=== PATIENT | female | born 1950 | race Caucasian/White ===

== ENCOUNTER → 2018-01-26 09:39 | Outpatient (CLI) | payer MEDICARE, SELFPAY ==
--- NOTE | 2018-01-26 09:48 | RAD_ITS ---
STUDY: X-RAY - LUMBAR SPINE REASON FOR EXAM: Female, 67 years old. Chronic low back pain and right hip pain. TECHNIQUE: AP and lateral view(s) of the lumbar spine were obtained. COMPARISON: None FINDINGS: Normal lumbar lordosis. There is no substantial scoliosis. Grade 1 anterior listhesis of L4 on L5 without spondylolysis. There is generalized demineralization of the vertebral bodies. Moderate degree of disc space narrowing at the L4-L5 and L5-S1 levels. Facet joint osteoarthritis. There is atherosclerotic calcification of the abdominal aorta without a demonstrated aneurysm. RAD/Lumbar Spine 2 or 3 Views IMPRESSION: Degenerative changes of the spine, as detailed above. Grade 1 anterolisthesis of L4 on L5 most likely secondary to facet joint osteoarthritis. Electronically Signed: Olivier Zaidi MD at 14:27 EDT Tel [phone], Service support ,
== END ==
PROVIDERS: Family Provider Family Medicine Geriatric Medicine; PCP Family Medicine Geriatric Medicine; Visit Provider Family Medicine Geriatric Medicine
DX: M54.5 Low back pain (principal)
CPT/HCPCS: 72100

== ENCOUNTER → 2018-03-15 11:13 | Outpatient (CLI) | payer MEDICARE, SELFPAY ==
[2018-03-15 12:48] LABS: Absolute Lymphocyte Count 2.84 X10^3/ul (0.83-4.51); Basophil# 0.02 X10^3/uL; Basophil% 0.2 % (0-1); Eosinophil# 0.08 X10^3/uL; Eosinophils% 0.7 % (0-5); Hematocrit 44.5 % (37-47); Hemoglobin 14.2 g/dl (12.0-15.0); Lymphocyte # 2.84 X10^3/ul (4.0); Mean Corp Hgb Conc 31.9 g/gl (32-36); Mean Corpuscular Volume 97.2 fL (81-99); Mean Platelet Vol. 11.2 fl (6.2-12.0); Monocyte# 0.92 X10^3/uL; Monocyte% 7.8 % (0-10); Neutrophil # 7.96 X10^3/uL (2.7-7.7); Neutrophil % 67.1 % (47-70); Platelet Count 235 K/mm3 (150-450); RBC Distribution Width CV 15.2 % (11.6-14.6); Red Blood Count 4.58 M/mm3 (4.2-5.4); White Blood Count 11.8 K/mm3 (4.4-11.0)
[2018-03-15 12:55] LABS: POSITIVE COUNT NO; POSITIVE DIFFERENTIAL NO; POSITIVE MORPHOLOGY NO
[2018-03-15 13:17] LABS: Vitamin D,25 Hydroxy 41.7 ng/mL (29.95-100.01)
[2018-03-15 13:29] LABS: ALB/GLOB Ratio 1.1 RATIO (0.9-2.4); AST(SGOT) 24 U/L (15-37); Alanine Aminotransfer ALT/SGPT 28 U/L (13-56); Albumin, Serum 3.7 g/dL (3.2-5.0); Alkaline Phosphatase 92 U/L (45-117); Anion Gap 9 (5-15); BUN 18 mg/dL (7-18); BUN/Creat Ratio 24.3 RATIO (10-20); Chloride 105 mmol/L (98-107); Creatinine, Serum 0.74 mg/dL (0.55-1.02); EST Glomerular Filtration Rate 83 mL/min (>60); Est Glom Filt Rate - Afr Amer 101 mL/min (>60); Globulin 3.5 g/dL (2.2-4.2); Glucose 78 mg/dL (74-106); Protein, Total 7.2 g/dL (6.4-8.2); Sodium Level 144 mmol/L (136-145); Thyroid Stim Hormone (TSH) 1.74 uIU/mL (0.358-3.74)
== END ==
PROVIDERS: Family Provider Family Medicine Geriatric Medicine; PCP Family Medicine Geriatric Medicine; Visit Provider Family Medicine Geriatric Medicine
DX: I10 Essential (primary) hypertension (principal); E55.9 Vitamin D deficiency, unspecified
CPT/HCPCS: 36415; 80053; 82306; 84443; 85025

== ENCOUNTER → 2018-09-15 09:55 | Outpatient (CLI) | payer MEDICARE, SELFPAY ==
[2018-09-15 12:23] LABS: Absolute Lymphocyte Count 3.01 X10^3/ul (0.83-4.51); Absolute Neutrophil Count 4.4 X10^3/uL (2.0-7.7); Basophil# 0.03 X10^3/uL; Basophil% 0.4 % (0-1); Eosinophil# 0.32 X10^3/uL; Eosinophils% 3.8 % (0-5); Hematocrit 44.1 % (37-47); Hemoglobin 14.1 g/dl (12.0-15.0); Lymphocyte # 3.01 X10^3/ul (4.0); Lymphocyte % 35.5 % (19-41); Mean Corpuscular Hgb 30.1 pg (27.0-32.0); Mean Corpuscular Volume 94.2 fL (81-99); Mean Platelet Vol. 11.4 fl (6.2-12.0); Monocyte# 0.71 X10^3/uL; Monocyte% 8.4 % (0-10); Neutrophil # 4.39 X10^3/uL (2.7-7.7); Neutrophil % 51.7 % (47-70); Platelet Count 231 K/mm3 (150-450); RBC Distribution Width CV 14.7 % (11.6-14.6); RBC Distribution Width SD 48.5 fl (35.1-43.9); Red Blood Count 4.68 M/mm3 (4.2-5.4); White Blood Count 8.5 K/mm3 (4.4-11.0)
[2018-09-15 12:28] LABS: POSITIVE COUNT NO; POSITIVE DIFFERENTIAL NO; POSITIVE MORPHOLOGY NO
[2018-09-15 12:30] LABS: Vitamin D,25 Hydroxy 41.8 ng/mL (29.95-100.01)
[2018-09-15 12:47] LABS: ALB/GLOB Ratio 1.1 RATIO (0.9-2.4); AST(SGOT) 31 U/L (15-37); Alanine Aminotransfer ALT/SGPT 33 U/L (13-56); Albumin, Serum 3.6 g/dL (3.2-5.0); Alkaline Phosphatase 91 U/L (45-117); Anion Gap 10 (5-15); BUN 13 mg/dL (7-18); Calcium,Total 9.6 mg/dL (8.5-10.1); Chloride 105 mmol/L (98-107); Creatinine, Serum 0.82 mg/dL (0.55-1.02); EST Glomerular Filtration Rate 75 mL/min (>60); Est Glom Filt Rate - Afr Amer 90 mL/min (>60); Globulin 3.3 g/dL (2.2-4.2); Glucose 103 mg/dL (74-106); Potassium 3.5 mmol/L (3.5-5.1); Protein, Total 6.9 g/dL (6.4-8.2); Sodium Level 143 mmol/L (136-145); Thyroid Stim Hormone (TSH) 5.28 uIU/mL (0.358-3.74)
--- OUTSIDE RECORDS SUMMARY | 2018-11-10 05:05 | XMS RPT_ITS ---
:1950 Author Organization OHIP Support Name Relationship Address Phone ANAYA HERNANDES Unavailable [address] + [place] [address] R Unavailable Unavailable Unavailable EVELYN HERNANDESIS Unavailable [address] + [place] [address] R Unavailable Unavailable Unavailable EVELYN HERNANDESIS Unavailable [address] + [place] [address] R Unavailable Unavailable Unavailable CECILIO ANAYA Unavailable [address] + [place] [address] R Unavailable Unavailable Unavailable CECILIO ANAYA Unavailable [address] + [place] [address] R Unavailable Unavailable Unavailable CECILIO ANAYA Unavailable [address] + [place] [address] R Unavailable Unavailable Unavailable CECILIO ANAYA Unavailable [address] + [place] [address] R Unavailable Unavailable Unavailable CECILIO, ANAYA Unavailable [address] + [place] [address] R Unavailable Unavailable Unavailable CECILIO, ANAYA Unavailable [address] + [place] [address] R Unavailable Unavailable Unavailable CECILIO ANAYA Unavailable [address] + [place] [address] R Unavailable Unavailable Unavailable CECILIO ANAYA Unavailable [address] + [place] [address] R Unavailable Unavailable Unavailable Care Team Providers Name Role Phone Dossie, Amber Araya Attending Unavailable Haris, Yonny Chi Referring Unavailable Haris, Yonny Chi Primary Care Unavailable Haris, Yonny Chi Attending Unavailable Haris, Yonny Chi Primary Care Unavailable Haris, Yonny Chi Attending Unavailable Haris, Yonny Chi Primary Care Unavailable Haris, Yonny Chi Attending Unavailable Haris, Yonny Chi Referring Unavailable Haris, Yonny Chi Primary Care Unavailable Haris, Yonny Chi Attending Unavailable Haris, Yonny Chi Primary Care Unavailable Dossie, Amber Araya Attending Unavailable Haris, Yonny Chi Referring Unavailable Dossie, Amber RobbCLuis Attending Unavailable Haris, Yonny Chi Referring Unavailable Haris, Yonny Chi Primary Care Unavailable Dossie, Amber Araya Attending Unavailable Haris, Yonny Chi Referring Unavailable Haris, Yonny Chi Primary Care Unavailable Dossie, Amber RobbCLuis Attending Unavailable Haris, Yonny Chi Referring Unavailable Dossie, Amber RobbCLuis Attending Unavailable Haris, Yonny Chi Referring Unavailable Dossie, Amber Araya Attending Unavailable Haris, Yonny Chi Referring Unavailable Haris, Yonny Chi Primary Care Unavailable PROBLEMS PROBLEMS DATE TYPE CONDITION / CODE ATTENDING STATUS SOURCE 03/15/2018 Unknown E55.9 - Vitamin D Haris, 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 Community dysfunction of Hospital pelvic region / Repository M99.05(ICD-10) 03/07/2018 Unknown M99.03 - Segmental Dossie, Amber Active [place] and somatic D.C. Community dysfunction of Hospital lumbar region / Repository M99.03(ICD-10) 03/07/2018 Unknown M99.02 - Segmental Dossie, Amber Active [place] and somatic D.C. Community dysfunction of Hospital thoracic region / Repository M99.02(ICD-10) 02/28/2018 Unknown M48.06 - Spinal Dossie, Amber Active [place] stenosis, lumbar D.C. [facility] region / Hospital M48.06(ICD-10) Repository 02/28/2018 Unknown M51.36 - Other Dossie, Amber Active [place] intervertebral disc D.C. Community degeneration, lumbar Hospital region / Repository M51.36(ICD-10) 02/28/2018 Unknown M48.061 - Spinal Dossie, Amber Active [place] stenosis, lumbar D.C. [facility] without Hospital neurogenic Repository claudication / M48.061(ICD-10) 01/26/2018 Unknown M54.5 - Low back Haris, Yonny Chi Active [place] pain / M54.5(ICD-10) [facility] Repository PROCEDURES PROCEDURES No Procedure Records FoundRESULTS RESULTS CBC W/DIFF, AUTOMATED Collected: 09/15/2018 Status: F Source: [place] 9:56 AM [facility] [place] CODE TESTS RESULT OUT OF RANGE REFERENCE UNITS LAB L100.1000 4.4-11.0 K/mm3 Normal WBC 8.5 LAB L100.1200 4.2-5.4 M/mm3 Normal RBC 4.68 LAB L100.1300 12.0-15.0 g/dl Normal HGB 14.1 LAB L100.1400 37-47 % Normal HCT 44.1 LAB L100.1500 81-99 fL Normal MCV 94.2 LAB L100.1600 27.0-32.0 pg Normal MCH 30.1 LAB L100.1700 32-36 g/gl Normal MCHC 32.0 LAB L100.1810 11.6-14.6 % High RDW CV 14.7 LAB L100.1820 35.1-43.9 fl High RDW SD 48.5 LAB L100.1900 150-450 K/mm3 Normal PLT 231 LAB L100.2000 6.2-12.0 fl Normal MPV 11.4 LAB L100.2100 47-70 % Normal NEUT% 51.7 LAB L100.2200 19-41 % Normal LY% 35.5 LAB L100.2300 0-10 % Normal MONO% 8.4 LAB L100.2400 0-5 % Normal EO% 3.8 LAB L100.2500 0-1 % Normal BASO% 0.4 LAB L100.2550 0.0-0.9 % Normal IM GRAN % 0.200 Result Comment: IG% - Immature Granulocytes (promyelocytes, myelocytes and metamyelocytes) > 1% indicates that a LEFT SHIFT is Present. LAB L100.2620 2.0-7.7 X10 3/uL Normal Absolute Neut 4.4 LAB L100.2720 0.83-4.51 X10 3/ul Normal Absolute Lymph 3.01 Performed By: #### L100.0100 #### [facility] [address] [place], [address] VITAMIN D,25 HYDROXY Collected: 09/15/2018 Status: F Source: [place] 9:56 AM [facility] [place] TYPE CODE TESTS RESULT OUT OF RANGE REFERENCE UNITS LAB L506.1000 29.95-100.01 ng/mL Normal Vitamin D 41.8 25-OH Result Comment: Vitamin D 25(OH) Status Range Deficiency <20 ng/mL (50nmol/L) Insuffciency 20 - 30 ng/mL (50 - 75 nmol/L) Sufficiency 30 - 100 ng/mL (75 - 250 nmol/L) Toxicity >100 ng/mL (>250 nmol/L) Performed By: #### L506.1000 #### [facility] [address] [place], [address] COMPREHENSIVE METABOLIC Collected: 09/15/2018 Status: F Source: [place] [facility] 9:56 AM [facility] [place] TYPE CODE TESTS RESULT OUT OF RANGE REFERENCE UNITS LAB L501.0100 74-106 mg/dL Normal GLU 103 Result Comment: Fasting Glucose result from 100 to 125 mg/dL suggests IMPAIRED HOMEOSTASIS per A.D.A. criteria. Please note revised GLUCOSE reference range effective 2017. LAB L501.1000 7-18 mg/dL Normal BUN 13 LAB L501.1100 0.55-1.02 mg/dL Normal CREAT,SERUM 0.82 Result Comment: The validity of the calculated GFR AND GFRAA in patients over 70 years has not been determined. Clinical correlation is essential. LAB L501.1110 >60 mL/min Normal EST GFR 75 Result Comment: Non- GFR Calc LAB L501.1115 >60 mL/min Normal EST GFR - AA 90 Result Comment: GFR Calc LAB L501.1300 10-20 RATIO Normal BUN/CRE 16.0 LAB L501.1500 6.4-8.2 g/dL T Normal PROT 6.9 LAB L501.1800 3.2-5.0 g/dL Normal ALB 3.6 LAB L501.1950 2.2-4.2 g/dL Normal GLOB 3.3 LAB L501.2000 0.9-2.4 RATIO Normal A/G 1.1 LAB L501.2200 8.5-10.1 mg/dL CA Normal 9.6 LAB L501.4100 15-37 U/L Normal AST 31 LAB L501.4305 45-117 U/L Normal ALK P 91 LAB L501.4405 13-56 U/L Normal ALT 33 LAB L501.4600 0.20-1.00 mg/dL T Normal BILI 0.50 LAB L501.5300 136-145 mmol/L NA Normal 143 LAB L501.5600 3.5-5.1 mmol/L K Normal 3.5 LAB L501.5900 98-107 mmol/L CL Normal 105 LAB L501.6100 21.0-32.0 mmol/L Normal CO2 28.0 LAB L501.6200 5-15 Normal GAP 10 Performed By: #### L500.4050, L501.9520 #### [facility] [address] [place], [address] THYROID STIM HORMONE Collected: 09/15/2018 Status: F Source: [place] ([facility]) 9:56 AM [facility] [place] TYPE CODE TESTS RESULT OUT OF RANGE REFERENCE UNITS LAB L501.9520 0.358-3.74 uIU/mL High TSH 5.28 Performed By: #### L500.4050, L501.9520 #### [facility] [address] [place], [address] CBC W/DIFF, AUTOMATED Collected: 03/15/2018 Status: F Source: [place] 11:14 AM [facility] [place] TYPE CODE TESTS RESULT OUT OF RANGE REFERENCE UNITS LAB L100.1000 4.4-11.0 K/mm3 High WBC 11.8 LAB L100.1200 4.2-5.4 M/mm3 Normal RBC 4.58 LAB L100.1300 12.0-15.0 g/dl Normal HGB 14.2 LAB L100.1400 37-47 % Normal HCT 44.5 LAB L100.1500 81-99 fL Normal MCV 97.2 LAB L100.1600 27.0-32.0 pg Normal MCH 31.0 LAB L100.1700 32-36 g/gl Low MCHC 31.9 LAB L100.1810 11.6-14.6 % High RDW CV 15.2 LAB L100.1820 35.1-43.9 fl High RDW SD 54.0 LAB L100.1900 150-450 K/mm3 Normal PLT 235 LAB L100.2000 6.2-12.0 fl Normal MPV 11.2 LAB L100.2100 47-70 % Normal NEUT% 67.1 LAB L100.2200 19-41 % Normal LY% 24.0 LAB L100.2300 0-10 % Normal MONO% 7.8 LAB L100.2400 0-5 % Normal EO% 0.7 LAB L100.2500 0-1 % Normal BASO% 0.2 LAB L100.2550 0.0-0.9 % Normal IM GRAN % 0.200 Result Comment: IG% - Immature Granulocytes (promyelocytes, myelocytes and metamyelocytes) > 1% indicates that a LEFT SHIFT is Present. LAB L100.2620 2.0-7.7 X10 3/uL High Absolute Neut 8.0 LAB L100.2720 0.83-4.51 X10 3/ul Normal Absolute Lymph 2.84 Performed By: #### L100.0100 #### [facility] [address] [place], [place], [address] VITAMIN D,25 HYDROXY Collected: 03/15/2018 Status: F Source: [place] 11:14 [facility] [place] REPOSITORY TYPE CODE TESTS RESULT OUT OF RANGE REFERENCE UNITS LAB L506.1000 29.95-100.01 ng/mL Normal Vitamin D 41.7 25-OH Result Comment: Vitamin D 25(OH) Status Range Deficiency <20 ng/mL (50nmol/L) Insuffciency 20 - 30 ng/mL (50 - 75 nmol/L) Sufficiency 30 - 100 ng/mL (75 - 250 nmol/L) Toxicity >100 ng/mL (>250 nmol/L) Performed By: #### L506.1000 #### [facility] [address] [facility] [facility] [place], [address] COMPREHENSIVE METABOLIC Collected: 03/15/2018 Status: F Source: [facility] 11:14 AM [facility] [place] TYPE CODE TESTS RESULT OUT OF RANGE REFERENCE UNITS LAB L501.0100 74-106 mg/dL Normal GLU 78 Result Comment: Please note revised GLUCOSE reference range effective 2017. LAB L501.1000 7-18 mg/dL Normal BUN 18 LAB L501.1100 0.55-1.02 mg/dL Normal CREAT,SERUM 0.74 Result Comment: The validity of the calculated GFR AND GFRAA in patients over 70 years has not been determined. Clinical correlation is essential. LAB L501.1110 >60 mL/min Normal EST GFR 83 Result Comment: Non- GFR Calc LAB L501.1115 >60 mL/min Normal EST GFR - AA 101 Result Comment: GFR Calc LAB L501.1300 10-20 RATIO High BUN/CRE 24.3 LAB L501.1500 6.4-8.2 g/dL T Normal PROT 7.2 LAB L501.1800 3.2-5.0 g/dL Normal ALB 3.7 LAB L501.1950 2.2-4.2 g/dL Normal GLOB 3.5 LAB L501.2000 0.9-2.4 RATIO Normal A/G 1.1 LAB L501.2200 8.5-10.1 mg/dL CA Normal 10.0 LAB L501.4100 15-37 U/L Normal AST 24 LAB L501.4305 45-117 U/L Normal ALK P 92 LAB L501.4405 13-56 U/L Normal ALT 28 LAB L501.4600 0.20-1.00 mg/dL T Normal BILI 0.50 LAB L501.5300 136-145 mmol/L NA Normal 144 LAB L501.5600 3.5-5.1 mmol/L K Normal 4.0 LAB L501.5900 98-107 mmol/L CL Normal 105 LAB L501.6100 21.0-32.0 mmol/L Normal CO2 30.0 LAB L501.6200 5-15 Normal GAP 9 Performed By: #### L500.4050, L501.9520 #### [facility] [address] [place], [address] THYROID STIM HORMONE Collected: 03/15/2018 Status: F Source: [place] ([facility]) 11:14 AM [facility] [place] TYPE CODE TESTS RESULT OUT OF RANGE REFERENCE UNITS LAB L501.9520 0.358-3.74 uIU/mL Normal TSH 1.74 Performed By: #### L500.4050, L501.9520 #### [facility] [address] [place], [address] CHIROPRACTIC REPORT Observed: 03/07/2018 Status: F Source: [place] 1:14 PM [facility] [place] [facility] [address] [place] [address] OFFICE VISIT Date of Service: 03/06/18 MR#: [id number] Acct: [id number] Name: CLARA RAMON Rep #: [id number] : 1950 Provider: Amber Colon D.C. Age/Sex: 67/F [place] [facility] [place]igned Intake Vital Signs03/06/18 Height 5 ft 3.5 in 03/06/18 Weight: 170 lb 03/06/18 Body Mass Index (BMI) 29.6 Intake Visit Reasons: back pain Chief Complaint: back pain Is patient in pain?: Yes Allergies Penicillins Allergy (Verified 06/02/17 11:46) Rash Medications Amlodipine [Norvasc] 5 mg PO DAILY 11/26/13 [History Confirmed 08/22/17] Aspirin [Aspirin, Baby] 81 mg PO DAILY@0800 11/26/13 [History Confirmed 08/22/17] Atorvastatin Calcium [Lipitor] 40 mg PO QHS 11/26/13 [History Confirmed 08/22/17] Duloxetine Hcl [Cymbalta] 60 mg PO DAILY 11/26/13 [History Confirmed 08/22/17] Meloxicam [Mobic] 15 mg PO DAILY 11/26/13 [History Confirmed 08/22/17] Multivitamins,Therapeutic [Multivitamin] 1 tab PO DAILY 11/26/13 [History Confirmed 08/22/17] Omeprazole [Prilosec] 40 mg PO DAILY 11/26/13 [History Confirmed 08/22/17] Pregabalin [Lyrica] 150 mg PO BID 11/26/13 [History Confirmed 08/22/17] traMADol [Ultram] 50 mg PO Q4H PRN PRN 11/26/13 [History Confirmed 08/22/17] traZODone [Desyrel] 100 mg PO QHS 11/26/13 [History Confirmed 08/22/17] Cholecalciferol (Vitamin D3) [Vitamin D3] 2,000 unit PO DAILY 02/21/17 [History Confirmed 08/22/17] Citrucel 2 cap PO TID 02/21/17 [History Confirmed 08/22/17] amlodipine 5 mg tablet 5 mg PO QDAY 02/07/18 [History Confirmed 02/07/18] pregabalin 150 mg capsule 150 mg PO BID 02/07/18 [History Confirmed 02/07/18] tramadol 50 mg tablet 50 mg PO ONCE 02/07/18 [History Confirmed 02/07/18] trazodone 100 mg tablet 100 mg PO QHS PRN 02/07/18 [History Confirmed 02/07/18] PFSH Medical History Arthritis (Acute) High cholesterol (Acute) Family History Other Arthritis CVA (cerebral vascular accident) Cancer Social History Smoking Status: Current every day smoker alcohol intake: never substance use type: does not use what type of physical activity do you participate in: none HPI back pain: Chief Complaint: back pain Visit Number: 4 Details: CLARA RAMON is a 67 year old F who presents with low back pain. She states that while working in the yard and around the house she needs to wear her back brace due to the pain. Today Clara rates her pain a 4/10 and describes it as a tight dull ache that comes and goes. Bending, lifting and twisting cause a sharp ache, although she denies any recent numbness, tingling. or radiculopathy. Location: low back Duration: intermittent Aggravating or associated factors: bending, lifting and twisting Relieving factors: using a brace Pain Quality: aching, dull, cramping Exam Musc General: Yes normal posture, normal gait, joint tenderness (T10, T11, L3, L4, L5, R SI) and decreased ROM Thoracic/Lumbar Spine: thor and lumb spine abnorm to inspection (flexed antalgia), Lasegue's sign positive on the right, pain with thoraco-lumbar ROM with forward flexion, with lateral flexion to the left and other (extension), paraspinal tenderness on the right greater than left (QL, glute), thoraco-lumbar ROM limited with forward flexion, with lateral flexion to the right and with lateral flexion to the left, thoraco-lumbar spasm on the right greater than left (QL, piriformis) Sacroiliac joints: on the right Office Procedures Chiropractic Treatments Procedures Manipulation: 3-4 regions (T10, L3, L5, RIL) Assessment AND Plan 1. Segmental and somatic dysfunction of pelvic region M99.05 Orders Orders: 2. Segmental and somatic dysfunction of lumbar region M99.03 Orders Orders: 3. Segmental and somatic dysfunction of thoracic region M99.02 Orders Orders: 4. Spinal stenosis of lumbar region, unspecified whether neurogenic claudication present M48.061 5. Lumbar degenerative disc disease M51.36 Plan Detail Goals Decrease pain and radiculopathy Increase ROM Barriers DDD Stenosis Anterolisthesis Follow Up 1 Week Coding Level of Care Code No Charge Diagnoses Segmental and somatic dysfunction of pelvic region M99.05 Segmental and somatic dysfunction of lumbar region M99.03 Segmental and somatic dysfunction of thoracic region M99.02 Spinal stenosis of lumbar region, unspecified whether neurogenic claudication present M48.061 Neurogenic claudication status: unspecified Lumbar degenerative disc disease M51.36 Additional Codes Procedures - Manipulation: 3-4 regions (47049) 03/07/18 1314 <Electronically signed by Amber Colon D.C.> Date Amber Colon D.C. Cosigner Signature: Date (if applicable) CC: CHIROPRACTIC REPORT Observed: 02/27/2018 Status: F Source: [place] 1:24 PM [facility] [address] [place] [id number] OFFICE VISIT Date of Service: 02/27/18 MR#: [id number] Acct: [id number] Name: CLARA RAMON Rep #: [id number] : 1950 Provider: Amber Colon D.C. Age/Sex: 67/F Location[facility] [place] Status: Signed Intake Vital Signs02/27/18 Height 5 ft 3.5 in 02/27/18 Weight: 170 lb 02/27/18 Body Mass Index (BMI) 29.6 Intake Visit Reasons: Back pain Chief Complaint: back pain Is patient in pain?: Yes Allergies Penicillins Allergy (Verified 06/02/17 11:46) Rash Medications Amlodipine [Norvasc] 5 mg PO DAILY 11/26/13 [History Confirmed 08/22/17] Aspirin [Aspirin, Baby] 81 mg PO DAILY@0800 11/26/13 [History Confirmed 08/22/17] Atorvastatin Calcium [Lipitor] 40 mg PO QHS 11/26/13 [History Confirmed 08/22/17] Duloxetine Hcl [Cymbalta] 60 mg PO DAILY 11/26/13 [History Confirmed 08/22/17] Meloxicam [Mobic] 15 mg PO DAILY 11/26/13 [History Confirmed 08/22/17] Multivitamins,Therapeutic [Multivitamin] 1 tab PO DAILY 11/26/13 [History Confirmed 08/22/17] Omeprazole [Prilosec] 40 mg PO DAILY 11/26/13 [History Confirmed 08/22/17] Pregabalin [Lyrica] 150 mg PO BID 11/26/13 [History Confirmed 08/22/17] traMADol [Ultram] 50 mg PO Q4H PRN PRN 11/26/13 [History Confirmed 08/22/17] traZODone [Desyrel] 100 mg PO QHS 11/26/13 [History Confirmed 08/22/17] Cholecalciferol (Vitamin D3) [Vitamin D3] 2,000 unit PO DAILY 02/21/17 [History Confirmed 08/22/17] Citrucel 2 cap PO TID 02/21/17 [History Confirmed 08/22/17] amlodipine 5 mg tablet 5 mg PO QDAY 02/07/18 [History Confirmed 02/07/18] pregabalin 150 mg capsule 150 mg PO BID 02/07/18 [History Confirmed 02/07/18] tramadol 50 mg tablet 50 mg PO ONCE 02/07/18 [History Confirmed 02/07/18] trazodone 100 mg tablet 100 mg PO QHS PRN 02/07/18 [History Confirmed 02/07/18] [facility] Medical History Arthritis (Acute) High cholesterol (Acute) Family History Other Arthritis CVA (cerebral vascular accident) Cancer Social History Smoking Status: Current every day smoker alcohol intake: never substance use type: does not use what type of physical activity do you participate in: none HPI Back pain: Chief Complaint: back pain Visit Number: 3 Details: CLARA RAMON is a 67 year old F who presents with low back pain. She states that since her last treatment her pain has slightly decreased, although when doing house and yard work the pain does still increase. Today Clara rates her pain a 4/10 and describes it as a deep sharp, tight ache, at times the pain is still radiating into the hips although she denies any numbness, or tingling. Location: low back Duration: constant Aggravating or associated factors: bending, lifting, twisting and pushing Pain Quality: aching, dull, sharp Exam Musc General: Yes normal posture, normal gait, joint tenderness (T10, T11, L3, L4, L5, R SI) and decreased ROM Thoracic/Lumbar Spine: thor and lumb spine abnorm to inspection (flexed antalgia), Lasegue's sign positive on the right, pain with thoraco-lumbar ROM with forward flexion, with lateral flexion to the left and other (extension), paraspinal tenderness on the right greater than left (QL, glute), thoraco-lumbar ROM limited with forward flexion, with lateral flexion to the right and with lateral flexion to the left, thoraco-lumbar spasm on the right greater than left (QL, piriformis) Sacroiliac joints: on the right Office Procedures Chiropractic Treatments Procedures Manipulation: 3-4 regions (T11, L3, L5, R SI) Assessment AND Plan 1. Segmental and somatic dysfunction of pelvic region M99.05 Orders Orders: 2. Segmental and somatic dysfunction of lumbar region M99.03 Orders Orders: 3. Segmental and somatic dysfunction of thoracic region M99.02 Orders Orders: 4. Spinal stenosis of lumbar region, unspecified whether neurogenic claudication present M48.061 5. Lumbar degenerative disc disease M51.36 Orders Orders: Plan Detail Other Orders Orders: Goals Decrease pain and radiculopathy Increase ROM Barriers DDD Stenosis Anterolisthesis Follow Up 1 Week Coding Level of Care Code No Charge Diagnoses Segmental and somatic dysfunction of pelvic region M99.05 Segmental and somatic dysfunction of lumbar region M99.03 Segmental and somatic dysfunction of thoracic region M99.02 Spinal stenosis of lumbar region, unspecified whether neurogenic claudication present M48.061 Neurogenic claudication status: unspecified Lumbar degenerative disc disease M51.36 Additional Codes Procedures - Manipulation: 3-4 regions (87290) 02/27/18 1324 <Electronically signed by Amber Colon D.C.> Date Amber Colon D.C. Cosigner Signature: Date (if applicable) CC: CHIROPRACTIC REPORT Observed: 02/13/2018 Status: F Source: [place] 4:05 PM [facility] [address] [place] [address] OFFICE VISIT Date of Service: 02/09/18 MR#: [id number] Acct: [id number] Name: CLARA RAMON Rep #: [id number] : 1950 Provider: Amber Colon D.C. Age/Sex: 67/F [place] [facility] [place]: Signed Intake Vital Signs02/09/18 Height 5 ft 3.5 in 02/09/18 Weight: 170 lb 8 oz 02/09/18 Body Mass Index (BMI) 29.7 Intake Visit Reasons: back pain Chief Complaint: low back pain Is patient in pain?: Yes Allergies Penicillins Allergy (Verified 06/02/17 11:46) Rash Medications Amlodipine [Norvasc] 5 mg PO DAILY 11/26/13 [History Confirmed 08/22/17] Aspirin [Aspirin, Baby] 81 mg PO DAILY@0800 11/26/13 [History Confirmed 08/22/17] Atorvastatin Calcium [Lipitor] 40 mg PO QHS 11/26/13 [History Confirmed 08/22/17] Duloxetine Hcl [Cymbalta] 60 mg PO DAILY 11/26/13 [History Confirmed 08/22/17] Meloxicam [Mobic] 15 mg PO DAILY 11/26/13 [History Confirmed 08/22/17] Multivitamins,Therapeutic [Multivitamin] 1 tab PO DAILY 11/26/13 [History Confirmed 08/22/17] Omeprazole [Prilosec] 40 mg PO DAILY 11/26/13 [History Confirmed 08/22/17] Pregabalin [Lyrica] 150 mg PO BID 11/26/13 [History Confirmed 08/22/17] traMADol [Ultram] 50 mg PO Q4H PRN PRN 11/26/13 [History Confirmed 08/22/17] traZODone [Desyrel] 100 mg PO QHS 11/26/13 [History Confirmed 08/22/17] Cholecalciferol (Vitamin D3) [Vitamin D3] 2,000 unit PO DAILY 02/21/17 [History Confirmed 08/22/17] Citrucel 2 cap PO TID 02/21/17 [History Confirmed 08/22/17] amlodipine 5 mg tablet 5 mg PO QDAY 02/07/18 [History Confirmed 02/07/18] pregabalin 150 mg capsule 150 mg PO BID 02/07/18 [History Confirmed 02/07/18] tramadol 50 mg tablet 50 mg PO ONCE 02/07/18 [History Confirmed 02/07/18] trazodone 100 mg tablet 100 mg PO QHS PRN 02/07/18 [History Confirmed 02/07/18] PFSH Medical History Arthritis (Acute) High cholesterol (Acute) Family History Other Arthritis CVA (cerebral vascular accident) Cancer Social History Smoking Status: Current every day smoker alcohol intake: never substance use type: does not use what type of physical activity do you participate in: none HPI back pain : Chief Complaint: back pain Visit Number: 2 Details: CLARA RAMON is a 67 year old F who presents with low back pain. She states that today her pain is tight and stiff banding across the low back, today she rates her pain a 4/10. Bending, lifting, twisting, and leaning forward still cause increased low back pain. At times the pain will radiate into the hips although she denies any numbness or tingling. Location: low back Duration: constant Aggravating or associated factors: bending, lifting, twisting and leaning forward Relieving factors: heat Pain Quality: aching, dull, sharp Exam Musc General: Yes normal posture, normal gait, joint tenderness (T10, T11, L3, L4, L5, R SI) and decreased ROM Thoracic/Lumbar Spine: thor and lumb spine abnorm to inspection (flexed antalgia), Lasegue's sign positive on the right, pain with thoraco-lumbar ROM with forward flexion, with lateral flexion to the left and other (extension), paraspinal tenderness on the right greater than left (QL, glute), thoraco-lumbar ROM limited with forward flexion, with lateral flexion to the right and with lateral flexion to the left, thoraco-lumbar spasm on the right greater than left (QL, piriformis) Sacroiliac joints: on the right Office Procedures Chiropractic Treatments Procedures Manipulation: 3-4 regions (T10, L3, L5, RIL) Assessment AND Plan 1. Segmental and somatic dysfunction of pelvic region M99.05 Orders Orders: 2. Segmental and somatic dysfunction of lumbar region M99.03 Orders Orders: 3. Segmental and somatic dysfunction of thoracic region M99.02 Orders Orders: Plan Detail Goals Decrease pain and radiculopathy Increase ROM Barriers DDD Stenosis Anterolisthesis Follow Up 2 x week Coding Level of Care Code No Charge Diagnoses Segmental and somatic dysfunction of pelvic region M99.05 Segmental and somatic dysfunction of lumbar region M99.03 Segmental and somatic dysfunction of thoracic region M99.02 Additional Codes Procedures - Manipulation: 3-4 regions (02410) 02/13/18 1603 <Electronically signed by Amber Colon D.C.> Date Amber Colon D.C. [facility] Signature: Date (if applicable) CC: CHIROPRACTIC REPORT Observed: 02/09/2018 Status: F Source: [place] 12:47 PM [facility] [address] [place] [address] OFFICE VISIT Date of Service: 02/07/18 MR#: [id number] Acct: [id number] Name: CLARA RAMON Rep #: [id number] : 1950 Provider: Amber Colon D.C. Age/Sex: 67/F [place] [facility] [place] Intake Vital Signs02/07/18 Height 5 ft 3.5 in 02/07/18 Weight: 170 lb 8 oz 02/07/18 Body Mass Index (BMI) 29.7 Intake Visit Reasons: Back pain Is patient in pain?: Yes Allergies Penicillins Allergy (Verified 06/02/17 11:46) Rash Medications Amlodipine [Norvasc] 5 mg PO DAILY 11/26/13 [History Confirmed 08/22/17] Aspirin [Aspirin, Baby] 81 mg PO DAILY@0800 11/26/13 [History Confirmed 08/22/17] Atorvastatin Calcium [Lipitor] 40 mg PO QHS 11/26/13 [History Confirmed 08/22/17] Duloxetine Hcl [Cymbalta] 60 mg PO DAILY 11/26/13 [History Confirmed 08/22/17] Meloxicam [Mobic] 15 mg PO DAILY 11/26/13 [History Confirmed 08/22/17] Multivitamins,Therapeutic [Multivitamin] 1 tab PO DAILY 11/26/13 [History Confirmed 08/22/17] Omeprazole [Prilosec] 40 mg PO DAILY 11/26/13 [History Confirmed 08/22/17] Pregabalin [Lyrica] 150 mg PO BID 02/10/14 [History Confirmed 08/22/17] traMADol [Ultram] 50 mg PO Q4H PRN PRN 11/26/13 [History Confirmed 08/22/17] traZODone [Desyrel] 100 mg PO QHS 11/26/13 [History Confirmed 08/22/17] Cholecalciferol (Vitamin D3) [Vitamin D3] 2,000 unit PO DAILY 02/21/17 [History Confirmed 08/22/17] Citrucel 2 cap PO TID 02/21/17 [History Confirmed 08/22/17] amlodipine 5 mg tablet 5 mg PO QDAY 02/07/18 [History Confirmed 02/07/18] pregabalin 150 mg capsule 150 mg PO BID 02/07/18 [History Confirmed 02/07/18] tramadol 50 mg tablet 50 mg PO ONCE 02/07/18 [History Confirmed 02/07/18] trazodone 100 mg tablet 100 mg PO QHS PRN 02/07/18 [History Confirmed 02/07/18] PFSH Medical History Arthritis (Acute) High cholesterol (Acute) Family History Other Arthritis CVA (cerebral vascular accident) Cancer Social History Smoking Status: Current every day smoker alcohol intake: never substance use type: does not use what type of physical activity do you participate in: none HPI Back pain: Chief Complaint: low back pain Visit Number: 1 Referral source: Details: CLARA RAMON is a 67 year old F who presents with R sided low back pain, she states that pain has been ongoing for roughly 7 years. Clara has been seen by pain management and had injections with improvement. Clara described the pain as a sharp deep ache that is constant, bending, twisting and prolonged standing all cause increased pain, at its worst the pain is rated a 10/10. At times the pain does radiate into the R leg with slight numbness and tingling, although this rarely occurs. Ice does at times help decrease the pain. currently she denies any numbness or tingling. Mrs. Ramon has also been through PT, which did not help her condition. Onset: 10/17/10 Location: R sided low back Duration: constant Aggravating or associated factors: bending, twisting and prolonged standing Relieving factors: ice Pain Quality: aching, dull, sharp, radiating Exam Musc General: Yes normal posture, normal gait, joint tenderness (T10, T11, L3, L4, L5, R SI) and decreased ROM Thoracic/Lumbar Spine: thor and lumb spine abnorm to inspection (flexed antalgia), Lasegue's sign positive on the right, pain with thoraco-lumbar ROM with forward flexion, with lateral flexion to the left and other (extension), paraspinal tenderness on the right greater than left (QL, glute), thoraco-lumbar ROM limited with forward flexion, with lateral flexion to the right and with lateral flexion to the left, thoraco-lumbar spasm on the right greater than left (QL, piriformis) Sacroiliac joints: on the right Neuro General: alert, awake, oriented x3, gait abnormal (flexed), normal light touch, pain and propioception, no focal motor deficits Ortho Test CERVICAL THORACIC LUMBAR Kemps: Positive, Rig Valsalvas: Negative SLR: Positive, Rig Braggards: Negative Iliac Compression: Positive, Rig Assessment AND Plan 1. DDD (degenerative disc disease), lumbar M51.36 2. Lumbar radiculopathy, chronic M54.16 3. Segmental and somatic dysfunction of thoracic region M99.02 4. Segmental and somatic dysfunction of lumbar region M99.03 5. Segmental and somatic dysfunction of pelvic region M99.05 Plan Detail Additional Comments Reviewed imaging previously obtained. Goals Decrease pain and radiculopathy Increase ROM Barriers DDD Stenosis Anterolisthesis Follow Up 2 Days Coding Level of Care Code Off vis,new,level 3 Diagnoses DDD (degenerative disc disease), lumbar M51.36 Lumbar radiculopathy, chronic M54.16 Segmental and somatic dysfunction of thoracic region M99.02 Segmental and somatic dysfunction of lumbar region M99.03 Segmental and somatic dysfunction of pelvic region M99.05 02/09/18 3617 <Electronically signed by Amber Colon D.C.> Date Amber Colon D.C. Cosigner Signature: Date (if applicable) CC: LUMBAR SPINE 2 OR 3 Observed: 01/26/2018 Status: F Source: [place] VIEWS 9:46 AM [facility] REPOSITORY [facility] [place] [address] Lumbar Spine 2 or 3 Views MR#: [id number] Acct: [id number] Name: CLARA RAMON Rep #: [id number] : 1950 F 67 From: Olivier Zaidi MD PCP: Yonny Carballo MD, Chi Status: REG CLI Study: Lumbar Spine 2 or 3 Views Date of Exam: 01/26/18 Exam# [id number] Ordering Dr: Yonny Carballo MD STUDY: X-RAY - LUMBAR SPINE REASON FOR EXAM: Female, 67 years old. Chronic low back pain and right hip pain. TECHNIQUE: AP and lateral view(s) of the lumbar spine were obtained. COMPARISON: None FINDINGS: Normal lumbar lordosis. There is no substantial scoliosis. Grade 1 anterior listhesis of L4 on L5 without spondylolysis. There is generalized demineralization of the vertebral bodies. Moderate degree of disc space narrowing at the L4-L5 and L5-S1 levels. Facet joint osteoarthritis. There is atherosclerotic calcification of the abdominal aorta without a demonstrated aneurysm. RAD/Lumbar Spine 2 or 3 Views IMPRESSION: Degenerative changes of the spine, as detailed above. Grade 1 anterolisthesis of L4 on L5 most likely secondary to facet joint osteoarthritis. Electronically Signed: Olivier Zaidi MD at 14:27 EDT Tel [phone], Service support , CC: Yonny Carballo MD Embossograph Operator: Signed BASIC METABOLIC Collected: 10/05/2017 Status: F Source: [place] PROFILE (BMP) 10:59 AM [facility] [place] TYPE CODE TESTS RESULT OUT OF RANGE REFERENCE UNITS LAB L501.0100 70-110 mg/dL Normal GLU 101 LAB L501.1000 7-18 mg/dL Normal BUN 14 LAB L501.1100 0.55-1.02 mg/dL Normal 0.70 CREAT,SERUM Result Comment: The validity of the calculated GFR AND GFRAA in patients over 70 years has not been determined. Clinical correlation is essential. LAB L501.1110 >60 mL/min Normal EST GFR 88 Result Comment: Non- GFR Calc LAB L501.1115 >60 mL/min Normal EST GFR - AA 107 Result Comment: GFR Calc LAB L501.1300 10-20 RATIO Normal BUN/CRE 19.9 LAB L501.2200 8.5-10.1 mg/dL CA Normal 9.5 LAB L501.5300 136-145 mmol/L NA Normal 142 LAB L501.5600 3.5-5.1 mmol/L K Normal 3.9 LAB L501.5900 98-107 mmol/L CL Normal 106 LAB L501.6100 21.0-32.0 mmol/L Normal CO2 29.0 LAB L501.6200 5-15 Normal GAP 7 Performed By: #### L500.2500 #### [facility] [address]. [place], [place], [address] ALLERGIES ALLERGIES DATE TYPE / CODE NAME / CODE REACTION SEVERITY SOURCE 06/02/2017 Drug Penicillins/ Rash Unknown [facility] Allergy/4160 [id number]( Hospital 34754(SNOMED XNORM) Repository CT) ENCOUNTERS ENCOUNTERS ADMIT/DISCHARGE ACCOUNT ADMITTING ENCOUNTER LOCATION SOURCE NUMBER CLASS 09/15/2018 [id number] [place] 8 [facility] ing:POLAB3 Repository 03/16/2018 [id number] Ambulatory [facility]:B [place] 3 [facility] Repository 03/15/2018 [id number] Ambulatory [facility] 6 [facility] ing:POLAB3 Repository 03/06/2018/ [id number] Ambulatory BMSBuilding:B [place] 8 4 [facility] Repository 02/27/2018/ [id number] Ambulatory [facility]:[place] 8 3 [facility] Repository 02/14/2018 [id number] Ambulatory [facility]:B [place] 7 [facility] Repository 02/13/2018 [id number] Ambulatory B[facility]:B [place] 5 [facility] Repository 02/09/2018/ [id number] Ambulatory B[facility]Building:B [place] 8 3 [facility] Repository 02/07/2018/ [id number] Ambulatory BMSBuilding:B [place] 8 4 [facility] Repository 01/26/2018 [id number] Ambulatory [place] 4 [facility] ing:RAD Repository 10/05/2017 [id number] Ambulatory [place] 5 [facility] ing:POLAB3 Repository PAYERS PAYERS ENCOUNTER GUARANTOR PAYER SUBSCRIBER SOURCE 09/15/2018 Clara K Primary Clara Jacobo [place] [id number] [facility] [place] MED[place]Policy [id number], Number: Repository [place] [address]Vik: [id number] Date:2516-87-45YU BOX (AN) [address] [place] [address]WM: 09/15/2018 Secondary NOT GIVENUNK [place] Insurance:SELF PAY [facility] Number: Effective Repository Date:2018-09-15 03/16/2018 Clara Jacobo Primary Clara Jacobo [place] [id number] Insurance[facility] [place]DOB: [place] MEDICAREPolicy [id number] Francis Medical Center, Number: Repository [place] [address]Jgb: [id number] Date:2917-70-07ZU BOX (SH) [address] [place] [address]HI: 03/16/2018 Secondary NOT GIVENUNK [place] Insurance:SELF PAY [facility] Number: Effective Repository Date:2018-03-06 03/15/2018 Clara Jacobo Primary Clara Jacobo [place] [id number] Insurance[facility] [place] [facility] [place] MED[facility]Policy [id number] Francis Medical Center, Number: Repository [place] [address]Pyp: [id number] Date:1794-98-77NK [address] () [address] [place] [address]YM: 03/15/2018 Secondary NOT GIVENUNK [place] Insurance:SELF PAY [facility]: Effective Repository Date:2018-03-15 03/06/2018 Clara Jacobo Primary Clara Jacobo [place] [id number] Insurance:[facility] [place]: [place] MEDICAREPolicy [id number] Francis Medical Center, Number: Repository [place] [address]Yax: [id number] Date:4657-62-42EF [address] () [address] [place] [address]YC: 03/06/2018 Secondary NOT GIVENUNK [place] Insurance:SELF PAY [facility] Number: Effective Repository Date:2018-03-06 02/27/2018 Clara Jacobo Primary Clara Jacobo [place] [id number] Insurance:[facility] [employer] [place]: [place] [facility] [id number] Francis Medical Center, Number: Repository [place] [id number]: [id number] Date:5681-01-65YW B[address] () [address] [place] [address]JO: 02/27/2018 Secondary NOT GIVENUNK [place] Insurance:SELF PAY [facility] Number: Effective Repository Date:2018-02-27 02/14/2018 Clara Jacobo Primary Clara Jacobo [place] [id number] Insurance:[employer] C[facility] [place]: [place] [facility] [id number] Francis Medical Center, Number: Repository [place] [address]Hzr: [id number] Date:9498-47-27OO BOX () [address] [address]FH: 02/14/2018 Secondary NOT GIVENUNK [place] Insurance:SELF PAY [facility] Number: Effective Repository Date:2018-02-07 02/13/2018 Clara K Primary Clara K [place] [id number] Insurance:[facility] [employer] [place]OB: [place] [facility] [id number] [facility] Medical [facility], Number: Repository [place] [address]Ipc: [id number] Date:7236-98-10VE BOX (HP) [address] [place] [address]CQ: 02/13/2018 Secondary NOT GIVENUNK [place] Insurance:SELF PAY [facility] Number: Effective Repository Date:2018-02-07 02/09/2018 Clara K Primary Clara K [place] [id number] Insurance:[employer] [place]OB: [place] [facility] [id number] Francis Medical [facility], Number: Repository [place] [address]Qhx: [id number] Date:2280-71-23JO BOX (HP) [address] [place] [address]NO: 02/09/2018 Secondary NOT GIVENUNK [place] Insurance:SELF PAY [facility] Number: Effective Repository Date:2018-02-09 02/07/2018 Clara Odalis Primary Clara K [place] [id number] Insurance:[facility] CARE [place]DOB: [facility] [place] MED[place] [id number] Francis Medical Center, Number: Repository [place] [address]Rqa: [id number] Date:8330-89-01AL BOX (HP) [address] [place] [address]LF: 02/07/2018 Secondary NOT GIVENUNK [place] Insurance:SELF PAY [facility] Number: Effective Repository Date:2018-02-07 01/26/2018 Clara K Primary Clara K [place] [id number] Insurance:[employer] CARE [place]DOB: [facility] [place] MED[place] [id number] Francis Medical Center, Number: Repository [place] [address]Nix: [id number] Date:9635-79-86UP BOX (HP) [address] [place] [address]QL: 01/26/2018 Secondary NOT GIVENUNK [place] Insurance:SELF PAY [facility] Number: Effective Repository Date:2018-01-26 10/05/2017 Clara Jacobo Primary Clara Kumar [id number] Insurance:[employer] C[employer] [place]DOB: [place] MEDICAREPoly [id number] Francis Medical Center, Number: Repository [place] [address]Cec: [id number] Date:0815-66-20PP [address] ( [address], [place] [address]FH: 10/05/2017 Secondary NOT GIVENUNK [place] Insurance:SELF PAY [facility] Number: Effective Repository Date:2017-10-05
== END ==
PROVIDERS: Family Provider Family Medicine Geriatric Medicine; PCP Family Medicine Geriatric Medicine; Visit Provider Family Medicine Geriatric Medicine
DX: I10 Essential (primary) hypertension (principal); E55.9 Vitamin D deficiency, unspecified
CPT/HCPCS: 36415; 80053; 82306; 84443; 85025

== ENCOUNTER → 2018-10-06 10:09 | Outpatient (CLI) | payer MEDICARE, SELFPAY ==
--- NOTE | 2018-10-06 10:11 | US_ITS ---
STUDY: THYROID ULTRASOUND REASON FOR EXAM: Female, 68 years old. Nodule felt by doctor. TECHNIQUE: Ultrasound evaluation of the thyroid was performed with real-time and static julien-scale imaging. COMPARISON: None. FINDINGS: RIGHT LOBE: The right lobe of the thyroid gland measures 5.0 x 1.6 x 1.5 cm. There is a homogeneous echotexture. There is a 2.6 x 1.6 x 2.5 mm well-circumscribed anechoic focus within the right lobe of the gland most consistent with an underlying colloid cyst. LEFT LOBE: The left lobe of the thyroid gland measures 5.1 x 1.6 x 1.2 cm. There is a homogeneous echotexture. Within the lower pole there is a solid and hypervascular 1.3 x 0.7 x 1.2 cm nodule. ISTHMUS: There is a 2.3 x 1.7 x 2.3 cm complex cystic nodule within the isthmus that is left of midline. US/Thyroid IMPRESSION: 2.3 x 1.7 x 2.3 cm complex cystic nodule within the isthmus left of midline. 1.3 x 0.7 x 1.2 cm solid nodule within the left lobe of the gland. Enlarged thyroid gland. Electronically Signed: Lorri Levy MD at 17:05 EST Tel , Service support ,
== END ==
PROVIDERS: Family Provider Family Medicine Geriatric Medicine; PCP Family Medicine Geriatric Medicine; Referring Provider Family Medicine Geriatric Medicine; Visit Provider Family Medicine Geriatric Medicine
DX: E04.1 Nontoxic single thyroid nodule (principal)
CPT/HCPCS: 76536

== ENCOUNTER → 2018-11-02 16:34 | Outpatient (CLI) | payer MEDICARE, SELFPAY ==
[2018-10-31 14:21] VITALS: BMI 29.4
--- NOTE | 2018-11-02 16:39 | BI_ITS ---
MAMMOGRAPHY - BILATERAL SCREENING REASON FOR EXAM: Female, 68 years old. Routine annual screening examination. PERTINENT HISTORY: Non-contributory. TECHNIQUE: Digital bilateral breast kelley (3D mammographic acquisition) in the CC and MLO projections. 2-D mediolateral oblique (MLO) and craniocaudad (CC) views of both breasts were obtained. CAD: Full Field Digital Mammography with Computer Added Detection was performed. COMPARISON: Comparison is made with prior study dated October 01, 2016 and July 17, 2014. FINDINGS: Breast Composition: The breasts are almost entirely fatty. There are no dominant masses or suspicious calcifications. Stable benign-appearing bilateral axillary lymph nodes. No other significant abnormalities are identified. There has been no significant change since the prior study. BI/SCREENING MAMM (CAD), BILAT IMPRESSION: Stable bilateral screening mammogram. Yearly follow-up mammogram recommended. (A) ASSESSMENT CATEGORY: BIRADS Category 2: Benign. A letter regarding these results will be sent to the patient by the facility within 30 days. Approximately 10% of breast cancers are not detected by mammography. A normal mammogram should not delay biopsy of a clinically suspicious abnormality. [id number] Electronically Signed: Olivier Zaidi MD at 7:54 EST Tel [phone], Service support ,
--- OUTSIDE RECORDS SUMMARY | 2019-01-07 11:56 | XMS RPT_ITS ---
:1950 Author Organization OHIP Support Name Relationship Address Phone ANAYA HOANG Unavailable [address] + [place] [address] R Unavailable Unavailable Unavailable HOANG, ANAYA Unavailable [address] + [place] [address] R Unavailable Unavailable Unavailable HOANG, ANAYA Unavailable [address] + [place] [address] R Unavailable Unavailable Unavailable HOANG, ANAYA Unavailable [address] + [place] [address] R Unavailable Unavailable Unavailable HOANG, ANAYA Unavailable [address] + [place] [address] R Unavailable Unavailable Unavailable HOANG, ANAYA Unavailable [address] + [place] [address] R Unavailable Unavailable Unavailable HOANG, ANAYA Unavailable [address] + [place] [address] R Unavailable Unavailable Unavailable HOANG, ANAYA Unavailable [address] + [place] [address] R Unavailable Unavailable Unavailable HOANG, ANAYA Unavailable [address] + [place] [address] R Unavailable Unavailable Unavailable CECILIO, ANAYA Unavailable [address] + [place] [address] R Unavailable Unavailable Unavailable CECILIO, ANAYA Unavailable [address] + [place] [address] R Unavailable Unavailable Unavailable CECILIO, ANAYA Unavailable [address] + [place] [address] R Unavailable Unavailable Unavailable CECILIO, ANYAA Unavailable [address] + [place] [address] R Unavailable Unavailable Unavailable CECILIO, ANAYA Unavailable [address] + [place] [address] R Unavailable Unavailable Unavailable CECILIO, ANAYA Unavailable [address] + [place] [address] R Unavailable Unavailable Unavailable CECILIO, ANAYA Unavailable [address] + [place] [address] R Unavailable Unavailable Unavailable CECILIO, ANAYA Unavailable [address] + [place] [address] R Unavailable Unavailable Unavailable CECILIO, ANAYA Unavailable [address] + [place] [address] R Unavailable Unavailable Unavailable CECILIO, ANAYA Unavailable [address] + [place] [address] R Unavailable Unavailable Unavailable Care Team Providers Name Role Phone Haris, Yonny Chi Attending Unavailable Haris, Yonny Chi Primary Care Unavailable Rufino Thornton Attending Unavailable Rufino Thornton Referring Unavailable Haris, Yonny Chi Primary Care Unavailable Haris, Yonny Chi Attending Unavailable Haris, Yonny Chi Primary Care Unavailable DossieAmber D.C. Attending Unavailable Haris, Yonny Chi Referring Unavailable Haris, Yonny Chi Attending Unavailable Haris, Yonny Chi Primary Care Unavailable DossieAmber D.C. Attending Unavailable Haris, Yonny Chi Referring Unavailable Haris, Yonny Chi Primary Care Unavailable DossieAmber D.C. Attending Unavailable Haris, Yonny Chi Referring Unavailable Haris, Yonny Chi Primary Care Unavailable DossieAmber D.C. Attending Unavailable Haris, Yonny Chi Referring Unavailable DossieAmber D.C. Attending Unavailable Haris, Yonny Chi Referring Unavailable DossieAmber D.C. Attending Unavailable Haris, Yonny Chi Referring Unavailable Haris, Yonny Chi Primary Care Unavailable DossieAmber D.C. Attending Unavailable Haris, Yonny Chi Referring Unavailable Haris, Yonny Chi Primary Care Unavailable Haris, Yonny Chi Attending Unavailable Haris, Yonny Chi Referring Unavailable Haris, Yonny Chi Primary Care Unavailable Rufino Thornton Attending Unavailable Haris, Yonny Chi Referring Unavailable CebuRufino leos Attending Unavailable Cebul Rufino Referring Unavailable Haris, Yonny Chi Primary Care Unavailable Rufino Thornton Consulting Unavailable Haris, Yonny Chi Attending Unavailable Haris, Yonny Chi Referring Unavailable Haris, Yonny Chi Primary Care Unavailable Cebul, Rufino Attending Unavailable Cebul, Rufino Referring Unavailable Haris, Yonny Chi Primary Care Unavailable Cebul, Rufino Attending Unavailable Haris, Yonny Chi Referring Unavailable Nurse, Surgery Attending Unavailable Haris, Yonny Chi Referring Unavailable Haris, Yonny Chi Attending Unavailable Haris, Yonny Chi Referring Unavailable Haris, Yonny Chi Primary Care Unavailable PROBLEMS PROBLEMS DATE TYPE CONDITION / CODE ATTENDING STATUS SOURCE 10/12/2018 Unknown E03.9 - Haris, Yonny Chi Active [facility] Hypothyroidism, Community unspecified / Hospital E03.9(ICD-10) Repository 11/08/2018 Unknown E04.2 - Nontoxic Cebul, Rufino Active [facility] multinodular goiter Community / E04.2(ICD-10) Hospital Repository 11/08/2018 Unknown I65.29 - Occlusion Cebul, Rufino Active [facility] and stenosis of Community unspecified carotid Hospital artery / Repository I65.29(ICD-10) 11/03/2018 Unknown I65.22 - Occlusion Cebul, Rufino Active [facility] and stenosis of left Community carotid artery / Hospital I65.22(ICD-10) Repository 03/15/2018 Unknown E55.9 - Vitamin D Haris, Yonny Chi Active [facility] deficiency, Community unspecified / Hospital E55.9(ICD-10) Repository 03/15/2018 Unknown I10 - Essential Haris, Yonny Chi Active [facility] (primary) Community hypertension / Hospital I10(ICD-10) Repository 03/07/2018 Unknown M99.05 - Segmental Dossie, Amber Active [facility] and somatic D.C. Community dysfunction of Hospital pelvic region / Repository M99.05(ICD-10) 03/07/2018 Unknown M99.03 - Segmental Dossie, Amber Active [facility] and somatic D.C. Community dysfunction of Hospital lumbar region / Repository M99.03(ICD-10) 03/07/2018 Unknown M99.02 - Segmental Dossie, Amber Active [facility] and somatic [facility].C. Community dysfunction of Hospital thoracic region / Repository M99.02(ICD-10) 02/28/2018 Unknown M48.06 - Spinal Dossie, Amber Active [facility] stenosis, lumbar [facility] Community region / Hospital M48.06(ICD-10) Repository 02/28/2018 Unknown M51.36 - Other DossieAmber Active [facility] intervertebral disc D.C. [facility] degeneration, lumbar Hospital region / Repository M51.36(ICD-10) 02/28/2018 Unknown M48.061 - Spinal Dossie, Amber Active [facility] stenosis, lumbar D.C. [facility] region without Hospital neurogenic Repository claudication / M48.061(ICD-10) 01/26/2018 Unknown M54.5 - Low back Haris, Yonny Chi Active [facility] pain / M54.5(ICD-10) [facility] Hospital Repository PROCEDURES PROCEDURES No Procedure Records FoundRESULTS RESULTS SURGERY VISIT REPORT Observed: 11/08/2018 Status: F Source: [facility] 8:32 AM [facility] REPOSIT[facility] [address] [place] [address] [address] [place] [address] OFFICE VISIT Date of Service: 11/08/18 MR#: [id number] Acct: [id number] Name: CLARA RAMON Odalis Rep #: [id number] : 1950 Provider: Rufino Thornton MD Age/Sex: 68/F Location: [facility] Status: Signed Intake Intake Visit Reasons: left thyroid cyst aspiration and FNA Chief Complaint: left thyroid FNA Jacquard Twine Polisher Operator Required: No Is patient in pain?: No Allergies Penicillins Allergy (Verified 11/08/18 08:07) Rash Medications Aspirin [Aspirin, Baby] 81 mg PO DAILY@0800 11/26/13 [History Confirmed 10/31/18] Atorvastatin Calcium [Lipitor] 40 mg PO QHS 11/26/13 [History Confirmed 10/31/18] Duloxetine Hcl [Cymbalta] 60 mg PO DAILY 11/26/13 [History Confirmed 10/31/18] Multivitamins,Therapeutic [Multivitamin] 1 tab PO DAILY 11/26/13 [History Confirmed 10/31/18] Omeprazole [Prilosec] 40 mg PO DAILY 11/26/13 [History Confirmed 10/31/18] traMADol [Ultram] 50 mg PO Q4H PRN PRN 11/26/13 [History Confirmed 10/31/18] traZODone [Desyrel] 100 mg PO QHS 11/26/13 [History Confirmed 10/31/18] Cholecalciferol (Vitamin D3) [Vitamin D3] 2,000 unit PO DAILY 02/21/17 [History Confirmed 10/31/18] Citrucel 2 cap PO TID 02/21/17 [History Confirmed 10/31/18] tramadol 50 mg tablet 50 mg PO ONCE 02/07/18 [History Confirmed 10/31/18] trazodone 100 mg tablet 100 mg PO QHS PRN 02/07/18 [History Confirmed 10/31/18] baclofen 10 mg tablet 10 mg PO TID 10/31/18 [History Confirmed 10/31/18] diclofenac sodium 50 mg tablet,delayed release 50 mg PO BID 10/31/18 [History Confirmed 10/31/18] gabapentin 300 mg capsule 300 mg PO BID 10/31/18 [History Confirmed 10/31/18] levothyroxine 25 mcg capsule 25 mcg PO DAILY 10/31/18 [History Confirmed 10/31/18] vitamin B complex tablet 1 tab PO DAILY 10/31/18 [History Confirmed 10/31/18] Is last menstrual period known: No Post menopausal: Yes Patient : No PFSH Medical History Carotid stenosis (Acute) Multiple thyroid nodules (Acute) Segmental and somatic dysfunction of pelvic region (Acute) Segmental and somatic dysfunction of lumbar region (Acute) Segmental and somatic dysfunction of thoracic region (Acute) Lumbar canal stenosis (Chronic) Lumbar degenerative disc disease (Chronic) Lumbar radiculopathy, chronic (Chronic) Rectal prolapse (Chronic) Depression (Chronic) Anxiety (Chronic) HTN (hypertension) (Chronic) GERD (gastroesophageal reflux disease) (Chronic) Sigmoid diverticulitis (Acute) Arthritis (Acute) High cholesterol (Acute) Surgical History Status post biopsy of thyroid gland (Acute 10/2018) S/P Mohs surgery for basal cell carcinoma (Acute) S/P foot surgery (Acute) S/P laparoscopic cholecystectomy (Acute) Family History Other Arthritis CVA (cerebral vascular accident) Cancer Social History Smoking Status: Current every day smoker alcohol intake: never substance use type: does not use what type of physical activity do you participate in: none HPI HPI HPI: CLARA RAMON, is a 68 F who presents to the office today for surgical follow-up regarding her carotid duplex exam and final aspiration of her thyroid lesions. [facility] Cardiovascular Services [address] [place] [address] Carotid Duplex Ultrasound 11/03/18 0846 MR#: [id number]:[id number] Name: CLARA RAMON #:[id number] : 1950 68From: Rufino Thornton MD Attending Dr: Hillary BEAR,RobertStatus: REG CLI Ordering Dr: Rufino Thornton MDDate: 11/03/18 Location:CVSSex:FC Admitted: Reason For Study: Left carotid stenosis Rt. Velocities/BP Lt. Velocities/BP Prox CCA 93.2/18.2 cm/sec. Prox CCA 96.6/14.9 cm/sec. Mid CCA 85.6/27.0 cm/sec. Mid CCA 80.1/25.1 cm/sec. Dist CCA 63.96/21.1 cm/sec. Dist CCA 79.4/32.2 cm/sec. NON-vascular structure noted at Prox CCA NON-vascular structure noted at Prox CCA level with tranxverse diameter of 1.82 x level with tranxverse diameter of 1.63 x 2.03 cm. 2.03 cm. Prox ICA 69.2/25.8 cm/sec. Prox ICA 85.6/26.7 cm/sec. Mid ICA 82.1/28.1 cm/sec. Mid ICA 104.0/40.1 cm/sec. Dist ICA 105.0/39.9 cm/sec. Dist ICA 83.3/23.6 cm/sec. Rt. ICA/CCA = 105.0/85.6=1.2. Lt. ICA/CCA = 104.0/80.1=1.3. Prox ECA 98.5/17.0 cm/sec. Prox ECA 99.0/18.9 cm/sec. Rt. Vert. 45.6/14.9 cm/sec. Lt. Vert. 38.9/14.5 cm/sec. Right Extracranial There is homogeneous, smooth atherosclerotic plaque noted in the right common carotid artery. There is no significant atherosclerotic plaque noted in the right external carotid artery. Antegrade flow is noted in the right vertebral artery. Left Extracranial There is heterogeneous, irregular atherosclerotic plaque noted in the left common carotid artery. There is heterogeneous, irregular atherosclerotic plaque noted in the left internal carotid artery. The left internal carotid artery is very tortuous. There is no significant atherosclerotic plaque noted in the left external carotid artery. Antegrade flow is noted in the left vertebral artery. Procedure Carotid Duplex 95685. The exam was diagnostic. Exam performed in department. Interpretation Summary Minimal smooth plague at the proximal right internal carotid with <50% stenosis. 1.72 x 1.91 cystic/solid non-vascular structure adjacent to the right common carotid artery. Irregular plague at the proximal left internal carotid with <50% stenosis. 1.63 x 2.03 cystic non-vascular structure adjacent to the left common carotid. Normal flow bilateral external carotids Patent and antegrade vertebrals bilaterally Above non-vascular structures are consistent with known thyroid findings. Ordering Physician: Hillary Referring Physician: Yonny Carballo Chi Performed By: Asia Woodward, RDCS, RVT 11/03/18 1048 Date Rufino Thornton MD Office Procedures Fine Needle Aspiration Provider Documentation Details: Ultrasound-guided fine-needle aspiration cystic left thyroid isthmus lesion and solid cystic left mid pole thyroid lesion Timeout and informed consent was obtained. 68-year-old female was taken to the procedure room placed upon the table. Ultrasound was performed demonstrating a large cystic lesion of the isthmus of the thyroid. There is more of a solid cystic lesion involving the left thyroid lobe itself. Under ultrasound guidance 1% lidocaine mixed 50-50 with 0.5% Marcaine was used as a local anesthetic. Was instilled under ultrasound guidance total of 1 cc was used. A 20-gauge needle was used to aspirate the isthmus lesion of 4 cc of colloid appearing material. There was complete collapse of the lesion. The more solid cystic lesion in the left mid thyroid was treated with a 25-gauge needle with rapid [id number] motion. Specimen was smeared out on slides and treated with fixative. 3 separate passes were performed. Band-Aids applied. She tolerated the procedure well without apparent complication. She was given activity and wound care instructions. She will be notified of cytology results as they become available. Rufino Thornton M.D., F.A.C.S. Alert Sherice Alert Billing: Yes FNA 14330 Thyroid (x2) Assessment AND Plan Problems 1. Stenosis of carotid artery, unspecified laterality I65.29 2. Multiple thyroid nodules E04.2 Plan Carotid duplex exam does not detect clinically significant carotid occlusive disease Final aspiration of the thyroid suggest likely a benign process. The patient will be notified of cytology results and further recommendations. CC: Dr. Haris Thornton M.D., F.A.C.S. Orders Orders: Plan Detail Goals Decrease pain and radiculopathy Increase ROM Barriers DDD Stenosis Anterolisthesis Coding Level of Care Code Attention Retread Mold Operator Diagnoses Stenosis of carotid artery, unspecified laterality I65.29 Laterality: unspecified laterality Multiple thyroid nodules E04.2 Additional Codes FNA - Fine Needle Aspiration: 68072 Thyroid (21592) 11/08/18 0832 <Electronically signed by Rufino Thornton MD> Date Rufino Thornton MD Cosigner Signature: Date (if applicable) CC: Yonny Carballo MD FLUID/WASHING Observed: 11/08/2018 Status: F Source: [facility] 12:00 AM [facility] RE[facility]IT[facility] Patient: CLARA RAMON : 1950 (68/F) Acct Num: [id number] Phys: Hillary BEAR,Rufino Unit Num: [id number] Loc: [facility] Specimen: [id number] Received: 11/08/18 - 1107 Spec Type: Fluid TISSUES 1 TISSUES: A. Thyroid gland, NOS - FLUID B. Thyroid gland, NOS - SLIDES X6 CYTOLOGY GROSS A - Received is 5 ml of cloudy brown fluid labeled with the patient's name and and designated per the requisition as isthmus. Submitted for cytology preparation including cell block. B - Received are six smears labeled with the patient's name and designated per the requisition as left thyroid. Submitted for staining. / 11/08/18 TC:5 CPT: 41982, 90584, 77801 x2 CYTOLOGY STUDY Slides are reviewed. DIAGNOSIS CYTOLOGY A. Left thyroid isthmus nodule, fine needle aspiration (cytospin and cell block ): Rare benign follicular cells and macrophages consistent with benign cyst contents. B. Fine needle aspiration, left thyroid nodule (smears). Adequate for evaluation. Negative, consistent with benign colloid/follicular nodule. AM:rg 11/09/18 HEADER OPERATION: Left thyroid FNA PRE-OP DIAGNOSIS: Left thyroid nodules TISSUE SUBMITTED: A - Isthmus fluid for cytology, B - Left thyroid slides x6 Signed Juan Bacon DO 11/09/18 <signature on file> Performed By: #### PFLU #### [facility] [place] [facility] [address] [place] [address]. [place], [address] CAROTID DUPLEX Observed: 11/03/2018 Status: F Source: [facility] ULTRASOUND 10:48 [facility] REPOSITORY [facility] Cardiovascular Services [address] [place] [address] Carotid Duplex Ultrasound 11/03/18 0846 MR#: [id number] Acct: [id number] Name: CLARA RAMON Rep #: [id number] : 1950 68 From: Rufino Thornton MD Attending Dr: Rufino Thornton MD Status: REG CLI Ordering Dr: Rufino Thornton MD Date: 11/03/18 Location: [facility] Sex: F C Admitted: Reason For Study: Left carotid stenosis Rt. Velocities/BP Lt. Velocities/BP Prox CCA 93.2/18.2 cm/sec. Prox CCA 96.6/14.9 cm/sec. Mid CCA 85.6/27.0 cm/sec. Mid CCA 80.1/25.1 cm/sec. Dist CCA 63.96/21.1 cm/sec. Dist CCA 79.4/32.2 cm/sec. NON-vascular structure noted at Prox CCA NON-vascular structure noted at Prox CCA level with tranxverse diameter of 1.82 x level with tranxverse diameter of 1.63 x 2.03 cm. 2.03 cm. Prox ICA 69.2/25.8 cm/sec. Prox ICA 85.6/26.7 cm/sec. Mid ICA 82.1/28.1 cm/sec. Mid ICA 104.0/40.1 cm/sec. Dist ICA 105.0/39.9 cm/sec. Dist ICA 83.3/23.6 cm/sec. Rt. ICA/CCA = 105.0/85.6=1.2. Lt. ICA/CCA = 104.0/80.1=1.3. Prox ECA 98.5/17.0 cm/sec. Prox ECA 99.0/18.9 cm/sec. Rt. Vert. 45.6/14.9 cm/sec. Lt. Vert. 38.9/14.5 cm/sec. Right Extracranial There is homogeneous, smooth atherosclerotic plaque noted in the right common carotid artery. There is no significant atherosclerotic plaque noted in the right external carotid artery. Antegrade flow is noted in the right vertebral artery. Left Extracranial There is heterogeneous, irregular atherosclerotic plaque noted in the left common carotid artery. There is heterogeneous, irregular atherosclerotic plaque noted in the left internal carotid artery. The left internal carotid artery is very tortuous. There is no significant atherosclerotic plaque noted in the left external carotid artery. Antegrade flow is noted in the left vertebral artery. Procedure Carotid Duplex 07114. The exam was diagnostic. Exam performed in department. Interpretation Summary Minimal smooth plague at the proximal right internal carotid with <50% stenosis. 1.72 x 1.91 cystic/solid non-vascular structure adjacent to the right common carotid artery. Irregular plague at the proximal left internal carotid with <50% stenosis. 1.63 x 2.03 cystic non-vascular structure adjacent to the left common carotid. Normal flow bilateral external carotids Patent and antegrade vertebrals bilaterally Above non-vascular structures are consistent with known thyroid findings. Ordering Physician: Hillary Referring Physician: Yonny Carballo Chi Performed By: Asia Woodward, FELIZ, RVT 11/03/18 1048 Date Rufino Thornton MD CC: Rufino Thornton MD; Yonny Carballo MD Date Dictated: 11/03/18 0846 Date Transcribed: 11/03/181047 Copra Sampler: Signed SCREENING MAMM (CAD), Observed: 11/02/2018 Status: F Source: [facility] 4:40 PM [facility] REPOSITORY [facility] Imaging Services [address] [place] [address] SCREENING MAMM (CAD), BILAT MR#: [id number] Acct: [id number] Name: CLARA RAMON Rep #: [id number] : 1950 F 68 From: Olivier Zaidi MD PCP: Yonny Carballo MD, Chi Status: [facility] Study: SCREENING MAMM (CAD), BILAT Date of Exam: 11/02/18 Exam# [id number] Ordering Dr: Yonny Carballo MD MAMMOGRAPHY - BILATERAL SCREENING REASON FOR EXAM: Female, 68 years old. Routine annual screening examination. PERTINENT HISTORY: Non-contributory. TECHNIQUE: Digital bilateral breast kelley (3D mammographic acquisition) in the CC and MLO projections. 2-D mediolateral oblique (MLO) and craniocaudad (CC) views of both breasts were obtained. CAD: Full Field Digital Mammography with Computer Added Detection was performed. COMPARISON: Comparison is made with prior study dated October 01, 2016 and July 17, 2014. FINDINGS: Breast Composition: The breasts are almost entirely fatty. There are no dominant masses or suspicious calcifications. Stable benign-appearing bilateral axillary lymph nodes. No other significant abnormalities are identified. There has been no significant change since the prior study. BI/SCREENING MAMM (CAD), BILAT IMPRESSION: Stable bilateral screening mammogram. Yearly follow-up mammogram recommended. (A) ASSESSMENT CATEGORY: BIRADS Category 2: Benign. A letter regarding these results will be sent to the patient by the facility within 30 days. Approximately 10% of breast cancers are not detected by mammography. A normal mammogram should not delay biopsy of a clinically suspicious abnormality. [id number] Electronically Signed: Olivier Zaidi MD at 7:54 EST Tel [phone], Service support , CC: Yonny Carballo MD Copra Sampler: Signed SURGERY VISIT REPORT Observed: 10/31/2018 Status: F Source: [facility] 3:30 PM [facility] REPOSIT[facility]. [address] [place] [address] OFFICE VISIT Date of Service: 10/31/18 MR#: [id number] Acct: [id number] Name: CLARA RAMON Rep #: [id number] : 1950 Provider: Rufino Thornton MD Age/Sex: 68/F Location: [facility] Status: Signed Intake Vital Signs10/31/18 Height 5 ft 3 in 10/31/18 Weight: 166 lb Intake Visit Reasons: Thyroid Nodule US 10/06 Chief Complaint: back pain Jacquard Twine Polisher Operator Required: No Is patient in pain?: No Allergies Penicillins Allergy (Verified 10/31/18 14:21) Rash Medications Aspirin [Aspirin, Baby] 81 mg PO DAILY@0800 11/26/13 [History Confirmed 10/31/18] Atorvastatin Calcium [Lipitor] 40 mg PO QHS 11/26/13 [History Confirmed 10/31/18] Duloxetine Hcl [Cymbalta] 60 mg PO DAILY 11/26/13 [History Confirmed 10/31/18] Multivitamins,Therapeutic [Multivitamin] 1 tab PO DAILY 11/26/13 [History Confirmed 10/31/18] Omeprazole [Prilosec] 40 mg PO DAILY 11/26/13 [History Confirmed 10/31/18] traMADol [Ultram] 50 mg PO Q4H PRN PRN 11/26/13 [History Confirmed 10/31/18] traZODone [Desyrel] 100 mg PO QHS 11/26/13 [History Confirmed 10/31/18] Cholecalciferol (Vitamin D3) [Vitamin D3] 2,000 unit PO DAILY 02/21/17 [History Confirmed 10/31/18] Citrucel 2 cap PO TID 02/21/17 [History Confirmed 10/31/18] tramadol 50 mg tablet 50 mg PO ONCE 02/07/18 [History Confirmed 10/31/18] trazodone 100 mg tablet 100 mg PO QHS PRN 02/07/18 [History Confirmed 10/31/18] baclofen 10 mg tablet 10 mg PO TID 10/31/18 [History Confirmed 10/31/18] diclofenac sodium 50 mg tablet,delayed release 50 mg PO BID 10/31/18 [History Confirmed 10/31/18] gabapentin 300 mg capsule 300 mg PO BID 10/31/18 [History Confirmed 10/31/18] levothyroxine 25 mcg capsule 25 mcg PO DAILY 10/31/18 [History Confirmed 10/31/18] vitamin B complex tablet 1 tab PO DAILY 10/31/18 [History Confirmed 10/31/18] [facility] Medical History Segmental and somatic dysfunction of pelvic region (Acute) Segmental and somatic dysfunction of lumbar region (Acute) Segmental and somatic dysfunction of thoracic region (Acute) Lumbar canal stenosis (Chronic) Lumbar degenerative disc disease (Chronic) Lumbar radiculopathy, chronic (Chronic) Rectal prolapse (Chronic) Depression (Chronic) Anxiety (Chronic) HTN (hypertension) (Chronic) GERD (gastroesophageal reflux disease) (Chronic) Sigmoid diverticulitis (Acute) Arthritis (Acute) High cholesterol (Acute) Surgical History S/P Mohs surgery for basal cell carcinoma (Acute) S/P foot surgery (Acute) S/P laparoscopic cholecystectomy (Acute) Family History Other Arthritis CVA (cerebral vascular accident) Cancer Social History Smoking Status: Current every day smoker alcohol intake: never substance use type: does not use what type of physical activity do you participate in: none HPI HPI HPI: CLARA RAMON, is a 68 F who presents to the office today for surgical consultation regarding thyroid abnormality. Patient is referred by her primary care physician Dr. Carballo and a written copy of my surgical consult recommendations will be returned to him. The patient is noted to have some thyroid dysfunction. She was initiated on thyroid medication. Apparently somewhere in the interim this prompted her to check her neck. She was able to sense and feel a anterior neck mass. She was reevaluated by Dr. Carballo and subsequently on October 06, 2018 a thyroid ultrasound was obtained. The right lobe measures 5 cm in greatest dimension. There is a 2.6 cm diameter anechoic focus within the right lobe of the gland suspicious for a colloid cyst. The left lobe measures 5.1 cm. Lower pole on the left there is a solid hypervascular 1.3 x 0.7 x 1.2 cm nodule. In addition there is a 2.3 cm complex cystic nodule within the isthmus to the left of midline. She denies any history of head neck radiation. No family history of thyroid cancer. No neck pain. No dysphagia. The patient however does note that she has a history of extracranial carotid artery occlusive disease. She states that she has not had a recent follow- up on that ROS General General: No weight change, appetite, fatigue, colon cancer, breast cancer or weakness HEENT HEENT: Yes difficulty swallowing; no eye injury, eye surgery, swollen glands or hoarseness Endo Endocrine: No thyroid disease, diabetes mellitus, thyroid cancer, Hair loss, heat intolerance or cold intolerance Skin Skin: Yes changing moles; no rash Breast Breast: No left breast lump, right breast lump, nipple discharge, breast pain, abnormal mammogram, abnormal US or breast enlargement Musc Musculoskeletal: Yes back problems, arthritis and rheumatoid arthritis; no gout or joint pain Cardio Cardiovascular: No murmur, pacemaker, heart disease, atrial fibrillation, high blood pressure, heart attack, heart stent, palpitations, shortness of breat with exertion or chest pain Psych Psychiatric: Yes depression and anxiety; no hearing voices Resp Respiratory: No shortness of breath, No sleep apnea, No cough, No COPD, No asthma, No emphysema, No wheezing Gastro Gastrointestinal: Yes constipation, Yes hemorrhoids, No abdominal pain, No nausea or vomiting, No diarrhea, No blood in stool, No acid reflux, No ulcers, No gallbladder problem, No black,tarry stools Dante Hematologic: No blood thinners, No blood disorders, No bleeding, No anemia, No blood clots Neuro Neurologic: No system reviewed and no additional complaints, except as docu, No as per HPI, No abnormal walking, No abnormal hearing, No abnormal movements, No abnormal speech, No behavioral changes, No burning sensations, No confusion, No seizure-like activity, No unsteadiness, No dizziness, No localized weakness, No frequent falls, No headache(s), No lack of coordination, No loss of vision, No memory loss, No numbness, No other visual disturbances, No radiating pain, No restless legs, No sensory deficit, No fainting, No tingling, No tremor(s), No weakness, No other Exam Neck Other: Enlargement of thyroid noted midline with a easily palpable midline nodule that moves with swallowing. The remainder of the gland is palpable slightly more prominent on the left than the right. The additional individual right and left thyroid nodules not individually palpable. No cervical adenopathy. Carotids are 3+. No distinct bruit. Chvostek sign is negative Chest Breast Palpation: No nipple discharge Cardio Heart Sounds: no murmurs Assessment AND Plan Problems 1. Multiple thyroid nodules E04.2 2. Stenosis of carotid artery, unspecified laterality I65.29 Plan Because of her history of carotid stenosis I recommend to her carotid duplex imaging. Solid nodule on the left. Cystic nodule of the isthmus. Solid cystic nodule right. I recommend ultrasound inspection of her neck. I would anticipate ultrasound-guided fine-needle aspiration of the solid nodule lower left. I anticipate inspection of the isthmus and right lobe. Anticipate likely aspiration with decompression of those cystic lesions x2. The patient has had an opportunity to ask and have questions answered. We will schedule and proceed at her discretion. I very much appreciate the kind opportunity of assisting with her surgical care. CC: Dr. Haris Thornton M.D., F.A.C.S. Orders Orders: Plan Detail Goals Decrease pain and radiculopathy Increase ROM Barriers DDD Stenosis Anterolisthesis Coding Level of Care Code Detailed, Low Diagnoses Multiple thyroid nodules E04.2 Stenosis of carotid artery, unspecified laterality I65.29 Laterality: unspecified laterality 10/31/18 1530 <Electronically signed by Rufino Thornton MD> Date Rufino Thornton MD Cosigner Signature: Date (if applicable) CC: Yonny Carballo MD THYROID Observed: 10/06/2018 Status: F Source: [place] 10:12 AM [facility] REPOSITORY [facility] Imaging Services [address] [place] [address] Thyroid MR#: [id number] Acct: [id number] Name: CLARA RAMON Rep #: [id number] : 1950 F 68 From: Lorri Levy MD PCP: Yonny Carballo MD, Chi Status: REG CLI Study: Thyroid Date of Exam: 10/06/18 Exam# [id number] Ordering Dr: Yonny Carballo MD STUDY: THYROID ULTRASOUND REASON FOR EXAM: Female, 68 years old. Nodule felt by doctor. TECHNIQUE: Ultrasound evaluation of the thyroid was performed with real-time and static julien-scale imaging. COMPARISON: None. FINDINGS: RIGHT LOBE: The right lobe of the thyroid gland measures 5.0 x 1.6 x 1.5 cm. There is a homogeneous echotexture. There is a 2.6 x 1.6 x 2.5 mm well-circumscribed anechoic focus within the right lobe of the gland most consistent with an underlying colloid cyst. LEFT LOBE: The left lobe of the thyroid gland measures 5.1 x 1.6 x 1.2 cm. There is a homogeneous echotexture. Within the lower pole there is a solid and hypervascular 1.3 x 0.7 x 1.2 cm nodule. ISTHMUS: There is a 2.3 x 1.7 x 2.3 cm complex cystic nodule within the isthmus that is left of midline. US/Thyroid IMPRESSION: 2.3 x 1.7 x 2.3 cm complex cystic nodule within the isthmus left of midline. 1.3 x 0.7 x 1.2 cm solid nodule within the left lobe of the gland. Enlarged thyroid gland. Electronically Signed: Lorri Levy MD at 17:05 EST Tel , Service support , CC: Yonny Carballo MD Copra Sampler: Signed CBC W/DIFF, AUTOMATED Collected: 09/15/2018 Status: F Source: [place] 9:56 AM [facility] REPOSIT[facility] TYPE CODE TESTS RESULT OUT OF [...] Lymph 3.01 Performed By: #### L100.0100 #### [facility] [place] [facility] [address] [place], [address] VITAMIN D,25 HYDROXY Collected: 09/15/2018 Status: F Source: [place] 9:56 AM [facility] REPOSITORY TYPE CODE TESTS RESULT OUT OF RANGE REFERENCE UNITS LAB L506.1000 29.95-100.01 ng/mL Normal Vitamin D 41.8 25-OH Result Comment: Vitamin D 25(OH) Status Range Deficiency <20 ng/mL (50nmol/L) Insuffciency 20 - 30 ng/mL (50 - 75 nmol/L) Sufficiency 30 - 100 ng/mL (75 - 250 nmol/L) Toxicity >100 ng/mL (>250 nmol/L) Performed By: #### L506.1000 #### [facility] [place] [facility] [address] [facility] [place], [address] COMPREHENSIVE METABOLIC Collected: 09/15/2018 Status: F Source: [place] BLOOD 9:56 AM [facility] REPOSITORY TYPE CODE TESTS RESULT OUT OF [...] Normal GAP 10 Performed By: #### L500.4050, L501.9532 #### [facility] [place] [facility] [address] [place], [address] THYROID STIM HORMONE Collected: 09/15/2018 Status: F Source: [place] (TSH) 9:56 AM [facility] REPOSITORY TYPE CODE TESTS RESULT OUT OF RANGE REFERENCE UNITS LAB L501.9520 0.358-3.74 uIU/mL High TSH 5.28 Performed By: #### L500.4050, L501.9520 #### [facility] [place] [facility] [address] [place], [address] CBC W/DIFF, AUTOMATED Collected: 03/15/2018 Status: F Source: [place] 11:14 AM [facility] REPOSITORY TYPE CODE TESTS RESULT OUT OF [...] L100.0100 #### [facility] [place] [facility] [address] [place], [address] VITAMIN D,25 HYDROXY Collected: 03/15/2018 Status: F Source: [place] 11:14 AM [facility] REPOSITORY TYPE CODE TESTS RESULT OUT OF RANGE REFERENCE UNITS LAB L506.1000 29.95-100.01 ng/mL Normal Vitamin D 41.7 25-OH Result Comment: Vitamin D 25(OH) Status Range Deficiency <20 ng/mL (50nmol/L) Insuffciency 20 - 30 ng/mL (50 - 75 nmol/L) Sufficiency 30 - 100 ng/mL (75 - 250 nmol/L) Toxicity >100 ng/mL (>250 nmol/L) Performed By: #### L506.1000 #### [facility] [place] [facility] [address] [place], [address] COMPREHENSIVE METABOLIC Collected: 03/15/2018 Status: F Source: [facility] 11:14 AM [facility] REPOSIT[facility] TYPE CODE TESTS RESULT OUT OF [...] L501.9520 #### [facility] [place] [facility] [address] [facility] [place], [place], [address] THYROID STIM HORMONE Collected: 03/15/2018 Status: F Source: [place] (TSH) 11:14 AM [facility] REPOSITORY TYPE CODE TESTS RESULT OUT OF RANGE REFERENCE UNITS LAB L501.9520 0.358-3.74 uIU/mL Normal TSH 1.74 Performed By: #### L500.4050, L501.9520 #### [facility] [place] [facility] [address] [place], [address] CHIROPRACTIC REPORT Observed: 03/07/2018 Status: F Source: [place] 1:14 PM [facility] REPOSITORY [facility] [address] [place] [address] OFFICE VISIT Date of Service: 03/06/18 MR#: [id number] Acct: [id number] Name: CLARA RAMON Rep #: [id number] : 1950 Provider: Amber Colon D.C. Age/Sex: 67/F Location: [facility] Status: Signed Intake Vital Signs03/06/18 Height 5 [...] PO QHS PRN 02/07/18 [History Confirmed 02/07/18] [facility] Medical History Arthritis (Acute) High cholesterol [...] Additional Codes Procedures - Manipulation: 3-4 regions (41282) 03/07/18 1314 <Electronically signed by Amber Colon D.C.> Date Amber Colon D.C. Cosigner Signature: Date (if applicable) CC: CHIROPRACTIC REPORT Observed: 02/27/2018 Status: F Source: [place] 1:24 PM [facility] [address] [place] [address] OFFICE VISIT Date of Service: 02/27/18 MR#: [id number] Acct: [id number] Name: CLARA RAMON Rep #: [id number] : 1950 Provider: Amber Colon D.C. Age/Sex: 67/F Location: [facility] Status: Signed Intake Vital Signs02/27/18 Height 5 [...] PO QHS PRN 02/07/18 [History Confirmed 02/07/18] [facility] Medical History Arthritis (Acute) High cholesterol [...] Additional Codes Procedures - Manipulation: 3-4 regions (37684) 02/27/18 1324 <Electronically signed by Amber Colon D.C.> Date Amber Calvillo Signature: Date (if applicable) CC: CHIROPRACTIC REPORT Observed: 02/13/2018 Status: F Source: [place] 4:05 PM [facility] REPOSIT[facility] [address] [place] [address] OFFICE VISIT Date of Service: 02/09/18 MR#: [id number] Acct: [id number] Name: CLARA RAMON Rep #: [id number] : 1950 Provider: Amber Colon D.C. Age/Sex: 67/F Location: [facility] Status: Signed Intake Vital Signs02/09/18 Height 5 [...] Additional Codes Procedures - Manipulation: 3-4 regions (07308) 02/13/18 1605 <Electronically signed by Amber Colon D.C.> Date Amber Colon D.C. Cosigner Signature: Date (if applicable) CC: CHIROPRACTIC REPORT Observed: 02/09/2018 Status: F Source: [place] 12:47 PM [facility] [address] [place] [address] OFFICE VISIT Date of Service: 02/07/18 MR#: [id number] Acct: [id number] Name: CLARA RAMON Rep #: [id number] : 1950 Provider: Amber Colon D.C. Age/Sex: 67/F Location: [facility] Status: Signed Intake Vital Signs02/07/18 Height 5 [...] somatic dysfunction of pelvic region M99.05 02/09/18 1247 <Electronically signed by Amber Colon D.C.> Date Amber Colon D.C. Cosigner Signature: Date (if applicable) CC: LUMBAR SPINE 2 OR 3 Observed: 01/26/2018 Status: F Source: [facility] 9:46 AM [facility] REPOSIT[facility] Imaging Services [address] [place] [address] Lumbar Spine 2 or 3 Views MR#: [id number] Acct: [id number] Name: CLARA RAMON Rep #: [id number] : 1950 F 67 From: Olivier Zaidi MD PCP: Haris BEAR,Yonny Cardona Status: REG CLI Study: Lumbar Spine 2 or 3 Views Date of Exam: 01/26/18 Exam# [id number] Ordering Dr: Yonny Carballo MD STUDY: X-RAY [...] Olivier Zaidi MD at 14:27 EDT Tel [phone], Service support , CC: Yonny Carballo MD Copra Sampler: Signed ALLERGIES ALLERGIES DATE TYPE / CODE NAME / CODE REACTION SEVERITY SOURCE 11/08/2018 Drug Penicillins/ Rash Unknown [place] [facility] Allergy/4160 [id number]([facility] 58064(SNOMED XNORM) Repository CT) ENCOUNTERS ENCOUNTERS ADMIT/DISCHARGE ACCOUNT ADMITTING ENCOUNTER LOCATION SOURCE NUMBER CLASS 11/10/2018 [id number] Ambulatory [place] 5 [facility] ing:LAB.FUTUR Repository E 11/08/2018 [id number] Ambulatory [place] 6 [facility] ing:LABSPEC Repository 11/08/2018/ [id number] Ambulatory [facility] [place] 9 2 [facility] Repository 11/03/2018 [id number] Ambulatory [facility]:B [place] 8 [facility] Repository 11/03/2018 [id number] Ambulatory [place] 5 [facility] ing:CVS Repository 11/02/2018 [id number] Ambulatory [place] 4 [facility] ing:OPBI Repository 10/31/2018/ [id number] Ambulatory B[facility]Building:B [place] 9 9 [facility] Repository 10/24/2018/ [id number] Ambulatory [facility]Building:B [place] 9 4 [facility] Repository 10/06/2018 [id number] Ambulatory [place] 4 [facility] Repository 09/15/2018 [id number] Ambulatory [place] 8 [facility] ing:POLAB3 Repository 03/16/2018 [id number] Ambulatory [facility]:B [place] 3 [facility] Repository 03/15/2018 [id number] Ambulatory [place] 6 [facility] ing:POLAB3 Repository 03/06/2018/ [id number] Ambulatory [facility]:B [place] 8 4 [facility] Repository 02/27/2018/ [id number] Ambulatory [facility]Building:B [place] 8 3 [facility] Repository 02/14/2018 [id number] Ambulatory [facility]:B [place] 7 [facility] Repository 02/13/2018 [id number] Ambulatory [facility]:B [place] 5 [facility] Repository 02/09/2018/ [id number] Ambulatory [facility]:B [place] 8 3 [facility] Repository 02/07/2018/ [id number] Ambulatory [facility]:B [place] 8 4 [facility] Repository 01/26/2018 [id number] Ambulatory [place] 4 [facility] ing:RAD Repository PAYERS PAYERS ENCOUNTER GUARANTOR PAYER SUBSCRIBER SOURCE 11/10/2018 CLARA Jacobo Primary CLARA Bowles [id number] Insurance:[facility]: [facility] [place] MEDICAREPolicy [id number] Memorial Hospital, Number: Repository [place] [address]Ebt: [id number] Date:9596-86-65[address] ) [address], [place] [address]XB: 11/10/2018 Secondary NOT GIVENUNK [place] Insurance:SELF PAY [facility] Number: Effective Repository Date:2018-10-12 11/08/2018 LCARA K Primary CLARA Jacobo [place] [id number] Insurance:SUMMA CARE GADFIELDDOB: [facility] [id number] Memorial Hospital, Number: Repository [place] [address]Lqx: [id number] Date:3992-51-38YI [address] () [address], [place] [address]TO: 11/08/2018 Secondary NOT GIVENUNK [place] Insurance:SELF PAY [facility] Number: Effective Repository Date:2018-11-08 11/08/2018 CLARA Jacobo Primary CLARA Jacobo [place] [id number] Insurance:SUMMA CARE GADFIELDDOB: [facility] [place] MEDICAREPolicy [id number] Memorial Hospital, Number: Repository [place] [address]Tsb: [id number] Date:8673-47-72UY [address] () [address] [place] [address]DZ: 11/08/2018 Secondary NOT GIVENUNK [place] Insurance:SELF PAY [facility] Number: Effective Repository Date:2018-11-08 11/03/2018 CLARA Jacobo Primary CLARA Jacobo [place] [id number] Insurance:SUMMA CARE GADFIELDDOB: [facility] [place] MEDICAREPolicy [id number] Memorial Hospital, Number: Repository [place] [address]Gcy: [id number] Date:5657-43-76JH [address] () [address] [place] [address]NF: 11/03/2018 Secondary NOT GIVENUNK [place] Insurance:SELF PAY [facility] Number: Effective Repository Date:2018-11-03 11/03/2018 CLARA Jacobo Primary CLARA K [place] [id number] Insurance:SUMMA CARE GADFIELDDOB: [facility] [place] MEDICAREPolicy [id number] Memorial Hospital, Number: Repository [place] [address]Hqy: [id number] Date:5642-46-78PZ [address] () [address] [place] [address]XU: 11/03/2018 Secondary NOT GIVENUNK [place] Insurance:SELF PAY [facility] Number: Effective Repository Date:2018-10-31 11/02/2018 CLARA K Primary CLARA K [place] [id number] Insurance:SUMMA CARE GADFIELDDOB: Community [place] MEDICAREPolicy [id number] Memorial Hospital, Number: [place]ository [place] [address]Qzs: [id number] Date:2014-38-81WD [address] () [address] [address]CJ: 11/02/2018 Secondary NOT GIVENUNK [place] Insurance:SELF PAY [facility] Number: Effective Repository Date:2018-09-18 10/31/2018 CLARA K Primary CLARA K [place] [id number] Insurance:SUMMA CARE GADFIELDDOB: Community [place] MEDICAREPolicy [id number] Memorial Hospital, Number: Repository [place] [address]Sqb: [id number] Date:4225-50-18UN [address] () [address] [address]RD: 10/31/2018 Secondary NOT GIVENUNK [place] Insurance:SELF PAY [facility] Number: Effective Repository Date:2018-10-27 10/24/2018 CLARA K Primary CLARA K [place] [id number] Insurance:SUMMA CARE GADFIELDDOB: Community [place] MEDICAREPolicy [id number] Memorial Hospital, Number: Repository [place] [address]Rau: [id number] Date:8206-62-50DZ [address] () [address] [place] [address]CL: 10/24/2018 Secondary NOT GIVENUNK [place] Insurance:SELF PAY [facility] Number: Effective Repository Date:2018-10-24 10/06/2018 CLARA K Primary CLARA K [place] [id number] Insurance:SUMMA CARE GADFIELDDOB: Community [place] [facility] [id number] Memorial Hospital, Number: Repository [place] [address]Ryq: [id number] Date:2983-69-57YT BOX (HP) [address] [place] [address]MK: 10/06/2018 Secondary NOT GIVENUNK [place] Insurance:SELF PAY [facility] Number: Effective Repository Date:2018-10-02 09/15/2018 Clara Jacobo Primary Clara Jacobo [place] [id number] Insurance:SUMMA CARE GadfieldDOB: [place] [id number] Community [facility], Number: Repository [place] [address]Wtb: [id number] Date:1148-06-31SV [address] (HP) [address] [address]TE: 09/15/2018 Secondary NOT GIVENUNK [place] Insurance:SELF PAY [facility] Number: Effective Repository Date:2018-09-15 03/16/2018 Clara Jacobo Primary Clara Jacobo [place] [id number] Insurance:SUMMA CARE GadfieldDOB: [facility] [place] MED[place]ARE[place] [id number] Community Hospital, Number: Repository [place] [address]Qnk: [id number] Date:0552-23-39EW [address] ([address]) [address] [place] [address]JE: 03/16/2018 Secondary NOT GIVENUNK [place] Insurance:SELF PAY [facility] Number: Effective Repository Date:2018-03-06 03/15/2018 Clara Jacobo Primary Clara Jacobo [place] [id number] Insurance:SUMMA CARE GadfieldDOB: [facility] [place] [id number] Community Hospital, Number: Repository [place] [address]Dcw: [id number] Date:6660-02-14SE BOX (HP) [address] [place] [address]VI: 03/15/2018 Secondary NOT GIVENUNK [place] Insurance:SELF PAY [facility] Number: Effective Repository Date:2018-03-15 03/06/2018 Clara Jacobo Primary Clara Jacobo [place] [id number] Insurance:SUMMA CARE GadfieldDOB: Community [place] [facility]ARE[facility] [id number] Community Hospital, Number: Repository [place] [address]Hge: [id number] Date:4651-85-14DE [address] () [address] [place] [address]SX: 03/06/2018 Secondary NOT GIVENUNK [place] Insurance:SELF PAY [facility] Number: Effective Repository Date:2018-03-06 02/27/2018 Clara Jacobo Primary Clara Jacobo [place] [id number] Insurance:SUMMA CARE GadfieldDOB: [place] MED[place] [id number] Community Hospital, Number: Repository [place] [address]Dbk: [id number] Date:1322-53-48RB [address] () [address] [place] [address]HS: 02/27/2018 Secondary NOT GIVENUNK [place] Insurance:SELF PAY [facility] Number: Effective Repository Date:2018-02-27 02/14/2018 Clara Jacobo Primary Clara Jacobo [place] [id number] Insurance:SUMMA CARE GadfieldDOB: [facility] [place] MED[place] [id number] Community Hospital, Number: Repository [place] [address]Asn: [id number] Date:5469-67-61KK [address] () [address] [place] [address]JY: 02/14/2018 Secondary NOT GIVENUNK [place] Insurance:SELF PAY [facility] Number: Effective Repository Date:2018-02-07 02/13/2018 Clara Jacobo Primary Clara Jacobo [place] [id number] Insurance:SUMMA CARE GadfieldDOB: [facility] [place] MED[place] [id number] Community Hospital, Number: [place]ository [place] [address]Crq: [id number] Date:9364-41-35UC BOX (HP) [address] [place] [address]ZR: 02/13/2018 Secondary NOT GIVENUNK [place] Insurance:SELF PAY [facility] Number: Effective Repository Date:2018-02-07 02/09/2018 Clara Jacobo Primary Clara K [place] [id number] Insurance:SUMMA CARE GadfieldDOB: Community [place] MEDICAREPolicy [id number] Community Hospital, Number: Repository [place] [address]Kml: [id number] Date:7579-26-03MI BOX (HP) [address] [place] [address]DG: 02/09/2018 Secondary NOT GIVENUNK [place] Insurance:SELF PAY [facility] Number: Effective Repository Date:2018-02-09 02/07/2018 Clara Odalis Primary Clara K [place] [id number] Insurance:SUMMA CARE GadfieldDOB: Community [place] MEDICAREPolicy [id number] Community Hospital, Number: Repository [place] [address]Syx: [id number] Date:8266-29-89SQ [address] (HP) [address] [place] [address]IQ: 02/07/2018 Secondary NOT GIVENUNK [place] Insurance:SELF PAY [facility] Number: Effective Repository Date:2018-02-07 01/26/2018 Clara Odalis Primary Clara K [place] [id number] Insurance:SUMMA CARE GadfieldDOB: Community [place] MEDICAREPolicy [id number] Community Hospital, Number: Repository [place] [address]Qox: [id number] Date:1001-30-73MA [address]OX (HP) [address] [place] [address]SH: 01/26/2018 Secondary NOT GIVENUNK [place] Insurance:SELF PAY [facility] Number: Effective Repository Date:2018-01-26
== END ==
PROVIDERS: Family Provider Family Medicine Geriatric Medicine; PCP Family Medicine Geriatric Medicine; Referring Provider Family Medicine Geriatric Medicine; Visit Provider Family Medicine Geriatric Medicine
DX: Z12.31 Encounter for screening mammogram for malignant neoplasm of breast (principal); Z78.0 Asymptomatic menopausal state
CPT/HCPCS: 77063; 77067

== ENCOUNTER → 2018-11-03 08:42 | Outpatient (CLI) | payer MEDICARE, SELFPAY ==
[2018-10-31 14:21] VITALS: BMI 29.4
--- NOTE | 2018-11-03 08:43 | CDU_ITS ---
Reason For Study: Left carotid stenosis Rt. Velocities/BP Lt. Velocities/BP Prox CCA 93.2/18.2 cm/sec. Prox CCA 96.6/14.9 cm/sec. Mid CCA 85.6/27.0 cm/sec. Mid CCA 80.1/25.1 cm/sec. Dist CCA 63.96/21.1 cm/sec. Dist CCA 79.4/32.2 cm/sec. NON-vascular structure noted at Prox CCA NON-vascular structure noted at Prox CCA level with tranxverse diameter of 1.82 x level with tranxverse diameter of 1.63 x 2.03 cm. 2.03 cm. Prox ICA 69.2/25.8 cm/sec. Prox ICA 85.6/26.7 cm/sec. Mid ICA 82.1/28.1 cm/sec. Mid ICA 104.0/40.1 cm/sec. Dist ICA 105.0/39.9 cm/sec. Dist ICA 83.3/23.6 cm/sec. Rt. ICA/CCA = 105.0/85.6=1.2. Lt. ICA/CCA = 104.0/80.1=1.3. Prox ECA 98.5/17.0 cm/sec. Prox ECA 99.0/18.9 cm/sec. Rt. Vert. 45.6/14.9 cm/sec. Lt. Vert. 38.9/14.5 cm/sec. Right Extracranial There is homogeneous, smooth atherosclerotic plaque noted in the right common carotid artery. There is no significant atherosclerotic plaque noted in the right external carotid artery. Antegrade flow is noted in the right vertebral artery. Left Extracranial There is heterogeneous, irregular atherosclerotic plaque noted in the left common carotid artery. There is heterogeneous, irregular atherosclerotic plaque noted in the left internal carotid artery. The left internal carotid artery is very tortuous. There is no significant atherosclerotic plaque noted in the left external carotid artery. Antegrade flow is noted in the left vertebral artery. Procedure Carotid Duplex [id number]. The exam was diagnostic. Exam performed in department. Interpretation Summary Minimal smooth plague at the proximal right internal carotid with <50% stenosis. 1.72 x 1.91 cystic/solid non-vascular structure adjacent to the right common carotid artery. Irregular plague at the proximal left internal carotid with <50% stenosis. 1.63 x 2.03 cystic non-vascular structure adjacent to the left common carotid. Normal flow bilateral external carotids Patent and antegrade vertebrals bilaterally Above non-vascular structures are consistent with known thyroid findings. Ordering Physician: Hillary^Rufino Referring Physician: Yonny Carballo Chi Performed By: Asia Woodward, FELIZ, RVT
--- OUTSIDE RECORDS SUMMARY | 2019-01-07 15:46 | XMS RPT_ITS ---
:1950 Author Organization OHIP Support Name Relationship Address Phone ANAYA HOANG Unavailable [address] + [place] [address] R Unavailable Unavailable Unavailable HOANG, ANAYA Unavailable [address] + [place] [address] R Unavailable Unavailable Unavailable HOANG, ANAYA Unavailable [address] + [place] [address] R Unavailable Unavailable Unavailable HOANG, ANAYA Unavailable [address] + [place] [address] R Unavailable Unavailable Unavailable HOANG, ANAYA Unavailable [address] + [place] [address] R Unavailable Unavailable Unavailable HOANG, ANAYA Unavailable [address] + [place] [address] R Unavailable Unavailable Unavailable HOANG, ANAYA Unavailable [address] + [place] [address] R Unavailable Unavailable Unavailable HOANG, ANAYA Unavailable [address] + [place] [address] R Unavailable Unavailable Unavailable HOANG, ANAYA Unavailable [address] + [place] [address] R Unavailable Unavailable Unavailable CECILIO, ANAYA Unavailable [address] + [place] [address] R Unavailable Unavailable Unavailable CECILIO, ANAYA Unavailable [address] + [place] [address] R Unavailable Unavailable Unavailable CECILIO, ANAYA Unavailable [address] + [place] [address] R Unavailable Unavailable Unavailable CECILIO, ANAYA Unavailable [address] + [place] [address] R Unavailable Unavailable Unavailable CECILIO ANAYA Unavailable [address] + [place] [address] R Unavailable Unavailable Unavailable CECILIO ANAYA Unavailable [address] + [place] [address] R Unavailable Unavailable Unavailable CECILIO ANAYA Unavailable [address] + [place] [address] R Unavailable Unavailable Unavailable CECILIO ANAYA Unavailable [address] + [place] [address] R Unavailable Unavailable Unavailable CECILIO, ANAYA Unavailable [address] + [place] [address] R Unavailable Unavailable Unavailable CECILIO ANAYA Unavailable [address] + [place] [address] R Unavailable Unavailable Unavailable Care Team Providers Name Role Phone Haris, Yonny Chi Attending Unavailable Haris, Yonny Chi Referring Unavailable Haris, Yonny Chi Primary Care Unavailable Haris, Yonny Chi Attending Unavailable Haris, Yonny Chi Primary Care Unavailable Nurse, Surgery Attending Unavailable Haris, Yonny Chi Referring Unavailable Cebul, Rufino Attending Unavailable Haris, Yonny Chi Referring Unavailable Cebul, Rufino Attending Unavailable Cebul, Rufino Referring Unavailable Haris, Yonny Chi Primary Care Unavailable Haris, Yonny Chi Attending Unavailable Haris, Yonny Chi Referring Unavailable Haris, Yonny Chi Primary Care Unavailable Cebul, Rufino Attending Unavailable Cebul, Rufino Referring Unavailable Haris, Yonny Chi Primary Care Unavailable Cebul, Rufino Consulting Unavailable Cebul, Rufino Attending Unavailable Haris, Yonny Chi Referring Unavailable Cebul, Rufino Attending Unavailable Cebul, Rufino Referring Unavailable Haris, Yonny Chi Primary Care Unavailable Haris, Yonny Chi Attending Unavailable Haris, Yonny Chi Referring Unavailable Haris, Yonny Chi Primary Care Unavailable DossieAmber D.C. Attending Unavailable Haris, Yonny Chi Referring Unavailable Haris, Yonny Chi Primary Care Unavailable DossiAmber bhatti D.C. Attending Unavailable Haris, Yonny Chi Referring Unavailable Haris, Yonny Chi Primary Care Unavailable DossieAmber D.C. Attending Unavailable Haris, Yonny Chi Referring Unavailable DossiAmber bhatti D.C. Attending Unavailable Haris, Yonny Chi Referring Unavailable DossieAmber D.C. Attending Unavailable Haris, Yonny Chi Referring Unavailable Haris, Yonny Chi Primary Care Unavailable DossiAmber bhatti D.C. Attending Unavailable Haris, Yonny Chi Referring Unavailable Haris, Yonny Chi Primary Care Unavailable Haris, Yonny Chi Attending Unavailable Haris, Yonny Chi Primary Care Unavailable DossiAmber bhatti D.C. Attending Unavailable Haris, Yonny Chi Referring Unavailable Haris, Yonny Chi Attending Unavailable Haris, Yonny Chi Primary Care Unavailable PROBLEMS PROBLEMS DATE TYPE CONDITION / CODE ATTENDING STATUS SOURCE 10/12/2018 Unknown E03.9 - Haris, Yonny Chi Active [facility] Hypothyroidism, Community unspecified / Hospital E03.9(ICD-10) Repository 11/08/2018 Unknown E04.2 - Nontoxic Cebul, Rufino Active [facility] multinodular goiter Community / E04.2(ICD-10) Hospital Repository 11/08/2018 Unknown I65.29 - Occlusion Cebul, Rufino Active [facility] and stenosis of Community unspecified carotid Hospital artery / Repository I65.29(ICD-10) 11/03/2018 Unknown I65.22 - Occlusion Cebul, Rufino Active [facility] and stenosis of left Community carotid artery / Hospital I65.22(ICD-10) Repository 03/15/2018 Unknown E55.9 - Vitamin D Haris, Yonny Chi Active [place] deficiency, Community unspecified / Hospital E55.9(ICD-10) Repository 03/15/2018 Unknown I10 - Essential Haris, Yonny Chi Active [facility] (primary) Community hypertension / Hospital I10(ICD-10) Repository 03/07/2018 Unknown M99.05 - Segmental Dossie, Amber Active [place] and somatic D.C. Community dysfunction of Hospital pelvic region / Repository M99.05(ICD-10) 03/07/2018 Unknown M99.02 - Segmental Dossie, Amber Active [facility] and somatic D.C. Community dysfunction of Hospital thoracic region / Repository M99.02(ICD-10) 03/07/2018 Unknown M99.03 - Segmental Dossie, Amber Active [facility] and somatic D.C. Community dysfunction of Hospital lumbar region / Repository M99.03(ICD-10) 02/28/2018 Unknown M48.06 - Spinal Dossie, Amber Active [facility] stenosis, lumbar D.C. 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 [facility] region without Hospital neurogenic Repository claudication / M48.061(ICD-10) 01/26/2018 Unknown M54.5 - Low back Haris, Yonny Chi Active [place] pain / M54.5(ICD-10) [facility] Hospital Repository PROCEDURES PROCEDURES No Procedure Records FoundRESULTS RESULTS SURGERY VISIT REPORT Observed: 11/08/2018 Status: F Source: [place] 8:32 AM [facility] REPOSITORY [facility] [address] [place] [address] [address] [place] [address] OFFICE VISIT Date of Service: 11/08/18 MR#: [id number] Acct: [id number] Name: CLARA RAMON Odalis Rep #: [id number] : 1950 Provider: Rufino Thornton MD Age/Sex: 68/F Location: [facility] Status: Signed Intake Intake Visit Reasons: left thyroid cyst aspiration and FNA Chief Complaint: left thyroid FNA Color Buffer Required: No Is patient in pain?: No [...] and final aspiration of her thyroid lesions. [facility] [address] [place] [address] Carotid Duplex Ultrasound 11/03/18 0846 MR#: [id number]:[id number] Name: CLARA RAMON #:[id number] : 1950 68From: Rufino Thornton MD Attending [...] the left vertebral artery. Procedure Carotid Duplex 99861. The exam was diagnostic. Exam performed in [...] treated with a 25-gauge needle with rapid ibxa-dtt-nmagt motion. Specimen was smeared out on slides and treated with fixative. 3 separate passes were performed. Band-Aids applied. She tolerated the procedure well without apparent complication. She was given activity and wound care instructions. She will be notified of cytology results as they become available. Rufino Thornton M.D., F.A.C.S. Alert Sherice Alert Billing: Yes FNA 04583 Thyroid (x2) Assessment AND Plan Problems 1. 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 Diagnoses Stenosis of carotid artery, unspecified laterality I65.29 Laterality: unspecified laterality Multiple thyroid nodules E04.2 Additional Codes FNA - Fine Needle Aspiration: 69280 Thyroid (92314) 11/08/18 0832 <Electronically signed by Rufino Thornton MD> Date Rufino Thornton MD Cosigner Signature: Date (if applicable) CC: Yonny Carballo MD FLUID/WASHING Observed: 11/08/2018 Status: F Source: [place] 12:00 AM [facility] REPOSITORY Patient: CLARA RAMON : 1950 (68/F) Acct Num: [id number] Phys: Hillary BEAR,Rufino Unit Num: [id number] Loc: [facility] Specimen: [id number] Received: 11/08/18 - [...] Submitted for staining. / 11/08/18 TC:5 CPT: 44576, 80435, 04643 x2 CYTOLOGY STUDY Slides are reviewed. DIAGNOSIS [...] on file> Performed By: #### PFLU #### [facility] [address] [place] [address]. [place], [address] CAROTID DUPLEX Observed: 11/03/2018 Status: F Source: [place] ULTRASOUND 10:48 [facility] REPOSITORY [facility] [address] [place] [address] Carotid Duplex Ultrasound 11/03/18 0846 MR#: [id number] Acct: [id number] Name: CLARA RAMON Rep #: [id number] : 1950 68 From: Rufino Thornton MD [...] the left vertebral artery. Procedure Carotid Duplex 39359. The exam was diagnostic. Exam performed in [...] Date Dictated: 11/03/18 0846 Date Transcribed: 11/03/181047 Land Development Project Manager: Signed SCREENING MAMM (CAD), Observed: 11/02/2018 Status: F Source: [facility] 4:40 PM [facility] REPOSITORY [facility] Imaging Services [address] [place] [address] SCREENING MAMM (CAD), BILAT MR#: [id number] Acct: [id number] Name: CLARA RAMON Rep #: [id number] : 1950 F 68 From: Olivier Zaidi MD PCP: Yonny Carballo MD, Chi Status: [facility] Study: SCREENING MAMM (CAD), BILAT Date of Exam: 11/02/18 Exam# [id number] Ordering Dr: Yonny Carballo MD MAMMOGRAPHY - [...] delay biopsy of a clinically suspicious abnormality. [id number] Electronically Signed: Olivier Zaidi MD at 7:54 EST Tel [phone], Service support , CC: Yonny Carballo MD Land Development Project Manager: Signed SURGERY VISIT REPORT Observed: 10/31/2018 Status: F Source: [place] 3:30 PM [facility] REPOSITORY [facility]. [address] [place] [address] OFFICE VISIT Date of Service: 10/31/18 MR#: [id number] Acct: [id number] Name: CLARA RAMON Rep #: [id number] : 1950 Provider: Rufino Thornton MD Age/Sex: 68/F [place] [facility] Status: Signed Intake Vital Signs10/31/18 Height 5 ft 3 in 10/31/18 Weight: 166 lb Intake Visit Reasons: Thyroid Nodule US 10/06 Chief Complaint: back pain Color Buffer Required: No Is patient in pain?: No [...] tab PO DAILY 10/31/18 [History Confirmed 10/31/18] [facility] Medical History Segmental and somatic dysfunction of [...] MD THYROID Observed: 10/06/2018 Status: F Source: [place] 10:12 AM [facility] REPOSITORY [facility] Imaging Services [address] [place] [address] Thyroid MR#: [id number] Acct: [id number] Name: CLARA RAMON Rep #: [id number] : 1950 F 68 From: Lorri Levy MD PCP: Yonny Carballo MD, Chi Status: REG CLI Study: Thyroid Date of Exam: 10/06/18 Exam# [id number] Ordering Dr: Yonny Carballo MD STUDY: THYROID [...] Service support , CC: Yonny Carballo MD Land Development Project Manager: Signed CBC W/DIFF, AUTOMATED Collected: 09/15/2018 Status: F Source: [place] 9:56 AM [facility] REPOSITORY TYPE CODE TESTS RESULT OUT [...] Lymph 3.01 Performed By: #### L100.0100 #### [facility] [address] [place], [address] VITAMIN D,25 HYDROXY Collected: 09/15/2018 Status: F Source: [place] 9:56 AM [facility] REPOSITORY TYPE CODE TESTS RESULT OUT OF RANGE REFERENCE UNITS LAB L506.1000 29.95-100.01 ng/mL Normal Vitamin D 41.8 25-OH Result Comment: Vitamin D 25(OH) Status Range Deficiency <20 ng/mL (50nmol/L) Insuffciency 20 - 30 ng/mL (50 - 75 nmol/L) Sufficiency 30 - 100 ng/mL (75 - 250 nmol/L) Toxicity >100 ng/mL (>250 nmol/L) Performed By: #### L506.1000 #### [facility] [address] [place], [address] COMPREHENSIVE METABOLIC Collected: 09/15/2018 Status: F Source: [place] BLOOD 9:56 AM [facility] REPOSITORY TYPE CODE TESTS RESULT OUT [...] Normal GAP 10 Performed By: #### L500.4050, L501.9567 #### [facility] [address] [place], [address] THYROID STIM HORMONE Collected: 09/15/2018 Status: F Source: [place] (TSH) 9:56 AM [facility] REPOSITORY TYPE CODE TESTS RESULT OUT OF RANGE REFERENCE UNITS LAB L501.9520 0.358-3.74 uIU/mL High TSH 5.28 Performed By: #### L500.4050, L501.9520 #### [facility] [address] [place], [address] CBC W/DIFF, AUTOMATED Collected: 03/15/2018 Status: F Source: [place] 11:14 AM [facility] REPOSITORY TYPE CODE TESTS RESULT OUT [...] Lymph 2.84 Performed By: #### L100.0100 #### [facility] [address], [address] VITAMIN D,25 HYDROXY Collected: 03/15/2018 Status: F Source: [place] 11:14 AM [facility] REPOSITORY TYPE CODE TESTS RESULT OUT OF RANGE REFERENCE UNITS LAB L506.1000 29.95-100.01 ng/mL Normal Vitamin D 41.7 25-OH Result Comment: Vitamin D 25(OH) Status Range Deficiency <20 ng/mL (50nmol/L) Insuffciency 20 - 30 ng/mL (50 - 75 nmol/L) Sufficiency 30 - 100 ng/mL (75 - 250 nmol/L) Toxicity >100 ng/mL (>250 nmol/L) Performed By: #### L506.1000 #### [facility] [address] [place], [address] COMPREHENSIVE METABOLIC Collected: 03/15/2018 Status: F Source: [facility] 11:14 AM [facility] REPOSITORY TYPE CODE TESTS RESULT OUT [...] 9 Performed By: #### L500.4050, L501.9520 #### [facility] [address] [facility] [place], [place], [address] THYROID STIM HORMONE Collected: 03/15/2018 Status: F Source: [place] (TSH) 11:14 AM [facility] REPOSITORY TYPE CODE TESTS RESULT OUT OF RANGE REFERENCE UNITS LAB L501.9520 0.358-3.74 uIU/mL Normal TSH 1.74 Performed By: #### L500.4050, L501.9520 #### [facility] [address] [place], [address] CHIROPRACTIC REPORT Observed: 03/07/2018 Status: F Source: [place] 1:14 PM [facility] REPOSITORY [facility] [address] [place] [address] OFFICE VISIT Date of Service: 03/06/18 MR#: [id number] Acct: [id number] Name: CLARA RAMON Rep #: [id number] : 1950 Provider: Amber Colon D.C. Age/Sex: [...] PO QHS PRN 02/07/18 [History Confirmed 02/07/18] [facility] Medical History Arthritis (Acute) High cholesterol (Acute) [...] Additional Codes Procedures - Manipulation: 3-4 regions (40022) 03/07/18 1314 <Electronically signed by Amber Colon D.C.> Date Amber Colon D.C. Cosigner Signature: Date (if applicable) CC: CHIROPRACTIC REPORT Observed: 02/27/2018 Status: F Source: [place] 1:24 PM [facility] [address] [place] [address] OFFICE VISIT Date of Service: 02/27/18 MR#: [id number] Acct: [id number] Name: CLARA RAMON Rep #: [id number] : 1950 Provider: Amber Colon D.C. Age/Sex: 67/F Location: [facility] Status: Signed Intake Vital Signs02/27/18 Height 5 [...] PO QHS PRN 02/07/18 [History Confirmed 02/07/18] [facility] Medical History Arthritis (Acute) High cholesterol (Acute) [...] Additional Codes Procedures - Manipulation: 3-4 regions (59255) 02/27/18 1324 <Electronically signed by Amber Colon D.C.> Date Amber Calvillo Signature: Date (if applicable) CC: CHIROPRACTIC REPORT Observed: 02/13/2018 Status: F Source: [place] 4:05 PM [facility] REPOSITORY [facility] [address] [place] [address] OFFICE VISIT Date of Service: 02/09/18 MR#: [id number] Acct: [id number] Name: CLARA RAMON Rep #: [id number] : 1950 Provider: Amber Colon D.C. Age/Sex: 67/F Location: [facility] Status: Signed Intake Vital Signs02/09/18 Height 5 [...] Additional Codes Procedures - Manipulation: 3-4 regions (02072) 02/13/18 1605 <Electronically signed by Amber Colon D.C.> Date Amber Colon D.C. Cosigner Signature: Date (if applicable) CC: CHIROPRACTIC REPORT Observed: 02/09/2018 Status: F Source: [place] 12:47 PM [facility] [address] [place] [address] OFFICE VISIT Date of Service: 02/07/18 MR#: [id number] Acct: [id number] Name: CLARA RAMON Rep #: [id number] : 1950 Provider: Amber Colon D.C. Age/Sex: 67/F [place] [facility] [place] Status: Signed Intake Vital Signs02/07/18 Height 5 [...] OR 3 Observed: 01/26/2018 Status: F Source: [facility] 9:46 AM [facility] REPOSITORY [facility] Imaging Services [address] [place] [address] Lumbar Spine 2 or 3 Views MR#: [id number] Acct: [id number] Name: CLARA RAMON Rep #: [id number] : 1950 F 67 From: Olivier Zaidi MD PCP: Haris BEAR,Yonny Cardona Status: REG CLI Study: Lumbar Spine 2 or 3 Views Date of Exam: 01/26/18 Exam# [id number] Ordering Dr: Yonny Carballo MD STUDY: X-RAY [...] Olivier Zaidi MD at 14:27 EDT Tel [phone], Service support , CC: Yonny Carballo MD Land Development Project Manager: Signed ALLERGIES ALLERGIES DATE TYPE / CODE NAME / CODE REACTION SEVERITY SOURCE 11/08/2018 Drug Penicillins/ Rash Unknown [facility] Allergy/4160 [id number]([facility] [address](SNOMED XNORM) Repository CT) ENCOUNTERS ENCOUNTERS ADMIT/DISCHARGE ACCOUNT ADMITTING ENCOUNTER LOCATION SOURCE NUMBER CLASS 11/10/2018 [id number] Ambulatory [facility] 5 [facility] ing:LAB.FUTUR Repository E 11/08/2018 [id number] Ambulatory [place] 6 [facility] ing:[facility] Repository 11/08/2018/ [id number] Ambulatory BMSBuilding:B [place] 9 2 [facility] Repository 11/03/2018 [id number] Ambulatory BMSBuilding:B [place] 8 [facility] Repository 11/03/2018 [id number] Ambulatory [place] 5 [facility] ing:[facility] Repository 11/02/2018 [id number] Ambulatory [place] 4 [facility] ing:OPBI Repository 10/31/2018/ [id number] Ambulatory BMSBuilding:B [place] 9 9 [facility] Repository 10/24/2018/ [id number] Ambulatory BMSBuilding:B [place] 9 4 [facility] Repository 10/06/2018 [id number] [facility]ulatory [facility] [facility] Repository 09/15/2018 [id number] Ambulatory [facility] 8 [facility] ing:POLAB[facility] Repository 03/16/2018 [id number] Ambulatory BMSBuilding:B [place] 3 [facility] Repository 03/15/2018 [id number] Ambulatory [place] 6 [facility] Hospital ing:POLAB3 Repository 03/06/2018/ [id number] Ambulatory BMSBuilding:B [place] 8 4 [facility] Repository 02/27/2018/ [id number] Ambulatory BMSBuilding:B [place] 8 3 [facility] Hospital Repository 02/14/2018 [id number] Ambulatory BMSBuilding:B [place] 7 [facility] Repository 02/13/2018 [id number] Ambulatory BMSBuilding:B [place] 5 [facility] Repository 02/09/2018/ [id number] Ambulatory BMSBuilding:B [place] 8 3 [facility] Repository 02/07/2018/ [id number] Ambulatory BMSBuilding:B [place] 8 4 [facility] Repository 01/26/2018 [id number] Ambulatory [place] 4 [facility] Hospital ing:RAD Repository PAYERS PAYERS ENCOUNTER GUARANTOR PAYER SUBSCRIBER SOURCE 11/10/2018 CLARA Jacobo Primary CLARA Bowles [id number] [facility] [employer] MEDICAREPolicy [id number] [facility] [place], Number: Repository [place] [id number]: [id number] Date:7216-74-49[address], [place] [address]YZ: 11/10/2018 Secondary NOT GIVENUNK [place] Insurance:SELF PAY [facility] Number: Effective Repository Date:2018-10-12 11/08/2018 CLARA K Primary CLAAR Jacobo [place] [id number] Insurance:SUMMA CARE GADFIELDDOB: Community [facility]ARE[facility] [id number] [facility] [place], Number: Repository [place] [id number]: [id number] Date:9277-61-70[address] () [address], [place] [address]AA: 11/08/2018 Secondary NOT GIVENUNK [place] Insurance:SELF PAY [facility] Number: Effective Repository Date:2018-11-08 11/08/2018 CLARA Jacobo Primary CLARA Jacobo [place] [id number] Insurance:SUMMA CARE GADFIELDDOB: [facility] [employer] MEDICAREPolicy [id number] [facility]erman[facility] [place], Number: Repository [place] [id number]: [id number] Date:4202-51-01[address] () [address] [place] [id number]: 11/08/2018 Secondary NOT GIVENUNK [place] Insurance:SELF PAY [facility] Number: Effective Repository Date:2018-11-08 11/03/2018 CLARA Jacobo Primary CLARA Jacobo [place] [id number] Insurance:SUMMA CARE GADFIELDDOB: [facility] [employer] MEDICAREPolicy [id number] [facility], Number: Repository [place] [id number]: [id number] Date:4833-99-67FS [address] () [address] [place] [id number]: 11/03/2018 Secondary NOT GIVENUNK [place] Insurance:SELF PAY [facility] Number: Effective Repository Date:2018-11-03 11/03/2018 CLARA Jacobo Primary CLARA K [place] [id number] Insurance:SUMMA CARE GADFIELDDOB: [facility] [employer] MEDICAREPolicy [id number] Permanente [facility] [place], Number: Repository [place] [id number]: [id number] Date:2187-10-52RR [address] () [address] [place] [id number]: 11/03/2018 Secondary NOT GIVENUNK [place] Insurance:SELF PAY [facility] Number: Effective Repository Date:2018-10-31 11/02/2018 CLARA K Primary CLARA K [place] [id number] Insurance:SUMMA CARE GADFIELDDOB: Community [employer] MEDICAREPolicy [id number] Permanente [facility] [place], Number: Repository [place] [id number]: [id number] Date:9651-39-87CJ [address] () [address] [id number]: 11/02/2018 Secondary NOT GIVENUNK [place] Insurance:SELF PAY [facility] Number: Effective Repository Date:2018-09-18 10/31/2018 CLARA K Primary CLARA K [place] [id number] Insurance:SUMMA CARE GADFIELDDOB: Community [employer] MEDICAREPolicy [id number] Permanente [facility] [place], Number: Repository [place] [id number]: [id number] Date:7618-38-84[address] () [address] [id number]: 10/31/2018 Secondary NOT GIVENUNK [place] Insurance:SELF PAY [facility] Number: Effective Repository Date:2018-10-27 10/24/2018 CLARA K Primary CLARA K [place] [id number] Insurance:SUMMA CARE GADFIELDDOB: Community [employer] MEDICAREPolicy [id number] [facility], Number: Repository [place] [id number]: [id number] Date:6729-49-68BF [address] () [address] [place] [address]QB: 10/24/2018 Secondary NOT GIVENUNK [place] Insurance:SELF PAY [facility] Number: Effective Repository Date:2018-10-24 10/06/2018 CLARA K Primary CLARA K [place] [id number] Insurance:SUMMA CARE GADFIELDDOB: Community [facility] [id number] [facility]ermanente [facility] [place], Number: Repository [place] [id number]: [id number] Date:9425-64-97NF [address] ([address]) [address] [place] [address]XV: 10/06/2018 Secondary NOT GIVENUNK [place] Insurance:SELF PAY [facility] [facility]: Effective Repository Date:2018-10-02 09/15/2018 Clara Jacobo Primary Clara Jacobo Wilbur [id number] Insurance:[employer] CARE [place]: [place] [id number] [place] Number: Repository [place] [id number]: [id number] Date:6781-10-25FC [address] ([address]) [id number] [place] [id number]: 09/15/2018 Secondary NOT GIVENUNK Wilbur Insurance:SELF PAY [facility] Number: Effective Repository Date:2018-09-15 03/16/2018 Clara Jacobo Primary Clara Jacobo Carmine [id number] Insurance:[employer] CARE [place]DOB: [facility] [place] [id number] [place], Number: Repository [place] [id number]: [id number] Date:0171-84-49UE [address]OX ([address]) [address] [place] [id number]: 03/16/2018 Secondary NOT GIVENUNK Carmine Insurance:SELF PAY [facility] Number: Effective Repository Date:2018-03-06 03/15/2018 Clara Jacobo Primary Clara Jacobo Carmine [id number] Insurance:[employer] CARE [place]DOB: [facility] [place] MED[place] [id number] [place], Number: Repository [place] [id number]: [id number] Date:6553-71-36SU [address] ([address]) [address] [place] [id number]: 03/15/2018 Secondary NOT GIVENUNK Carmine Insurance:SELF PAY [facility] Number: Effective Repository Date:2018-03-15 03/06/2018 Clara Jacobo Primary Clara Jacobo Carmine [id number] Insurance:[employer] CARE [place]: [place] [id number] [place], Number: Repository [place] [id number]: [id number] Date:2611-50-10ER [address] () [id number] [place] [id number]: 03/06/2018 Secondary NOT GIVENUNK Wilbur Insurance:SELF PAY [facility] Number: Effective Repository Date:2018-03-06 02/27/2018 Clara Jacobo Primary Clara Jacobo Wilbur [id number] Insurance:[employer] CARE [place]: [place] [id number] [place], Number: Repository [place] [id number]: [id number] Date:0472-68-77GJ [address] () [id number] [place] [id number]: 02/27/2018 Secondary NOT GIVENUNK Wilbur Insurance:SELF PAY [facility] Number: Effective Repository Date:2018-02-27 02/14/2018 Clara Jacobo Primary Clara Jacobo Wilbur [id number] Insurance:[employer] CARE [place]DOB: [facility] [place] [id number] [place], Number: Repository [place] [id number]: [id number] Date:5290-25-62JX BOX () [id number] [place] [id number]: 02/14/2018 Secondary NOT GIVENUNK Carmine Insurance:SELF PAY [facility] Number: Effective Repository Date:2018-02-07 02/13/2018 Clara Jacobo Primary Clara Jacobo Wilbur [id number] Insurance:[employer] CARE [place]DOB: [facility] [place] MED[place] [id number] Medical Center of [place], Number: Repository [place] [id number]: [id number] Date:0002-07-99IS BOX (HP) [address] [place] [id number]: 02/13/2018 Secondary NOT GIVENUNK Carmine Insurance[facility]SELF PAY [facility] Effective Rep[facility] Date:2018-02-07 02/09/2018 Clara Jacobo Primary Clara K Carmine [id number] Insurance:[employer] CARE [place]DOB: [place] MEDICAREPolicy [id number] [facility] [place], Number: Repository [place] [id number]: [id number] Date:7596-96-26II BOX (HP) [id number] [place] [id number]: 02/09/2018 Secondary NOT GIVENUNK Wilbur Insurance:SELF PAY [facility] Number: Effective Repository Date:2018-02-09 02/07/2018 Clara Odalis Primary Clara K Wilbur [id number] Insurance:[employer] CARE [place]OB: [place] MEDICAREPolicy [id number] Medical [facility] of [place], Number: Repository [place] [id number]: [id number] Date:3930-63-07ZA [address] ([address]) [address] [place] [id number]: 02/07/2018 Secondary NOT GIVENUNK Wilbur Insurance:SELF PAY [facility] Number: Effective Repository Date:2018-02-07 01/26/2018 Clara Odalis Primary Clara K Wilbur [id number] Insurance:[employer] CARE [place]OB: [place] MEDICAREPolicy [id number] Medical Center of [place], Number: Repository [place] [id number]: [id number] Date:3487-27-01ZU BOX (HP) [address] [place] [id number]: 01/26/2018 Secondary NOT GIVENUNK Carmine Insurance:SELF PAY [facility] Number: Effective Repository Date:2018-01-26
== END ==
PROVIDERS: Family Provider Family Medicine Geriatric Medicine; PCP Family Medicine Geriatric Medicine; Referring Provider Surgery; Visit Provider Surgery
DX: I65.22 Occlusion and stenosis of left carotid artery (principal)
CPT/HCPCS: 93880

== ENCOUNTER → 2018-11-08 09:23 | Outpatient (CLI) | payer MEDICARE, SELFPAY ==
--- NOTE | 2018-11-08 | FLU_PTH ---
PATIENT: CLARA RAYMUNDO LOC: [facility] U#:[id number] AGE/SX: 75/F ROOM: RE11/08/[address]: Dr. Rufino Thornton MD : 1950 BED: DIS: SPEC #: [id number] RECD: 11/08/18 11:07 STATUS: CAROL ANN CHAR #: [id number] RAHUL: 11/08/18 00:[address]: Rufino Thornton DEPT: CYTOLOGY RECD BY: Harjinder Gonzales ENTERED: 11/08/18 11:08 SP TYPE: Fluid OTHR DR: Dr. Yonny Carballo MD Tissues: A - Thyroid gland, NOS B - Thyroid gland, NOS Procedures: Pap Stain (control) Special Stain Group II Surgery Specimen Level IV Cell Block Cytospin Fluid Cytology Other HEADER OPERATION: Left thyroid FNA PRE-OP DIAGNOSIS: Left thyroid nodules TISSUE SUBMITTED: A - Isthmus fluid for cytology, B - Left thyroid slides x6 DIAGNOSIS CYTOLOGY A. Left thyroid isthmus nodule, fine needle aspiration (cytospin and cell block): Rare benign follicular cells and macrophages consistent with benign cyst contents. B. Fine needle aspiration, left thyroid nodule (smears). Adequate for evaluation. Negative, consistent with benign colloid/follicular nodule. AM:pat 11/09/18 CYTOLOGY STUDY Slides are reviewed. CYTOLOGY GROSS A - Received is 5 ml of cloudy brown fluid labeled with the patient's name and and designated per the requisition as isthmus. Submitted for cytology preparation including cell block. B - Received are six smears labeled with the patient's name and designated per the requisition as left thyroid. Submitted for staining. 11/08/18 TC:5 CPT: 39445, 86135, 00139 x2
[2018-11-08 08:32] VITALS: BMI 29.4
--- OUTSIDE RECORDS SUMMARY | 2019-01-10 05:56 | XMS RPT_ITS ---
:1950 Author Organization OHIP Support Name Relationship Address Phone ANAYA HOANG Unavailable [address] + [place] [address] R Unavailable Unavailable Unavailable HOANG, ANAYA Unavailable [address] + [place] [address] R Unavailable Unavailable Unavailable HOANG, ANAYA Unavailable [address] + [place] [address] R Unavailable Unavailable Unavailable HOANG, ANAYA Unavailable [address] + [place] [address] R Unavailable Unavailable Unavailable HOANG, ANAYA Unavailable [address] + [place] [address] R Unavailable Unavailable Unavailable HOANG, ANAYA Unavailable [address] + [place] [address] R Unavailable Unavailable Unavailable HOANG, ANAYA Unavailable [address] + [place] [address] R Unavailable Unavailable Unavailable HOANG, ANAYA Unavailable [address] + [place] [address] R Unavailable Unavailable Unavailable HOANG, ANAYA Unavailable [address] + [place] [address] R Unavailable Unavailable Unavailable CECILIO, ANAYA Unavailable [address] + [place] [address] R Unavailable Unavailable Unavailable CECILIO, ANAYA Unavailable [address] + [place] [address] R Unavailable Unavailable Unavailable CECILIO, ANAYA Unavailable [address] + [place] [address] R Unavailable Unavailable Unavailable CECILIO, ANAYA Unavailable [address] + [place] [address] R Unavailable Unavailable Unavailable CECILIO, ANAYA Unavailable [address] + [place] [address] R Unavailable Unavailable Unavailable CECILIO ANAYA Unavailable [address] + [place] [address] R Unavailable Unavailable Unavailable CECILIO ANAYA Unavailable [address] + [place] [address] R Unavailable Unavailable Unavailable CECILIO, ANAYA Unavailable [address] + [place] [address] R Unavailable Unavailable Unavailable CECILIO, ANAYA Unavailable [address] + [place] [address] R Unavailable Unavailable Unavailable CECILIO, NAAYA Unavailable [address] + [place] [address] R Unavailable Unavailable Unavailable Care Team Providers [...] Attending Unavailable Haris, Yonny Chi Referring Unavailable DosAmber wade D.C. Attending Unavailable Haris, Yonny Chi Referring [...] TYPE CONDITION / CODE ATTENDING STATUS SOURCE 11/13/2018 Unknown E03.9 - Haris, Yonny Chi Active [place] Hypothyroidism, Community unspecified / Hospital E03.9(ICD-10) Repository 11/08/2018 Unknown E04.2 - Nontoxic Cebul, Rufino Active [place] multinodular goiter Community / E04.2(ICD-10) Hospital Repository 11/08/2018 Unknown I65.29 - Occlusion Cebul, Rufino Active [place] and stenosis of Community unspecified carotid Hospital artery / Repository I65.29(ICD-10) 11/03/2018 Unknown I65.22 - Occlusion Cebul, Rufino Active [place] and stenosis of left Community carotid artery / Hospital I65.22(ICD-10) Repository 03/15/2018 Unknown E55.9 - Vitamin D Haris, Yonny Chi Active [place] deficiency, Community unspecified / Hospital E55.9(ICD-10) Repository 03/15/2018 Unknown I10 - Essential Haris, Yonny Chi Active [place] (primary) Community hypertension / Hospital I10(ICD-10) Repository 03/07/2018 Unknown M99.05 - Segmental Dossie, Amber Active [place] and somatic D.C. Community dysfunction of Hospital pelvic region / Repository M99.05(ICD-10) 03/07/2018 Unknown M99.02 - Segmental Dossie, Amber Active [place] and somatic D.C. Community dysfunction of Hospital thoracic region / Repository M99.02(ICD-10) 03/07/2018 Unknown M99.03 - Segmental Dossie, Amber Active [place] and somatic D.C. Community dysfunction of Hospital lumbar region / Repository M99.03(ICD-10) 02/28/2018 Unknown M48.06 - Spinal Dossie, Amber Active [place] stenosis, lumbar D.C. 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 [facility] region without Hospital neurogenic Repository claudication / M48.061(ICD-10) 01/26/2018 Unknown M54.5 - Low back Haris, Yonny Chi Active [place] pain / M54.5(ICD-10) [facility] Hospital Repository PROCEDURES PROCEDURES No Procedure Records FoundRESULTS RESULTS SURGERY VISIT REPORT Observed: 11/08/2018 Status: F Source: [place] 8:32 AM [facility] [address] [place] [address] [address] [place] [address] OFFICE VISIT Date of Service: 11/08/18 MR#: [id number] Acct: [id number] Name: CLARA RAMON Odalis Rep #: [id number] : 1950 Provider: Rufino Thornton MD Age/Sex: 68/F Location: [facility] Status: Signed Intake Intake Visit Reasons: left thyroid cyst aspiration and FNA Chief Complaint: left thyroid FNA 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 [facility] [address] [place] [address] Carotid Duplex Ultrasound 11/03/18 0846 MR#: [id number]:[id number] Name: CLARA RAMON #:[id number] : 1950 68From: Rufino Thornton MD Attending [...] the left vertebral artery. Procedure Carotid Duplex 77351. The exam was diagnostic. Exam performed in [...] treated with a 25-gauge needle with rapid tfzz-but-ygmyd motion. Specimen was smeared out on slides and treated with fixative. 3 separate passes were performed. Band-Aids applied. She tolerated the procedure well without apparent complication. She was given activity and wound care instructions. She will be notified of cytology results as they become available. Rufino Thornton M.D., F.A.C.S. Alert Sherice Alert Billing: Yes FNA 24919 Thyroid (x2) Assessment AND Plan Problems 1. [...] Anterolisthesis Coding Level of Care Code Attention Mammography Technician Diagnoses Stenosis of carotid artery, unspecified laterality I65.29 Laterality: unspecified laterality Multiple thyroid nodules E04.2 Additional Codes FNA - Fine Needle Aspiration: 79401 Thyroid (48386) 11/08/18 0832 <Electronically signed by Rufino Thornton MD> Date Rufino Thornton MD Cosigner Signature: Date (if applicable) CC: Yonny Carballo MD FLUID/WASHING Observed: 11/08/2018 Status: F Source: [place] 12:00 AM [facility] [place] Patient: CLARA RAMON : 1950 (68/F) Acct Num: [id number] Phys: Hillary BEAR,Rufino Unit Num: [id number] Loc: [facility] Specimen: [id number] Received: 11/08/18 - [...] Submitted for staining. / 11/08/18 TC:5 CPT: 80462, 46586, 75056 x2 CYTOLOGY STUDY Slides are reviewed. DIAGNOSIS [...] on file> Performed By: #### PFLU #### [facility] [address] [place] [address]. [place], [address] CAROTID DUPLEX Observed: 11/03/2018 Status: F Source: [place] ULTRASOUND 10:48 [facility] REPOSITORY [facility] [address] [place] [address] Carotid Duplex Ultrasound 11/03/18 0846 MR#: [id number] Acct: [id number] Name: CLARA RAMON Rep #: [id number] : 1950 68 From: Rufino Thornton MD [...] the left vertebral artery. Procedure Carotid Duplex 26810. The exam was diagnostic. Exam performed in [...] Date Dictated: 11/03/18 0846 Date Transcribed: 11/03/181047 Field Sales Manager: Signed SCREENING MAMM (CAD), Observed: 11/02/2018 Status: F Source: [facility] 4:40 PM [facility] [place] [facility] [address] [place] [address] SCREENING MAMM (CAD), BILAT MR#: [id number] Acct: [id number] Name: CLARA RAMON Rep #: [id number] : 1950 F 68 From: Olivier Zaidi MD PCP: Yonny Carballo MD, Chi Status: [facility] Study: SCREENING MAMM (CAD), BILAT Date of Exam: 11/02/18 Exam# [id number] Ordering Dr: Yonny Carballo MD MAMMOGRAPHY - [...] delay biopsy of a clinically suspicious abnormality. [id number] Electronically Signed: Olivier Zaidi MD at 7:54 EST Tel [phone], Service support , CC: Yonny Carballo MD Field Sales Manager: Signed SURGERY VISIT REPORT Observed: 10/31/2018 Status: F Source: [place] 3:30 PM [facility]. [address] [place] [address] OFFICE VISIT Date of Service: 10/31/18 MR#: [id number] Acct: [id number] Name: CLARA RAMON Rep #: [id number] : 1950 Provider: Rufino Thornton MD Age/Sex: 68/F Location[facility] Status: Signed Intake Vital Signs10/31/18 Height 5 ft 3 in 10/31/18 Weight: 166 lb Intake Visit Reasons: Thyroid Nodule US 10/06 Chief Complaint: back pain Senior Electronics Design Engineer Required: No Is patient in pain?: No [...] tab PO DAILY 10/31/18 [History Confirmed 10/31/18] [facility] Medical History Segmental and somatic dysfunction [...] MD THYROID Observed: 10/06/2018 Status: F Source: [place] 10:12 AM [facility] [place] [facility] [address] [place] [address] Thyroid MR#: [id number] Acct: [id number] Name: CLARA RAMON Rep #: [id number] : 1950 F 68 From: Lorri Levy MD PCP: Yonny Carballo MD, Chi Status: REG CLI Study: Thyroid Date of Exam: 10/06/18 Exam# [id number] Ordering Dr: Yonny Carballo MD STUDY: THYROID [...] Service support , CC: Yonny Carballo MD Field Sales Manager: Signed CBC W/DIFF, AUTOMATED Collected: 09/15/2018 Status: F Source: [place] 9:56 AM [facility] [place] TYPE CODE TESTS RESULT OUT OF [...] Lymph 3.01 Performed By: #### L100.0100 #### [facility] [address] [place], [address] VITAMIN D,25 HYDROXY Collected: 09/15/2018 Status: F Source: [place] 9:56 AM [facility] TYPE CODE TESTS RESULT OUT OF RANGE REFERENCE UNITS LAB L506.1000 29.95-100.01 ng/mL Normal Vitamin D 41.8 25-OH Result Comment: Vitamin D 25(OH) Status Range Deficiency <20 ng/mL (50nmol/L) Insuffciency 20 - 30 ng/mL (50 - 75 nmol/L) Sufficiency 30 - 100 ng/mL (75 - 250 nmol/L) Toxicity >100 ng/mL (>250 nmol/L) Performed By: #### L506.1000 #### [facility] [address] [facility] [place], [address] COMPREHENSIVE METABOLIC Collected: 09/15/2018 Status: F Source: [place] BLOOD 9:56 AM [facility] [place] TYPE CODE TESTS RESULT OUT OF [...] Normal GAP 10 Performed By: #### L500.4050, L501.9579 #### [facility] [address] [place], [address] THYROID STIM HORMONE Collected: 09/15/2018 Status: F Source: [place] (TSH) 9:56 AM [facility] [place] TYPE CODE TESTS RESULT OUT OF RANGE REFERENCE UNITS LAB L501.9520 0.358-3.74 uIU/mL High TSH 5.28 Performed By: #### L500.4050, L501.9520 #### [facility] [address] [place], [address] CBC W/DIFF, AUTOMATED Collected: 03/15/2018 Status: F Source: [place] 11:14 AM [facility] [place] TYPE CODE TESTS RESULT OUT OF [...] Lymph 2.84 Performed By: #### L100.0100 #### [facility] [address], [address] VITAMIN D,25 HYDROXY Collected: 03/15/2018 Status: F Source: [place] 11:14 AM [facility] [place] TYPE CODE TESTS RESULT OUT OF RANGE REFERENCE UNITS LAB L506.1000 29.95-100.01 ng/mL Normal Vitamin D 41.7 25-OH Result Comment: Vitamin D 25(OH) Status Range Deficiency <20 ng/mL (50nmol/L) Insuffciency 20 - 30 ng/mL (50 - 75 nmol/L) Sufficiency 30 - 100 ng/mL (75 - 250 nmol/L) Toxicity >100 ng/mL (>250 nmol/L) Performed By: #### L506.1000 #### [facility] [address] [place], [address] COMPREHENSIVE METABOLIC Collected: 03/15/2018 Status: F Source: [facility] 11:14 AM [facility] [place] TYPE CODE TESTS RESULT OUT OF [...] 9 Performed By: #### L500.4050, L501.9520 #### [facility] [address] [facility] [place], [place], [address] THYROID STIM HORMONE Collected: 03/15/2018 Status: F Source: [place] (TSH) 11:14 AM [facility] [place] TYPE CODE TESTS RESULT OUT OF RANGE REFERENCE UNITS LAB L501.9520 0.358-3.74 uIU/mL Normal TSH 1.74 Performed By: #### L500.4050, L501.9520 #### [facility] [address] [facility] [place], [address] CHIROPRACTIC REPORT Observed: 03/07/2018 Status: F Source: [place] 1:14 PM [facility] [place] [facility] [address] [place] [address] OFFICE VISIT Date of Service: 03/06/18 MR#: [id number] Acct: [id number] Name: CLARA RAMON Rep #: [id number] : 1950 Provider: Amber Colon D.C. Age/Sex: [...] PO QHS PRN 02/07/18 [History Confirmed 02/07/18] [facility] Medical History Arthritis (Acute) High cholesterol [...] Additional Codes Procedures - Manipulation: 3-4 regions (51261) 03/07/18 1314 <Electronically signed by Amber Colon D.C.> Date Amber Colon D.C. Cosigner Signature: Date (if applicable) CC: CHIROPRACTIC REPORT Observed: 02/27/2018 Status: F Source: [place] 1:24 PM [facility] [address] [place] [address] OFFICE VISIT Date of Service: 02/27/18 MR#: [id number] Acct: [id number] Name: CLARA RAMON Rep #: [id number] : 1950 Provider: Amber Colon D.C. Age/Sex: 67/F Location: [facility] Status: Signed Intake Vital Signs02/27/18 Height 5 [...] PO QHS PRN 02/07/18 [History Confirmed 02/07/18] [facility] Medical History Arthritis (Acute) High cholesterol [...] Additional Codes Procedures - Manipulation: 3-4 regions (78602) 02/27/18 1324 <Electronically signed by Amber Colon D.C.> Date Amber Calvillo Signature: Date (if applicable) CC: CHIROPRACTIC REPORT Observed: 02/13/2018 Status: F Source: [place] 4:05 PM [facility] [place] [facility] [address] [place] [address] OFFICE VISIT Date of Service: 02/09/18 MR#: [id number] Acct: [id number] Name: CLARA RAMON Rep #: [id number] : 1950 Provider: Amber Colon D.C. Age/Sex: 67/F Location: [facility] Status: Signed Intake Vital Signs02/09/18 Height 5 [...] Additional Codes Procedures - Manipulation: 3-4 regions (27797) 02/13/18 1605 <Electronically signed by Amber Colon D.C.> Date Amber Colon D.C. Cosigner Signature: Date (if applicable) CC: CHIROPRACTIC REPORT Observed: 02/09/2018 Status: F Source: [place] 12:47 PM [facility] [address] [place] [address] OFFICE VISIT Date of Service: 02/07/18 MR#: [id number] Acct: [id number] Name: CLARA RAMON Rep #: [id number] : 1950 Provider: Amber Colon D.C. Age/Sex: 67/F Location: [facility] Status: Signed Intake Vital Signs02/07/18 Height 5 [...] OR 3 Observed: 01/26/2018 Status: F Source: [facility] 9:46 AM [facility] [place] [facility] [address] [place] [address] Lumbar Spine 2 or 3 Views MR#: [id number] Acct: [id number] Name: CLARA RAMON Rep #: [id number] : 1950 F 67 From: Olivier Zaidi MD PCP: Haris BEAR,Yonny Cardona Status: REG CLI Study: Lumbar Spine 2 or 3 Views Date of Exam: 01/26/18 Exam# [id number] Ordering Dr: Yonny Carballo MD STUDY: X-RAY [...] Olivier Zaidi MD at 14:27 EDT Tel [phone], Service support , CC: Yonny Carballo MD Field Sales Manager: Signed ALLERGIES ALLERGIES DATE TYPE / CODE NAME / CODE REACTION SEVERITY SOURCE 11/08/2018 Drug Penicillins/ Rash Unknown [place] [facility] Allergy/4160 [id number]([facility] [address]254(SNOMED XNORM) Repository CT) ENCOUNTERS ENCOUNTERS ADMIT/DISCHARGE ACCOUNT ADMITTING ENCOUNTER LOCATION SOURCE NUMBER CLASS 11/13/2018 [id number] Ambulatory [place] [facility] ing:POLAB3 Repository 11/08/2018 [id number] Ambulatory [place] 6 [facility] ing:[facility] Repository 11/08/2018/ [id number] Ambulatory BMSBuilding:B [place] 9 2 [facility] Repository 11/03/2018 [id number] Ambulatory BMSBuilding:B [place] 8 [facility] Repository 11/03/2018 [id number] Ambulatory [place] 5 [facility] ing:[facility] Repository 11/02/2018 [id number] Ambulatory [place] 4 [facility] ing:OPBI Repository 10/31/2018/ [id number] Ambulatory BMSBuilding:B [place] 9 9 MS.[facility] Hospital Repository 10/24/2018/ [id number] Ambulatory BMSBuilding:B [place] 9 4 [facility] Hospital Repository 10/06/2018 [id number] Ambulatory [place] 4 [facility] Hospital ing:US Repository 09/15/2018 [id number] Ambulatory [place] 8 [facility] Hospital ing:POLAB3 Repository 03/16/2018 [id number] Ambulatory BMSBuilding:B [place] 3 [place] [place] Hospital Repository 03/15/2018 [id number] Ambulatory [place] 6 [facility] Hospital ing:POLAB3 Repository 03/06/2018/ [id number] Ambulatory BMSBuilding:B [place] 8 4 [facility] [place] Hospital Repository 02/27/2018/ [id number] Ambulatory BMSBuilding:B [place] 8 3 [facility] Hospital Repository 02/14/2018 [id number] Ambulatory BMSBuilding:B [place] 7 [facility] Hospital Repository 02/13/2018 [id number] Ambulatory B[facility]Building:B [place] 5 [facility] Hospital Repository 02/09/2018/ [id number] Ambulatory BMSBuilding:B [place] 8 3 [facility] Hospital Repository 02/07/2018/ [id number] Ambulatory BMSBuilding:B [place] 8 4 [facility] Hospital Repository 01/26/2018 [id number] Ambulatory [place] 4 [facility] Hospital ing:RAD Repository PAYERS PAYERS ENCOUNTER GUARANTOR PAYER SUBSCRIBER SOURCE 11/13/2018 CLARA Jacobo Primary CLARA Bowles [id number] Insurance:[facility]: [facility] [place] MEDICAREPolicy [id number], Number: Repository [place] [address]Oxu: [id number] Date:5136-85-52[address] () [address], [place] [address]QD: 11/13/2018 Secondary NOT GIVENUNK [place] Insurance:SELF PAY [facility] Number: Effective Repository Date:2018-10-12 11/08/2018 CLARA Jacobo Primary CLARA Jacobo [place] [id number] Insurance:SUMMA CARE GADFIELDDOB: [facility] [id number] [facility], Number: Repository [place] [address]Sed: [id number] Date:9779-54-56QN [address] () [address] [address]QM: 11/08/2018 Secondary NOT GIVENUNK [place] Insurance:SELF PAY [facility] Number: Effective Repository Date:2018-11-08 11/08/2018 CLARA Jacobo Primary CLARA Jacobo [place] [id number] Insurance:SUMMA CARE GADFIELDDOB: [facility] [employer] MEDICAREPolicy [id number], Number: Repository [place] [address]Wmj: [id number] Date:2990-05-72MG [address] () [address] [place] [address]HQ: 11/08/2018 Secondary NOT GIVENUNK [place] Insurance:SELF PAY [facility] Number: Effective Repository Date:2018-11-08 11/03/2018 CLARA Jacobo Primary CLARA Jacobo [place] [id number] Insurance:SUMMA CARE GADFIELDDOB: [facility] [place] MEDICAREPolicy [id number] [facility], Number: Repository [place] [id number]: [id number] Date:9971-52-85VB [address] () [address] [address]YN: 11/03/2018 Secondary NOT GIVENUNK [place] Insurance:SELF PAY [facility] Number: Effective Repository Date:2018-11-03 11/03/2018 CLARA Jacobo Primary CLARA Jacobo [place] [id number] Insurance:SUMMA CARE GADFIELDDOB: [facility] [employer] MEDICAREPolicy [id number] Community Medical [facility], Number: Repository [place] [address]Wtj: [id number] Date:4351-84-88RL [address]OX (HP) [address] [address]JW: 11/03/2018 Secondary NOT GIVENUNK [place] Insurance:SELF PAY [facility]: Effective Repository Date:2018-10-31 11/02/2018 CLARA K Primary CLARA K [place] [id number] Insurance:SUMMA CARE GADFIELDDOB: Community [place] MEDICAREPolicy [id number], Number: Repository [place] [address]Brp: [id number] Date:5136-53-47ZO [address] () [address] [address]NT: 11/02/2018 Secondary NOT GIVENUNK [place] Insurance:SELF PAY [facility] Number: Effective Repository Date:2018-09-18 10/31/2018 CLARA K Primary CLARA K [place] [id number] Insurance:SUMMA CARE GADFIELDDOB: Community [place] MEDICAREPolicy [id number], Number: Repository [place] [address]Kue: [id number] Date:4700-84-64MS [address] () [address] [place] [address]QO: 10/31/2018 Secondary NOT GIVENUNK [place] Insurance:SELF PAY [facility] Number: Effective Repository Date:2018-10-27 10/24/2018 CLARA K Primary CLARA K [place] [id number] Insurance:SUMMA CARE GADFIELDDOB: Community [place] MEDICAREPolic [id number] Community Medical [facility], Number: Repository [place] [address]Tnj: [id number] Date:8227-31-50KH [address] () [address] [place] [address]UN: 10/24/2018 Secondary NOT GIVENUNK [place] Insurance:SELF PAY [facility] Number: Effective Repository Date:2018-10-24 10/06/2018 CLARA K Primary CLARA K [place] [id number] Insurance:SUMMA CARE GADFIELDDOB: Community [facility] MED[facility]ARE[facility] [id number], Number: Repository [place] [address]Fji: [id number] Date:0793-83-93QL BOX (HP) [address] [place] [address]VU: 10/06/2018 Secondary NOT GIVENUNK [place] Insurance:SELF PAY [facility] Number: Effective Repository Date:2018-10-02 09/15/2018 Clara Jacobo Primary Clara K [place] [id number] Insurance:SUMMA CARE GadfieldDOB: Community [place] MEDICAREPolicy [id number] Medical Center, Number: Repository [place] [address]Vls: [id number] Date:0614-51-77OU BOX (HP) [address] [address]RE: 09/15/2018 Secondary NOT GIVENUNK [place] Insurance:SELF PAY [facility] Number: Effective Repository Date:2018-09-15 03/16/2018 Clara Jacobo Primary Clara Jacobo [place] [id number] Insurance:SUMMA CARE GadfieldDOB: [facility] [place] MEDICAREPolicy [id number] Medical Center, Number: Repository [place] [address]Pvg: [id number] Date:2959-61-71ZH BOX (HP) [address] [place] [address]XN: 03/16/2018 Secondary NOT GIVENUNK [place] Insurance:SELF PAY [facility] Number: Effective Repository Date:2018-03-06 03/15/2018 Clara Jacobo Primary Clara Jacobo [place] [id number] Insurance:SUMMA CARE GadfieldDOB: [facility] [place] MEDICAREPolicy [id number] Medical Center, Number: Repository [place] [address]Ygf: [id number] Date:0051-30-85OP [address]OX (HP) [address] [place] [id number]: 03/15/2018 Secondary NOT GIVENUNK [place] Insurance:SELF PAY [facility] Number: Effective Repository Date:2018-03-15 03/06/2018 Clara Jacobo Primary Clara Jacobo [place] [id number] Insurance:SUMMA CARE [place]: [place] [id number], Number: Repository [place] [id number]: [id number] Date:0752-86-76QG [address] () [id number] [place] [id number]: 03/06/2018 Secondary NOT GIVENUNK [place] Insurance:SELF PAY [facility] Number: Effective Repository Date:2018-03-06 02/27/2018 Clara Jacobo Primary Clara Jacobo [place] [id number] Insurance:SUMMA CARE [place]DOB: [facility] [place]Policy [id number], Number: Repository [place] [id number]: [id number] Date:4091-13-72HM [address] () [id number] [place] [id number]: 02/27/2018 Secondary NOT GIVENUNK [place] Insurance:SELF PAY [facility] Number: Effective Repository Date:2018-02-27 02/14/2018 Clara Jacobo Primary Clara Jacobo [place] [id number] Insurance:SUMMA CARE [place]DOB: [facility]ly [facility] [place] MED[place]Policy [id number], Number: Repository [place] [id number]: [id number] Date:1460-27-59VM [address] () [id number] [place] [id number]: 02/14/2018 Secondary NOT GIVENUNK [place] Insurance:SELF PAY [facility] Number: Effective Repository Date:2018-02-07 02/13/2018 Clara Jacobo Primary Clara Jacobo [place] [id number] Insurance:SUMMA CARE [place]DOB: [facility]ly [facility] [place] MEDICAREPolicy [id number], Number: Repository [place] [id number]: [id number] Date:7357-56-05ZQ BOX (HP) [address] [place] [id number]: 02/13/2018 Secondary NOT GIVENUNK [place] Insurance:SELF PAY [facility] Effective Repository Date:2018-02-07 02/09/2018 Clara Jacobo Primary Clara K [place] [id number] Insurance:SUMMA CARE [place]DOB: [place] MEDICAREPolicy [id number], Number: Repository [place] [id number]: [id number] Date:4781-89-93BC BOX (HP) [address] [place] [id number]: 02/09/2018 Secondary NOT GIVENUNK [place] Insurance:SELF PAY [facility] Number: Effective Repository Date:2018-02-09 02/07/2018 Clara Jacobo Primary Clara K [place] [id number] Insurance:SUMMA CARE [place]DOB: [place] MEDICAREPolicy [id number] Center, Number: Repository [place] [id number]: [id number] Date:4973-44-32LD BOX (HP) [id number] [place] [id number]: 02/07/2018 Secondary NOT GIVENUNK [place] Insurance:SELF PAY [facility] Number: Effective Repository Date:2018-02-07 01/26/2018 Clara Jacobo Primary Clara K [place] [id number] Insurance:SUMMA CARE [place]DOB: [place] MEDICAREPolicy [id number], Number: Repository [place] [id number]: [id number] Date:4474-46-21KK BOX (HP) [address] [place] [id number]: 01/26/2018 Secondary NOT GIVENUNK [place] Insurance:SELF PAY [facility] Number: Effective Repository Date:2018-01-26
== END ==
PROVIDERS: Family Provider Family Medicine Geriatric Medicine; PCP Family Medicine Geriatric Medicine; Referring Provider Surgery; Visit Provider Surgery
DX: E04.1 Nontoxic single thyroid nodule (principal)
CPT/HCPCS: 88108; 88161; 88305; 88313

== ENCOUNTER → 2018-11-13 13:30 | Outpatient (CLI) | payer MEDICARE, SELFPAY ==
[2018-03-06 14:25] VITALS: BMI 29.6
[2018-11-08 08:32] VITALS: BMI 29.4
[2018-11-13 17:05] LABS: Thyroid Stim Hormone (TSH) 1.53 uIU/mL (0.358-3.74)
== END ==
PROVIDERS: Family Provider Family Medicine Geriatric Medicine; PCP Family Medicine Geriatric Medicine; Visit Provider Family Medicine Geriatric Medicine
DX: E03.9 Hypothyroidism, unspecified (principal)
CPT/HCPCS: 36415; 84443

== ENCOUNTER → 2019-03-16 | Outpatient (CLI) | payer MEDICARE, SELFPAY ==
[2018-11-08 08:32] VITALS: BMI 29.4
[2019-03-16 13:18] LABS: Absolute Lymphocyte Count 2.66 X10^3/ul (0.83-4.51); Absolute Neutrophil Count 5.4 X10^3/uL (2.0-7.7); Basophil# 0.03 X10^3/uL; Basophil% 0.3 % (0-1); Eosinophils% 2.2 % (0-5); Hematocrit 45.4 % (37-47); Hemoglobin 14.6 g/dl (12.0-15.0); Lymphocyte # 2.66 X10^3/ul (4.0); Mean Corp Hgb Conc 32.2 g/gl (32-36); Mean Corpuscular Hgb 29.9 pg (27.0-32.0); Mean Corpuscular Volume 92.8 fL (81-99); Mean Platelet Vol. 11.6 fl (6.2-12.0); Monocyte# 0.82 X10^3/uL; Neutrophil # 5.44 X10^3/uL (2.7-7.7); Neutrophil % 59.4 % (47-70); Platelet Count 218 K/mm3 (150-450); RBC Distribution Width CV 13.8 % (11.6-14.6); RBC Distribution Width SD 46.7 fl (35.1-43.9); Red Blood Count 4.89 M/mm3 (4.2-5.4); White Blood Count 9.2 K/mm3 (4.4-11.0)
[2019-03-16 13:25] LABS: POSITIVE COUNT NO; POSITIVE DIFFERENTIAL NO; POSITIVE MORPHOLOGY NO
[2019-03-16 13:55] LABS: AST(SGOT) 24 U/L (15-37); Alanine Aminotransfer ALT/SGPT 25 U/L (13-56); Albumin, Serum 3.6 g/dL (3.2-5.0); Alkaline Phosphatase 97 U/L (45-117); Anion Gap 7 (5-15); BUN 11 mg/dL (7-18); Calcium,Total 9.8 mg/dL (8.5-10.1); Chloride 105 mmol/L (98-107); Creatinine, Serum 0.85 mg/dL (0.55-1.02); EST Glomerular Filtration Rate 71 mL/min (>60); Est Glom Filt Rate - Afr Amer 86 mL/min (>60); Globulin 3.5 g/dL (2.2-4.2); Glucose 84 mg/dL (74-106); Potassium 4.2 mmol/L (3.5-5.1); Protein, Total 7.1 g/dL (6.4-8.2); Sodium Level 142 mmol/L (136-145); Thyroid Stim Hormone (TSH) 2.35 uIU/mL (0.358-3.74)
[2019-03-16 14:17] LABS: Vitamin D,25 Hydroxy 53.1 ng/mL (29.95-100.01)
== END | disposition home or self-care (01) ==
PROVIDERS: Family Provider Family Medicine Geriatric Medicine; PCP Family Medicine Geriatric Medicine; Visit Provider Family Medicine Geriatric Medicine
DX: I10 Essential (primary) hypertension (principal); E55.9 Vitamin D deficiency, unspecified
CPT/HCPCS: 36415; 80053; 82306; 84443; 85025

== ENCOUNTER → 2019-06-01 | Outpatient (CLI) | payer MEDICARE, SELFPAY ==
[2018-11-08 08:32] VITALS: BMI 29.4
--- NOTE | 2019-06-01 08:53 | RAD_ITS ---
STUDY: X-RAY - LUMBAR SPINE REASON FOR EXAM: Female, 69 years old. Pain TECHNIQUE: 3 view(s) of the lumbar spine were obtained. COMPARISON: None FINDINGS: There is no evidence of fracture or dislocation in the lumbar spine. The vertebral body heights are maintained. Moderate disc space loss is present at the L4-L5 level. Grade 1-2 spondylolisthesis is present at this level. Mild multilevel osteophytosis is present. RAD/Lumbar Spine 2 or 3 Views IMPRESSION: No fracture or dislocation in the lumbar spine. Multilevel degenerative changes described above, including grade 1-2 spondylolisthesis at the L4-L5 level. Electronically Signed: Ashvin Rodríguez, at 16:56 EDT Tel , Service support ,
== END | disposition home or self-care (01) ==
LOC: RAD 08:51
PROVIDERS: Family Provider Family Medicine Geriatric Medicine; PCP Family Medicine Geriatric Medicine; Referring Provider Family Medicine Geriatric Medicine; Visit Provider Family Medicine Geriatric Medicine
DX: M54.5 Low back pain (principal)
CPT/HCPCS: 72100

== ENCOUNTER 2019-07-08 14:50 | Emergency (ER) | payer MEDICARE, SELFPAY ==
[2018-11-08 08:32] VITALS: BMI 29.4
[2019-07-08 14:51] VITALS: BP 168/101; PULSE 108; RESP 17; TEMP 36.9; O2SAT 98; BMI 25.2
--- NOTE | 2019-07-08 15:08 | ED.DCSUM_ITS ---
History of Present Illness Chief Complaint: Back Detail of Chief Complaint: Right upper back pain Informant: Patient Onset: Today Context: Gradual Onset Current Severity: Severe Maximum Severity: Severe Narrative: Patient states last week she had some muscle spasm and tightness in her left upper back. She is able to get that worked out. Yesterday she was doing some y angela work. 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 She did some other yard work. When she woke up this morning she had mild pain in the right posterior shoulder. Throughout the day pain is continued to worsen. She has taken 2 tabs of tramadol without improvement. She denies direct trauma to her back. She denies paresthesias. Past Medical History - Allergies and Home Meds Allergies/Adverse Reactions: Allergies Penicillins Allergy (Verified 07/08/19 14:54) Rash Primary Care Physician: Yonny Carballo Chi, MD [Primary Care Provider] - Prior records reviewed: Yes Past Medical History: - - Reviewed Surgical History: cholecystectomy Lives: Alone Smoking Status: Current every day smoker - Family History Paternal Family History: Family History (Last Reviewed 11/08/18 @ 08:07 by Carmen Melara) Other Arthritis CVA (cerebral vascular accident) Cancer Family History: Reports: Cancer - Lung Maternal Family History: Family History (Last Reviewed 11/08/18 @ 08:07 by Carmen Melara) Other Arthritis CVA (cerebral vascular accident) Cancer Family History: Reports: Diabetes Review of Systems General: Denies: Chills, Fever Eyes: Denies: Visual changes - bilaterally ENT: Denies: Bilateral ear pain Cardiovascular: Denies: Chest pain Respiratory: Denies: Dyspnea, Cough Gastrointestinal: Denies: Abdominal pain, Nausea, Vomiting, Diarrhea Musculoskeletal: Reports: Neck pain, Back pain. Denies: Extremity Pain Skin: Denies: Rash, Wounds Neurological: Denies: Parasthesia Hematologic: Denies: Easy bruising Allergy: Denies: Uticaria Physical Exam Vital Signs/Narrative: Vital Signs Temp Pulse Resp BP Pulse Ox 07/08/19 14:51 98.4 F 108 H 17 168/101 H 98 Inital Vital Signs reviewed: Yes General: Well nourished, Well developed Head: Normocephalic Eyes: Perrl, EOMI ENT: Moist mucous membranes Neck: Supple, - - No midline cervical tenderness. Cardiovascular: Regular rate, Regular rhythm Respiratory: No distress, CTA bilaterally Abdomen: Soft, Nontender Back: - - Patient has significant reproducible tenderness and palpable spasm in the upper trapezius muscles on the right. Extremities: - - Minimal tenderness over the anterior right shoulder. No evidence of dislocation. Good range of motion. Skin: Normal color Neurological: Alert, Oriented x3, Normal Strength, Normal Sensation Psychological: Tearful Diagnostic/Tx/Re-eval - Medical Decision Making Patient was given IM morphine and p.o. Valium for pain and spasm. On repeat evaluation pain is improved, but patient feels like it starting to get worse again. She just received her medications 1 hour ago. She was started on oral pain and spasm regimen for home and given a sling. She has reproducible tenderness with possible spasm in the muscles, but no bony tenderness. There is no direct trauma I do not feel that imaging is going to beneficial. This was discussed with the patient and she agrees. Patient is to follow-up with her primary care physician, Dr. Carballo. ED Disposition - Plan for ED Patient: Disposition: Home or Assisted Living Diagnosis: Back spasm Instructions: BACK SPASM, No Trauma Prescriptions: Hydrocodone Bitart/Apap 5-325 [Arco 5MG-325MG] 1 tablet PO Q6H PRN PRN 3 Days #10 tablet PRN Reason: Pain Diazepam [Valium] 5 mg PO Q8 PRN #10 tablet PRN Reason: Muscle Spasm Referrals: Yonny Carballo Chi, MD [Primary Care Provider] - 2 Days
[2019-07-08] MEDS: diazePAM 5 MG Tablet PO (15:15)
[2019-07-08] MEDS: morphine 8 MG/ML Syringe IM (15:15)
== END 2019-07-08 16:33 | disposition home or self-care (01) ==
PROVIDERS: Emergency Provider Emergency Medicine; Family Provider Family Medicine Geriatric Medicine; PCP Family Medicine Geriatric Medicine
DX: M62.830 Muscle spasm of back (principal); F17.200 Nicotine dependence, unspecified, uncomplicated
CPT/HCPCS: 96372; 99283

== ENCOUNTER → 2019-07-10 | Outpatient (CLI) | payer MEDICARE, SELFPAY ==
[2019-07-08 14:51] VITALS: BMI 25.2
--- NOTE | 2019-07-10 14:35 | RAD_ITS ---
STUDY: X-RAY - RIGHT SHOULDER REASON FOR EXAM: Female, 69 years old. Pain TECHNIQUE: 4 view(s) of the shoulder. COMPARISON: None. FINDINGS: Normal glenohumeral articulation. Normal acromioclavicular joint. Normal acromion. Normal humeral head and visualized proximal humerus. The soft tissue structures are unremarkable. Normal visualized pulmonary apex. RAD/Shoulder min 2 Views IMPRESSION: Normal x-ray examination of the shoulder. Electronically Signed: Polina Appiah MD at 15:04 EDT Tel , Service support ,
== END | disposition home or self-care (01) ==
LOC: RAD 14:30
PROVIDERS: Family Provider Family Medicine Geriatric Medicine; PCP Family Medicine Geriatric Medicine; Referring Provider Family Medicine Geriatric Medicine; Visit Provider Family Medicine Geriatric Medicine
DX: M25.511 Pain in right shoulder (principal)
CPT/HCPCS: 73030

== ENCOUNTER → 2019-09-26 14:03 | Outpatient (CLI) | payer MEDICARE, SELFPAY ==
[2019-09-03 14:42] VITALS: BMI 25.2
[2019-09-26 17:29] LABS: Absolute Lymphocyte Count 2.84 X10^3/uL (0.83-4.51); Absolute Neutrophil Count 6.2 X10^3/uL (2.0-7.7); Basophil# 0.04 X10^3/uL; Basophil% 0.4 % (0-1); Eosinophil# 0.11 X10^3/uL; Eosinophils% 1.1 % (0-5); Hematocrit 45.1 % (37-47); Hemoglobin 14.5 g/dL (12.0-15.0); Lymphocyte # 2.84 X10^3/ul (4.0); Lymphocyte % 28.5 % (19-41); Mean Corp Hgb Conc 32.2 g/dL (32-36); Mean Corpuscular Hgb 30.6 pg (27.0-32.0); Mean Corpuscular Volume 95.1 fL (81-99); Mean Platelet Vol. 10.9 fl (6.2-12.0); Monocyte# 0.74 X10^3/uL; Monocyte% 7.4 % (0-10); NRBC Flagged by Analyzer 0 % (0-5); Neutrophil # 6.18 X10^3/uL (2.7-7.7); Neutrophil % 62.2 % (47-70); Platelet Count 228 K/mm3 (150-450); RBC Distribution Width CV 13.3 % (11.6-14.6); Red Blood Count 4.74 M/mm3 (4.2-5.4)
[2019-09-26 17:38] LABS: Vitamin D,25 Hydroxy 49.3 ng/mL (29.95-100.01)
[2019-09-26 17:51] LABS: ALB/GLOB Ratio 1.2 RATIO (0.9-2.4); AST(SGOT) 16 U/L (15-37); Alanine Aminotransfer ALT/SGPT 22 U/L (13-56); Albumin, Serum 3.7 g/dL (3.2-5.0); Alkaline Phosphatase 68 U/L (45-117); Anion Gap 4 (5-15); BUN 18 mg/dL (7-18); BUN/Creat Ratio 21.5 RATIO (10-20); Chloride 104 mmol/L (98-107); Creatinine, Serum 0.84 mg/dL (0.55-1.02); EST Glomerular Filtration Rate 72 mL/min (>60); Est Glom Filt Rate - Afr Amer 87 mL/min (>60); Globulin 3.1 g/dL (2.2-4.2); Glucose 72 mg/dL (74-106); Protein, Total 6.8 g/dL (6.4-8.2); Sodium Level 140 mmol/L (136-145); Thyroid Stim Hormone (TSH) 1.24 uIU/mL (0.358-3.74)
== END ==
PROVIDERS: Family Provider Family Medicine Geriatric Medicine; PCP Family Medicine Geriatric Medicine; Visit Provider Family Medicine Geriatric Medicine
DX: E55.9 Vitamin D deficiency, unspecified (principal); I10 Essential (primary) hypertension; N39.0 Urinary tract infection, site not specified
CPT/HCPCS: 36415; 80053; 82306; 84443; 85025; 87086; 87088

== ENCOUNTER → 2020-04-01 | Outpatient (CLI) | payer MEDICARE, SELFPAY ==
[2019-09-03 14:42] VITALS: BMI 25.2
[2020-04-01 15:53] LABS: Absolute Lymphocyte Count 2.32 X10^3/uL (0.83-4.51); Absolute Neutrophil Count 4.6 X10^3/uL (2.0-7.7); Basophil# 0.06 X10^3/uL; Basophil% 0.8 % (0-1); Eosinophil# 0.26 X10^3/uL; Eosinophils% 3.4 % (0-5); Hematocrit 43.2 % (37-47); Hemoglobin 13.9 g/dL (12.0-15.0); Lymphocyte # 2.32 X10^3/ul (4.0); Lymphocyte % 29.9 % (19-41); Mean Corp Hgb Conc 32.2 g/dL (32-36); Mean Corpuscular Volume 93.1 fL (81-99); Mean Platelet Vol. 10.8 fl (6.2-12.0); Monocyte# 0.47 X10^3/uL; Monocyte% 6.1 % (0-10); NRBC Flagged by Analyzer 0 % (0-5); Neutrophil # 4.61 X10^3/uL (2.7-7.7); Neutrophil % 59.4 % (47-70); Platelet Count 202 K/mm3 (150-450); RBC Distribution Width CV 14.1 % (11.6-14.6); RBC Distribution Width SD 47.3 fl (35.1-43.9); Red Blood Count 4.64 M/mm3 (4.2-5.4); White Blood Count 7.8 K/mm3 (4.4-11.0)
[2020-04-01 16:11] LABS: Vitamin D,25 Hydroxy 61.3 ng/mL
[2020-04-01 16:22] LABS: ALB/GLOB Ratio 1.1 RATIO (0.9-2.4); AST(SGOT) 17 U/L (15-37); Alanine Aminotransfer ALT/SGPT 16 U/L (13-56); Albumin, Serum 3.5 g/dL (3.2-5.0); Alkaline Phosphatase 78 U/L (45-117); Anion Gap 6 (5-15); BUN 12 mg/dL (7-18); BUN/Creat Ratio 13.5 RATIO (10-20); Calcium,Total 9.6 mg/dL (8.5-10.1); Chloride 105 mmol/L (98-107); Creatinine, Serum 0.89 mg/dL (0.55-1.02); EST Glomerular Filtration Rate 67 mL/min (>60); Est Glom Filt Rate - Afr Amer 81 mL/min (>60); Globulin 3.3 g/dL (2.2-4.2); Glucose 108 mg/dL (74-106); Potassium 3.7 mmol/L (3.5-5.1); Protein, Total 6.8 g/dL (6.4-8.2); Sodium Level 140 mmol/L (136-145); Thyroid Stim Hormone (TSH) 0.99 uIU/mL (0.358-3.74)
== END | disposition home or self-care (01) ==
LOC: POLAB3 14:01
PROVIDERS: PCP Family Medicine Geriatric Medicine; Visit Provider Family Medicine Geriatric Medicine
DX: E55.9 Vitamin D deficiency, unspecified (principal); I10 Essential (primary) hypertension
CPT/HCPCS: 36415; 80053; 82306; 84443; 85025

== ENCOUNTER → 2020-10-01 09:48 | Outpatient (CLI) | payer MEDICARE, SELFPAY ==
[2019-09-03 14:42] VITALS: BMI 25.2
[2020-10-01 12:40] LABS: Absolute Lymphocyte Count 2.57 X10^3/uL (0.83-4.51); Absolute Neutrophil Count 4.6 X10^3/uL (2.0-7.7); Basophil# 0.05 X10^3/uL; Basophil% 0.6 % (0-1); Eosinophils% 2.5 % (0-5); Hematocrit 44.8 % (37-47); Hemoglobin 14.1 g/dL (12.0-15.0); Lymphocyte # 2.57 X10^3/ul (4.0); Lymphocyte % 31.9 % (19-41); Mean Corp Hgb Conc 31.5 g/dL (32-36); Mean Corpuscular Hgb 29.3 pg (27.0-32.0); Mean Corpuscular Volume 92.9 fL (81-99); Mean Platelet Vol. 10.2 fl (6.2-12.0); Monocyte# 0.61 X10^3/uL; Monocyte% 7.6 % (0-10); NRBC Flagged by Analyzer 0 % (0-5); Neutrophil # 4.61 X10^3/uL (2.7-7.7); Neutrophil % 57.2 % (47-70); Platelet Count 208 K/mm3 (150-450); RBC Distribution Width CV 13.8 % (11.6-14.6); RBC Distribution Width SD 47.2 fl (35.1-43.9); Red Blood Count 4.82 M/mm3 (4.2-5.4); White Blood Count 8.1 K/mm3 (4.4-11.0)
[2020-10-01 12:52] LABS: Vitamin D,25 Hydroxy 55.4 ng/mL
[2020-10-01 13:08] LABS: ALB/GLOB Ratio 1.1 RATIO (0.9-2.4); AST(SGOT) 14 U/L (15-37); Alanine Aminotransfer ALT/SGPT 19 U/L (13-56); Albumin, Serum 3.6 g/dL (3.2-5.0); Alkaline Phosphatase 84 U/L (45-117); Anion Gap 6 (5-15); BUN 13 mg/dL (7-18); BUN/Creat Ratio 15.9 RATIO (10-20); Calcium,Total 9.6 mg/dL (8.5-10.1); Chloride 105 mmol/L (98-107); Creatinine, Serum 0.82 mg/dL (0.55-1.02); EST Glomerular Filtration Rate 74 mL/min (>60); Est Glom Filt Rate - Afr Amer 89 mL/min (>60); Globulin 3.4 g/dL (2.2-4.2); Glucose 85 mg/dL (74-106); Sodium Level 140 mmol/L (136-145); Thyroid Stim Hormone (TSH) 4.04 uIU/mL (0.358-3.74)
== END ==
PROVIDERS: PCP Family Medicine Geriatric Medicine; Visit Provider Family Medicine Geriatric Medicine
DX: I10 Essential (primary) hypertension (principal); E55.9 Vitamin D deficiency, unspecified
CPT/HCPCS: 36415; 80053; 82306; 84443; 85025

== ENCOUNTER 2020-11-07 04:37 | Inpatient (IN) | payer MEDICARE, SELFPAY ==
[2019-09-03 14:42] VITALS: BMI 25.2
[2020-11-07] VITALS (42 sets, daily range): BP systolic 79–123; BP diastolic 39–79; PULSE 68–81; RESP 15–23; TEMP 35.7–36.8; O2SAT 90–100; BMI 28.4; BMI 28.3
[2020-11-07] MEDS: TICAGRELOR 90 MG TABLET 180 MG PO (04:40)
[2020-11-07] MEDS: Heparin Injection (Vial) 5,000 UNIT/ML VIAL 4000 UNIT IV (04:40)
--- NOTE | 2020-11-07 04:44 | EKG12_ITS ---
Test Reason : STEMI Blood Pressure : / mmHG Vent. Rate : 069 BPM Atrial Rate : 069 BPM P-R Int : 160 ms QRS Dur : 074 ms QT Int : 382 ms P-R-T Axes : 069 032 105 degrees QTc Int : 409 ms Normal sinus rhythm ST elevation consider inferior injury or acute infarct ACUTE NE / STEMI Consider right ventricular involvement in acute inferior infarct Abnormal ECG Confirmed by OSMEL BEAR, KWAN ([id number]), online content editor CHARLOTTE VAZQUEZ ([id number]) on 11/11/2020 10:47:36 AM Referred By: Jose Luis Dang Confirmed By:KWAN BOLIVAR MD
--- NOTE | 2020-11-07 04:44 | RAD_ITS ---
stemi EXAMINATION/TECHNIQUE: XR Chest 1 View: COMPARISON: September 02, 2015 FINDINGS: Patient rotated LINES/DEVICES: None. LUNGS: No consolidation, edema or effusion. No pneumothorax. MEDIASTINUM AND CARDIOVASCULAR STRUCTURES: Cardiac silhouette not enlarged. Central airways and mediastinal contour are unremarkable. Prominent azygos vein versus tortuous aorta BONES AND SOFT TISSUES: Unremarkable. RAD/Chest 1 View (Portable) IMPRESSION: Prominent azygos vein versus tortuous aorta at 0528 Reported and signed by: Polina Carson DO Electronically Signed: Polina Carson DO at 5:27 EST Tel , Service support ,
--- NOTE | 2020-11-07 04:45 | ED.DCSUM_ITS ---
History of Present Illness Chief Complaint: Chest Pain Informant: Patient Narrative: Arrives by EMS prehospital STEMI inferior. Patient stated she started having chest discomfort when she woke up at 2 AM. Substernal chest heaviness with no radiation. Denies any shortness of breath nausea vomiting or diaphoresis. No cardiac history per patient. She does take a baby aspirin daily preventative. EMS gave full-strength aspirin placed on oxygen and brought her in for evaluation. She is still having discomfort. Moderate in severity. Worsened by nothing. Relieved by nothing. She is never had a heart cath in the past. - Past Medical History (1) Carotid stenosis Status: Acute (2) Multiple thyroid nodules Status: Acute (3) Segmental and somatic dysfunction of lumbar region Status: Acute (4) Segmental and somatic dysfunction of pelvic region Status: Acute (5) Segmental and somatic dysfunction of thoracic region Status: Acute (6) Sigmoid diverticulitis Status: Acute (7) Skin lesions Status: Acute (8) Anxiety Status: Chronic (9) Depression Status: Chronic (10) GERD (gastroesophageal reflux disease) Status: Chronic (11) HTN (hypertension) Status: Chronic (12) Lumbar canal stenosis Status: Chronic (13) Lumbar degenerative disc disease Status: Chronic (14) Lumbar radiculopathy, chronic Status: Chronic (15) Rectal prolapse Status: Chronic Past Medical History - Allergies and Home Meds Allergies/Adverse Reactions: Allergies Penicillins Allergy (Verified 11/07/20 04:51) Rash Prior records reviewed: Yes Past Medical History: - - See problem list Surgical History: cholecystectomy Smoking Status: Former smoker Alcohol: None Drugs: None - Family History Paternal Family History: Family History (Last Reviewed 09/03/19 @ 14:38 by Asia Blake) Other Arthritis CVA (cerebral vascular accident) Cancer Family History: Reports: Cancer - Lung Maternal Family History: Family History (Last Reviewed 09/03/19 @ 14:38 by Asia Blake) Other Arthritis CVA (cerebral vascular accident) Cancer Family History: Reports: Diabetes Review of Systems General: Denies: Chills, Fever, Sweats Eyes: Denies: Visual changes - bilaterally, Diplopia ENT: Denies: Rhinorrhea, Sore throat Cardiovascular: Reports: Chest pain. Denies: Palpitations Respiratory: Denies: Dyspnea, Cough, Dyspnea on exertion Gastrointestinal: Denies: Abdominal pain, Nausea, Vomiting, Diarrhea, Melena, Hematochezia Genitourinary: Denies: Dysuria, Hematuria, Frequency Musculoskeletal: Denies: Back pain, Extremity Pain Skin: Denies: Rash, Wounds Neurological: Denies: Headache, Weakness, Numbness Physical Exam Vital Signs/Narrative: Vital Signs Resp BP 11/07/20 04:38 16 86/70 L General: Well nourished, Well developed, No Acute Distress Head: Normocephalic, Atraumatic Eyes: Perrl, EOMI ENT: Moist mucous membranes, No rhinorrhea Neck: Supple, Nontender Cardiovascular: Regular rate, Regular rhythm, No murmurs Respiratory: No distress, CTA bilaterally, Chest nontender Abdomen: Soft, Nontender, Nondistended, Normal bowel sounds Back: Nontender, Normal Inspection Extremities: Nontender, No edema Skin: Normal color, No rash Neurological: Alert, Oriented x3, Cranial nerves II-XII grossly intact, Normal Strength, Normal Sensation Psychological: Normal affect, Normal Mood Diagnostic/Tx/Re-eval - Medical Decision Making Initial EKG upon arrival shows sinus rhythm with a normal rate with inferior ST NJ picture with reciprocal changes. Patient given heparin and Brilinta. Placed on oxygen given IV fluid boluses this is an inferior STEMI with initial blood pressure being hypotensive. Patient second blood pressure came up to normal. We withheld nitroglycerin as this is an inferior NJ. Patient will go directly to the Fiberglass Container Winding Operator when they arrive from home. They were activated prehospital. Chest x-ray interpreted by me shows 1 view. Cardiac silhouette appears normal. There is atherosclerosis of the aortic knob. Mild perihilar fullness. Mediastinum appears within normal size limits. - Critical Care Time Critical care time (excluding procedures): 30-74 minutes ED Disposition - Plan for ED Patient: Disposition: Acute Care Hospital [facility] Diagnosis: ST elevation myocardial infarction (STEMI)
[2020-11-07 04:49] LABS: Absolute Lymphocyte Count 2.87 X10^3/uL (0.83-4.51); Absolute Neutrophil Count 6.9 X10^3/uL (2.0-7.7); Basophil# 0.05 X10^3/uL; Basophil% 0.5 % (0-1); Eosinophil# 0.13 X10^3/uL; Eosinophils% 1.2 % (0-5); Hematocrit 48.5 % (37-47); Hemoglobin 15.3 g/dL (12.0-15.0); Lymphocyte # 2.87 X10^3/ul (4.0); Lymphocyte % 27.1 % (19-41); Mean Corp Hgb Conc 31.5 g/dL (32-36); Mean Corpuscular Hgb 29.8 pg (27.0-32.0); Mean Corpuscular Volume 94.5 fL (81-99); Mean Platelet Vol. 10.4 fl (6.2-12.0); Monocyte# 0.65 X10^3/uL; Monocyte% 6.1 % (0-10); NRBC Flagged by Analyzer 0 % (0-5); Neutrophil # 6.87 X10^3/uL (2.7-7.7); Neutrophil % 64.8 % (47-70); Platelet Count 237 K/mm3 (150-450); RBC Distribution Width CV 13.8 % (11.6-14.6); RBC Distribution Width SD 48.1 fl (35.1-43.9); Red Blood Count 5.13 M/mm3 (4.2-5.4); White Blood Count 10.6 K/mm3 (4.4-11.0)
[2020-11-07] MEDS: 0.9% Normal Saline 1,000 ML 999 ML IV ×2 (04:49→07:30)
[2020-11-07] MEDS: Heparin 10,000 UNITS/10 ML Vial 1000 UNITS IV (04:52)
[2020-11-07] MEDS: Morphine 2 MG/ML Syringe IV (04:54)
[2020-11-07 04:56] LABS: International Normalized Ratio 0.9; Partial Thromboplast Time 25.8 Seconds (24.1-36.2); Prothrombin Time (Protime)PT. 11.3 SECONDS (11.7-14.9)
[2020-11-07] MEDS: Nitroglycerin SL (ED/IMG/CATH) 0.4 MG TABLET SUBLINGUAL (04:56)
--- NOTE | 2020-11-07 05:03 | HP.PCM_ITS ---
Problem List (1) ST elevation myocardial infarction (STEMI) Status: Acute (2) Carotid stenosis Status: Chronic Qualifiers: Laterality: unspecified laterality Qualified Code(s): I65.29 - Occlusion and stenosis of unspecified carotid artery (3) Multiple thyroid nodules Status: Chronic (4) Segmental and somatic dysfunction of pelvic region Status: Chronic (5) Segmental and somatic dysfunction of lumbar region Status: Chronic (6) Segmental and somatic dysfunction of thoracic region Status: Chronic (7) Lumbar canal stenosis Status: Chronic Qualifiers: Neurogenic claudication status: unspecified Qualified Code(s): M48.061 - Spinal stenosis, lumbar region without neurogenic claudication (8) Lumbar degenerative disc disease Status: Chronic (9) Lumbar radiculopathy, chronic Status: Chronic (10) Rectal prolapse Status: Chronic (11) Depression Status: Chronic (12) Anxiety Status: Chronic (13) HTN (hypertension) Status: Chronic (14) GERD (gastroesophageal reflux disease) Status: Chronic History of Present Illness Date of Admission: 11/07/20 Chief Complaint: Chest pain The patient is a 70 year old F with a significant history of hypertension; GERD; carotid stenosis; chronic pain; and hypothyroidism who presents to the emergency department with chest pain. Her chest pain started about 3 hours prior to presentation. Her chest pain is substernal. The chest pain woke her up from her sleep. The chest pain is nonradiating. She described the chest pain as a pressure. The chest pain is constant it is a severe and occasionally it worsens. The chest pain worsens with lying flat and improves with sitting down. Associated with her symptoms is headache and pain of her lower gum. She has dentures. STEMI alert was called before patient was brought to the emergency department. Past Medical History Past Medical History (Chronic Problems): Chronic Problems (Last Reviewed 11/07/20 @ 05:[address] Rj Lala MD) Carotid stenosis (Chronic) Multiple thyroid nodules (Chronic) Segmental and somatic dysfunction of pelvic region (Chronic) Segmental and somatic dysfunction of lumbar region (Chronic) Segmental and somatic dysfunction of thoracic region (Chronic) Lumbar canal stenosis (Chronic) Lumbar degenerative disc disease (Chronic) Lumbar radiculopathy, chronic (Chronic) Rectal prolapse (Chronic) Depression (Chronic) Anxiety (Chronic) HTN (hypertension) (Chronic) GERD (gastroesophageal reflux disease) (Chronic) Medical History: Medical History (Last Reviewed 11/07/20 @ 05:[address] Rj Lala MD) Skin lesions (Inactive) L98.9 Carotid stenosis (Chronic) I65.29 Multiple thyroid nodules (Chronic) E04.2 Segmental and somatic dysfunction of pelvic region (Chronic) M99.05 Segmental and somatic dysfunction of lumbar region (Chronic) M99.03 Segmental and somatic dysfunction of thoracic region (Chronic) M99.02 Lumbar canal stenosis (Chronic) M48.06 Lumbar degenerative disc disease (Chronic) M51.36 Lumbar radiculopathy, chronic (Chronic) M54.16 Rectal prolapse (Chronic) K62.3 Depression (Chronic) F32.9 Anxiety (Chronic) F41.9 HTN (hypertension) (Chronic) I10 GERD (gastroesophageal reflux disease) (Chronic) K21.9 Sigmoid diverticulitis (Inactive) K57.32 Arthritis M19.90 High cholesterol E78.00 Allergies Penicillins Allergy (Verified 11/07/20 04:51) Rash Home Medications: Ambulatory Orders Medication Instructions Recorded Aspirin [Aspirin, Baby] 81 mg PO DAILY@0800 11/26/13 Atorvastatin Calcium [Lipitor] 40 mg PO QHS 11/26/13 Duloxetine Hcl [Cymbalta] 60 mg PO DAILY 11/26/13 Multivitamins,Therapeutic 1 tab PO DAILY 11/26/13 [Multivitamin] Omeprazole [Prilosec] 40 mg PO DAILY 11/26/13 traMADol [Ultram] 50 mg PO Q4H PRN PRN 11/26/13 traZODone [Desyrel] 100 mg PO QHS 11/26/13 Cholecalciferol (Vitamin D3) 2,000 unit PO DAILY 02/21/17 [Vitamin D3] gabapentin 300 mg capsule 300 mg PO BID 10/31/18 levothyroxine 25 mcg capsule 25 mcg PO DAILY 10/31/18 vitamin B complex 1 tab PO DAILY 10/31/18 vitamin E (dl, acetate) 400 unit 400 unit PO DAILY 09/03/19 capsule Surgical History: Surgical History (Last Reviewed 11/07/20 @ 05:[address] 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 Rj Lala MD) Other Arthritis CVA (cerebral vascular accident) Cancer History Items: Cancer - Lung Maternal Family History: Family History (Last Reviewed 11/07/20 @ 05:[address] Rj Lala MD) Other Arthritis CVA (cerebral vascular accident) Cancer History Items: Diabetes Review of Systems Constitutional: Denies: Fever, Weight Change HEENT: Reports: Head Aches. Denies: Sinus Congestion, Sinus Drainage Cardiovascular: Reports: Chest Pain. Denies: Palpitations Respiratory: Denies: Cough, Shortness of breath at rest, Sputum production Gastrointestinal: Reports: Nausea. Denies: Abdominal Pain, Vomiting Genitourinary: Denies: Dysuria Musculoskeletal: Denies: Joint Pain, Joint Tenderness Skin: Denies: Rash, Wounds Neurological: Denies: Numbness, Tingling, Focal weakness Psychiatric: Denies: Anxiety, Depression, Homicidal Ideations, Suicidal Ideations Hematologic/ Lymphatic: Denies: Easy Bruising, Easy Bleeding VTE Information - Inpt Only VTE Present on Admission: No VTE Mechan Device Prophylaxis: None VTE Pharm Prophylaxis ordered?: No Reason prophylaxis not ordered:: Treatment Not Indicated - Heparin bolus was given at emergency department for STEMI Patient Problems: Active and Suspected Problems (Last Reviewed 11/07/20 @ 05:[address] Rj Lala MD) ST elevation myocardial infarction (STEMI) (Acute) - Physical Exam Vitals/I&O's: Vital Signs Temp Pulse Resp BP Pulse Ox 97.1 F L 73 18 123/73 H 97 11/07/20 04:42 11/07/20 04:42 11/07/20 04:42 11/07/20 04:42 11/07/20 04:50 Oxygen Flow Rate (L/min) 4 Oxygen Delivery Method Nasal Cannula Weight: 75.1 kg Body Mass Index (BMI) 28.4 General: Alert, Oriented x3, Cooperative HEENT: Atraumatic, PERRLA, EOMI, Normocephalic Neck: Supple, No JVD, Negative Carotid Bruits Lungs: Clear to auscultation, Normal air movement, No rhonchi, No wheeze, No rales Cardiovascular: Regular rate, Normal S1, Normal S2, No murmurs Abdomen: Bowel Sounds Present, Soft, Non Tender Extremities: No edema, Capillary Refill Less than 3 Seconds Skin: No rashes, No breakdown Musculoskeletal: No Tenderness to Palpation of Joints or Extremities Neurological: Cranial nerves II-XII grossly intact Psych/Mental Status: Anxious Laboratory Results 11/07/20 04:40: WBC 10.6, RBC 5.13, Hgb 15.3 H, Hct 48.5 H, MCV 94.5, MCH 29.8, MCHC 31.5 L, RDW Std Deviation 48.1 H, RDW Coeff of [place] 13.8, Plt Count 237, MPV 10.4, Immature Gran % (Auto) 0.300, Neut % (Auto) 64.8, Lymph % (Auto) 27.1, [place] % (Auto) 6.1, Eos % (Auto) 1.2, Baso % (Auto) 0.5, Absolute Neuts (auto) 6.9, Absolute Lymphs (auto) 2.87, Nucleated RBC % 0 11/07/20 04:40: PT 11.3 L, INR 0.9, APTT 25.8 11/07/20 04:40: Sodium Pending, Potassium Pending, Chloride Pending, Carbon Dioxide Pending, Anion Gap Pending, BUN Pending, Creatinine Pending, Est GFR (MDRD) Af Amer Pending, Est GFR (MDRD) Non-Af Pending, BUN/Creatinine Ratio Pending, Glucose Pending, Calcium Pending, Troponin I Pending Current Medications Sodium Chloride () 1,000 mls @ 999 mls/hr IV .Q1H1M BLAYNE Last Admin: 11/07/20 04:49 Dose: 999 mls/hr Documented by: Assessment/Plan All Active Problems (Last Reviewed 11/07/20 @ 05:[address] Rj Lala MD) ST elevation myocardial infarction (STEMI) (Acute) The patient is a 70 year old F with a significant history of hypertension; GERD; carotid stenosis; chronic pain; and hypothyroidism who presents to the emergency department with chest pain and found to have ST elevation NE in inferior leads and with reciprocal ST depressions and T wave inversions. ST elevation NE EKG taken by paramedics and sent to the emergency department before patient arrived was reviewed. It showed ST elevation in inferior leads with reciprocal ST depression and T wave inversions. Repeat EKG when patient arrived at emergency department was consistent with EKG taken by paramedics. Patient was given aspirin; Brilinta; heparin bolus and normal saline bolus at the emergency department. Patient was seen by myself at bedside at the emergency department and also by ED doctor and cardiology interventionists. Nitroglycerin sublingual and morphine IV ordered at emergency department by cardiac interventionalist secondary to persistent pain. Pacer pads placed on patient's chest at the emergency department. The patient was wheeled to the Spine Specialist for further intervention. Follow cardiology recommendations and post STEMI care after patient returned from Spine Specialist. Tobacco abuse Patient smoked tobacco for 40 years now she vapes. Counseled when appropriate. DVT prophylaxis Received heparin bolus at the emergency department. Inpatient E&M: [id number] Init Hosp L2
[2020-11-07 05:05] LABS: Anion Gap 6 (5-15); BUN 14 mg/dL (7-18); Calcium,Total 9.7 mg/dL (8.5-10.1); Chloride 101 mmol/L (98-107); EST Glomerular Filtration Rate 59 mL/min (>60); Est Glom Filt Rate - Afr Amer 71 mL/min (>60); Glucose 174 mg/dL (74-106); Sodium Level 137 mmol/L (136-145)
--- NOTE | 2020-11-07 05:56 | NURSING ---
DAUGHTER ANAYA CALLED IN AND CLARISSE THE CHARGE NURSE SPOKE TO HER AND GAVE HER AN UPDATE.
--- NOTE | 2020-11-07 06:34 | NURSING ---
ICU [address] DAHL
--- NOTE | 2020-11-07 06:35 | NURSING ---
levophed running at 10 mcg/min in LAC IV and dopamine running at 10 mcg/kg/min in RAC IV
--- NOTE | 2020-11-07 06:36 | CL.PCI_ITS ---
PCI Cardiac Cath Report PCI Report: Procedure performed; 1. Left heart catheterization 2. Successful PCI of the culprit lesion, occluded large proximal left circumflex with NAYAN 0 flow, with successful PCI and stent using drug-eluting stent synergy Postprocedure NAYAN III. 3. Measurement of LVEDP 4. Moderate sedation 5. Patient received emergency x2 shock with 200 J for episode of V. tach, IV amiodarone 150 mg bolus in the [employer]. 6 heparin IV and Integrilin IV 7. Patient is in cardiogenic shock requiring inotropic support Levophed/dopamine infusion. Preprocedure diagnosis; 70-year-old patient, patient with history of smoking, no prior cardiac history and no history of stroke, live by herself, who developed symptoms of severe retrosternal chest pain with diaphoresis around 2:00 in the morning, EMS service called an EKG consistent with acute inferoposterior myocardial infar ction with significant elevation of ST, in the inferior lead more prominent on ST elevation in lead III, reciprocal change with ST depression noted in V2, The culprit is the left circumflex artery which is a large vessel. Patient was seen and evaluated in the ER, noted the blood pressure was low given IV Levophed in the ER IV fluid She was given also heparin a total of 5000 and the ER and was taken as an emergency to the [employer] Access from the right common femoral artery and she was very unstable with bradycardia and hypotension Diagnostic catheter used; JL 4 6 Mosoth[place], JR4 6 Mosotho. Access obtained from the right common femoral artery under fluoroscopy guidance. We will proceed with a JL4 and selective angiography of left coronary system were obtained 2 views OLIVER and DAVISON cranial Following this 6 [place]oth[place] JR4 catheter used and selective angiographic view of right consisting. Angiographic views were restarted and the culprit lesion identified as occluded proximal left circumflex which is a large vessel/dominant and patient was very unstable with severe chest pain hypertension bradycardia We will proceed immediately with the interventional plan Interventional equipment use; EBU 3.5 guide catheter, run-through wire, BMW wire, balloon 2.5 balloon, drug- eluting stent synergy 3 x 24 mm, NC balloon, emerge3.25 x 20 mm. We will proceed with the guide catheter and angiographic view obtained Then we proceed with a wire we were able to cross with a BMW wire and we performed balloon dilatation 2.5 x 15 mm balloon Patient went to V. tach requiring to be shocked x2 She was given amiodarone 150 mg.. Then we immediately proceed with a drug-eluting stent 3 x 24 mm Synergy and postdilated with 3.25. Noted still she was hypotensive and she was started on Levophed and dopamine. Her symptoms of chest pain improve and the EKG is improved We will proceed with a JR4 6 [place]oth[place] catheter across aortic valve LVEDP measured LVEDP measuring around 24 mmHg. Patient was given aspirin, Brilinta in the ER, in the [employer] we gave a total of 6000 of heparin and ACT level was 279, Integrilin 2 boluses and infusion. Current angiography findings; Left main is normal angiographically, moderate to large size vessel, bifurcating into left anterior descending and the left circumflex. Left anterior descending moderate to large size vessel reach all the way to the apex Proximal LAD has no obstructive atherosclerosis, mid LAD had around 40 to 50% at the site of the first diagonal with a NAYAN-3 flow in the left anterior descending The left circumflex artery is a large dominant vessel occluded proximally, with a large thrombus in the proximal left circumflex artery, with NAYAN 0 flow, following the intervention and the placement of a drug-eluting stent in the proximal left circumflex artery NAYAN-3 flow was obtained. With the left PDA a arising from the left circumflex. Predilatation in the proximal circumflex using 2.5 x 15 mm balloon, followed by placement of drug- eluting stent Synergy 3 x 24 mm up to 12 JOSEPH, followed by NC balloon 3.25mm. RCA small vessel nondominant with a proximal eccentric lesion around 40% mid RCA small around 50%. Patient continues to be monitored in the ICU due to the hypotension. To avoid vascular complication patient has a large proximal left circumflex thrombus and use of Integrilin, I decided not to place balloon pump at this point and were able to maintain a blood pressure of around 90 mmHg her symptoms of chest pain resolved , she was nauseated and given Zofran. Conclusion and plan; 70-year-old patient with acute inferoposterior myocardial infarction, with occluded proximal dominant left circumflex artery With a successful PCI and stenting of the proximal left circumflex using the drug-eluting stent. Patient will be admitted to the intensive care unit and will continue on Levophed and dopamine drip, will be titrated to keep systolic blood pressure above 100 mmHg.. Selective right common femoral artery angiography, obtained and a Perclose used to close arteriotomy site with no complication in the [employer] Patient will require echocardiogram, and further evaluation of the LAD which can be set up as an outpatient with nuclear stress test. The RCA is a small nondominant. This patient is a very high risk patient due to occlusion of the proximal large dominant circumflex artery. We will plan for cardiac rehab program, as outpatient Patient was given Brilinta, aspirin in the [employer] will continue Brilinta 90 mg twice daily, atorvastatin, low-dose aspirin.
--- NOTE | 2020-11-07 06:56 | NURSING ---
patient arrived to unit on dopamine and levophed drips, no order for drips in computer, called tag and label cutter, per tag and label cutter RN Dr. Dewey working on placing orders, Dr. Dewey stated continue dopamine and levophed drips.
--- NOTE | 2020-11-07 07:35 | EKG12_ITS ---
Test Reason : Blood Pressure : / mmHG Vent. Rate : 086 BPM Atrial Rate : 086 BPM P-R Int : 148 ms QRS Dur : 076 ms QT Int : 400 ms P-R-T Axes : 061 002 -55 degrees QTc Int : 478 ms Sinus rhythm with occasional Premature ventricular complexes Low voltage QRS ST & T wave abnormality, consider inferolateral ischemia Prolonged QT Abnormal ECG Confirmed by JUANA BEAR, PILAR ([id number]), digital editor CHARLOTTE VAZQUEZ ([id number]) on 11/11/2020 2:56:21 PM Referred By: Jose Luis Dang Confirmed By:PILAR ARIAS MD
[2020-11-07 07:41] LABS: Absolute Lymphocyte Count 3.23 X10^3/uL (0.83-4.51); Absolute Neutrophil Count 13.7 X10^3/uL (2.0-7.7); Basophil# 0.06 X10^3/uL; Basophil% 0.3 % (0-1); Eosinophils% 0.5 % (0-5); Hematocrit 42.6 % (37-47); Hemoglobin 13.5 g/dL (12.0-15.0); Lymphocyte # 3.23 X10^3/ul (4.0); Lymphocyte % 17.6 % (19-41); Mean Corp Hgb Conc 31.7 g/dL (32-36); Mean Corpuscular Hgb 30.1 pg (27.0-32.0); Mean Corpuscular Volume 95.1 fL (81-99); Monocyte# 1.16 X10^3/uL; Monocyte% 6.3 % (0-10); NRBC Flagged by Analyzer 0 % (0-5); Neutrophil # 13.73 X10^3/uL (2.7-7.7); Neutrophil % 74.8 % (47-70); Platelet Count 291 K/mm3 (150-450); RBC Distribution Width SD 48.8 fl (35.1-43.9); Red Blood Count 4.48 M/mm3 (4.2-5.4); White Blood Count 18.4 K/mm3 (4.4-11.0)
[2020-11-07 08:26] LABS: ALB/GLOB Ratio 1.1 RATIO (0.9-2.4); AST(SGOT) 497 U/L (15-37); Alanine Aminotransfer ALT/SGPT 67 U/L (13-56); Alkaline Phosphatase 90 U/L (45-117); Anion Gap 5 (5-15); BUN 15 mg/dL (7-18); Calcium,Total 7.9 mg/dL (8.5-10.1); Chloride 111 mmol/L (98-107); Creatinine, Serum 0.88 mg/dL (0.55-1.02); EST Glomerular Filtration Rate 68 mL/min (>60); Est Glom Filt Rate - Afr Amer 82 mL/min (>60); Estimated Creatinine Clearance 50.61 ml/min; Globulin 2.8 g/dL (2.2-4.2); Glucose 174 mg/dL (74-106); Magnesium 1.9 mg/dL (1.6-2.6); Potassium 4.2 mmol/L (3.5-5.1); Protein, Total 5.8 g/dL (6.4-8.2); Sodium Level 139 mmol/L (136-145)
--- NOTE | 2020-11-07 08:31 | EKG12_ITS ---
Test Reason : A FIB Blood Pressure : / mmHG Vent. Rate : 116 BPM Atrial Rate : 308 BPM P-R Int : 000 ms QRS Dur : 060 ms QT Int : 326 ms P-R-T Axes : 000 006 185 degrees QTc Int : 453 ms Atrial flutter with variable A-V block Low voltage QRS ST & T wave abnormality, consider anterolateral ischemia Inferior LA, age undetermined, cannot be excluded Abnormal ECG Confirmed by JUANA BEAR, PILAR ([id number]), tape editor CHARLOTTE VAZQUEZ ([id number]) on 11/11/2020 2:53:03 PM Referred By: Jose Luis Dang Confirmed By:PILAR ARIAS MD
--- NOTE | 2020-11-07 08:45 | EKG12_ITS ---
Test Reason : AM EKG Blood Pressure : / mmHG Vent. Rate : 069 BPM Atrial Rate : 069 BPM P-R Int : 122 ms QRS Dur : 082 ms QT Int : 392 ms P-R-T Axes : - - 074 degrees QTc Int : 420 ms Normal sinus rhythm Inferior-posterior infarct , possibly acute * ACUTE GA Abnormal ECG When compared with ECG of 07-NOV-2020 07:54, MANUAL COMPARISON REQUIRED, DATA IS UNCONFIRMED Confirmed by DURAN BEAR, DORITA ([id number]), editor school photograph VERNA COREA ([id number]) on 11/17/2020 12:53:19 PM Referred By: Jose Luis Dang Confirmed By:FRANCIA GARZON MD
--- NOTE | 2020-11-07 09:10 | PCM.CONS.C ---
Reason for Consult Date of Consultation: 11/07/20 History of Present Illness: The patient is a 70 year old F [, presented to the ER with symptoms of retrosternal chest pain diaphoresis Patient had a history of smoking The EKG showed evidence of acute inferoposterior CO with ST elevation noted lead to 3 more prominent in lead III and also she had remarkable ST depression in V1 V2 From the electrocardiographic findings likely the culprit lesion at the proximal left circumflex. Patient was given heparin in the ER 5000, aspirin And was taken as an emergency for cardiac catheterization Physical exam in the ER she remained in normal sinus She had a lower blood pressure systolic around 90-100 mmHg There is no murmur no pericardial rub. Chest exam clear to auscultation. Assessment and plan;. Patient was taken to the cardiac catheterization lab which showed the finding left main normal, mid LAD had nonobstructive sclerosis, left circumflex proximal occluded with NAYAN 0 flow underwent successful PCI With placement of a drug-eluting stent to the proximal circumflex 3 x 24 mm Synergy stent and postdilated with 3.25 mm NC balloon The RCA is a small nondominant Conclusion; Patient had low blood pressure and started on inotropic support with Levophed and dopamine. Also she was given a bolus of 2 doses Integrilin. ACT elevated around 275 Patient was given Brilinta low-dose aspirin I reviewed and discussed all current cardiac medication with the nursing staff Patient will continue the following medication 1. Low-dose aspirin 81 mg once a day 2. Brilinta 90 mg twice a day. 3. Atorvastatin 40 mg at bedtime. 4. We will evaluate with a 2D echocardiogram 5. Outpatient phase 1 cardiac rehab. Continue to monitor in the intensive care unit and will plan for evaluation by echocardiogram. ] Past Medical History Allergies/Adverse Reactions: Allergies Penicillins Allergy (Verified 11/07/20 04:51) Rash Home Medications: Ambulatory Orders Medication Instructions Recorded Aspirin [Aspirin, Baby] 81 mg PO DAILY@0800 11/26/13 Atorvastatin Calcium [Lipitor] 40 mg PO QHS 11/26/13 Duloxetine Hcl [Cymbalta] 60 mg PO DAILY 11/26/13 Multivitamins,Therapeutic 1 tab PO DAILY 11/26/13 [Multivitamin] Omeprazole [Prilosec] 40 mg PO DAILY 11/26/13 traMADol [Ultram] 50 mg PO Q4H PRN PRN 11/26/13 traZODone [Desyrel] 100 mg PO QHS 11/26/13 Cholecalciferol (Vitamin D3) 2,000 unit PO DAILY 02/21/17 [Vitamin D3] gabapentin 300 mg capsule 300 mg PO BID 10/31/18 levothyroxine 25 mcg capsule 50 mcg PO DAILY 10/31/18 vitamin B complex 1 tab PO DAILY 10/31/18 vitamin E (dl, acetate) 400 unit 400 unit PO DAILY 09/03/19 capsule Past Medical History (Chronic Problems): Chronic Problems (Last Reviewed 11/07/20 @ 05:[address] Rj Lala MD) Carotid stenosis (Chronic) Multiple thyroid nodules (Chronic) Segmental and somatic dysfunction of pelvic region (Chronic) Segmental and somatic dysfunction of lumbar region (Chronic) Segmental and somatic dysfunction of thoracic region (Chronic) Lumbar canal stenosis (Chronic) Lumbar degenerative disc disease (Chronic) Lumbar radiculopathy, chronic (Chronic) Rectal prolapse (Chronic) Depression (Chronic) Anxiety (Chronic) HTN (hypertension) (Chronic) GERD (gastroesophageal reflux disease) (Chronic) Surgical History: cholecystectomy Psychiatric History: Anxiety, Depression [employer] History: No pertinent [employer] history - *Family History Paternal Family History: Family History (Last Reviewed 11/07/20 @ 05:[address] Rj Lala MD) Other Arthritis CVA (cerebral vascular accident) Cancer History Items: Cancer - Lung Maternal Family History: Family History (Last Reviewed 11/07/20 @ 05:[address] Rj Lala MD) Other Arthritis CVA (cerebral vascular accident) Cancer History Items: Diabetes Smoking Status: Light Smoker (<10/day) Tobacco Use: Vapor Alcohol: None Drugs: None Review of Systems - Review of Systems General: Denies: Fever, Night Sweats, Fatigue Cardiovascular: Denies: Chest Discomfort, Shortness of Breath, Orthopnea, PND, Peripheral Edema, Palpitations, Lightheadedness, Dizziness, Near Syncope, Syncope Respiratory: Denies: Cough, Sputum Production, Hemoptysis Genitourinary: Denies: Dysuria, Hematuria Skin: Denies: Rash Objective: Vital Signs Temp Pulse Resp BP Pulse Ox 96.3 F L 81 23 H 91/39 L 98 11/07/20 06:35 11/07/20 07:00 11/07/20 07:00 11/07/20 07:00 11/07/20 07:00 Oxygen Flow Rate (L/min) 6 Oxygen Delivery Method Nasal Cannula Weight: 160 lb 4.417 oz Body Mass Index (BMI) 28.3 Intake and Output for Last 24 Hours 11/05/20 11/06/20 11/07/20 23:59 23:59 23:59 Intake Total 1999 Balance 1999 General: Awake, Alert, Oriented x 3 HEENT: PERRL, EOMI, Sclera Non Icteric Neck: Supple, Good ROM, No Lymph Node Enlargement Lungs: Clear to auscultation Cardiovascular: Regular Rhythm, Normal S1, Normal S2, No Murmurs, No Rubs, No Gallops 11/07/20 04:40: WBC 10.6, RBC 5.13, Hgb 15.3 H, Hct 48.5 H, MCV 94.5, MCH 29.8, MCHC 31.5 L, Plt Count 237, MPV 10.4, Immature Gran % (Auto) 0.300, Neut % (Auto) 64.8, Lymph % (Auto) 27.1, [place] % (Auto) 6.1, Eos % (Auto) 1.2, Baso % (Auto) 0.5, Absolute Neuts (auto) 6.9, Nucleated RBC % 0 11/07/20 04:40: PT 11.3 L, INR 0.9, APTT 25.8 11/07/20 04:40: Sodium 137, Potassium 4.0, Chloride 101, Carbon Dioxide 30.0, Anion Gap 6, BUN 14, Creatinine 1.00, Est GFR (MDRD) Af Amer 71, Est GFR (MDRD) Non-Af 59 L, BUN/Creatinine Ratio 14.0, Glucose 174 H, Calcium 9.7, Troponin I 1.870 H* 11/07/20 06:55: Troponin I Cancelled 11/07/20 06:55: WBC 18.4 H, RBC 4.48, Hgb 13.5, Hct 42.6, MCV 95.1, MCH 30.1, MCHC 31.7 L, Plt Count 291, MPV 11.0, Immature Gran % (Auto) 0.500, Neut % (Auto) 74.8 H, Lymph % (Auto) 17.6 L, [place] % (Auto) 6.3, Eos % (Auto) 0.5, Baso % (Auto) 0.3, Absolute Neuts (auto) 13.7 H, Nucleated RBC % 0 11/07/20 07:42: Sodium 139, Potassium 4.2, Chloride 111 H, Carbon Dioxide 23.0, Anion Gap 5, BUN 15, Creatinine 0.88, Est GFR (MDRD) Af Amer 82, Est GFR (MDRD) Non-Af 68, BUN/Creatinine Ratio 17.0, Glucose 174 H, Calcium 7.9 L, Magnesium 1.9, Total Bilirubin 0.50 11/07/20 : Troponin I > 200.000 H* Rhythm: Underlying cardiac rhythm is normal sinus rhythm. EKG: The EKG in the ER revealed, ST elevation in the inferior leads more prominent in lead III and remarkable ST depression in V1 V2 This is highly suggestive of occluded proximal left circumflex artery. ECHO: Patient will be evaluated by 2D echocardiogram. Cardiac Cath: Finding of cardiac catheterization revealed occluded proximal circumflex with successful PCI and stenting of the proximal circumflex, nonobstructive mid LAD and nondominant RCA with normal left main. PCI: Successful PCI of the proximal circumflex with placement of a drug-eluting stent 3 x 24 mm. :
--- NOTE | 2020-11-07 09:21 | CON.PCM_ITS ---
Problem List (1) Cardiogenic shock Status: Acute (2) ST elevation myocardial infarction (STEMI) Status: Acute Qualifiers: Involved coronary artery: left circumflex coronary artery Qualified Code(s): I21.21 - ST elevation (STEMI) myocardial infarction involving left circumflex coronary artery (3) Carotid stenosis Status: Chronic Qualifiers: Laterality: unspecified laterality Qualified Code(s): I65.29 - Occlusion and stenosis of unspecified carotid artery (4) Lumbar canal stenosis Status: Chronic Qualifiers: Neurogenic claudication status: unspecified Qualified Code(s): M48.061 - Spinal stenosis, lumbar region without neurogenic claudication (5) Lumbar degenerative disc disease Status: Chronic (6) Lumbar radiculopathy, chronic Status: Chronic (7) Rectal prolapse Status: Chronic (8) Depression Status: Chronic (9) Anxiety Status: Chronic (10) HTN (hypertension) Status: Chronic (11) GERD (gastroesophageal reflux disease) Status: Chronic Reason for Consult Date of Consultation: 11/07/20 Reason for Consultation: Cardiogenic shock History of Present Illness: The patient is a 70 year old F, with past medical history listed below, who presented to [facility] on 11/07/2020 secondary to acute onset of chest discomfort at 2 AM. This was described as substernal chest heaviness with no radiation. This was not associated with shortness of breath, nausea, vomiting or diaphoresis. Patient reportedly does have a protracted smoking history of 40 pack years, but has never been told of any cardiac or respiratory problems. Patient has not required inhalers in the past. EMS was called and she was brought to the ER for evaluation. Initial EKG showed sinus rhythm with an inferior ST elevation OH and reciprocal changes. Patient was given heparin, Brilinta and placed on supplemental oxygen. In the ER, patient was hypotensive at 86/70, so did receive fluid boluses. Patient was not given nitroglycerin secondary to inferior OH. Chest x-ray was unremarkable and patient was transferred to the [facility] for emergent cardiac intervention. In the [facility], patient received a right common femoral approach. Patient was found to have an occluded large proximal left circumflex with NAYAN 0 flow that was successfully restored to NAYAN III. Patient did have 2 episodes of V. tach requiring emergent cardioversion and also received 150 mg bolus of amiodarone, IV heparin and Integrilin. Patient continued to be hypotensive and was placed on Levophed and dopamine and admitted to the intensive care unit. On arrival to the intensive care unit, patient reported that she felt tired and weak. Patient had her pressors going through a peripheral line, but did not report any discomfort at the site. Patient denied any nausea, vomiting or diarrhea. Patient does report a long smoking history, but is never seen a eviction specialist or had a pulmonary function test. Patient states she has never been on an inhaler previously. Patient reportedly does follow with a primary care physician and has been compliant with her medications. Patient denies any history of previous cardiac pain. Review of systems otherwise negative from a constitutional, HEENT, respiratory, cardiovascular, GI, genitourinary, musculoskeletal, skin, neurologic, psychiatric and hematologic system unless stated above. Past Medical History Past Medical History (Chronic Problems): Chronic Problems (Last Reviewed 11/07/20 @ 05:[address] Rj Lala MD) Carotid stenosis (Chronic) Multiple thyroid nodules (Chronic) Segmental and somatic dysfunction of pelvic region (Chronic) Segmental and somatic dysfunction of lumbar region (Chronic) Segmental and somatic dysfunction of thoracic region (Chronic) Lumbar canal stenosis (Chronic) Lumbar degenerative disc disease (Chronic) Lumbar radiculopathy, chronic (Chronic) Rectal prolapse (Chronic) Depression (Chronic) Anxiety (Chronic) HTN (hypertension) (Chronic) GERD (gastroesophageal reflux disease) (Chronic) Medical History: Medical History (Last Reviewed 11/07/20 @ 05:[address] Rj Lala MD) Skin lesions (Inactive) L98.9 Carotid stenosis (Chronic) I65.29 Multiple thyroid nodules (Chronic) E04.2 Segmental and somatic dysfunction of pelvic region (Chronic) M99.05 Segmental and somatic dysfunction of lumbar region (Chronic) M99.03 Segmental and somatic dysfunction of thoracic region (Chronic) M99.02 Lumbar canal stenosis (Chronic) M48.06 Lumbar degenerative disc disease (Chronic) M51.36 Lumbar radiculopathy, chronic (Chronic) M54.16 Rectal prolapse (Chronic) K62.3 Depression (Chronic) F32.9 Anxiety (Chronic) F41.9 HTN (hypertension) (Chronic) I10 GERD (gastroesophageal reflux disease) (Chronic) K21.9 Sigmoid diverticulitis (Inactive) K57.32 Arthritis M19.90 High cholesterol E78.00 Allergies Penicillins Allergy (Verified 11/07/20 04:51) Rash Home Medications: Ambulatory Orders Medication Instructions Recorded Aspirin [Aspirin, Baby] 81 mg PO DAILY@0800 11/26/13 Atorvastatin Calcium [Lipitor] 40 mg PO QHS 11/26/13 Duloxetine Hcl [Cymbalta] 60 mg PO DAILY 11/26/13 Multivitamins,Therapeutic 1 tab PO DAILY 11/26/13 [Multivitamin] Omeprazole [Prilosec] 40 mg PO DAILY 11/26/13 traMADol [Ultram] 50 mg PO Q4H PRN PRN 11/26/13 traZODone [Desyrel] 100 mg PO QHS 11/26/13 Cholecalciferol (Vitamin D3) 2,000 unit PO DAILY 02/21/17 [Vitamin D3] gabapentin 300 mg capsule 300 mg PO BID 10/31/18 levothyroxine 25 mcg capsule 50 mcg PO DAILY 10/31/18 vitamin B complex 1 tab PO DAILY 10/31/18 vitamin E (dl, acetate) 400 unit 400 unit PO DAILY 09/03/19 capsule Surgical History: Surgical History (Last Reviewed 11/07/20 @ 05:[address] 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 Rj Lala MD) Other Arthritis CVA (cerebral vascular accident) Cancer History Items: Cancer - Lung Maternal Family History: Family History (Last Reviewed 11/07/20 @ 05:[address] Rj Lala MD) Other Arthritis CVA (cerebral vascular accident) Cancer History Items: Diabetes Review of Systems Comment: See HPI Patient Problems: Active and Suspected Problems (Last Reviewed 11/07/20 @ 05:[address] Rj Lala MD) ST elevation myocardial infarction (STEMI) (Acute) Cardiogenic shock (Acute) Objective: Chest x-ray was personally reviewed and agree with formal interpretation. Patient's last stress report was in 2013. Patient had an echocardiogram in 2012 showing an EF of 60% with a pulmonary artery systolic pressure of 31 mmHg. At that time, patient did have some mild tricuspid valve insufficiency and LVH. - Physical Exam Vitals/I&O's: Vital Signs Temp Pulse Resp BP Pulse Ox 35.7 C L 81 23 H 91/39 L 98 11/07/20 06:35 11/07/20 07:00 11/07/20 07:00 11/07/20 07:00 11/07/20 07:00 Oxygen Flow Rate (L/min) 6 Oxygen Delivery Method Nasal Cannula Weight: 72.7 kg Body Mass Index (BMI) 28.3 Intake and Output for Last 24 Hours 11/05/20 11/06/20 11/07/20 23:59 23:59 23:59 Intake Total 1999 Balance 1999 General: Alert, Oriented x3, Cooperative, - - Mild conversational dyspnea. Obese. HEENT: Atraumatic, PERRLA, EOMI, Normocephalic, - - Slight scleral injection without icterus Oral: Moist Mucosa, No Gingival or Mucosal Lesions/ Ulcerations Neck: Supple, No JVD, No Nodes, Trachea Midline Lungs: No rhonchi, No wheeze, No rales, Diminished, - - Symmetric expansion. Poor effort. Cardiovascular: Regular rate, Regular Rhythm, Normal S1, Normal S2, No murmurs, No rub noted, No Gallop Abdomen: Bowel Sounds Present, Soft, Non Tender, Non-Distended, Obese Extremities: No clubbing, No cyanosis, No edema Skin: No rashes, No breakdown Musculoskeletal: No Tenderness to Palpation of Joints or Extremities Lymphatic: No Cervical, Supraclavicular, or Inguinal Adenopathy Neurological: Cranial nerves II-XII grossly intact, Neuro grossly intact, Motor Exam 5/5 strength throughout Psych/Mental Status: Anxious, Flat Affect Laboratory Results 11/07/20 04:40: WBC 10.6, RBC 5.13, Hgb 15.3 H, Hct 48.5 H, MCV 94.5, MCH 29.8, MCHC 31.5 L, RDW Std Deviation 48.1 H, RDW Coeff of [place] 13.8, Plt Count 237, MPV 10.4, Immature Gran % (Auto) 0.300, Neut % (Auto) 64.8, Lymph % (Auto) 27.1, [place] % (Auto) 6.1, Eos % (Auto) 1.2, Baso % (Auto) 0.5, Absolute Neuts (auto) 6.9, Absolute Lymphs (auto) 2.87, Nucleated RBC % 0 11/07/20 04:40: PT 11.3 L, INR 0.9, APTT 25.8 11/07/20 04:40: Sodium 137, Potassium 4.0, Chloride 101, Carbon Dioxide 30.0, Anion Gap 6, BUN 14, Creatinine 1.00, Estim Creat Clear Calc 46.50, Est GFR (MDRD) Af Amer 71, Est GFR (MDRD) Non-Af 59 L, BUN/Creatinine Ratio 14.0, Glucose 174 H, Calcium 9.7, Troponin I 1.870 H* 11/07/20 06:55: Troponin I Cancelled 11/07/20 06:55: WBC 18.4 H, RBC 4.48, Hgb 13.5, Hct 42.6, MCV 95.1, MCH 30.1, MCHC 31.7 L, RDW Std Deviation 48.8 H, RDW Coeff of [place] 14.0, Plt Count 291, MPV 11.0, Immature Gran % (Auto) 0.500, Neut % (Auto) 74.8 H, Lymph % (Auto) 17.6 L, [place] % (Auto) 6.3, Eos % (Auto) 0.5, Baso % (Auto) 0.3, Absolute Neuts (auto) 13.7 H, Absolute Lymphs (auto) 3.23, Nucleated RBC % 0 11/07/20 07:42: Troponin I Pending 11/07/20 07:42: Sodium 139, Potassium 4.2, Chloride 111 H, Carbon Dioxide 23.0, Anion Gap 5, BUN 15, Creatinine 0.88, Estim Creat Clear Calc 50.61, Est GFR ( RD) Af Amer 82, Est GFR (MDRD) Non-Af 68, BUN/Creatinine Ratio 17.0, Glucose 174 H, Calcium 7.9 L, Magnesium 1.9, Total Bilirubin 0.50, AST 497 H, ALT 67 H, Alkaline Phosphatase 90, Total Protein 5.8 L, Albumin 3.0 L, Globulin 2.8, Albumin/Globulin Ratio 1.1 11/07/20 : Troponin I > 200.000 H* Current Medications Aspirin (Aspirin 81 Mg Tab.Chew) 81 mg PO DAILY@0800 [facility] Atorvastatin Calcium (Atorvastatin Calcium 40 Mg Tablet) 40 mg PO QHS [facility] Atropine Sulfate (Atropine Sulfate 1 Mg/10 Ml Syringe) 0.5 mg IV UD PRN PRN Reason: HR <50 bpm Heparin Sodium (Beef Lung) (Heparin Lock 500 Unit/5 Ml In 10 Ml Syringe) 500 unit IV UD PRN PRN Reason: HEPARIN FLUSH Sodium Chloride () 250 mls @ 15 mls/hr IV .[id number] PRN PRN Reason: Saline Flush Sodium Chloride () 250 mls @ 15 mls/hr IV .[id number] PRN PRN Reason: Additional IVPB Infusion Dopamine HCl/Dextrose () 800 mg in 250 mls @ 6.816 mls/hr CONT INF .[id number] [facility]; Protocol Norepinephrine Bitartrate 8 mg (/ Sodium Chloride) 250 mls @ 9.375 mls/hr CONT INF .[id number] [facility]; Protocol Sodium Chloride () 1,000 mls @ 999 mls/hr IV .Q1H1M [facility] Stop: 11/07/20 09:50 Last Infusion: 11/07/20 08:52 Dose: Infused Documented by: Labetalol HCl (Labetalol (Prefilled) 20 Mg/4 Ml) 5 mg IV X1 PRN PRN Reason: SBP >160 when pulling sheath Ondansetron HCl (Ondansetron 4 Mg/2 Ml Vial) 4 mg IV Q8H PRN PRN PRN Reason: NAUSEA/VOMITING Sodium Chloride (0.9% Saline Lock 10 Ml Syringe) 10 - 40 ml IV UD PRN PRN Reason: SALINE FLUSH Sodium Chloride (0.9% Normal Saline 500 Ml Iv.Soln.) 500 ml IV BOLUS PRN PRN Reason: VASO-VAGAL PROTOCOL Ticagrelor (Ticagrelor 90 Mg Tablet) 90 mg PO BID [facility] Clinical Impression(s) from Imaging Studies Chest X-Ray 11/07/20 04:44 IMPRESSION: Prominent azygos vein versus tortuous aorta at 0528 Reported and signed by: Polina Carson DO Electronically Signed: Polina Carson DO at 5:27 EST Tel , Service support , Assessment/Plan Active and Suspected Problems (Last Reviewed 11/07/20 @ 05:[address] Rj Lala MD) ST elevation myocardial infarction (STEMI) (Acute) Cardiogenic shock (Acute) RECOMMENDATIONS: 1. Place central line MAGO 2. Transition pressor agents to central line 3. Antiarrhythmics and anticoagulation per cardiology 4. Await echocardiogram 5. Could consider bronchodilators with wheezing given smoking history and bradycardia IMPRESSIONS: 1. Cardiogenic shock/ventricular tachycardia secondary to ST elevation OH Patient with proximal circumflex lesion. Troponins are greater than 200, likely secondary to washout. Patient has been on pressor therapy since being in the unit. Will transition to central line for increased safety. May attempt to discontinue dopamine and use single agent for pressors. Echocardiogram is currently pending for evaluation of EF. Defer to cardiology on possible balloon pump. Patient is not on chronic steroids to suggest the stress dose steroids will be helpful. 2. Acute hypoxic respiratory failure secondary to ST elevation OH Clinical suspicion for an element of cardiogenic edema secondary to problem #1. Patient also has a history of smoking, so concomitant COPD would be a consideration. Patient could receive bronchodilators if wheezing is noted on exam. Wean oxygen as tolerated. Echocardiogram currently pending to differentiate CHF. Patient may require BiPAP therapy with sleep, but can evaluate that as time progresses. 3. Protracted tobacco abuse/chronic pain syn drome/depression/anxiety/hypertension/GERD Complicates care, management, recovery and prognosis. Avoid Ativan. Delirium protocol. Consider H2 vipin for GI prophylaxis. TIME: 37 minutes critical care time spent addressing cardiogenic shock, acute hypoxic respiratory failure, review of all data and collaboration with care team (8:30 AM to 10:15 AM) 9xxxx: [id number] Critical care first hour
--- NOTE | 2020-11-07 09:33 | NURSING ---
Cheyenne Barbosa WINDOWS SOFTWARE ENGINEER present in pt room, prepare for line placement 0935 HR 76 R 16 BP 105/81 SpO2 108/73 short burst VT 0940 HR 74 R 18 BP 108/54 SpO2 95% 6LNC 0945 HR 99 R 18 BP 99/59 SpO2 97% 6LNC 0950 HR 75 R 17 BP 113/59 SpO2 99% 6LNC 0951 Line placement began in RIJ, pt tolerating well 0952 wire threaded 0953 wire removed VS stable, pt tolerating well
--- NOTE | 2020-11-07 10:00 | RAD_ITS ---
STUDY: X-RAY CHEST REASON FOR EXAM: Female, 70 years old. Right central line placement. TECHNIQUE: Single frontal view of the chest. COMPARISON: 11/07/2020 FINDINGS: Right internal jugular catheter with tip projected over the mid-SVC. Hyperexpansion. Development of new dense right upper lobe opacity since the prior study. There is no demonstrated pleural abnormality. Stable cardiomegaly. Normal mediastinum and suleiman. Normal visualized pulmonary arteries. Aortic tortuosity with calcification. Normal visualized thoracic spine. Normal visualized ribs, clavicles, and shoulders. There is no demonstrated abnormality of the visualized soft tissue structures of the upper abdomen. RAD/CXR for Line Placement IMPRESSION: Right internal jugular catheter placement without complications. New dense right upper lobe pneumonia. No acute finding. Electronically Signed: Tristen Harding MD at 11:17 EST , Service support ,
--- NOTE | 2020-11-07 10:06 | PCM.OPRPT ---
Report of Operation Date of Procedure: 11/07/20 Surgery/Procedure Performed:: Triple-lumen catheter insertion Description of Surgical Findings:: Central line placement procedure note Indication: IV access/hemodynamic instability/vasoactive medications Procedure: A time-out was completed to verify correct patient, indication, medication allergies, procedure, coagulation studies, informed consent signed, and equipment needed. The patient was placed in the supine position for a central line placement to the rt IJ vein. The patients rt neck was prepped using chlorhexidine and a full body sterile drape was applied. 1% lidocaine was used to anesthetize the surrounding skin. A 7fr 16 cm blue guard triple lumen catheter introduced into the internal jugular vein using the modified Seldinger technique with the assistance of ultrasound. The catheter was threaded smoothly over the guidewire, the guidewire was removed easily, nonpulsatile blood returned. All ports were aspirated of air and flushed with sterile saline. The catheter was sutured in place and covered with an occlusive dressing impregnated with chlorhexidine. Post-procedure: The patient tolerated the procedure well. Vital signs remained stable. EBL 0. No complications. Chest X Ray ordered to confirm tip placement and the absence of pneumothorax. Multi Select Codes - Hospitalists' Procedures Procedures: [id number] Insert Non-tunnel CV Cath
[2020-11-07] MEDS: 0.9% Normal Saline 1,000 ML 100 ML IV (10:30)
[2020-11-07 10:59] LABS: Absolute Lymphocyte Count 1.57 X10^3/uL (0.83-4.51); Absolute Neutrophil Count 14.6 X10^3/uL (2.0-7.7); Basophil# 0.05 X10^3/uL; Basophil% 0.3 % (0-1); Eosinophil# 1.25 X10^3/uL; Eosinophils% 6.3 % (0-5); Hematocrit 41.3 % (37-47); Lymphocyte # 1.57 X10^3/ul (4.0); Mean Corp Hgb Conc 31.5 g/dL (32-36); Mean Corpuscular Hgb 30.1 pg (27.0-32.0); Mean Corpuscular Volume 95.6 fL (81-99); Mean Platelet Vol. 10.3 fl (6.2-12.0); Monocyte% 10.7 % (0-10); NRBC Flagged by Analyzer 0 % (0-5); Neutrophil # 14.59 X10^3/uL (2.7-7.7); POSITIVE DIFFERENTIAL YES; POSITIVE MORPHOLOGY YES; Platelet Count 279 K/mm3 (150-450); RBC Distribution Width CV 13.8 % (11.6-14.6); RBC Distribution Width SD 48.7 fl (35.1-43.9); Red Blood Count 4.32 M/mm3 (4.2-5.4); White Blood Count 19.7 K/mm3 (4.4-11.0)
[2020-11-07 11:01] LABS: Differential Indicated SCAN CRITERIA MET
[2020-11-07] MEDS: DOPamine IV 800 MG/250 ML IV.SOLN. 13.6 MG CONT INF ×2 (11:04→21:12)
[2020-11-07 11:11] LABS: Prothrombin Time (Protime)PT. 12.1 SECONDS (11.7-14.9)
[2020-11-07 11:12] LABS: Partial Thromboplast Time 30.8 Seconds (24.1-36.2)
--- NOTE | 2020-11-07 12:42 | ECHOD_ITS ---
Reason For Study: s/p NC Procedure This was a 2D Doppler, Color Flow transthoracic echocardiogram. Contrast injection was performed. Exam performed portable in ICU/CCU. Left Ventricle Normal LV size. Left ventricular systolic function is normal. The estimated ejection fraction is 60 %. Stage 1 diastolic dysfunction. Posterior-Basal: Akinetic. Mid-Posterior: Hypokinetic. Basal inferoseptal: Hypokinetic. The rest of the wall segments are normal. Right Ventricle Normal RV size. Normal systolic function. Atria Normal left atrium. Normal right atrium. Tricuspid Valve Normal tricuspid valve. Mild (1+) tricuspid valve insufficiency. Pulmonary artery systolic pressure is 35 mmHg. Aortic Valve Normal aortic valve. Trisinus/trileaflet aortic valve. Mild (1+) aortic valve insufficiency. Great Vessels Normal aortic root. The pulmonary artery is normal size. Normal inferior vena cava. Pericardium/Pleural No pericardial effusion. Medication Diluted definity 3ml given slow IV push to enhance endocardial definition. MMode/2D Measurements & Calculations LVIDd: 4.5 cm IVSd: 1.4 cm Ao root diam: 2.8 cm LVIDs: 3.4 cm LVPWd: 1.3 cm RVDd: 3.3 cm FS: 25.6 % LAV(MOD-bp): 28.2 ml LVAd ap4: 25.8 cm2 SV(MOD-sp4): 35.3 ml LAV(MOD-bp) Indexed: 16.0 ml/m2 EDV(MOD-sp4): 71.4 ml LAV(MOD-sp2): 29.3 ml EDV(sp4-el): 70.4 ml LAV(MOD-sp4): 26.5 ml LVAs ap4: 15.9 cm2 ESV(MOD-sp4): 36.1 ml ESV(sp4-el): 35.3 ml EF(MOD-sp4): 49.4 % EF(sp4-el): 49.8 % SV(sp4-el): 35.1 ml LA dimension(2D): 3.6 cm LA A4 area: 12.5 cm2 RA A4 area: 11.1 cm2 Doppler Measurements & Calculations MV E max usama: 62.5 cm/sec Lat Peak E' Usama: 5.4 cm/sec Med Peak E' Usama: 6.0 cm/sec MV A max usama: 76.5 cm/sec E/E' lat: 11.7 E/E' med: 10.4 MV E/A: 0.82 Ao V2 max: 142.4 cm/sec AI max usama: 311.0 cm/sec LV V1 max: 95.0 cm/sec Ao max P.1 mmHg AI max P.7 mmHg LV V1 max P.6 mmHg Ao V2 mean: 93.5 cm/sec Ao mean P.9 mmHg AI dec slope: 169.4 cm/sec2 Ao V2 VTI: 23.4 cm AI P1/2t: 537.7 msec PA V2 max: 86.7 cm/sec TR max usama: 280.0 cm/sec TR max P.4 mmHg Interpretation Summary Normal LV size. Left ventricular systolic function is normal. The estimated ejection fraction is 60 %. Stage 1 diastolic dysfunction. Pulmonary artery systolic pressure is 35 mmHg. Mild (1+) aortic valve insufficiency. Contrast injection was performed. Ordering Physician: Flaco Dewey Referring Physician: Yonny Carballo Chi Performed By: Jeny Jean-Baptiste, FELIZ, RVT
--- NOTE | 2020-11-07 13:04 | CRPHASE1_ITS ---
Patient Communication Former Patient:: Phase I PHII Cardiac Rehab Discussed with Patient:: Yes Guide to Cardiac Rehab Given to Patient:: Yes Cardiac Rehab Facility Choice List Given to Patient:: Yes Choice Program [facility] CR PHII:: Communication Given to CR Sports Recruiter:: Flaco Dewey Phase II Cardiac Rehab:: Yes Sessions:: 36 sessions - 3 days/wk, 12 weeks Risk Factors/Lifestyle Second-Hand Smoke:: No Hx Hypertension: Yes Hx Diabetes Mellitus Type 1: No Hx Diabetes Mellitus Type 2: No Hx Metabolic Disorders: No Hx Dyslipidemia: Yes Hx Obesity: No Post-Menopausal: Yes Stress: Long-standing ETOH: No Caffeine: No Substance Abuse: No Risk Factor for Sedentary Lifestyle: Moderate Risk Family History: Family History (Last Reviewed 11/07/20 @ 05:[address] Rj Lala MD) Other Arthritis CVA (cerebral vascular accident) Cancer Past Cardiac Illness: Ejection Fraction, Coronary Artery Disease, Myocardial Infarction Phase I Education Given On:: [place], Nutrition, Antiplatelet medication Issues Affecting Care:: Cognitive, Emotional Knowledge of Condition:: No Learning Preferences: Verbal, Written Cardiac Rehabilitation Info Cardiac Rehabilitation Program Information: Cardiac Rehabilitation is important for patients like you who are recovering from a heart problem. Cardiac rehabilitation programs are recognized as integral to the continued care of the patient with coronary heart disease. The cardiac rehabilitation program is designed to optimize a patient's physical, psychological, and social functioning. Health post acute care nurse practitioner work in cardiac rehabilitation programs and assist you with getting the treatments you need to get stronger and healthier - like exercise, healthy eating habits, and medications. Cardiac rehabilitation has been show to help people with heart problems live longer and have better life enjoyment than people who do not go to cardiac rehabilitation. Please contact the Cardiac Rehabilitation Program at [facility] at in two weeks if you have not heard from them.
--- NOTE | 2020-11-07 13:07 | CRPH1.INSTRU ---
General Education CAD and cardiac anatomy and function:: Patient communicates acknowledgment, Needs reinforcement Explanation of diagnoses and procedures:: Patient communicates acknowledgment, Needs reinforcement Sign/Symptoms of UT:: Patient communicates acknowledgment, Needs reinforcement Antiplatelet therapy: Patient communicates acknowledgment, Needs reinforcement Proper use of NTG-SL: Patient communicates acknowledgment, Needs reinforcement Emergency procedures and activation of EMS: Patient communicates acknowledgment, Needs reinforcement Compliance of all prescribed medications: Patient communicates acknowledgment, Needs reinforcement Smoking Patient Nicotine/Smoking Risk Factors Are:: Never smoked Dyslipidemia Patient Dyslipidemia Risk Factors Are:: Total Cholesterol, Triglycerides, HDL, LDL Recommendations Include:: Lipid profile not available, Reviewed NCEP/ATP guidelines, Therapeutic Lifestyle Change dietary guidelines Dyslipidemia Response Code:: Patient communicates acknowledgment Overweight/Obesity Patient Overweight/Obesity Risk Factors Are:: BMI Normal [24-29 & > 65 years old] Recommendations Include:: Weight loss of 5-10%, Reduced calorie diet, Exercise 5-7 times/week Overweight/Obesity:: Patient communicates acknowledgment Hypertension Recommendations Include:: Maintain BP <130/85, DASH dietary guidelines, Decrease/maintain normal body weight, Moderation of ETOH Hypertension:: Patient communicates acknowledgment Sedentary Patient Sedentary Risk Factors Are:: Lack of regular exercise Recommendations Include:: Aerobic exercise 5-7 times/week for 20-30 minutes continuously, Benefits of regular exercise, Discussed home walking program, Monitored Outpatient Cardiac Rehab Sedentary Response Code:: Patient communicates acknowledgment Stress Recommendations Include:: Identification of stressors, and assessment of coping skills, Stress management techniques Stress Response Code:: Patient communicates acknowledgment
[2020-11-07] MEDS: Gabapentin 300 MG Capsule PO ×2 (13:48→21:07)
--- NOTE | 2020-11-07 14:09 | CASEMGMT ---
RN CM Note: assessment deferred. Patient in ICU, unable to participate in assessment @ this time. Gina GARCIAN RN ACM
[2020-11-07] MEDS: 0.9% Saline Lock 10 ML Syringe IV (14:54)
[2020-11-07] MEDS: Ondansetron 4 MG/2 ML Vial IV ×2 (14:54→21:20)
[2020-11-07 18:04] LABS: Absolute Lymphocyte Count 1.42 X10^3/uL (0.83-4.51); Absolute Neutrophil Count 9.5 X10^3/uL (2.0-7.7); Basophil# 0.03 X10^3/uL; Basophil% 0.2 % (0-1); Hematocrit 36.1 % (37-47); Hemoglobin 11.5 g/dL (12.0-15.0); Lymphocyte # 1.42 X10^3/ul (4.0); Lymphocyte % 11.7 % (19-41); Mean Corp Hgb Conc 31.9 g/dL (32-36); Mean Corpuscular Hgb 30.3 pg (27.0-32.0); Mean Corpuscular Volume 95.3 fL (81-99); Mean Platelet Vol. 10.4 fl (6.2-12.0); Monocyte# 1.19 X10^3/uL; Monocyte% 9.8 % (0-10); NRBC Flagged by Analyzer 0 % (0-5); Neutrophil # 9.47 X10^3/uL (2.7-7.7); Neutrophil % 77.9 % (47-70); Platelet Count 212 K/mm3 (150-450); RBC Distribution Width SD 49.1 fl (35.1-43.9); Red Blood Count 3.79 M/mm3 (4.2-5.4); White Blood Count 12.2 K/mm3 (4.4-11.0)
--- NOTE | 2020-11-07 18:57 | CT_ITS ---
STUDY: CT ABDOMEN AND PELVIS WITH CONTRAST REASON FOR EXAM: Female, 70 years old. INCREASING BRUISING RT SIDE after heart cath today. Hx of HTN, carotid stenosis and cholecystectomy. RADIATION DOSAGE (If Supplied By Facility): CTDIvol = ( 16.86 ) mGy, DLP = ( 1274.44 ) mGycm TECHNIQUE: Transaxial images were obtained from the dome of the diaphragm to the symphysis pubis without oral contrast. IV 75mL Isovue-370 was administered. Sagittal and coronal images were reconstructed. Individualized dose optimization techniques were used for this CT. COMPARISON: None. FINDINGS: The visualized lung bases demonstrate bilateral diffuse infiltrates, right more than left. The visualized portions of the heart are within normal limits. Normal liver. Nonvisualization of the gallbladder. No significant dilatation of the extrahepatic biliary system. Normal spleen. Normal pancreas. Normal bilateral adrenal glands. Bilateral renal cysts. Normal visualized stomach. Normal small intestine. Normal colon. The appendix is visualized and appears normal. Calcified abdominal aorta with mild infrarenal abdominal aortic dilatation up to 2.7 cm. Normal inferior vena cava. Normal retroperitoneum. BRAVO catheter in the urinary bladder. There is subcutaneous edema in the right groin. Normal abdominal wall. Normal osseous structures. CT/Abdomen/Pelvis WITH Contrast IMPRESSION: Bilateral renal cysts. Mild infrarenal abdominal aortic dilatation. Subcutaneous edema in the right groin. No drainable collection. Electronically Signed: Sly Arnett DO at 21:41 EST Tel [phone], Service support ,
[2020-11-07] MEDS: Atorvastatin Calcium 40 MG Tablet PO (21:07)
[2020-11-08] VITALS (46 sets, daily range): BP systolic 77–115; BP diastolic 48–80; PULSE 61–97; RESP 16–25; TEMP 36.4–37.2; O2SAT 90–100
[2020-11-08 03:49] LABS: Hematocrit 33.7 % (37-47); Hemoglobin 10.6 g/dL (12.0-15.0); Mean Corp Hgb Conc 31.5 g/dL (32-36); Mean Corpuscular Hgb 30.2 pg (27.0-32.0); Mean Platelet Vol. 10.5 fl (6.2-12.0); Platelet Count 182 K/mm3 (150-450); RBC Distribution Width CV 14.1 % (11.6-14.6); RBC Distribution Width SD 49.6 fl (35.1-43.9); Red Blood Count 3.51 M/mm3 (4.2-5.4); White Blood Count 12.2 K/mm3 (4.4-11.0)
[2020-11-08 04:15] LABS: ALB/GLOB Ratio 0.9 RATIO (0.9-2.4); AST(SGOT) 320 U/L (15-37); Alanine Aminotransfer ALT/SGPT 60 U/L (13-56); Albumin, Serum 2.6 g/dL (3.2-5.0); Alkaline Phosphatase 70 U/L (45-117); Anion Gap 3 (5-15); BUN 21 mg/dL (7-18); BUN/Creat Ratio 21.8 RATIO (10-20); Calcium,Total 8.6 mg/dL (8.5-10.1); Chloride 110 mmol/L (98-107); Creatinine, Serum 0.96 mg/dL (0.55-1.02); EST Glomerular Filtration Rate 61 mL/min (>60); Est Glom Filt Rate - Afr Amer 74 mL/min (>60); Globulin 2.9 g/dL (2.2-4.2); Glucose 109 mg/dL (74-106); Potassium 4.7 mmol/L (3.5-5.1); Protein, Total 5.5 g/dL (6.4-8.2); Sodium Level 140 mmol/L (136-145)
[2020-11-08] MEDS: Levothyroxine 50 MCG Tablet PO (06:11)
--- NOTE | 2020-11-08 06:28 | PCM.PN.INT ---
Subjective: Patient did okay overnight. Patient is not reporting any chest pain this morning. Patient denies any palpitations. Patient did have a CT scan overnight secondary to concerns for a possible retroperitoneal hematoma that was within normal limits. Patient is not reporting any significant back pain at this time. Patient does remain on pressors to maintain an adequate blood pressure. General: Alert, Oriented x3, Cooperative, No apparent distress, - - Mild conversational dyspnea. HEENT: Atraumatic, PERRLA, EOMI, Normocephalic, - - No scleral icterus or injection noted Oral: Moist Mucosa, No Gingival or Mucosal Lesions/ Ulcerations Neck: Supple, No JVD, No Nodes, Trachea Midline Lungs: No rhonchi, No wheeze, No rales, Diminished, - - Fair effort. Cardiovascular: Regular rate, Regular Rhythm, Normal S1, Normal S2, No murmurs, No rub noted, No Gallop, - - EKG was sent to cardiology. Still with some depression in V1 and V2 with slight elevation in aVF Abdomen: Bowel Sounds Present, Soft, Non Tender, Non-Distended, Obese Extremities: No clubbing, No cyanosis, No edema Skin: No rashes, No breakdown, - - Hematoma noted in groin site Musculoskeletal: No Tenderness to Palpation of Joints or Extremities Lymphatic: No Cervical, Supraclavicular, or Inguinal Adenopathy Neurological: Cranial nerves II-XII grossly intact, Neuro grossly intact, Motor Exam 5/5 strength throughout Psych/Mental Status: Normal Affect, Appropriate Vital Signs Temp Pulse Resp BP Pulse Ox 36.5 C L 71 18 92/48 L 94 11/08/20 04:00 11/08/20 05:30 11/08/20 05:00 11/08/20 05:30 11/08/20 05:00 Oxygen Flow Rate (L/min) 3 Oxygen Delivery Method Nasal Cannula Weight: 72.7 kg Body Mass Index (BMI) 28.3 Intake and Output for Last 24 Hours 11/06/20 11/07/20 11/08/20 23:59 23:59 23:59 Intake Total 3670.66 / 3924.26 326.70 / 326.70 Output Total 740 / 1290 550 / 550 Balance 2930.66 / 2634.26 -223.30 / -223.30 Labs (Last 48 Hours) 11/07/20 11/07/2011/07/21 04:40 04:40 04:40 WBC 10.6 RBC 5.13 Hgb 15.3 H Hct 48.5 H MCV 94.5 MCH 29.8 MCHC 31.5 L RDW Std Deviation 48.1 H RDW Coeff of [place] 13.8 Plt Count 237 MPV 10.4 Immature Gran % (Auto) 0.300 Neut % (Auto) 64.8 Lymph % (Auto) 27.1 [place] % (Auto) 6.1 Eos % (Auto) 1.2 Baso % (Auto) 0.5 Absolute Neuts (auto) 6.9 Absolute Lymphs (auto) 2.87 Nucleated RBC % 0 Diff Path Review PT 11.3 L INR 0.9 APTT 25.8 Sodium 137 Potassium 4.0 Chloride 101 Carbon Dioxide 30.0 Anion Gap 6 BUN 14 Creatinine 1.00 Estim Creat Clear Calc 46.50 Est GFR (MDRD) Af Amer 71 Est GFR (MDRD) Non-Af 59 L BUN/Creatinine Ratio 14.0 Glucose 174 H Calcium 9.7 Magnesium Total Bilirubin AST ALT Alkaline Phosphatase Troponin I 1.870 H* Total Protein Albumin Globulin Albumin/Globulin Ratio 11/07/20 11/07/20 11/07/20 06:55 06:55 07:42 WBC 18.4 H RBC 4.48 Hgb 13.5 Hct 42.6 MCV 95.1 MCH 30.1 MCHC 31.7 L RDW Std Deviation 48.8 H RDW Coeff of [place] 14.0 Plt Count 291 MPV 11.0 Immature Gran % (Auto) 0.500 Neut % (Auto) 74.8 H Lymph % (Auto) 17.6 L [place] % (Auto) 6.3 Eos % (Auto) 0.5 Baso % (Auto) 0.3 Absolute Neuts (auto) 13.7 H Absolute Lymphs (auto) 3.23 Nucleated RBC % [address] Review PT INR APTT Sodium Potassium Chloride Carbon Dioxide Anion Gap BUN Creatinine Estim Creat Clear Calc Est GFR (MDRD) Af Amer Est GFR (MDRD) Non-Af BUN/Creatinine Ratio Glucose Calcium Magnesium Total Bilirubin AST ALT Alkaline Phosphatase Troponin I Cancelled Cancelled Total Protein Albumin Globulin Albumin/Globulin Ratio 11/07/20 11/07/20 11/07/20 07:42 10:45 10:45 WBC 19.7 H RBC 4.32 Hgb 13.0 Hct 41.3 MCV 95.6 MCH 30.1 MCHC 31.5 L RDW Std Deviation 48.7 H RDW Coeff of [place] 13.8 Plt Count 279 MPV 10.3 Immature Gran % (Auto) 0.700 Neut % (Auto) 74.0 H Lymph % (Auto) 8.0 L [place] % (Auto) 10.7 H Eos % (Auto) 6.3 H Baso % (Auto) 0.3 Absolute Neuts (auto) 14.6 H Absolute Lymphs (auto) 1.57 Nucleated RBC % 0 [address] Review May foll PT INR APTT Sodium 139 Potassium 4.2 Chloride 111 H Carbon Dioxide 23.0 Anion Gap 5 BUN 15 Creatinine 0.88 Estim Creat Clear Calc 50.61 Est GFR (MDRD) Af Amer 82 Est GFR (MDRD) Non-Af 68 BUN/Creatinine Ratio 17.0 Glucose 174 H Calcium 7.9 L Magnesium 1.9 Total Bilirubin 0.50 AST 497 H ALT 67 H Alkaline Phosphatase 90 Troponin I > 200.000 H* Total Protein 5.8 L Albumin 3.0 L Globulin 2.8 Albumin/Globulin Ratio 1.1 11/07/20 11/07/20 11/07/20 10:45 17:45 Unknown WBC 12.2 H RBC 3.79 L Hgb 11.5 L Hct 36.1 L MCV 95.3 MCH 30.3 MCHC 31.9 L RDW Std Deviation 49.1 H RDW Coeff of [place] 14.0 Plt Count 212 MPV 10.4 Immature Gran % (Auto) 0.400 Neut % (Auto) 77.9 H Lymph % (Auto) 11.7 L [place] % (Auto) 9.8 Eos % (Auto) 0.0 Baso % (Auto) 0.2 Absolute Neuts (auto) 9.5 H Absolute Lymphs (auto) 1.42 Nucleated RBC % 0 [address] Review PT 12.1 INR 1.0 APTT 30.8 Sodium Potassium Chloride Carbon Dioxide Anion Gap BUN Creatinine Estim Creat Clear Calc Est GFR (MDRD) Af Amer Est GFR (MDRD) Non-Af BUN/Creatinine Ratio Glucose Calcium Magnesium Total Bilirubin AST ALT Alkaline Phosphatase Troponin I > 200.000 H* Total Protein Albumin Globulin Albumin/Globulin Ratio 11/08/20 11/08/20 03:40 03:40 WBC 12.2 H RBC 3.51 L Hgb 10.6 L Hct 33.7 L MCV 96.0 MCH 30.2 MCHC 31.5 L RDW Std Deviation 49.6 H RDW Coeff of [place] 14.1 Plt Count 182 MPV 10.5 Immature Gran % (Auto) Neut % (Auto) Lymph % (Auto) [place] % (Auto) Eos % (Auto) Baso % (Auto) Absolute Neuts (auto) Absolute Lymphs (auto) Nucleated RBC % Diff Path Review PT INR APTT Sodium 140 Potassium 4.7 Chloride 110 H Carbon Dioxide 27.0 Anion Gap 3 L BUN 21 H Creatinine 0.96 Estim Creat Clear Calc 46.40 Est GFR (MDRD) Af Amer 74 Est GFR (MDRD) Non-Af 61 BUN/Creatinine Ratio 21.8 H Glucose 109 H Calcium 8.6 Magnesium Total Bilirubin 0.60 AST 320 H ALT 60 H Alkaline Phosphatase 70 Troponin I Total Protein 5.5 L Albumin 2.6 L Globulin 2.9 Albumin/Globulin Ratio 0.9 Clinical Impression(s) from Imaging Studies Chest X-Ray 11/07/20 10:00 IMPRESSION: Right internal jugular catheter placement without complications. New dense right upper lobe pneumonia. No acute finding. Electronically Signed: Tristen Harding MD at 11:17 EST , Service support , Abdomen/Pelvis CT 11/07/20 18:57 IMPRESSION: Bilateral renal cysts. Mild infrarenal abdominal aortic dilatation. Subcutaneous edema in the right groin. No drainable collection. Electronically Signed: Sly Arnett DO at 21:41 EST Tel [phone], Service support , Medical Necessity - Tobacco Use Smoking Status: Light Smoker (<10/day) Tobacco Use: Vapor Assessment/Plan All Active Problems (Last Reviewed 11/07/20 @ 05:[address] Rj Lala MD) ST elevation myocardial infarction (STEMI) (Acute) Cardiogenic shock (Acute) RECOMMENDATIONS: 1. Wean dopamine as tolerated 2. Wean oxygen as tolerated 3. Antiarrhythmics and anticoagulation per cardiology 4. Hold on steroid therapy and bronchodilators unless patient develops wheezing 5. Continue to monitor in the intensive care unit IMPRESSIONS: 1. Cardiogenic shock/ventricular tachycardia secondary to ST elevation IA Patient with proximal circumflex lesion. Troponins were greater than 200, likely secondary to washout. Patient has been on pressor therapy since being in the unit. Patient appears to be improving on pressor requirements. We will continue to monitor. Patient still with some ST depression, but defer to cardiology on whether patient needs to be reevaluated. No chest pain is reported at this time. Findings may be suggestive of recovery and stunned myocardium. Patient is not on chronic steroids to suggest the stress dose steroids will be helpful. 2. Acute hypoxic respiratory failure secondary to ST elevation IA Clinical suspicion for an element of cardiogenic edema secondary to problem #1. Patient also has a history of smoking, so concomitant COPD would be a consideration. Patient could receive bronchodilators if wheezing is noted on exam. Wean oxygen as tolerated. Patient on minimal nasal cannula oxygen at this time. Would hold on Lasix given need for pressor therapy. Possibly diuresis if able to come off of pressors later today 3. Protracted tobacco abuse/chronic pain syndrome/depression/anxiety/hypertension/GERD Complicates care, management, recovery and prognosis. Avoid Ativan. Delirium protocol. Consider H2 vipin for GI prophylaxis. TIME: 31 minutes critical care time spent addressing cardiogenic shock, acute hypoxic respiratory failure, review of all data and collaboration with care team (5:20 AM to 6:20 AM) 9xxxx: [id number] Critical care first hour
[2020-11-08] MEDS: Aspirin 81 MG TAB.CHEW PO (09:15)
[2020-11-08] MEDS: TICAGRELOR 90 MG TABLET PO ×2 (09:15→22:02)
[2020-11-08] MEDS: Pantoprazole Sodium 40 MG Tablet PO (09:15)
[2020-11-08] MEDS: Gabapentin 300 MG Capsule PO ×2 (09:15→16:07)
[2020-11-08] MEDS: DULoxetine Hcl 60 MG Capsule PO (09:15)
--- NOTE | 2020-11-08 09:43 | CM.UR ---
Participated in ICU disciplinary rounds. Had heart cath with stent placement yesterday. She is on Precedex. Started on Brilinta. Alerted team that Brilinta card was placed in chart. Explained she has a MCR advantage plan so she only meets for the initial free trial. Explained it will need sent to pharmacy before we can determine her cost after free trial. Still has IJ in. Currently on 3 liters O2 however not on o2 at home. Had back pain overnight and a CT was done to eval for retroperitoneal hematoma however CT was negative. PT/OT given orders to eval and treat today. Discharge Plan: Home. Will need to check cost of Brilinta. Anticipate her being weaned from o2. Will follow for PT/OT recommendations and weaning from o2. Andrew Beck RN, CCM.
--- NOTE | 2020-11-08 11:52 | CASEMGMT ---
SW spoke w/pt in regard to LW/POA, pt did want to complete the documents. Pt completed the documents, SW gave pt the originals and copies, and copies placed in the chart. TONIE Izquierdo
--- NOTE | 2020-11-08 11:59 | PCM.PN.HOSP ---
Patient Problems: Active and Suspected Problems (Last Reviewed 11/07/20 @ 05:[address] Rj Lala MD) ST elevation myocardial infarction (STEMI) (Acute) Cardiogenic shock (Acute) Subjective: Doing well, no issues overnight. Was able to come off the Lopressor and decrease her dopamine a little bit. No chest pain this morning. Vitals/I&O's: Vital Signs Temp Pulse Resp BP Pulse Ox 98.1 F 80 21 H 92/55 L 96 11/08/20 08:00 11/08/20 11:00 11/08/20 11:00 11/08/20 11:45 11/08/20 11:17 Oxygen Flow Rate (L/min) 2 Oxygen Delivery Method Nasal Cannula Weight: 163 lb 0.016 oz Body Mass Index (BMI) 28.3 Intake and Output for Last 24 Hours 11/06/20 11/07/20 11/08/20 23:59 23:59 23:59 Intake Total 3670.66 / 3924.26 488.35 / 488.35 Output Total 740 / 1290 775 / 775 Balance 2930.66 / 2634.26 -286.65 / -286.65 General: Alert, Oriented x3, Cooperative, No apparent distress HEENT: Atraumatic, PERRLA, EOMI, Normocephalic Oral: Moist Mucosa Neck: Supple, No JVD Lungs: Normal air movement, No rhonchi, No wheeze, No rales, Diminished Cardiovascular: Regular rate, Regular Rhythm, Normal S1, Normal S2, No murmurs Abdomen: Soft, Non Tender, Non-Distended, No Hepato-splenomegaly Extremities: No edema, Capillary Refill Less than 3 Seconds Skin: No rashes, No breakdown, - - Hematoma in the right groin extending to her right flank Neurological: Neuro grossly intact, Sensory exam intact to light touch and pain Psych/Mental Status: Normal Affect, Appropriate Laboratory Results 11/07/20 07:42: Troponin I Cancelled 11/07/20 17:45: WBC 12.2 H, RBC 3.79 L, Hgb 11.5 L, Hct 36.1 L, MCV 95.3, MCH 30.3, MCHC 31.9 L, RDW Std Deviation 49.1 H, RDW Coeff of [place] 14.0, Plt Count 212, MPV 10.4, Immature Gran % (Auto) 0.400, Neut % (Auto) 77.9 H, Lymph % (Auto) 11.7 L, [place] % (Auto) 9.8, Eos % (Auto) 0.0, Baso % (Auto) 0.2, Absolute Neuts (auto) 9.5 H, Absolute Lymphs (auto) 1.42, Nucleated RBC % 0 11/08/20 03:40: WBC 12.2 H, RBC 3.51 L, Hgb 10.6 L, Hct 33.7 L, MCV 96.0, MCH 30.2, MCHC 31.5 L, RDW Std Deviation 49.6 H, RDW Coeff of [place] 14.1, Plt Count 182, MPV 10.5 11/08/20 03:40: Sodium 140, Potassium 4.7, Chloride 110 H, Carbon Dioxide 27.0, Anion Gap 3 L, BUN 21 H, Creatinine 0.96, Estim Creat Clear Calc 46.40, Est GFR (MDRD) Af Amer 74, Est GFR (MDRD) Non-Af 61, BUN/Creatinine Ratio 21.8 H, Glucose 109 H, Calcium 8.6, Total Bilirubin 0.60, AST 320 H, ALT 60 H, Alkaline Phosphatase 70, Total Protein 5.5 L, Albumin 2.6 L, Globulin 2.9, Albumin/Globulin Ratio 0.9 Current Medications Aspirin (Aspirin 81 Mg Tab.Chew) 81 mg PO DAILY@0800 [facility] Last Admin: 11/08/20 09:15 Dose: 81 mg Documented by: Atorvastatin Calcium (Atorvastatin Calcium 40 Mg Tablet) 40 mg PO QHS [facility] Last Admin: 11/07/20 21:07 Dose: 40 mg Documented by: Atropine Sulfate (Atropine Sulfate 1 Mg/10 Ml Syringe) 0.5 mg IV UD PRN PRN Reason: HR <50 bpm Duloxetine HCl (Duloxetine Hcl 60 Mg Capsule) 60 mg PO DAILY [facility] Last Admin: 11/08/20 09:15 Dose: 60 mg Documented by: Gabap[facility] ([facility] 300 Mg Capsule) [facility] Admin: 11/08/20 09:15 Dose: 300 mg Documented by: Heparin Sodium (Beef Lung) (Heparin Lock 500 Unit/5 Ml In 10 Ml Syringe) 500 unit IV UD PRN PRN Reason: HEPARIN FLUSH Sodium Chloride () 250 mls @ 15 mls/hr IV .[id number] PRN PRN Reason: Saline Flush Sodium Chloride () 250 mls @ 15 mls/hr IV .[id number] PRN PRN Reason: Additional IVPB Infusion Dopamine HCl/Dextrose () 800 mg in 250 mls @ 6.816 mls/hr CONT INF .[id number] [facility]; Protocol Last Titration: 11/08/20 11:45 Dose: 2.5 mcg/kg/min, 3.4 mls/hr Documented by: Labetalol HCl (Labetalol (Prefilled) 20 Mg/4 Ml) 5 mg IV X1 PRN PRN Reason: SBP >160 when pulling sheath Levothyroxine Sodium (Levothyroxine 50 Mcg Tablet) 50 mcg PO DAILY@0600 [facility] Last Admin: 11/08/20 06:11 Dose: 50 mcg Documented by: Ondansetron HCl (Ondansetron 4 Mg/2 Ml Vial) 4 mg IV Q8H PRN PRN PRN Reason: NAUSEA/VOMITING Last Admin: 11/07/20 21:20 Dose: 4 mg Documented by: Pantoprazole Sodium (Pantoprazole Sodium 40 Mg Tablet) 40 mg PO DAILY [facility] Last Admin: 11/08/20 09:15 Dose: 40 mg Documented by: Sodium Chloride (0.9% Saline Lock 10 Ml Syringe) 10 - 40 ml IV UD PRN PRN Reason: SALINE FLUSH Last Admin: 11/07/20 14:54 Dose: 10 ml Documented by: Sodium Chloride (0.9% Normal Saline 500 Ml Iv.Soln.) 500 ml IV BOLUS PRN PRN Reason: VASO-VAGAL PROTOCOL Ticagrelor (Ticagrelor 90 Mg Tablet) 90 mg PO BID [facility] Last Admin: 11/08/20 09:15 Dose: 90 mg Documented by: Tramadol HCl (Tramadol 50 Mg Tablet) 50 mg PO Q4H PRN PRN PRN Reason: pain Trazodone HCl (Trazodone 100 Mg Tablet) 100 mg PO QHS [facility] Last Admin: 11/07/20 21:20 Dose: Not Given Documented by: STROKE Vital Signs/Narrative: Vital Signs Temp Pulse Resp BP Pulse Ox 11/08/20 11:45 92/55 L 11/08/20 11:30 96/69 11/08/20 11:17 96 11/08/20 11:15 77/61 L 11/08/20 11:00 80 21 H 95/61 97 11/08/20 10:45 101/60 11/08/20 10:30 87 109/56 L 11/08/20 10:15 79 101/60 11/08/20 10:00 80 25 H 101/56 L 94 11/08/20 09:45 105/56 L 11/08/20 09:30 106/60 11/08/20 09:00 76 19 H 105/56 L 96 11/08/20 08:45 91/59 L 11/08/20 08:30 90/60 11/08/20 08:15 100/56 L 11/08/20 08:00 98.1 F 66 21 H 106/56 L 93 Medical Necessity - Tobacco Use Smoking Status: Light Smoker (<10/day) Tobacco Use: Vapor Assessment/Plan All Active Problems (Last Reviewed 11/07/20 @ 05:[address] Rj Lala MD) ST elevation myocardial infarction (STEMI) (Acute) Cardiogenic shock (Acute) 1. Cardiogenic shock and acute hypoxic respiratory failure secondary to STEMI/HTN/HLD/V. tach -With her that she will need to discontinue any type of tobacco or vaping products -Stents placed to the left proximal circumflex -She had to be cardioverted out of V. tach and was given amiodarone in the Instructional Specialist -Continue with dopamine and wean as able -Continue with aspirin and Brilinta as well as Lipitor 2. Hypothyroidism -Stable -Continue with Synthroid 3. Anxiety/depression -Stable -Continue Cymbalta DVT: SCDs Inpatient E&M: 99269 Subs Hosp L2
--- NOTE | 2020-11-08 12:00 | PN.CARD_ITS ---
Objective: Vital Signs Temp Pulse Resp BP Pulse Ox 98.1 F 80 21 H 92/55 L 96 11/08/20 08:00 11/08/20 11:00 11/08/20 11:00 11/08/20 11:45 11/08/20 11:17 Oxygen Flow Rate (L/min) 2 Oxygen Delivery Method Nasal Cannula Weight: 163 lb 0.016 oz Body Mass Index (BMI) 28.3 Intake and Output for Last 24 Hours 11/06/20 11/07/20 11/08/20 23:59 23:59 23:59 Intake Total 3670.66 / 3924.26 488.35 / 488.35 Output Total 740 / 1290 775 / 775 Balance 2930.66 / 2634.26 -286.65 / -286.65 11/07/20 07:42: Troponin I Cancelled 11/07/20 17:45: WBC 12.2 H, RBC 3.79 L, Hgb 11.5 L, Hct 36.1 L, MCV 95.3, MCH 30.3, MCHC 31.9 L, Plt Count 212, MPV 10.4, Immature Gran % (Auto) 0.400, Neut % (Auto) 77.9 H, Lymph % (Auto) 11.7 L, [place] % (Auto) 9.8, Eos % (Auto) 0.0, Baso % (Auto) 0.2, Absolute Neuts (auto) 9.5 H, Nucleated RBC % 0 11/08/20 03:40: WBC 12.2 H, RBC 3.51 L, Hgb 10.6 L, Hct 33.7 L, MCV 96.0, MCH 30.2, MCHC 31.5 L, Plt Count 182, MPV 10.5 11/08/20 03:40: Sodium 140, Potassium 4.7, Chloride 110 H, Carbon Dioxide 27.0, Anion Gap 3 L, BUN 21 H, Creatinine 0.96, Est GFR (MDRD) Af Amer 74, Est GFR (MDRD) Non-Af 61, BUN/Creatinine Ratio 21.8 H, Glucose 109 H, Calcium 8.6, Total Bilirubin 0.60 Rhythm: EKG: ECHO: Stress Test: Cardiac Cath: PCI: CT Surgery: Holter monitor: EPS: PPM: CXR: Chest CT Scan: Medical Necessity - Tobacco Use Smoking Status: Light Smoker (<10/day) Tobacco Use: Vapor Assessment/Plan 70-year-old patient, has CAD with STEMI Underwent PCI and stent of the large dominant proximal left circumflex artery. Today she was seen at bedside in the intensive care unit along with the nursing staff She had no symptoms of chest pain., However her blood pressure still on the lower side and she been on dopamine. On examination essentially normal Cardiac rhythm is normal sinus rhythm. She had bruises on the right groin as she was on multiple anticoagulation using heparin, Integrilin, Brilinta and aspirin However there is no evidence of hematoma right groin is soft and the CT scan is negative for any evidence of hematoma. I reviewed and discussed the current medication, due to the lower blood pressure we decided not to start the patient on any beta-vipin or LETY inhibitor at this point We will continue on dual antiplatelet therapy with Brilinta/low-dose aspirin and atorvastatin. If she remains stable clinically she can be discharged on Tuesday with the plan of outpatient cardiac rehabilitation and to follow-up with the cardiology For continuity of cardiac care plan. Also advised the patient cessation of smoking Coronary angiography showed mid LAD/D1 had nonobstructive atherosclerosis however this can be evaluated as an outpatient with nuclear stress test probably around 4 to 6 weeks The RCA is a small nondominant and the left main is normal.
--- NOTE | 2020-11-08 12:09 | CM.UR ---
RN CM Assessment Introduced role of RN CM to patient.? Patient is slightly drowsy but oriented and able?to participate in RN CM Assessment. ?Care providers, pharmacy, and demographics verified. Presentation: Chest pain Admit Dx: STEMI Re-Admit: no Barriers/Issues: at this time, drowsiness, motivation, knowledge deficit PCP: Haris Preferred Pharmacy: [facility] in [place]. Added to chart Insurance: [facility] Rx Benefit:? Yes including in [facility] MCR plan ?LNOK: Daughter, Yoni LW/HPOA: None. Does want additional information and would like to complete. Alerted KILEY Healy Living Arrangements:? Mobile home with 5 steps with railing to get into home. ADL?s: Usually independent. States daughter can help her with any thing needed. Transportation: self but when discussed discharge states, I can get someone to pick me up. DME: [employer]. States she would like a shower chair. Had one from who but it was taken apart and she can't find the bolts. HHC: none SNF: None Goal: Home with help of daughter DC PLAN: Home. Order for shower chair placed in chart for signature. Brilinta card placed in chart. Alerted nurse and the patient that she only qualifies for free month trial and we will check what the cost is under her insurance. Alerted patient that case management will remain available should any needs arise. Verb understanding. Andrew Beck RN, CCM.
[2020-11-08] MEDS: traMADol 50 MG Tablet PO (14:44)
[2020-11-08 15:05] LABS: Hematocrit 29.7 % (37-47); Hemoglobin 9.4 g/dL (12.0-15.0)
[2020-11-08] MEDS: 0.9% Saline Lock 10 ML Syringe IV (16:08)
--- NOTE | 2020-11-08 16:44 | CT_ITS ---
STUDY: CT CHEST WITH T WITHOUT CONTRAST REASON FOR EXAM: Female, 70 years old. R/O PERICARDIAL EFFUSION, STEMI, RT GROIN HEMATOMA RADIATION DOSAGE (If Supplied By Facility): CTDIvol = ( 9.84 ) mGy, DLP = ( 419.45 ) mGycm TECHNIQUE: Transaxial imaging was performed pre-and post contrast administration of IV 100mL Isovue-370. Individualized dose optimization techniques were used for this CT. COMPARISON: None. FINDINGS: The lungs are expanded. Bilateral patchy infiltrates. Normal heart and pericardium. Normal mediastinum. Normal hilar regions. Normal enhanced and unenhanced pulmonary arteries. Normal aorta arch and descending thoracic aorta. Degenerative vertebral changes. Right renal cyst. CT/Chest W/WO Contrast IMPRESSION: Bilateral patchy infiltrates. Right renal cyst. Electronically Signed: Sly Arnett DO at 19:15 EST Tel [phone], Service support ,
--- NOTE | 2020-11-08 16:57 | ADUL_ITS ---
Reason For Study: R/O Pseudoaneurysm Right Velocities Right QUANTITATIVE RESEARCH ANALYST, 0.77 x 0.78 cm, 155 cm/sec. Right FA prox, 0.52 x 0.54 cm, 83.4 cm/sec. Right CFV and FV prox is compressible with normal venous flow. No pseudoaneurysm noted. Procedure Prelim to RN and Jr. Exam performed portable in ICU/CCU. Interpretation Summary Posterior plaque right common femoral artery otherwise with normal triphasic flow Normal diameter flow right proximal femoral artery Right common femoral vein and femoral vein patent and compressible with normal venous flow No pseudoaneurysm or fistula identified Ordering Physician: Flaco Dewey Referring Physician: Yonny Carballo Chi Performed By: Mindy Liriano RVT
[2020-11-08 20:02] LABS: Absolute Lymphocyte Count 1.92 X10^3/uL (0.83-4.51); Absolute Neutrophil Count 7.2 X10^3/uL (2.0-7.7); Basophil# 0.02 X10^3/uL; Basophil% 0.2 % (0-1); Eosinophil# 0.07 X10^3/uL; Eosinophils% 0.7 % (0-5); Hematocrit 29.4 % (37-47); Hemoglobin 9.3 g/dL (12.0-15.0); Lymphocyte # 1.92 X10^3/ul (4.0); Mean Corp Hgb Conc 31.6 g/dL (32-36); Mean Corpuscular Hgb 30.4 pg (27.0-32.0); Mean Corpuscular Volume 96.1 fL (81-99); Mean Platelet Vol. 10.7 fl (6.2-12.0); Monocyte# 0.91 X10^3/uL; NRBC Flagged by Analyzer 0 % (0-5); Neutrophil # 7.15 X10^3/uL (2.7-7.7); Neutrophil % 70.8 % (47-70); Platelet Count 146 K/mm3 (150-450); RBC Distribution Width CV 13.9 % (11.6-14.6); RBC Distribution Width SD 49.1 fl (35.1-43.9); Red Blood Count 3.06 M/mm3 (4.2-5.4); White Blood Count 10.1 K/mm3 (4.4-11.0)
[2020-11-08] MEDS: Atorvastatin Calcium 40 MG Tablet PO (22:02)
[2020-11-08] MEDS: traZODone 100 MG Tablet PO (22:02)
[2020-11-08] MEDS: LORazepam 2 MG/ML Syringe IV (23:39)
[2020-11-09] VITALS (32 sets, daily range): BP systolic 91–146; BP diastolic 55–102; PULSE 74–106; RESP 19–33; TEMP 36.5–37.1; O2SAT 86–98
[2020-11-09 04:28] LABS: Absolute Lymphocyte Count 2.07 X10^3/uL (0.83-4.51); Absolute Neutrophil Count 7.5 X10^3/uL (2.0-7.7); Basophil# 0.03 X10^3/uL; Basophil% 0.3 % (0-1); Eosinophil# 0.06 X10^3/uL; Eosinophils% 0.6 % (0-5); Hematocrit 28.8 % (37-47); Lymphocyte # 2.07 X10^3/ul (4.0); Lymphocyte % 19.3 % (19-41); Mean Corp Hgb Conc 31.3 g/dL (32-36); Mean Corpuscular Hgb 29.8 pg (27.0-32.0); Mean Corpuscular Volume 95.4 fL (81-99); Mean Platelet Vol. 10.6 fl (6.2-12.0); Monocyte# 0.97 X10^3/uL; NRBC Flagged by Analyzer 0 % (0-5); Neutrophil # 7.54 X10^3/uL (2.7-7.7); Neutrophil % 70.2 % (47-70); Platelet Count 134 K/mm3 (150-450); RBC Distribution Width CV 13.9 % (11.6-14.6); RBC Distribution Width SD 48.7 fl (35.1-43.9); Red Blood Count 3.02 M/mm3 (4.2-5.4); White Blood Count 10.7 K/mm3 (4.4-11.0)
[2020-11-09 04:38] LABS: ALB/GLOB Ratio 0.8 RATIO (0.9-2.4); AST(SGOT) 155 U/L (15-37); Alanine Aminotransfer ALT/SGPT 40 U/L (13-56); Albumin, Serum 2.4 g/dL (3.2-5.0); Alkaline Phosphatase 63 U/L (45-117); Anion Gap 3 (5-15); BUN 25 mg/dL (7-18); BUN/Creat Ratio 33.8 RATIO (10-20); Chloride 108 mmol/L (98-107); Creatinine, Serum 0.74 mg/dL (0.55-1.02); EST Glomerular Filtration Rate 83 mL/min (>60); Est Glom Filt Rate - Afr Amer 100 mL/min (>60); Estimated Creatinine Clearance 44.54 ml/min; Glucose 83 mg/dL (74-106); Potassium 4.4 mmol/L (3.5-5.1); Protein, Total 5.4 g/dL (6.4-8.2); Sodium Level 138 mmol/L (136-145)
[2020-11-09] MEDS: Levothyroxine 50 MCG Tablet PO (06:03)
--- NOTE | 2020-11-09 06:33 | PCM.PN.INT ---
Subjective: Patient did okay overnight. Patient did come off of pressors at approximately 4 AM. However, patient did have significant agitation overnight and was treated with Ativan. Oxygenation continues to improve and patient is only requiring 2 L nasal cannula to maintain saturations. No active bleeding is been reported. General: - - Resting comfortably. Obese. HEENT: Atraumatic, PERRLA, EOMI, Normocephalic, - - No scleral icterus or injection noted Oral: Moist Mucosa, No Gingival or Mucosal Lesions/ Ulcerations Neck: Supple, No JVD, No Nodes, Trachea Midline Lungs: No rhonchi, No wheeze, No rales, Diminished, - - Fair effort Cardiovascular: Regular rate, Regular Rhythm, Normal S1, Normal S2, No murmurs, No rub noted, No Gallop Abdomen: Bowel Sounds Present, Soft, Non Tender, Non-Distended, Obese Extremities: No clubbing, No cyanosis, No edema Skin: - - Hematoma grossly unchanged Musculoskeletal: No Tenderness to Palpation of Joints or Extremities Lymphatic: No Cervical, Supraclavicular, or Inguinal Adenopathy Neurological: Cranial nerves II-XII grossly intact, Neuro grossly intact, Motor Exam 5/5 strength throughout Psych/Mental Status: Flat Affect Vital Signs Temp Pulse Resp BP Pulse Ox 36.7 C 89 25 H 91/80 97 11/09/20 04:00 11/09/20 05:00 11/09/20 05:00 11/09/20 05:00 11/09/20 05:00 Oxygen Flow Rate (L/min) 2 Oxygen Delivery Method Nasal Cannula Weight: 77.3 kg Body Mass Index (BMI) 28.3 Intake and Output for Last 24 Hours 11/07/20 11/08/20 11/09/20 23:59 23:59 23:59 Intake Total 3670.66 / 3924.26 781.60 / 1145.00 371.9 / 371.9 Output Total 740 / 1290 1075 / 1575 500 / 500 Balance 2930.66 / 2634.26 -293.40 / -430.00 -128.1 / -128.1 Labs (Last 48 Hours) 11/07/20 11/07/20 11/07/20 06:55 06:55 07:42 WBC 18.4 H RBC 4.48 Hgb 13.5 Hct 42.6 MCV 95.1 MCH 30.1 MCHC 31.7 L RDW Std Deviation 48.8 H RDW Coeff of [place] 14.0 Plt Count 291 MPV 11.0 Immature Gran % (Auto) 0.500 Neut % (Auto) 74.8 H Lymph % (Auto) 17.6 L [place] % (Auto) 6.3 Eos % (Auto) 0.5 Baso % (Auto) 0.3 Absolute Neuts (auto) 13.7 H Absolute Lymphs (auto) 3.23 Nucleated RBC % 0 [address] Review PT INR APTT Sodium Potassium Chloride Carbon Dioxide Anion Gap BUN Creatinine Estim Creat Clear Calc Est GFR (MDRD) Af Amer Est GFR (MDRD) Non-Af BUN/Creatinine Ratio Glucose Calcium Magnesium Total Bilirubin AST ALT Alkaline Phosphatase Troponin I Cancelled Cancelled Total Protein Albumin Globulin Albumin/Globulin Ratio Blood Type Antibody Screen Crossmatch 11/07/20 11/07/20 11/07/20 07:42 10:45 10:45 WBC 19.7 H RBC 4.32 Hgb 13.0 Hct 41.3 MCV 95.6 MCH 30.1 MCHC 31.5 L RDW Std Deviation 48.7 H RDW Coeff of [place] 13.8 Plt Count 279 MPV 10.3 Immature Gran % (Auto) 0.700 Neut % (Auto) 74.0 H Lymph % (Auto) 8.0 L [place] % (Auto) 10.7 H Eos % (Auto) 6.3 H Baso % (Auto) 0.3 Absolute Neuts (auto) 14.6 H Absolute Lymphs (auto) 1.57 Nucleated RBC % 0 [address] Review May foll PT INR APTT Sodium 139 Potassium 4.2 Chloride 111 H Carbon Dioxide 23.0 Anion Gap 5 BUN 15 Creatinine 0.88 Estim Creat Clear Calc 50.61 Est GFR (MDRD) Af Amer 82 Est GFR (MDRD) Non-Af 68 BUN/Creatinine Ratio 17.0 Glucose 174 H Calcium 7.9 L Magnesium 1.9 Total Bilirubin 0.50 AST 497 H ALT 67 H Alkaline Phosphatase 90 Troponin I > 200.000 H* Total Protein 5.8 L Albumin 3.0 L Globulin 2.8 Albumin/Globulin Ratio 1.1 Blood Type Antibody Screen Crossmatch 11/07/20 11/07/20 11/07/20 10:45 17:45 Unknown WBC 12.2 H RBC 3.79 L Hgb 11.5 L Hct 36.1 L MCV 95.3 MCH 30.3 MCHC 31.9 L RDW Std Deviation 49.1 H RDW Coeff of [place] 14.0 Plt Count 212 MPV 10.4 Immature Gran % (Auto) 0.400 Neut % (Auto) 77.9 H Lymph % (Auto) 11.7 L [place] % (Auto) 9.8 Eos % (Auto) 0.0 Baso % (Auto) 0.2 Absolute Neuts (auto) 9.5 H Absolute Lymphs (auto) 1.42 Nucleated RBC % 0 Diff Path Review PT 12.1 INR 1.0 APTT 30.8 Sodium Potassium Chloride Carbon Dioxide Anion Gap BUN Creatinine Estim Creat Clear Calc Est GFR (MDRD) Af Amer Est GFR (MDRD) Non-Af BUN/Creatinine Ratio Glucose Calcium Magnesium Total Bilirubin AST ALT Alkaline Phosphatase Troponin I > 200.000 H* Total Protein Albumin Globulin Albumin/Globulin Ratio Blood Type Antibody Screen Crossmatch 11/08/20 11/08/20 11/08/20 03:40 03:40 14:55 WBC 12.2 H RBC 3.51 L Hgb 10.6 L 9.4 L Hct 33.7 L 29.7 L MCV 96.0 MCH 30.2 MCHC 31.5 L RDW Std Deviation 49.6 H RDW Coeff of [place] 14.1 Plt Count 182 MPV 10.5 Immature Gran % (Auto) Neut % (Auto) Lymph % (Auto) [place] % (Auto) Eos % (Auto) Baso % (Auto) Absolute Neuts (auto) Absolute Lymphs (auto) Nucleated RBC % Diff Path Review PT INR APTT Sodium 140 Potassium 4.7 Chloride 110 H Carbon Dioxide 27.0 Anion Gap 3 L BUN 21 H Creatinine 0.96 Estim Creat Clear Calc 46.40 Est GFR (MDRD) Af Amer 74 Est GFR (MDRD) Non-Af 61 BUN/Creatinine Ratio 21.8 H Glucose 109 H Calcium 8.6 Magnesium Total Bilirubin 0.60 AST 320 H ALT 60 H Alkaline Phosphatase 70 Troponin I Total Protein 5.5 L Albumin 2.6 L Globulin 2.9 Albumin/Globulin Ratio 0.9 Blood Type Antibody Screen Crossmatch 11/08/20 11/08/20 11/09/20 17:05 19:50 04:00 WBC 10.1 10.7 RBC 3.06 L 3.02 L Hgb 9.3 L 9.0 L Hct 29.4 L 28.8 L MCV 96.1 95.4 MCH 30.4 29.8 MCHC 31.6 L 31.3 L RDW Std Deviation 49.1 H 48.7 H RDW Coeff of [place] 13.9 13.9 Plt Count 146 L 134 L MPV 10.7 10.6 Immature Gran % (Auto) 0.300 0.600 Neut % (Auto) 70.8 H 70.2 H Lymph % (Auto) 19.0 19.3 [place] % (Auto) 9.0 9.0 Eos % (Auto) 0.7 0.6 Baso % (Auto) 0.2 0.3 Absolute Neuts (auto) 7.2 7.5 Absolute Lymphs (auto) 1.92 2.07 Nucleated RBC % 0 0 Diff Path Review PT INR APTT Sodium Potassium Chloride Carbon Dioxide Anion Gap BUN Creatinine Estim Creat Clear Calc Est GFR (MDRD) Af Amer Est GFR (MDRD) Non-Af BUN/Creatinine Ratio Glucose Calcium Magnesium Total Bilirubin AST ALT Alkaline Phosphatase Troponin I Total Protein Albumin Globulin Albumin/Globulin Ratio Blood Type A NEGATIVE Antibody Screen NEGATIVE Crossmatch See Detail 11/09/20 04:00 WBC RBC Hgb Hct MCV MCH MCHC RDW Std Deviation RDW Coeff of [place] Plt Count MPV Immature Gran % (Auto) Neut % (Auto) Lymph % (Auto) [place] % (Auto) Eos % (Auto) Baso % (Auto) Absolute Neuts (auto) Absolute Lymphs (auto) Nucleated RBC % Diff Path Review PT INR APTT Sodium 138 Potassium 4.4 Chloride 108 H Carbon Dioxide 27.0 Anion Gap 3 L BUN 25 H Creatinine 0.74 Estim Creat Clear Calc 44.54 Est GFR (MDRD) Af Amer 100 Est GFR (MDRD) Non-Af 83 BUN/Creatinine Ratio 33.8 H Glucose 83 Calcium 9.0 Magnesium Total Bilirubin 0.80 AST 155 H ALT 40 Alkaline Phosphatase 63 Troponin I Total Protein 5.4 L Albumin 2.4 L Globulin 3.0 Albumin/Globulin Ratio 0.8 L Blood Type Antibody Screen Crossmatch Clinical Impression(s) from Imaging Studies Chest CT 11/08/20 16:44 IMPRESSION: Bilateral patchy infiltrates. Right renal cyst. Electronically Signed: Sly Arnett DO at 19:15 EST Tel [phone], Service support , Medical Necessity - Tobacco Use Smoking Status: Light Smoker (<10/day) Tobacco Use: Vapor Assessment/Plan All Active Problems (Last Reviewed 11/07/20 @ 05:[address] Rj Lala MD) ST elevation myocardial infarction (STEMI) (Acute) Cardiogenic shock (Acute) RECOMMENDATIONS: 1. Increase activity as tolerated 2. Wean oxygen as tolerated 3. Antiarrhythmics and anticoagulation per cardiology 4. Hold on steroid therapy and bronchodilators unless patient develops wheezing 5. Possible transfer from the intensive care unit later today IMPRESSIONS: 1. Cardiogenic shock/ventricular tachycardia secondary to ST elevation ND Patient with proximal circumflex lesion. Troponins were greater than 200, likely secondary to washout. Patient has been on pressor therapy since being in the unit. Patient currently off of pressor therapy. If continues to do well through the day, possibly transfer to PCU later today. Patient is not reporting any chest pain. 2. Acute hypoxic respiratory failure secondary to ST elevation ND Clinical suspicion for an element of cardiogenic edema secondary to problem #1. Patient also has a history of smoking, so concomitant COPD would be a consideration. Patient could receive bronchodilators if wheezing is noted on exam. Wean oxygen as tolerated. Patient on minimal nasal cannula oxygen at this time. Possibly dose with Lasix therapy if able to stay off of pressors. 3. Protracted tobacco abuse/chronic pain syndrome/depression/anxiety/hypertension/GERD/delirium Complicates care, management, recovery and prognosis. Avoid Ativan. Delirium protocol. Consider H2 vipin for GI prophylaxis. Patient did have some delirium overnight. Would recommend the use of Haldol instead of Ativan as Ativan can perpetuate further delirium. Inpatient E&M: [id number] [facility] Hosp L3
--- NOTE | 2020-11-09 08:45 | PN_ITS ---
Patient Problems: Active and Suspected Problems (Last Reviewed 11/07/20 @ 05:[address] Rj Lala MD) ST elevation myocardial infarction (STEMI) (Acute) Cardiogenic shock (Acute) Subjective: Doing well, no issues overnight, off of the dopamine today. We will continue to monitor in the ICU Vitals/I&O's: Vital Signs Temp Pulse Resp BP Pulse Ox 98.1 F 94 26 H 108/67 92 11/09/20 04:00 11/09/20 07:00 11/09/20 07:00 11/09/20 07:00 11/09/20 07:00 Oxygen Flow Rate (L/min) 2 Oxygen Delivery Method Nasal Cannula Weight: 170 lb 6.677 oz Body Mass Index (BMI) 28.3 Intake and Output for Last 24 Hours 11/07/20 11/08/20 11/09/20 23:59 23:59 23:59 Intake Total 3670.66 / 3924.26 781.60 / 1145.00 431.9 / 431.9 Output Total 740 / 1290 1075 / 1575 650 / 650 Balance 2930.66 / 2634.26 -293.40 / -430.00 -218.1 / -218.1 General: Alert, Oriented x3, Cooperative, No apparent distress HEENT: Atraumatic, PERRLA, EOMI, Normocephalic Oral: Moist Mucosa Neck: Supple, No JVD Lungs: Normal air movement, No rhonchi, No wheeze, No rales, Diminished Cardiovascular: Regular rate, Regular Rhythm, Normal S1, Normal S2, No murmurs Abdomen: Soft, Non Tender, Non-Distended, No Hepato-splenomegaly Extremities: No edema, Capillary Refill Less than 3 Seconds Skin: No rashes, No breakdown, - - Hematoma in the right groin extending to her right flank Neurological: Neuro grossly intact, Sensory exam intact to light touch and pain Psych/Mental Status: Normal Affect, Appropriate Laboratory Results 11/08/20 14:55: Hgb 9.4 L, Hct 29.7 L 11/08/20 17:05: Blood Type A NEGATIVE, Antibody Screen NEGATIVE, Crossmatch See Detail 11/08/20 19:50: WBC 10.1, RBC 3.06 L, Hgb 9.3 L, Hct 29.4 L, MCV 96.1, MCH 30.4, MCHC 31.6 L, RDW Std Deviation 49.1 H, RDW Coeff of [place] 13.9, Plt Count 146 L, MPV 10.7, Immature Gran % (Auto) 0.300, Neut % (Auto) 70.8 H, Lymph % (Auto) 19.0, [place] % (Auto) 9.0, Eos % (Auto) 0.7, Baso % (Auto) 0.2, Absolute Neuts (a uto) 7.2, Absolute Lymphs (auto) 1.92, Nucleated RBC % 0 11/09/20 04:00: WBC 10.7, RBC 3.02 L, Hgb 9.0 L, Hct 28.8 L, MCV 95.4, MCH 29.8, MCHC 31.3 L, RDW Std Deviation 48.7 H, RDW Coeff of [place] 13.9, Plt Count 134 L, MPV 10.6, Immature Gran % (Auto) 0.600, Neut % (Auto) 70.2 H, Lymph % (Auto) 19.3, [place] % (Auto) 9.0, Eos % (Auto) 0.6, Baso % (Auto) 0.3, Absolute Neuts (auto) 7.5, Absolute Lymphs (auto) 2.07, Nucleated RBC % 0 11/09/20 04:00: Sodium 138, Potassium 4.4, Chloride 108 H, Carbon Dioxide 27.0, Anion Gap 3 L, BUN 25 H, Creatinine 0.74, Estim Creat Clear Calc 44.54, Est GFR (MDRD) Af Amer 100, Est GFR (MDRD) Non-Af 83, BUN/Creatinine Ratio 33.8 H, Glucose 83, Calcium 9.0, Total Bilirubin 0.80, AST 155 H, ALT 40, Alkaline Phosphatase 63, Total Protein 5.4 L, Albumin 2.4 L, Globulin 3.0, Albumin/Globulin Ratio 0.8 L Current Medications Aspirin (Aspirin 81 Mg Tab.Chew) 81 mg PO DAILY@0800 [facility] Last Admin: 11/08/20 09:15 Dose: 81 mg Documented by: Atorvastatin Calcium (Atorvastatin Calcium 40 Mg Tablet) 40 mg PO QHS [facility] Last Admin: 11/08/20 22:02 Dose: 40 mg Documented by: Atropine Sulfate (Atropine Sulfate 1 Mg/10 Ml Syringe) 0.5 mg IV UD PRN PRN Reason: HR <50 bpm Duloxetine HCl (Duloxetine Hcl 60 Mg Capsule) 60 mg PO DAILY [facility] Last Admin: 11/08/20 09:15 Dose: 60 mg Documented by: Gabapentin ([facility] 300 Mg Capsule) [facility] Last Admin: 11/08/20 16:07 Dose: 300 mg Documented by: Heparin Sodium (Beef Lung) (Heparin Lock 500 Unit/5 Ml In 10 Ml Syringe) 500 unit IV UD PRN PRN Reason: HEPARIN FLUSH Sodium Chloride () 250 mls @ 15 mls/hr IV .[id number] PRN PRN Reason: Saline Flush Sodium Chloride () 250 mls @ 15 mls/hr IV .[id number] PRN PRN Reason: Additional IVPB Infusion Dopamine HCl/Dextrose () 800 mg in 250 mls @ 6.816 mls/hr CONT INF .[id number] [facility]; Protocol Last Titration: 11/09/20 04:00 Dose: 0 mcg/kg/min, 0 mls/hr Documented by: Labetalol HCl (Labetalol (Prefilled) 20 Mg/4 Ml) 5 mg IV X1 PRN PRN Reason: SBP >160 when pulling sheath Levothyroxine Sodium (Levothyroxine 50 Mcg Tablet) 50 mcg PO DAILY@0600 [facility] Last Admin: 11/09/20 06:03 Dose: 50 mcg Documented by: Ondansetron HCl (Ondansetron 4 Mg/2 Ml Vial) 4 mg IV Q8H PRN PRN PRN Reason: NAUSEA/VOMITING Last Admin: 11/07/20 21:20 Dose: 4 mg Documented by: Pantoprazole Sodium (Pantoprazole Sodium 40 Mg Tablet) 40 mg PO DAILY [facility] Last Admin: 11/08/20 09:15 Dose: 40 mg Documented by: Sodium Chloride (0.9% Saline Lock 10 Ml Syringe) 10 - 40 ml IV UD PRN PRN Reason: SALINE FLUSH Last Admin: 11/08/20 16:08 Dose: 10 ml Documented by: Sodium Chloride (0.9% Normal Saline 500 Ml Iv.Soln.) 500 ml IV BOLUS PRN PRN Reason: VASO-VAGAL PROTOCOL Ticagrelor (Ticagrelor 90 Mg Tablet) 90 mg PO BID [facility] Last Admin: 11/08/20 22:02 Dose: 90 mg Documented by: Tramadol HCl (Tramadol 50 Mg Tablet) 50 mg PO Q4H PRN PRN PRN Reason: pain Last Admin: 11/08/20 14:44 Dose: 50 mg Documented by: Trazodone HCl (Trazodone 100 Mg Tablet) 100 mg PO QHS [facility] Last Admin: 11/08/20 22:02 Dose: 100 mg Documented by: STROKE Vital Signs/Narrative: Vital Signs Pulse Resp BP Pulse Ox 11/09/20 07:00 94 26 H 108/67 92 11/09/20 06:00 91 22 H 103/56 L 94 11/09/20 05:00 89 25 H 91/80 97 Medical Necessity - Tobacco Use Smoking Status: Light Smoker (<10/day) Tobacco Use: Vapor Assessment/Plan All Active Problems (Last Reviewed 11/07/20 @ 05:[address] Rj Lala MD) ST elevation myocardial infarction (STEMI) (Acute) Cardiogenic shock (Acute) 1. Cardiogenic shock and acute hypoxic respiratory failure secondary to STEMI/HTN/HLD/V. tach -Discussed with her that she will need to discontinue any type of tobacco or vaping products -Stents placed to the left proximal circumflex -She had to be cardioverted out of V. tach and was given amiodarone in the Transmission Superintendent -Continue with dopamine and wean as able -Continue with aspirin and Brilinta as well as Lipitor 2. Hypothyroidism -Stable -Continue with Synthroid 3. Anxiety/depression -Stable -Continue Cymbalta DVT: SCDs Inpatient E&M: [id number] [facility] Hosp L2
--- NOTE | 2020-11-09 10:00 | EKG12_ITS ---
Test Reason : AM EKG Blood Pressure : / mmHG Vent. Rate : 090 BPM Atrial Rate : 090 BPM P-R Int : 136 ms QRS Dur : 092 ms QT Int : 472 ms P-R-T Axes : 062 006 091 degrees QTc Int : 577 ms Normal sinus rhythm Low Voltage QRS (Limb Leads) Inferior HI, age undetermined, cannot be excluded Nonspecific T- wave Abnormality Prolonged QT Abnormal ECG Confirmed by JUANA BEAR, PILAR ([id number]), publication editor CHARLOTTE VAZQUEZ ([id number]) on 11/11/2020 2:54:36 PM Referred By: Jose Luis Dang Confirmed By:PILAR ARIAS MD
[2020-11-09] MEDS: Gabapentin 300 MG Capsule PO ×2 (11:14→17:05)
[2020-11-09] MEDS: Pantoprazole Sodium 40 MG Tablet PO (11:15)
[2020-11-09] MEDS: TICAGRELOR 90 MG TABLET PO ×2 (11:15→22:07)
[2020-11-09] MEDS: Aspirin 81 MG TAB.CHEW PO (11:16)
[2020-11-09] MEDS: DULoxetine Hcl 60 MG Capsule PO (11:16)
--- NOTE | 2020-11-09 14:47 | PCM.PN.CARD ---
Objective: Vital Signs Temp Pulse Resp BP Pulse Ox 98.7 F 93 26 H 91/57 L 90 11/09/20 12:00 11/09/20 14:00 11/09/20 14:00 11/09/20 14:00 11/09/20 14:00 Oxygen Flow Rate (L/min) 2 Oxygen Delivery Method Nasal Cannula Weight: 170 lb 6.677 oz Body Mass Index (BMI) 28.3 Intake and Output for Last 24 Hours 11/07/20 11/08/20 11/09/20 23:59 23:59 23:59 Intake Total 3670.66 / 3924.26 781.60 / 1145.00 431.9 / 431.9 Output Total 740 / 1290 1075 / 1575 650 / 650 Balance 2930.66 / 2634.26 -293.40 / -430.00 -218.1 / -218.1 General: Disoriented HEENT: PERRL, EOMI, Sclera Non Icteric Cardiovascular: Regular Rhythm, Normal S1, Normal S2, No Murmurs, No Rubs, No Gallops 11/08/20 14:55: Hgb 9.4 L, Hct 29.7 L 11/08/20 19:50: WBC 10.1, RBC 3.06 L, Hgb 9.3 L, Hct 29.4 L, MCV 96.1, MCH 30.4, MCHC 31.6 L, Plt Count 146 L, MPV 10.7, Immature Gran % (Auto) 0.300, Neut % (Auto) 70.8 H, Lymph % (Auto) 19.0, [place] % (Auto) 9.0, Eos % (Auto) 0.7, Baso % (Auto) 0.2, Absolute Neuts (auto) 7.2, Nucleated RBC % 0 11/09/20 04:00: WBC 10.7, RBC 3.02 L, Hgb 9.0 L, Hct 28.8 L, MCV 95.4, MCH 29.8, MCHC 31.3 L, Plt Count 134 L, MPV 10.6, Immature Gran % (Auto) 0.600, Neut % (Auto) 70.2 H, Lymph % (Auto) 19.3, [place] % (Auto) 9.0, Eos % (Auto) 0.6, Baso % (Auto) 0.3, Absolute Neuts (auto) 7.5, Nucleated RBC % 0 11/09/20 04:00: Sodium 138, Potassium 4.4, Chloride 108 H, Carbon Dioxide 27.0, Anion Gap 3 L, BUN 25 H, Creatinine 0.74, Est GFR (MDRD) Af Amer 100, Est GFR (MDRD) Non-Af 83, BUN/Creatinine Ratio 33.8 H, Glucose 83, Calcium 9.0, Total Bilirubin 0.80 Rhythm: Normal sinus rhythm EKG: Change of recent inferoposterior myocardial infarction ECHO: LV function preserved, no pericardial effusion. Medical Necessity - Tobacco Use Smoking Status: Light Smoker (<10/day) Tobacco Use: Vapor Assessment/Plan 70-year-old patient seen today and evaluated at bedside And discussed the cardiac care plan with the nursing staff Noted she had confusion from last night and today also she is still confused however she does not have any focal neurological deficit. And her blood pressure is stable off the inotropic support. Hemoglobin as well as a stable around 9.0 today Cardiac exam essentially normal network relay tester showed normal sinus rhythm Assessment and plan; On review of the echocardiogram showed LV function preserved with normal ejection fraction I discussed the cardiac medication in detail with the nursing staff will continue current treatment She will continue to be monitored on the intensive care unit, likely she had delirium currently on Haldol as needed.
[2020-11-09] MEDS: 0.9% Saline Lock 10 ML Syringe IV (14:50)
[2020-11-09] MEDS: Haloperidol Lactate 5 MG/ML Vial 3 MG IV (14:50)
[2020-11-09] MEDS: 0.9% Normal Saline 1,000 ML 75 ML IV (15:40)
[2020-11-09 20:21] LABS: Allen Test Positive; Base Excess 6 mmol/L (-2 to +2); Bicarbonate 28.6 mmol/L (22-26); Blood Gas Specimen Type ART; O2 Delivery Device Cannula; PO2 58 mmHG (75-100); SITE R Radial; SO2 92 % (95-99); Total Carbon Dioxide 30 mmol/L; pCO2 35.5 mmHg (35-45); pH 7.52 (7.35-7.45)
[2020-11-09] MEDS: Atorvastatin Calcium 40 MG Tablet PO (22:07)
[2020-11-09] MEDS: traZODone 100 MG Tablet PO (22:11)
[2020-11-10] VITALS (22 sets, daily range): BP systolic 97–139; BP diastolic 52–117; PULSE 64–98; RESP 17–24; TEMP 36.6–37.3; O2SAT 90–98
--- NOTE | 2020-11-10 05:48 | PN_ITS ---
Subjective: The patient was seen and examined at the bedside this morning. Events from the last 24 hours have been reviewed. The patient is currently afebrile, hemodynamically stable and maintaining appropriate oxygen saturations on 2 L/min via nasal cannula. The patient does have intermittent periods of shortness of breath. The patient is currently documented to be overall net +2.8 L for the hospital admission. Objective: The patient's most recent lab work, culture data and imaging studies have all been personally reviewed. Surface echocardiogram completed on November 07 revealed normal LV size and function with an ejection fraction of 60% and stage I diastolic dysfunction. Pulmonary artery systolic pressure was estimated to be 35 mmHg. General: Alert, Cooperative HEENT: Atraumatic, Normocephalic Oral: Moist Mucosa Neck: Supple, No Nodes, Trachea Midline Lungs: Diminished Cardiovascular: Regular rate, Regular Rhythm Abdomen: Bowel Sounds Present, Soft, Non Tender, Obese Extremities: No clubbing, No cyanosis, No edema Skin: - - Hematoma still present Musculoskeletal: No Muscle Wasting Lymphatic: No Cervical, Supraclavicular, or Inguinal Adenopathy Neurological: Cranial nerves II-XII grossly intact, Neuro grossly intact Psych/Mental Status: Flat Affect Vital Signs Temp Pulse Resp BP Pulse Ox 98.2 F 80 24 H 119/104 H 92 11/10/20 04:00 11/10/20 05:00 11/10/20 05:00 11/10/20 05:00 11/10/20 05:00 Oxygen Flow Rate (L/min) 2 Oxygen Delivery Method Nasal Cannula Weight: 164 lb 10.965 oz Body Mass Index (BMI) 28.3 Intake and Output for Last 24 Hours 11/08/20 11/09/20 11/10/20 23:59 23:59 23:59 Intake Total 781.60 / 1145.00 905.65 / 1025.65 120 / 120 Output Total 1075 / 1575 750 / 1000 250 / 250 Balance -293.40 / -430.00 155.65 / 25.65 -130 / -130 Labs (Last 48 Hours) 11/08/20 11/08/20 11/08/20 14:55 17:05 19:50 WBC 10.1 RBC 3.06 L Hgb 9.4 L 9.3 L Hct 29.7 L 29.4 L MCV 96.1 MCH 30.4 MCHC 31.6 L RDW Std Deviation 49.1 H RDW Coeff of [place] 13.9 Plt Count 146 L MPV 10.7 Immature Gran % (Auto) 0.300 Neut % (Auto) 70.8 H Lymph % (Auto) 19.0 [place] % (Auto) 9.0 Eos % (Auto) 0.7 Baso % (Auto) 0.2 Absolute Neuts (auto) 7.2 Absolute Lymphs (auto) 1.92 Nucleated RBC % 0 Specimen Type Sample Site pH Bicarbonate Actual Total CO2 Base Excess O2 Saturation ABG pCO2 ABG pO2 Micheal Test O2 Delivery Device Liter Flow Sodium Potassium Chloride Carbon Dioxide Anion Gap BUN Creatinine Estim Creat Clear Calc Est GFR (MDRD) Af Amer Est GFR (MDRD) Non-Af BUN/Creatinine Ratio Glucose Calcium Total Bilirubin AST ALT Alkaline Phosphatase Ammonia Total Protein Albumin Globulin Albumin/Globulin Ratio Blood Type A NEGATIVE Antibody Screen NEGATIVE Crossmatch See Detail 11/09/20 11/09/20 11/09/20 04:00 04:00 19:58 WBC 10.7 RBC 3.02 L Hgb 9.0 L Hct 28.8 L MCV 95.4 MCH 29.8 MCHC 31.3 L RDW Std Deviation 48.7 H RDW Coeff of [place] 13.9 Plt Count 134 L MPV 10.6 Immature Gran % (Auto) 0.600 Neut % (Auto) 70.2 H Lymph % (Auto) 19.3 [place] % (Auto) 9.0 Eos % (Auto) 0.6 Baso % (Auto) 0.3 Absolute Neuts (auto) 7.5 Absolute Lymphs (auto) 2.07 Nucleated RBC % 0 Specimen Type Sample Site pH Bicarbonate Actual Total CO2 Base Excess O2 Saturation ABG pCO2 ABG pO2 Micheal Test O2 Delivery Device Liter Flow Sodium 138 Potassium 4.4 Chloride 108 H Carbon Dioxide 27.0 Anion Gap 3 L BUN 25 H Creatinine 0.74 Estim Creat Clear Calc 44.54 Est GFR (MDRD) Af Amer 100 Est GFR (MDRD) Non-Af 83 BUN/Creatinine Ratio 33.8 H Glucose 83 Calcium 9.0 Total Bilirubin 0.80 AST 155 H ALT 40 Alkaline Phosphatase 63 Ammonia 17.0 Total Protein 5.4 L Albumin 2.4 L Globulin 3.0 Albumin/Globulin Ratio 0.8 L Blood Type Antibody Screen Crossmatch 11/09/20 20:14 WBC RBC Hgb Hct MCV MCH MCHC RDW Std Deviation RDW Coeff of [place] Plt Count MPV Immature Gran % (Auto) Neut % (Auto) Lymph % (Auto) [place] % (Auto) Eos % (Auto) Baso % (Auto) Absolute Neuts (auto) Absolute Lymphs (auto) Nucleated RBC % Specimen Type ART Sample Site R Radial pH 7.52 H Bicarbonate Actual 28.6 H Total CO2 30 Base Excess 6 H O2 Saturation 92 L ABG pCO2 35.5 ABG pO2 58 L Micheal Test Positive O2 Delivery Device Cannula Liter Flow 2.0 Sodium Potassium Chloride Carbon Dioxide Anion Gap BUN Creatinine Estim Creat Clear Calc Est GFR (MDRD) Af Amer Est GFR (MDRD) Non-Af BUN/Creatinine Ratio Glucose Calcium Total Bilirubin AST ALT Alkaline Phosphatase Ammonia Total Protein Albumin Globulin Albumin/Globulin Ratio Blood Type Antibody Screen Crossmatch Clinical Impression(s) from Imaging Studies Chest X-Ray 11/07/20 04:44 IMPRESSION: Prominent azygos vein versus tortuous aorta at 0528 Reported and signed by: Polina Carson DO Electronically Signed: Polina Carson DO at 5:27 EST Tel , Service support , Chest X-Ray 11/07/20 10:00 IMPRESSION: Right internal jugular catheter placement without complications. New dense right upper lobe pneumonia. No acute finding. Electronically Signed: Tristen Harding MD at 11:17 EST , Service support , Abdomen/Pelvis CT 11/07/20 18:57 IMPRESSION: Bilateral renal cysts. Mild infrarenal abdominal aortic dilatation. Subcutaneous edema in the right groin. No drainable collection. Electronically Signed: Sly Arnett DO at 21:41 EST Tel [phone], Service support , Chest CT 11/08/20 16:44 IMPRESSION: Bilateral patchy infiltrates. Right renal cyst. Electronically Signed: Sly Arnett DO at 19:15 EST Tel [phone], Service support , Medical Necessity - Tobacco Use Smoking Status: Light Smoker (<10/day) Tobacco Use: Vapor Assessment/Plan All Active Problems (Last Updated 11/10/20 @ 10:11 by Ju Padgett) ST elevation myocardial infarction (STEMI) (Acute) Cardiogenic shock (Acute) RECOMMENDATIONS: 1. Continue to wean supplemental oxygen to maintain saturations at or above 90%. 2. Check BNP, and if elevated, attempt trial of diuretic therapy. 3. Rate/rhythm control strategy per cardiology recommendations. 4. Encourage incentive spirometer use and mobilize patient as tolerated. 5. The patient is medically stable for transfer out of the intensive care unit from my perspective. IMPRESSIONS: 1. Acute hypoxemic respiratory failure secondary to ST segment elevation FL Improving. Recommend continuing to wean supplemental oxygen to maintain saturations at or above 90%. We will plan to check BNP today, and if elevated, recommend considering a trial of diuretic therapy. Encourage incentive spirometer use and mobilize patient as tolerated. 2. Cardiogenic shock/ventricular tachycardia secondary to ST segment elevation FL Resolved. The patient remains hemodynamically stable off of vasopressor support. Continue medical management per cardiology recommendations. 3. Protracted tobacco abuse/chronic pain syndrome/depression/anxiety/hyperte nsion/GERD/delirium Complicates care, management, recovery and prognosis. Continue home medications as indicated. This note was generated with CASTT dictation software. It may contain incorrect words, spelling, and punctuation that were not noted in checking the note before signing. Inpatient E&M: [id number] [facility] H[facility] L3
--- NOTE | 2020-11-10 05:59 | PCM.PN.BLA ---
Progress Note Patient with A flutter with ventricular response. Check TSH. Check magnesium. Give a bolus of Cardizem. Put on therapeutic subcutaneous Lovenox twice daily. STROKE Vital Signs/Narrative: Vital Signs Temp Pulse Resp BP Pulse Ox 11/10/20 05:00 80 24 H 119/104 H 92 11/10/20 04:00 98.2 F 84 24 H 115/68 91 11/10/20 03:23 79 11/10/20 03:00 85 21 H 107/56 L 98 11/10/20 02:00 80 20 H 117/69 94
[2020-11-10 06:33] LABS: Magnesium 1.9 mg/dL (1.6-2.6)
[2020-11-10 06:43] LABS: Absolute Lymphocyte Count 1.33 X10^3/uL (0.83-4.51); Absolute Neutrophil Count 6.7 X10^3/uL (2.0-7.7); Basophil# 0.02 X10^3/uL; Basophil% 0.2 % (0-1); Eosinophil# 0.11 X10^3/uL; Eosinophils% 1.2 % (0-5); Hematocrit 26.7 % (37-47); Hemoglobin 8.6 g/dL (12.0-15.0); Lymphocyte # 1.33 X10^3/ul (4.0); Lymphocyte % 14.8 % (19-41); Mean Corp Hgb Conc 32.2 g/dL (32-36); Mean Corpuscular Hgb 30.4 pg (27.0-32.0); Mean Corpuscular Volume 94.3 fL (81-99); Mean Platelet Vol. 11.2 fl (6.2-12.0); Monocyte# 0.76 X10^3/uL; Monocyte% 8.5 % (0-10); NRBC Flagged by Analyzer 0 % (0-5); Neutrophil # 6.72 X10^3/uL (2.7-7.7); Platelet Count 133 K/mm3 (150-450); RBC Distribution Width CV 13.8 % (11.6-14.6); RBC Distribution Width SD 47.8 fl (35.1-43.9); Red Blood Count 2.83 M/mm3 (4.2-5.4)
--- NOTE | 2020-11-10 07:27 | PCM.PN.HOSP ---
Patient Problems: Active and Suspected Problems (Last Reviewed 11/07/20 @ 05:[address] Rj Lala MD) ST elevation myocardial infarction (STEMI) (Acute) Cardiogenic shock (Acute) Reason for Visit: Acute ST segment elevation SC Status post PCI/VICKIE to the circumflex lesion Subjective: Patient is a 70-year-old lady with past medical history significant for hypertension dyslipidemia hypothyroidism who presented to the emergency department with chest pain. EKG obtained demonstrated ST segment elevation SC underwent emergent left heart catheterization Objective: GENERAL: cooperative HEENT: Atraumatic; EYES; Anicteric, Normal Conjunctiva NECK; supple, normal thyroid, RESPIRATORY: Diminished to auscultation CARDIOVASCULAR: Irregular S1-S2 GI: soft, normoactive bowel sounds, : No Renal angle tenderness; EXTREMITIES: Right groin hematoma MUSCULOSKELETAL: no muscle waisting NEURO: Awake; no lateralizing signs. SKIN: No Rash PSYCH; Flat affect Vitals/I&O's: Vital Signs Temp Pulse Resp BP Pulse Ox 98.2 F 75 23 H 127/70 H 92 11/10/20 04:00 11/10/20 07:00 11/10/20 07:00 11/10/20 07:00 11/10/20 07:08 Oxygen Flow Rate (L/min) 2 Oxygen Delivery Method Nasal Cannula Weight: 74.7 kg Body Mass Index (BMI) 28.3 Intake and Output for Last 24 Hours 11/08/20 11/09/20 11/10/20 23:59 23:59 23:59 Intake Total 781.60 / 1145.00 905.65 / 1025.65 120 / 120 Output Total 1075 / 1575 750 / 1000 350 / 350 Balance -293.40 / -430.00 155.65 / 25.65 -230 / -230 Laboratory Results 11/09/20 19:58: Ammonia 17.0 11/09/20 20:14: Specimen Type ART, Sample Site R Radial, pH 7.52 H, Bicarbonate Actual 28.6 H, Total CO2 30, Base Excess 6 H, O2 Saturation 92 L, ABG pCO2 35.5, ABG pO2 58 L, Micheal Test Positive, O2 Delivery Device Cannula, Liter Flow 2.0 11/10/20 05:55: Magnesium 1.9, TSH 1.00 11/10/20 : WBC 9.0, RBC 2.83 L, Hgb 8.6 L, Hct 26.7 L, MCV 94.3, MCH 30.4, MCHC 32.2, RDW Std Deviation 47.8 H, RDW Coeff of [place] 13.8, Plt Count 133 L, MPV 11.2, Immature Gran % (Auto) 0.300, Neut % (Auto) 75.0 H, Lymph % (Auto) 14.8 L, [place] % (Auto) 8.5, Eos % (Auto) 1.2, Baso % (Auto) 0.2, Absolute Neuts (auto) 6.7, Absolute Lymphs (auto) 1.33, Nucleated RBC % 0 Current Medications Aspirin (Aspirin 81 Mg Tab.Chew) 81 mg PO DAILY@0800 [facility] Last Admin: 11/09/20 11:16 Dose: 81 mg Documented by: Atorvastatin Calcium (Atorvastatin Calcium 40 Mg Tablet) 40 mg PO QHS [facility] Last Admin: 11/09/20 22:07 Dose: 40 mg Documented by: Atropine Sulfate (Atropine Sulfate 1 Mg/10 Ml Syringe) 0.5 mg IV UD PRN PRN Reason: HR <50 bpm Duloxetine HCl (Duloxetine Hcl 60 Mg Capsule) 60 mg PO DAILY [facility] Last Admin: 11/09/20 11:16 Dose: 60 mg Documented by: Enoxaparin Sodium (Enoxaparin 80 Mg/0.8 Ml Syringe) 75 mg SC Q12@0600,1800 [facility] Gabapentin (Gabapentin 300 Mg Capsule) 300 mg PO BIDCM [facility] Last Admin: 11/09/20 17:05 Dose: 300 mg Documented by: Heparin Sodium (Beef Lung) (Heparin Lock 500 Unit/5 Ml In 10 Ml Syringe) 500 unit IV UD PRN PRN Reason: HEPARIN FLUSH Sodium Chloride () 250 mls @ 15 mls/hr IV .[id number] PRN PRN Reason: Saline Flush Sodium Chloride () 250 mls @ 15 mls/hr IV .[id number] PRN PRN Reason: Additional IVPB Infusion Sodium Chloride () 1,000 mls @ 75 mls/hr IV .[id number] [facility] Last Infusion: 11/09/20 21:59 Dose: 75 mls/hr Documented by: Labetalol HCl (Labetalol (Prefilled) 20 Mg/4 Ml) 5 mg IV X1 PRN PRN Reason: SBP >160 when pulling sheath Levothyroxine Sodium (Levothyroxine 50 Mcg Tablet) 50 mcg PO DAILY@0600 [facility] Last Admin: 11/09/20 06:03 Dose: 50 mcg Documented by: Ondansetron HCl (Ondansetron 4 Mg/2 Ml Vial) 4 mg IV Q8H PRN PRN PRN Reason: NAUSEA/VOMITING Last Admin: 11/07/20 21:20 Dose: 4 mg Documented by: Pantoprazole Sodium (Pantoprazole Sodium 40 Mg Tablet) 40 mg PO DAILY [facility] Last Admin: 11/09/20 11:15 Dose: 40 mg Documented by: Sodium Chloride (0.9% Saline Lock 10 Ml Syringe) 10 - 40 ml IV UD PRN PRN Reason: SALINE FLUSH Last Admin: 11/09/20 14:50 Dose: 10 ml Documented by: Sodium Chloride (0.9% Normal Saline 500 Ml Iv.Soln.) 500 ml IV BOLUS PRN PRN Reason: VASO-VAGAL PROTOCOL Ticagrelor (Ticagrelor 90 Mg Tablet) 90 mg PO BID [facility] Last Admin: 11/09/20 22:07 Dose: 90 mg Documented by: Tramadol HCl (Tramadol 50 Mg Tablet) 50 mg PO Q4H PRN PRN PRN Reason: pain Last Admin: 11/08/20 14:44 Dose: 50 mg Documented by: Trazodone HCl (Trazodone 100 Mg Tablet) 100 mg PO QHS [facility] Last Admin: 11/09/20 22:11 Dose: 100 mg Documented by: STROKE Vital Signs/Narrative: Vital Signs Temp Pulse Resp BP Pulse Ox 11/10/20 07:08 92 11/10/20 07:00 75 23 H 127/70 H 94 11/10/20 06:00 81 24 H 103/69 94 11/10/20 05:00 80 24 H 119/104 H 92 11/10/20 04:00 98.2 F 84 24 H 115/68 91 Medical Necessity - Tobacco Use Smoking Status: Light Smoker (<10/day) Tobacco Use: Vapor Assessment/Plan All Active Problems (Last Reviewed 11/07/20 @ 05:[address] Rj Lala MD) ST elevation myocardial infarction (STEMI) (Acute) Cardiogenic shock (Acute) Patient is a 70-year-old lady with past medical history significant for hypertension dyslipidemia hypothyroidism who presented to the emergency department with chest pain. EKG obtained demonstrated ST segment elevation SC underwent emergent left heart catheterization 1. Acute ST segment elevation SC - Patient underwent emergency left heart catheterization found to have a 95% circumflex lesion for which patient underwent PCI/VICKIE. Patient was also found to have mild residual disease in the LAD Echo obtained demonstrated preserved ejection fraction with patient abnormalities 2. Cardiogenic shock ?Secondary to patient acute ST segment elevation SC. Patient was on dopamine which was weaned off on 11/09/2020 5. Acute hypoxic respiratory failure secondary to pulmonary edema from patient cardiogenic shock ?Patient was managed with supplemental oxygen 4. Post SC ventricular arrhythmias ?Patient was found to have V. tach 5. Paroxysmal A. fib/flutter ?Rate controlled systemic anticoagulation currently being held in view of patient low hemoglobin as well as her significant right groin hematoma 6. Right groin hematoma ?Patient undergoing ultrasound to rule out pseudoaneurysm 7. Hypothyroidism - Patient is on levothyroxine home dose continued 8. Hypertension - Blood pressure controlled, home medications continued with dose adjustment as needed 9. Dyslipidemia -Patient is on statin therapy, continued at home dose 10. Depression with anxiety ?Patient is on duloxetine 11. GERD ?Patient is on PPI 12. Tobacco dependence - Counseled on cessation, offered nicotine patch for tobacco cravings 13. Physical deconditioning - Requested for PT OT eval and group social worker to assist with discharge planning 14. Anemia - Secondary to chronic disorder monitoring H&H and transfuse if patient becomes symptomatic or hemoglobin falls below 7. Did undertake iron studies 15. DVT prophylaxis bilateral SCDs Inpatient E&M: [id number] [facility] Hosp L3
[2020-11-10] MEDS: TICAGRELOR 90 MG TABLET PO ×2 (07:57→20:58)
[2020-11-10] MEDS: Aspirin 81 MG TAB.CHEW PO (07:57)
[2020-11-10] MEDS: Levothyroxine 50 MCG Tablet PO (07:57)
[2020-11-10] MEDS: Pantoprazole Sodium 40 MG Tablet PO (07:57)
[2020-11-10] MEDS: Gabapentin 300 MG Capsule PO ×2 (07:57→16:47)
[2020-11-10] MEDS: DULoxetine Hcl 60 MG Capsule PO (07:57)
--- NOTE | 2020-11-10 08:04 | PN.CARD_ITS ---
Subjectve: Patient seen and evaluated Objective: Vital Signs Temp Pulse Resp BP Pulse Ox 98.2 F 75 23 H 127/70 H 92 11/10/20 04:00 11/10/20 07:00 11/10/20 07:00 11/10/20 07:00 11/10/20 07:08 Oxygen Flow Rate (L/min) 2 Oxygen Delivery Method Nasal Cannula Weight: 164 lb 10.965 oz Body Mass Index (BMI) 28.3 Intake and Output for Last 24 Hours 11/08/20 11/09/20 11/10/20 23:59 23:59 23:59 Intake Total 781.60 / 1145.00 905.65 / 1025.65 120 / 120 Output Total 1075 / 1575 750 / 1000 350 / 350 Balance -293.40 / -430.00 155.65 / 25.65 -230 / -230 General: Awake, Alert, Oriented x 3 HEENT: PERRL, EOMI, Sclera Non Icteric Neck: Supple, Good ROM, No Lymph Node Enlargement Lungs: Clear to auscultation Cardiovascular: Regular Rhythm, Normal S1, Normal S2, No Murmurs, No Rubs, No Gallops Vascular: No Carotid Bruits, Normal Femoral Pulses, Normal Radial Pulses, Normal Dorsalis Pedal Pulse, Normal Posterior Tibial Pulses Abdomen: Bowel Sounds Present, Soft, Non Tender, No HSM, No Organomegaly Extremities: No Cyanosis, No Clubbing, No edema Neurological: No Focal Motor or Sensory Deficit 11/09/20 20:14: pH 7.52 H, Bicarbonate Actual 28.6 H, Base Excess 6 H, O2 S aturation 92 L, ABG pCO2 35.5, ABG pO2 58 L, Micheal Test Positive 11/10/20 05:55: Magnesium 1.9 11/10/20 05:55: WBC 9.0, RBC 2.83 L, Hgb 8.6 L, Hct 26.7 L, MCV 94.3, MCH 30.4, MCHC 32.2, Plt Count 133 L, MPV 11.2, Immature Gran % (Auto) 0.300, Neut % (Auto) 75.0 H, Lymph % (Auto) 14.8 L, [place] % (Auto) 8.5, Eos % (Auto) 1.2, Baso % (Auto) 0.2, Absolute Neuts (auto) 6.7, Nucleated RBC % 0 Rhythm: EKG: ECHO: Stress Test: Cardiac Cath: PCI: CT Surgery: Holter monitor: EPS: PPM: CXR: Chest CT Scan: Medical Necessity - Tobacco Use Smoking Status: Light Smoker (<10/day) Tobacco Use: Vapor Assessment/Plan 1. Status post acute inferolateral myocardial infarction * Patient underwent angioplasty and stenting of the left circumflex artery. Mild residual disease noted in the LAD. * Echocardiogram demonstrates preserved ejection fraction with wall motion abnormalities noted * At this time patient appears to be doing well and is hemodynamically stable on no pressors * Hemoglobin is slightly low and will obtain groin ultrasound to exclude pseudoaneurysm * If the above is negative then the patient will be transferred to the progressive care unit * Continue current medications * 2. Paroxysmal atrial fibrillation * Patient appears to be having short paroxysms of atrial fibrillation * With a preserved ejection fraction in the low hemoglobin I would not anticoagulate at this time * Will start amiodarone 200 mg twice daily * Continue current dose of other medications * * Thank you for allowing me to participate in the care of your patient. Please don't hesitate to call if any issues arise.
[2020-11-10] MEDS: Amiodarone 200 MG Tablet PO ×2 (09:26→20:58)
[2020-11-10] MEDS: Metoprolol Tartrate 25 MG Tablet 12.5 MG PO ×2 (10:35→20:58)
--- NOTE | 2020-11-10 10:56 | CASEMGMT ---
RN CM Note: Intro role of CM to patient in room. Pt is still drowsy, but able to participate in assessment. Discussed PT/OT notes and concern for pt returning home alone. Discussed option of short term rehab @ SNF and home health. Pt stated she did not think she could manage at home and would like short term rehab. Pt is agreeable to have SW discuss options with her. -referral to [facility] for possible SNF referral for dc. Gina GARCIAN RN ACM
[2020-11-10 10:58] LABS: BNP,B-Type NATRIURETIC PEPTIDE 702.2 pg/mL (0-100)
--- NOTE | 2020-11-10 11:15 | NURSING ---
1115: pt transferred to PCU rm 112, called and notified both daughters individually regarding transfer and follow up appointment on tuesday11/21/20 at 1:15pm with Dr. Norris.
--- NOTE | 2020-11-10 11:45 | CASEMGMT ---
Pt informed the CM that she may need to go somewhere for rehab. Pt has now been transferred to PCU. SW let the SW in PCU know to follow up w/pt regarding this. TONIE Izquierdo
--- NOTE | 2020-11-10 13:00 | CASEMGMT ---
SW met with patient. Introduced self and role at [facility]. SW spoke with patient about going somewhere for short term rehab. SW gave her a list of facilities that are in network with her insurance and have Medicare ratings etc. She will talk with her daughter about which facility. SW asked if SW could call her daughter and she said no she will talk with her. Jeanine SOTO MSW
[2020-11-10 13:17] LABS: Pathologist Review Reviewed
[2020-11-10] MEDS: Furosemide 40 MG/4 ML Vial IV (16:32)
[2020-11-10] MEDS: 0.9% Saline Lock 10 ML Syringe IV (16:32)
[2020-11-10] MEDS: Atorvastatin Calcium 40 MG Tablet PO (20:58)
[2020-11-10] MEDS: traZODone 100 MG Tablet PO (20:58)
[2020-11-10] MEDS: traMADol 50 MG Tablet PO (21:04)
[2020-11-11] VITALS (16 sets, daily range): BP systolic 126–139; BP diastolic 58–73; PULSE 64–116; RESP 20–22; TEMP 36.6–37.6; O2SAT 94–97
--- NOTE | 2020-11-11 00:21 | PCS.PANDOC ---
PANDEMIC DOCUMENTATION INITIATED: Date: 11/07/2020 Time: 632
[2020-11-11] MEDS: LORazepam 2 MG/ML Syringe 0.5 MG IV (01:28)
[2020-11-11] MEDS: 0.9% Saline Lock 10 ML Syringe IV ×3 (01:29→02:20)
[2020-11-11] MEDS: Haloperidol Lactate 5 MG/ML Vial 2 MG IV (02:18)
[2020-11-11] MEDS: Levothyroxine 50 MCG Tablet PO (05:08)
[2020-11-11 06:54] LABS: Hemoglobin 8.8 g/dL (12.0-15.0); Mean Corp Hgb Conc 32.6 g/dL (32-36); Mean Corpuscular Hgb 30.1 pg (27.0-32.0); Mean Corpuscular Volume 92.5 fL (81-99); Mean Platelet Vol. 11.6 fl (6.2-12.0); Platelet Count 173 K/mm3 (150-450); RBC Distribution Width CV 13.7 % (11.6-14.6); RBC Distribution Width SD 46.5 fl (35.1-43.9); Red Blood Count 2.92 M/mm3 (4.2-5.4); White Blood Count 9.4 K/mm3 (4.4-11.0)
[2020-11-11 07:18] LABS: Anion Gap 5 (5-15); BUN 26 mg/dL (7-18); BUN/Creat Ratio 32.2 RATIO (10-20); Calcium,Total 9.2 mg/dL (8.5-10.1); Chloride 106 mmol/L (98-107); Creatinine, Serum 0.81 mg/dL (0.55-1.02); EST Glomerular Filtration Rate 75 mL/min (>60); Est Glom Filt Rate - Afr Amer 91 mL/min (>60); Estimated Creatinine Clearance 54.99 ml/min; Glucose 85 mg/dL (74-106); Potassium 3.5 mmol/L (3.5-5.1); Sodium Level 138 mmol/L (136-145)
[2020-11-11 07:22] LABS: Mucous, Urine 0 SEEN /hpf (<or=2+); Red Blood Cells-Urine 0 SEEN /hpf (0-5)
--- NOTE | 2020-11-11 07:53 | PN.CARD_ITS ---
Subjectve: Patient seen and evaluated. Appears to be mildly confused. Breathing better. Objective: Vital Signs Temp Pulse Resp BP Pulse Ox 99.2 F H 89 20 H 136/65 H 94 11/11/20 05:08 11/11/20 07:20 11/11/20 05:08 11/11/20 05:08 11/11/20 05:08 Oxygen Flow Rate (L/min) 5 Oxygen Delivery Method Nasal Cannula Weight: 157 lb 13.616 oz Body Mass Index (BMI) 28.3 Intake and Output for Last 24 Hours 11/09/20 11/10/20 11/11/20 23:59 23:59 23:59 Intake Total 905.65 / 1025.65 1376.25 / 1776.25 760 / 760 Output Total 750 / 1000 1500 / 2000 700 / 700 Balance 155.65 / 25.65 -123.75 / -223.75 60 / 60 General: Awake, Alert, Oriented x 3 HEENT: PERRL, EOMI, Sclera Non Icteric Neck: Supple, Good ROM, No Lymph Node Enlargement Lungs: Diminished [place]rick Bases Cardiovascular: Regular Rhythm, Normal S1, Normal S2, No Murmurs, No Rubs, No Gallops Vascular: No Carotid Bruits, Normal Femoral Pulses, Normal Radial Pulses, Normal Dorsalis Pedal Pulse, Normal Posterior Tibial Pulses Abdomen: Bowel Sounds Present, Soft, Non Tender, No HSM, No Organomegaly Extremities: No Cyanosis, No Clubbing, No edema Musculoskeletal: No Erythema Skin: No Rashes Lymphatic: No Lymph Node Enlargement Neurological: No Focal Motor or Sensory Deficit 11/10/20 05:55: WBC 9.0, RBC 2.83 L, Hgb 8.6 L, Hct 26.7 L, MCV 94.3, MCH 30.4, MCHC 32.2, Plt Count 133 L, MPV 11.2, Immature Gran % (Auto) 0.300, Neut % (Auto) 75.0 H, Lymph % (Auto) 14.8 L, [place] % (Auto) 8.5, Eos % (Auto) 1.2, Baso % (Auto) 0.2, Absolute Neuts (auto) 6.7, Nucleated RBC % 0 11/10/20 05:55: B-Natriuretic Peptide 702.2 H 11/11/20 06:10: WBC 9.4, RBC 2.92 L, Hgb 8.8 L, Hct 27.0 L, MCV 92.5, MCH 30.1, MCHC 32.6, Plt Count 173, MPV 11.6 11/11/20 06:10: Sodium 138, Potassium 3.5, Chloride 106, Carbon Dioxide 27.0, Anion Gap 5, BUN 26 H, Creatinine 0.81, Est GFR (MDRD) Af Amer 91, Est GFR (MDRD) Non-Af 75, BUN/Creatinine Ratio 32.2 H, Glucose 85, Calcium 9.2, Magnesium 2.0 Rhythm: EKG: ECHO: Stress Test: Cardiac Cath: PCI: CT Surgery: Holter monitor: EPS: PPM: CXR: Chest CT Scan: Medical Necessity - Tobacco Use Smoking Status: Light Smoker (<10/day) Tobacco Use: Vapor Assessment/Plan 1. Status post acute inferolateral myocardial infarction * Patient underwent angioplasty and stenting of the left circumflex artery. Mild residual disease noted in the LAD. * Echocardiogram demonstrates preserved ejection fraction with wall motion abnormalities noted * At this time patient appears to be doing well and is hemodynamically stable on no pressors * Hemoglobin is slightly low and will obtain groin ultrasound to exclude pseudoaneurysm; this has been excluded * * 2. Paroxysmal atrial fibrillation * Patient appears to be having short paroxysms of atrial fibrillation * With a preserved ejection fraction in the low hemoglobin I would not anticoagulate at this time, and in addition the patient is noted to be anemic * Will start amiodarone 200 mg twice daily * Continue current dose of other medications * * 3. Mild diastolic heart failure * Patient appears to have mild diastolic heart failure. Would recommend diuretics with Lasix 40 mg twice a day * Thank you for allowing me to participate in the care of your patient. Please don't hesitate to call if any issues arise.
[2020-11-11 07:58] LABS: Color, Urine Yellow (Yellow); Glucose, Dipstick Normal (Normal); Ketone-Dipstick 5 mg/dl (Negative); Leukocyte Esterase-Dipstick 25 /ul (Negative); Nitrite-Dipstick Negative (Negative); Occult Blood-Urine Negative /ul (Negative); Protein-Dipstick 15 mg/dl (Negative); Urine Clarity Sl. Cloudy (Clear); Urine Urobilinogen 8 mg/dl (Normal)
[2020-11-11 07:59] LABS: Urine Bilirubin Dipstick 1 mg/dL (Negative)
--- NOTE | 2020-11-11 08:05 | PCM.PN.HOSP ---
Patient Problems: Active and Suspected Problems (Last Updated 11/10/20 @ 10:11 by Ju Padgett) ST elevation myocardial infarction (STEMI) (Acute) Cardiogenic shock (Acute) Reason for Visit: Acute ST segment elevation NM Status post PCI/VICKIE to the circumflex lesion Acute encephalopathy Subjective: Patient is a 70-year-old lady with past medical history significant for hypertension dyslipidemia hypothyroidism who presented to the emergency department with chest pain. EKG obtained demonstrated ST segment elevation NM underwent emergent left heart catheterization Was transferred from the intensive care unit to PCU. Patient is very delirious. Did review her medication suspected offending medications including tramadol discontinued. Also ordered CT of the head and requested for urinalysis and chest x-ray to rule out infectious etiology Objective: GENERAL: delirious HEENT: Atraumatic; EYES; Anicteric, Normal Conjunctiva NECK; supple, normal thyroid, RESPIRATORY: Diminished to auscultation CARDIOVASCULAR: Irregular S1-S2 GI: soft, normoactive bowel sounds, : No Renal angle tenderness; EXTREMITIES: Right groin hematoma MUSCULOSKELETAL: no muscle waisting NEURO: Awake; no lateralizing signs. SKIN: No Rash PSYCH; delirious Vitals/I&O's: Vital Signs Temp Pulse Resp BP Pulse Ox 99.2 F H 89 20 H 136/65 H 94 11/11/20 05:08 11/11/20 07:20 11/11/20 05:08 11/11/20 05:08 11/11/20 05:08 Oxygen Flow Rate (L/min) 5 Oxygen Delivery Method Nasal Cannula Weight: 71.6 kg Body Mass Index (BMI) 28.3 Intake and Output for Last 24 Hours 11/09/20 11/10/20 11/11/20 23:59 23:59 23:59 Intake Total 905.65 / 1025.65 1376.25 / 1776.25 760 / 760 Output Total 750 / 1000 1500 / 2000 700 / 700 Balance 155.65 / 25.65 -123.75 / -223.75 60 / 60 Laboratory Results 11/07/20 10:45: Diff Path Review Reviewed 11/10/20 05:55: B-Natriuretic Peptide 702.2 H 11/11/20 06:10: WBC 9.4, RBC 2.92 L, Hgb 8.8 L, Hct 27.0 L, MCV 92.5, MCH 30.1, MCHC 32.6, RDW Std Deviation 46.5 H, RDW Coeff of [place] 13.7, Plt Count 173, MPV 11.6 11/11/20 06:10: Sodium 138, Potassium 3.5, Chloride 106, Carbon Dioxide 27.0, Anion Gap 5, BUN 26 H, Creatinine 0.81, Estim Creat Clear Calc 54.99, Est GFR (MDRD) Af Amer 91, Est GFR (MDRD) Non-Af 75, BUN/Creatinine Ratio 32.2 H, Glucose 85, Calcium 9.2, Magnesium 2.0 11/11/20 06:10: B-Natriuretic Peptide Pending 11/11/20 07:10: Urine Color Yellow, Urine Clarity Sl. Cloudy, Urine pH 5.0, Ur Specific [place] 1.020, Urine Protein 15 H, Urine Glucose (UA) Normal, Urine Ketones 5 H, Urine Occult Blood Negative, Urine Nitrite Negative, Urine Bilirubin 1 H, Urine Urobilinogen 8 H, Ur Leukocyte Esterase 25 H, Urine RBC Pending, Urine WBC Pending, Ur Squamous Epith Cells Pending, Urine Bacteria Pending, Urine Mucus Pending Current Medications Amiodarone HCl (Amiodarone 200 Mg Tablet) 200 mg PO BID [facility] Last Admin: 11/10/20 20:58 Dose: 200 mg Documented by: Aspirin (Aspirin 81 Mg Tab.Chew) 81 mg PO DAILY@0800 [facility] Last Admin: 11/10/20 07:57 Dose: 81 mg Documented by: Atorvastatin Calcium (Atorvastatin Calcium 40 Mg Tablet) 40 mg PO QHS [facility] Last Admin: 11/10/20 20:58 Dose: 40 mg Documented by: Atropine Sulfate (Atropine Sulfate 1 Mg/10 Ml Syringe) 0.5 mg IV UD PRN PRN Reason: HR <50 bpm Duloxetine HCl (Duloxetine Hcl 60 Mg Capsule) 60 mg PO DAILY [facility] Last Admin: 11/10/20 07:57 Dose: 60 mg Documented by: Furosemide (Furosemide 40 Mg Tablet) 40 mg PO BID@1000,1800 [facility] Gabap[facility] ([facility] 300 [facility]ule) [facility] Last Admin: 11/10/20 16:47 Dose: 300 mg Documented by: Heparin Sodium (Beef Lung) (Heparin Lock 500 Unit/5 Ml In 10 Ml Syringe) 500 unit IV UD PRN PRN Reason: HEPARIN FLUSH Sodium Chloride () 250 mls @ 15 mls/hr IV .[id number] PRN PRN Reason: Saline Flush Sodium Chloride () 250 mls @ 15 mls/hr IV .[id number] PRN PRN Reason: Additional IVPB Infusion Labetalol HCl (Labetalol (Prefilled) 20 Mg/4 Ml) 5 mg IV X1 PRN PRN Reason: SBP >160 when pulling sheath Levothyroxine Sodium (Levothyroxine 50 Mcg Tablet) 50 mcg PO DAILY@0600 [facility] Last Admin: 11/11/20 05:08 Dose: 50 mcg Documented by: Metoprolol Tartrate (Metoprolol Tartrate 25 Mg Tablet) 12.5 mg PO BID [facility] Last Admin: 11/10/20 20:58 Dose: 12.5 mg Documented by: Ondansetron HCl (Ondansetron 4 Mg/2 Ml Vial) 4 mg IV Q8H PRN PRN PRN Reason: NAUSEA/VOMITING Last Admin: 11/07/20 21:20 Dose: 4 mg Documented by: Pantoprazole Sodium (Pantoprazole Sodium 40 Mg Tablet) 40 mg PO DAILY [facility] Last Admin: 11/10/20 07:57 Dose: 40 mg Documented by: Sodium Chloride (0.9% Saline Lock 10 Ml Syringe) 10 - 40 ml IV UD PRN PRN Reason: SALINE FLUSH Last Admin: 11/11/20 02:20 Dose: 10 ml Documented by: Sodium Chloride (0.9% Normal Saline 500 Ml Iv.Soln.) 500 ml IV BOLUS PRN PRN Reason: VASO-VAGAL PROTOCOL Ticagrelor (Ticagrelor 90 Mg Tablet) 90 mg PO BID [facility] Last Admin: 11/10/20 20:58 Dose: 90 mg Documented by: Tramadol HCl (Tramadol 50 Mg Tablet) 50 mg PO Q4H PRN PRN PRN Reason: pain Last Admin: 11/10/20 21:04 Dose: 50 mg Documented by: Trazodone HCl (Trazodone 100 Mg Tablet) 100 mg PO QHS [facility] Last Admin: 11/10/20 20:58 Dose: 100 mg Documented by: STROKE Vital Signs/Narrative: Vital Signs Temp Pulse Resp BP Pulse Ox 11/11/20 07:20 89 11/11/20 05:08 99.2 F H 74 20 H 136/65 H 94 Medical Necessity - Tobacco Use Smoking Status: Light Smoker (<10/day) Tobacco Use: Vapor Assessment/Plan All Active Problems (Last Updated 11/10/20 @ 10:11 by Ju Padgett) ST elevation myocardial infarction (STEMI) (Acute) Cardiogenic shock (Acute) Patient is a 70-year-old lady with past medical history significant for hypertension dyslipidemia hypothyroidism who presented to the emergency department with chest pain. EKG obtained demonstrated ST segment elevation NM underwent emergent left heart catheterization 1. Acute ST segment elevation [place] - Patient underwent emergency left heart catheterization found to have a 95% circumflex lesion for which patient underwent PCI/VICKIE. Patient was also found to have mild residual disease in the LAD Echo obtained demonstrated preserved ejection fraction with patient abnormalities 2. Cardiogenic shock ?Secondary to patient acute ST segment elevation [place]. Patient was on dopamine which was weaned off on 11/09/2020 5. Acute hypoxic respiratory failure secondary to pulmonary edema from patient cardiogenic shock ?Patient was managed with supplemental oxygen 4. Post [place] ventricular arrhythmias ?Patient was found to have V. tach 5. Paroxysmal A. fib/flutter ?Rate controlled systemic anticoagulation currently being held in view of patient low hemoglobin as well as her significant right groin hematoma 6. Right groin hematoma ?Patient undergoing ultrasound to rule out pseudoaneurysm 7. Hypothyroidism - Patient is on levothyroxine home dose continued 8. Hypertension - Blood pressure controlled, home medications continued with dose adjustment as needed 9. Dyslipidemia -Patient is on statin therapy, continued at home dose 10. Depression with anxiety ?Patient is on duloxetine 11. GERD ?Patient is on PPI 12. Tobacco dependence - Counseled on cessation, offered nicotine patch for tobacco cravings 13. Physical deconditioning - Requested for PT OT eval and social services assistant to assist with discharge planning 14. Anemia - Secondary to chronic disorder monitoring H&H and transfuse if patient becomes symptomatic or hemoglobin falls below 7. Did undertake iron studies 15. DVT prophylaxis bilateral SCDs 16. Acute encephalopathy ?11/11/2020; Did review her medication suspected offending medications including tramadol discontinued. Also ordered CT of the head and requested for urinalysis and chest x-ray to rule out infectious etiology Inpatient E&M: 84420 Subs Hosp L3
[2020-11-11 08:10] LABS: Bacteria 1+ /hpf (None Seen); Squamous Epithelial Cells - UA 0-5 SEEN /hpf (5-10); White Blood Cells 0-5 SEEN /hpf (0-5)
[2020-11-11 08:22] LABS: BNP,B-Type NATRIURETIC PEPTIDE 1090.2 pg/mL (0-100)
[2020-11-11] MEDS: Aspirin 81 MG TAB.CHEW PO (08:35)
[2020-11-11] MEDS: Gabapentin 300 MG Capsule PO (08:35)
--- NOTE | 2020-11-11 09:12 | CT_ITS ---
STUDY: CT BRAIN WITHOUT CONTRAST REASON FOR EXAM: Female, 70 years old. Encephalopathy, hypertension, CVA. RADIATION DOSAGE (If Supplied By Facility): CTDIvol = ( 44.99 ) mGy, DLP = ( 745.49 ) mGycm TECHNIQUE: Transaxial CT imaging of the brain was performed without administration of intravenous contrast material. Individualized dose optimization techniques were used for this CT. COMPARISON: Comparison is made with prior study dated 11/26/2013. FINDINGS: Normal soft tissue structures. Normal calvarium. There is mild cerebral atrophy with widening of the extra-axial spaces and ventricular dilatation. Normal white matter tracts of the cerebral hemispheres. Normal basal ganglia and thalami. Normal brainstem. Normal cerebellum. There is no intracranial hemorrhage. There are no findings of an acute ischemic infarction. Atherosclerotic calcification of the cavernous portions of the internal carotid arteries bilaterally. Normal visualized paranasal sinuses. CT/Brain/Head without Contrast IMPRESSION: Chronic involutional changes of the brain. Electronically Signed: Olivier Zaidi MD at 10:21 EST , Service support ,
--- NOTE | 2020-11-11 10:10 | RAD_ITS ---
STUDY: X-RAY CHEST REASON FOR EXAM: Female, 70 years old. TROUBLE BREATHING TECHNIQUE: Single AP portable view of the chest. COMPARISON: Comparison is made with prior examination dated 11/07/2020. FINDINGS: A right-sided internal jugular venous catheter is in situ with the tip at the junction of the superior vena cava and right atrium. EKG electrodes are seen. Persistent right upper lobe consolidation although there has been mild improvement. New left upper lobe pulmonary infiltrate. I also suspect a mild degree of vascular congestion. Normal size heart. Normal mediastinum and suleiman. Normal visualized pulmonary arteries. There is atherosclerotic calcification of the aortic arch with tortuosity. Normal visualized thoracic spine. Normal visualized ribs, clavicles, and shoulders. There is no demonstrated abnormality of the visualized soft tissue structures of the upper abdomen. RAD/Chest 1 View (Portable) IMPRESSION: Improved aeration of the right upper lobe consolidation. New infiltrate in the left upper lobe superimposed on mild degree of CHF. Electronically Signed: Olivier Zaidi MD at 12:28 EST , Service support ,
[2020-11-11] MEDS: Amiodarone 200 MG Tablet PO ×2 (10:46→22:12)
[2020-11-11] MEDS: Metoprolol Tartrate 25 MG Tablet 12.5 MG PO ×2 (10:46→22:13)
[2020-11-11] MEDS: Pantoprazole Sodium 40 MG Tablet PO (10:46)
[2020-11-11] MEDS: TICAGRELOR 90 MG TABLET PO ×2 (10:46→22:12)
[2020-11-11] MEDS: Furosemide 40 MG Tablet PO ×2 (10:46→17:12)
--- NOTE | 2020-11-11 15:14 | CASEMGMT ---
SW spoke with patient's daughter. Introduced self and role at [facility]. SW went over the list of nursing homes with patient's daughter. (list had Medicare ratings and quality data and it also indicated which facilities were in network with patient's insurance) KILEY did explain that there are only 2 facilities in [facility] that are in network with patient's insurance [facility] and [place]. She wanted SW to put patient's name on TCU list in case that is what she decides. She would like to talk with her daughter who works with clients from nursing homes. KILEY did talk with Meghann on referral phone and they would be able to take patient. However, patient has to be sitter free for 24 hours and no Halodol for 24 hours. KILEY will continue to follow. Jeanine SOTO MSW
--- NOTE | 2020-11-11 17:18 | NURSING ---
daughter found bottle of ultram in pt's purse and reported that yest pt was rummaging through purse and today wanted purse because her back was hurting daughter unsure since didnt have sitter if took any yest when had purse. daughter clark to take meds home. pt in bed eating ice cream.
[2020-11-11] MEDS: traZODone 100 MG Tablet PO (22:12)
[2020-11-11] MEDS: Atorvastatin Calcium 40 MG Tablet PO (22:14)
--- NOTE | 2020-11-11 23:09 | PCS.PANDOC ---
PANDEMIC DOCUMENTATION INITIATED: Date: 11/07/2020 Time: 5572
--- NOTE | 2020-11-11 23:10 | PCS.PANDOC ---
PANDEMIC DOCUMENTATION INITIATED: Date: 11/07/2020 Time: 3233
[2020-11-12] VITALS (14 sets, daily range): BP systolic 103–136; BP diastolic 59–88; PULSE 61–91; RESP 16–18; TEMP 36.5–37.2; O2SAT 87–96
[2020-11-12] MEDS: Acetaminophen 325 MG Tablet 650 MG PO ×3 (02:59→21:21)
[2020-11-12] MEDS: Levothyroxine 50 MCG Tablet PO (05:26)
[2020-11-12 05:49] LABS: Hematocrit 28.2 % (37-47); Hemoglobin 9.2 g/dL (12.0-15.0); Mean Corp Hgb Conc 32.6 g/dL (32-36); Mean Corpuscular Hgb 29.7 pg (27.0-32.0); Mean Platelet Vol. 11.1 fl (6.2-12.0); Platelet Count 215 K/mm3 (150-450); RBC Distribution Width CV 13.7 % (11.6-14.6); RBC Distribution Width SD 45.5 fl (35.1-43.9)
[2020-11-12 06:26] LABS: Anion Gap 7 (5-15); BUN 21 mg/dL (7-18); BUN/Creat Ratio 25.7 RATIO (10-20); Calcium,Total 9.1 mg/dL (8.5-10.1); Chloride 102 mmol/L (98-107); Creatinine, Serum 0.82 mg/dL (0.55-1.02); EST Glomerular Filtration Rate 74 mL/min (>60); Est Glom Filt Rate - Afr Amer 89 mL/min (>60); Estimated Creatinine Clearance 54.32 ml/min; Glucose 85 mg/dL (74-106); Potassium 3.2 mmol/L (3.5-5.1); Sodium Level 138 mmol/L (136-145)
--- NOTE | 2020-11-12 07:55 | PCM.PN.HOSP ---
Patient Problems: Active and Suspected Problems (Last Updated 11/10/20 @ 10:11 by Ju Padgett) ST elevation myocardial infarction (STEMI) (Acute) Cardiogenic shock (Acute) Reason for Visit: Acute ST segment elevation [place] Status post PCI/VICKIE to the circumflex lesion Acute encephalopathy Subjective: Patient is a 70-year-old lady with past medical history significant for hypertension dyslipidemia hypothyroidism who presented to the emergency department with chest pain. EKG obtained demonstrated ST segment elevation [place] underwent emergent left heart catheterization 11/12/2020; head CT obtained was negative. Checks x-ray obtained demonstrated new infiltrate on the left upper lobe superimposed on mild degree of CHF. Antibiotic subsequently started per protocol Objective: GENERAL: appears stable at rest HEENT: Atraumatic; EYES; Anicteric, Normal Conjunctiva NECK; supple, normal thyroid, RESPIRATORY: Diminished to auscultation CARDIOVASCULAR: Irregular S1-S2 GI: soft, normoactive bowel sounds, : No Renal angle tenderness; EXTREMITIES: Right groin hematoma MUSCULOSKELETAL: no muscle waisting NEURO: Awake; no lateralizing signs. SKIN: No Rash PSYCH; flat affect Vitals/I&O's: Vital Signs Temp Pulse Resp BP Pulse Ox 97.7 F L 62 18 112/63 96 11/12/20 05:32 11/12/20 05:32 11/12/20 05:32 11/12/20 05:32 11/12/20 05:32 Oxygen Flow Rate (L/min) 4 Oxygen Delivery Method Nasal Cannula Weight: 70.5 kg Body Mass Index (BMI) 28.3 Intake and Output for Last 24 Hours 11/10/20 11/11/20 11/12/20 23:59 23:59 23:59 Intake Total 1376.25 / 1776.25 1280 / 1480 400 / 400 Output Total 1500 / 2000 700 / 700 Balance -123.75 / -223.75 580 / 780 400 / 400 Laboratory Results 11/08/20 17:05: Crossmatch See Detail 11/11/20 06:10: B-Natriuretic Peptide 1090.2 H 11/11/20 07:10: Urine Color Yellow, Urine Clarity Sl. Cloudy, Urine pH 5.0, Ur Specific [place] 1.020, Urine Protein 15 H, Urine Glucose (UA) Normal, Urine Ketones 5 H, Urine Occult Blood Negative, Urine Nitrite Negative, Urine Bilirubin 1 H, Urine Urobilinogen 8 H, Ur Leukocyte Esterase 25 H, Urine RBC 0 SEEN, Urine WBC 0-5 SEEN, Ur Squamous Epith Cells 0-5 SEEN, Urine Bacteria 1+, Urine Mucus 0 SEEN 11/12/20 05:36: WBC 9.0, RBC 3.10 L, Hgb 9.2 L, Hct 28.2 L, MCV 91.0, MCH 29.7, MCHC 32.6, RDW Std Deviation 45.5 H, RDW Coeff of [place] 13.7, Plt Count 215, MPV 11.1 11/12/20 05:36: Sodium 138, Potassium 3.2 L, Chloride 102, Carbon Dioxide 29.0, Anion Gap 7, BUN 21 H, Creatinine 0.82, Estim Creat Clear Calc 54.32, Est GFR (MDRD) Af Amer 89, Est GFR (MDRD) Non-Af 74, BUN/Creatinine Ratio 25.7 H, Glucose 85, Calcium 9.1 Current Medications Acetaminophen (Acetaminophen 325 Mg Tablet) 650 mg PO Q4H PRN PRN PRN Reason: fever or pain (1-10) Last Admin: 11/12/20 02:59 Dose: 650 mg Documented by: Amiodarone HCl (Amiodarone 200 Mg Tablet) 200 mg PO BID [facility] Last Admin: 11/11/20 22:12 Dose: 200 mg Documented by: Aspirin (Aspirin 81 Mg Tab.Chew) 81 mg PO DAILY@0800 [facility] Last Admin: 11/11/20 08:35 Dose: 81 mg Documented by: Atorvastatin Calcium (Atorvastatin Calcium 40 Mg Tablet) 40 mg PO QHS [facility] Last Admin: 11/11/20 22:14 Dose: 40 mg Documented by: Atropine Sulfate (Atropine Sulfate 1 Mg/10 Ml Syringe) 0.5 mg IV UD PRN PRN Reason: HR <50 bpm Furosemide (Furosemide 40 Mg Tablet) 40 mg PO BID@1000,1800 [facility] Last Admin: 11/11/20 17:12 Dose: 40 mg Documented by: Heparin Sodium (Beef Lung) (Heparin Lock 500 Unit/5 Ml In 10 Ml Syringe) 500 unit IV UD PRN PRN Reason: HEPARIN FLUSH Sodium Chloride () 250 mls @ 15 mls/hr IV .[id number] PRN PRN Reason: Saline Flush Sodium Chloride () 250 mls @ 15 mls/hr IV .[id number] PRN PRN Reason: Additional IVPB Infusion Labetalol HCl (Labetalol (Prefilled) 20 Mg/4 Ml) 5 mg IV X1 PRN PRN Reason: SBP >160 when pulling sheath Levothyroxine Sodium (Levothyroxine 50 Mcg Tablet) 50 mcg PO DAILY@0600 [facility] Last Admin: 11/12/20 05:26 Dose: 50 mcg Documented by: Metoprolol Tartrate (Metoprolol Tartrate 25 Mg Tablet) 12.5 mg PO BID [facility] Last Admin: 11/11/20 22:13 Dose: 12.5 mg Documented by: Ondansetron HCl (Ondansetron 4 Mg/2 Ml Vial) 4 mg IV Q8H PRN PRN PRN Reason: NAUSEA/VOMITING Last Admin: 11/07/20 21:20 Dose: 4 mg Documented by: Pantoprazole Sodium (Pantoprazole Sodium 40 Mg Tablet) 40 mg PO DAILY [facility] Last Admin: 11/11/20 10:46 Dose: 40 mg Documented by: Potassium Chloride (Potassium Chloride 20 Meq Tablet) 40 meq PO X1 ONE Stop: 11/12/20 07:52 Potassium Chloride (Potassium Ch[facility] 20 Meq [facility]t) [facility] Sodium Chloride (0.9% Saline Lock 10 Ml Syringe) 10 - 40 ml IV UD PRN PRN Reason: SALINE FLUSH Last Admin: 11/11/20 02:20 Dose: 10 ml Documented by: Sodium Chloride (0.9% Normal Saline 500 Ml Iv.Soln.) 500 ml IV BOLUS PRN PRN Reason: VASO-VAGAL PROTOCOL Ticagrelor (Ticagrelor 90 Mg Tablet) 90 mg PO BID [facility] Last Admin: 11/11/20 22:12 Dose: 90 mg Documented by: Trazodone HCl (Trazodone 100 Mg Tablet) 100 mg PO QHS [facility] Last Admin: 11/11/20 22:12 Dose: 100 mg Documented by: STROKE Vital Signs/Narrative: Vital Signs Temp Pulse Resp BP Pulse Ox 11/12/20 05:32 97.7 F L 62 18 112/63 96 Medical Necessity - Tobacco Use Smoking Status: Light Smoker (<10/day) Tobacco Use: Vapor Assessment/Plan All Active Problems (Last Updated 11/10/20 @ 10:11 by Ju Padgett) ST elevation myocardial infarction (STEMI) (Acute) Cardiogenic shock (Acute) Patient is a 70-year-old lady with past medical history significant for hypertension dyslipidemia hypothyroidism who presented to the emergency department with chest pain. EKG obtained demonstrated ST segment elevation [place] underwent emergent left heart catheterization 1. Acute ST segment elevation [place] - Patient underwent emergency left heart catheterization found to have a 95% circumflex lesion for which patient underwent PCI/VICKIE. Patient was also found to have mild residual disease in the LAD Echo obtained demonstrated preserved ejection fraction with patient abnormalities 2. Cardiogenic shock ?Secondary to patient acute ST segment elevation [place]. Patient was on dopamine which was weaned off on 11/09/2020 5. Acute hypoxic respiratory failure secondary to pulmonary edema from patient cardiogenic shock ?Patient was managed with supplemental oxygen 4. Post [place] ventricular arrhythmias ?Patient was found to have V. tach 5. Paroxysmal A. fib/flutter ?Rate controlled systemic anticoagulation currently being held in view of patient low hemoglobin as well as her significant right groin hematoma 6. Right groin hematoma ?Patient undergoing ultrasound to rule out pseudoaneurysm 7. Hypothyroidism - Patient is on levothyroxine home dose continued 8. Hypertension - Blood pressure controlled, home medications continued with dose adjustment as needed 9. Dyslipidemia -Patient is on statin therapy, continued at home dose 10. Depression with anxiety ?Patient is on duloxetine 11. GERD ?Patient is on PPI 12. Tobacco dependence - Counseled on cessation, offered nicotine patch for tobacco cravings 13. Physical deconditioning - Requested for PT OT eval and social service liaison to assist with discharge planning 14. Anemia - Secondary to chronic disorder monitoring H&H and transfuse if patient becomes symptomatic or hemoglobin falls below 7. Did undertake iron studies 15. DVT prophylaxis bilateral SCDs 16. Acute encephalopathy ?11/11/2020; Did review her medication suspected offending medications including tramadol discontinued. Also ordered CT of the head and requested for urinalysis and chest x-ray to rule out infectious etiology - 11/12/2020; head CT obtained was negative. Checks x-ray obtained demonstrated new infiltrate on the left upper lobe superimposed on mild degree of CHF. Antibiotic subsequently started per protocol (cefepime and Flagyl?pharmacy to dose) 17. Acute diastolic congestive heart failure (heart failure with preserved ejection fraction) ?Secondary to patient acute [place]. Managed with diuretics Inpatient E&M: [id number] [facility] Hosp L3
--- NOTE | 2020-11-12 08:19 | PN.CARD_ITS ---
Subjectve: Patient seen and evaluated. Objective: Vital Signs Temp Pulse Resp BP Pulse Ox 97.7 F L 63 18 112/63 96 11/12/20 05:32 11/12/20 07:00 11/12/20 05:32 11/12/20 05:32 11/12/20 05:32 Oxygen Flow Rate (L/min) 4 Oxygen Delivery Method Nasal Cannula Weight: 155 lb 6.814 oz Body Mass Index (BMI) 28.3 Intake and Output for Last 24 Hours 11/10/20 11/11/20 11/12/20 23:59 23:59 23:59 Intake Total 1376.25 / 1776.25 1280 / 1480 400 / 400 Output Total 1500 / 2000 700 / 700 Balance -123.75 / -223.75 580 / 780 400 / 400 General: Awake, Alert, Oriented x 3 HEENT: PERRL, EOMI, Sclera Non Icteric Neck: Supple, Good ROM, No Lymph Node Enlargement Lungs: Clear to auscultation Cardiovascular: Regular Rhythm, Normal S1, Normal S2, No Murmurs, No Rubs, No Gallops 11/11/20 06:10: B-Natriuretic Peptide 1090.2 H 11/12/20 05:36: WBC 9.0, RBC 3.10 L, Hgb 9.2 L, Hct 28.2 L, MCV 91.0, MCH 29.7, MCHC 32.6, Plt Count 215, MPV 11.1 11/12/20 05:36: Sodium 138, Potassium 3.2 L, Chloride 102, Carbon Dioxide 29.0, Anion Gap 7, BUN 21 H, Creatinine 0.82, Est GFR (MDRD) Af Amer 89, Est GFR (MDRD) Non-Af 74, BUN/Creatinine Ratio 25.7 H, Glucose 85, Calcium 9.1 Rhythm: EKG: ECHO: Stress Test: Cardiac Cath: PCI: CT Surgery: Holter monitor: EPS: PPM: CXR: Chest CT Scan: Medical Necessity - Tobacco Use Smoking Status: Light Smoker (<10/day) Tobacco Use: Vapor Assessment/Plan 1. Status post acute inferolateral myocardial infarction * Patient underwent angioplasty and stenting of the left circumflex artery. Mild residual disease noted in the LAD. * Echocardiogram demonstrates preserved ejection fraction with wall motion abnormalities noted * At this time patient appears to be doing well and is hemodynamically stable on no pressors * Hemoglobin is slightly low and will obtain groin ultrasound to exclude pseudoaneurysm; this has been excluded * * 2. Paroxysmal atrial fibrillation * Patient appears to be having short paroxysms of atrial fibrillation * With a preserved ejection fraction in the low hemoglobin I would not anticoagulate at this time, and in addition the patient is noted to be anemic * Will start amiodarone 200 mg twice daily * Continue current dose of other medications * * 3. Mild diastolic heart failure * Patient appears to have mild diastolic heart failure. Would recommend diuretics with Lasix 40 mg twice a day * * She still appears to be mildly confused. I am not quite sure why. May be related to . We will continue current cardiac medications. * Thank you for allowing me to participate in the care of your patient. Please don't hesitate to call if any issues arise.
[2020-11-12] MEDS: Aspirin 81 MG TAB.CHEW PO (09:08)
[2020-11-12] MEDS: TICAGRELOR 90 MG TABLET PO ×2 (09:08→21:22)
[2020-11-12] MEDS: Metoprolol Tartrate 25 MG Tablet 12.5 MG PO ×2 (09:08→21:23)
[2020-11-12] MEDS: Amiodarone 200 MG Tablet PO ×2 (09:08→21:22)
[2020-11-12] MEDS: Furosemide 40 MG Tablet PO ×2 (09:08→17:06)
[2020-11-12] MEDS: Pantoprazole Sodium 40 MG Tablet PO (09:08)
[2020-11-12] MEDS: 0.9% Saline Lock 10 ML Syringe IV (09:09)
[2020-11-12] MEDS: Atorvastatin Calcium 40 MG Tablet PO (21:22)
[2020-11-12] MEDS: traZODone 100 MG Tablet PO (21:22)
[2020-11-12] MEDS: Cefepime HCl 2 GM in 0.9% NS 100 ML Minibag Q8 IV (21:25)
[2020-11-13] VITALS (8 sets, daily range): BP systolic 106–124; BP diastolic 52–63; PULSE 68–101; RESP 16–18; TEMP 36.8–36.9; O2SAT 93–95
[2020-11-13] MEDS: Ondansetron 4 MG/2 ML Vial IV (04:40)
[2020-11-13] MEDS: 0.9% Saline Lock 10 ML Syringe IV (04:41)
[2020-11-13] MEDS: Levothyroxine 50 MCG Tablet PO (05:05)
[2020-11-13 06:56] LABS: Hematocrit 34.7 % (37-47); Mean Corp Hgb Conc 31.7 g/dL (32-36); Mean Corpuscular Hgb 29.2 pg (27.0-32.0); Mean Platelet Vol. 11.2 fl (6.2-12.0); Platelet Count 267 K/mm3 (150-450); RBC Distribution Width CV 13.9 % (11.6-14.6); RBC Distribution Width SD 46.5 fl (35.1-43.9); Red Blood Count 3.77 M/mm3 (4.2-5.4); White Blood Count 9.6 K/mm3 (4.4-11.0)
[2020-11-13 07:22] LABS: Anion Gap 6 (5-15); BUN 21 mg/dL (7-18); BUN/Creat Ratio 21.9 RATIO (10-20); Calcium,Total 9.4 mg/dL (8.5-10.1); Chloride 104 mmol/L (98-107); Creatinine, Serum 0.96 mg/dL (0.55-1.02); EST Glomerular Filtration Rate 62 mL/min (>60); Est Glom Filt Rate - Afr Amer 75 mL/min (>60); Glucose 101 mg/dL (74-106); Potassium 3.3 mmol/L (3.5-5.1); Sodium Level 141 mmol/L (136-145)
--- NOTE | 2020-11-13 08:26 | PN_ITS ---
Patient Problems: Active and Suspected Problems (Last Updated 11/10/20 @ 10:11 by Ju Padgett) ST elevation myocardial infarction (STEMI) (Acute) Cardiogenic shock (Acute) Reason for Visit: Acute ST segment elevation WA Status post PCI/VICKIE to the circumflex lesion Acute encephalopathy Subjective: Patient is a 70-year-old lady with past medical history significant for hypertension dyslipidemia hypothyroidism who presented to the emergency department with chest pain. EKG obtained demonstrated ST segment elevation WA underwent emergent left heart catheterization 11/12/2020; head CT obtained was negative. Checks x-ray obtained demonstrated new infiltrate on the left upper lobe superimposed on mild degree of CHF. Antibiotic subsequently started per protocol 11/13/2020; patient acute delirium appears to have resolved. No longer has a sitter by his side. She however remains profoundly weak. Plan is for patient to be discharged to a intermediate facility pending precertification from insurance Objective: GENERAL: appears stable at rest HEENT: Atraumatic; EYES; Anicteric, Normal Conjunctiva NECK; supple, normal thyroid, RESPIRATORY: Diminished to auscultation CARDIOVASCULAR: Irregular S1-S2 GI: soft, normoactive bowel sounds, : No Renal angle tenderness; EXTREMITIES: Right groin hematoma MUSCULOSKELETAL: no muscle waisting NEURO: Awake; no lateralizing signs. SKIN: No Rash PSYCH; flat affect Vitals/I&O's: Vital Signs Temp Pulse Resp BP Pulse Ox 98.3 F 73 16 124/63 H 93 11/13/20 03:07 11/13/20 06:54 11/13/20 03:07 11/13/20 03:07 11/13/20 07:11 Oxygen Flow Rate (L/min) [ 2 AMBULATION with Oxygen] Oxygen Flow Rate (L/min) 2 Oxygen Delivery Method Nasal Cannula Weight: 70.5 kg Body Mass Index (BMI) 28.3 Intake and Output for Last 24 Hours 11/11/20 11/12/20 11/13/20 23:59 23:59 23:59 Intake Total 1280 / 1480 1484 / 1484 100 / 100 Output Total 700 / 700 Balance 580 / 780 1484 / 1484 100 / 100 Microbiology Past 72 Hours 11/11/20 07:10 Urine Catheter - Catheter Urine Culture - Preliminary Culture exhibits no growth. Laboratory Results 11/13/20 06:20: WBC 9.6, RBC 3.77 L, Hgb 11.0 L, Hct 34.7 L, MCV 92.0, MCH 29.2, MCHC 31.7 L, RDW Std Deviation 46.5 H, RDW Coeff of [place] 13.9, Plt Count 267, MPV 11.2 11/13/20 06:20: Sodium 141, Potassium 3.3 L, Chloride 104, Carbon Dioxide 31.0, Anion Gap 6, BUN 21 H, Creatinine 0.96, Estim Creat Clear Calc 46.40, Est GFR (MDRD) Af Amer 75, Est GFR (MDRD) Non-Af 62, BUN/Creatinine Ratio 21.9 H, Glucose 101, Calcium 9.4 Current Medications Acetaminophen (Acetaminophen 325 Mg Tablet) 650 mg PO Q4H PRN PRN PRN Reason: fever or pain (1-10) Last Admin: 11/12/20 21:21 Dose: 650 mg Documented by: Amiodarone HCl (Amiodarone 200 Mg Tablet) 200 mg PO BID [facility] Last Admin: 11/12/20 21:22 Dose: 200 mg Documented by: Aspirin (Aspirin 81 Mg Tab.Chew) 81 mg PO DAILY@0800 [facility] Last Admin: 11/12/20 09:08 Dose: 81 mg Documented by: Atorvastatin Calcium (Atorvastatin Calcium 40 Mg Tablet) 40 mg PO QHS [facility] Last Admin: 11/12/20 21:22 Dose: 40 mg Documented by: Atropine Sulfate (Atropine Sulfate 1 Mg/10 Ml Syringe) 0.5 mg IV UD PRN PRN Reason: HR <50 bpm Furosemide (Furosemide 40 Mg Tablet) 40 mg PO BID@1000,1800 [facility] Last Admin: 11/12/20 17:06 Dose: 40 mg Documented by: Heparin Sodium (Beef Lung) (Heparin Lock 500 Unit/5 Ml In 10 Ml Syringe) 500 unit IV UD PRN PRN Reason: HEPARIN FLUSH Sodium Chloride () 250 mls @ 15 mls/hr IV .[id number] PRN PRN Reason: Saline Flush Sodium Chloride () 250 mls @ 15 mls/hr IV .[id number] PRN PRN Reason: Additional IVPB Infusion Last Infusion: 11/12/20 10:16 Dose: 0 mls/hr Documented by: Cefepime HCl 2 gm/ Sodium (Chloride) 100 mls @ 200 mls/hr IV Q12 [facility] Last Infusion: 11/12/20 22:14 Dose: Infused Documented by: Metronidazole (Flagyl) 500 mg in 100 mls @ 100 mls/hr IV Q8 [facility] Last Infusion: 11/13/20 06:18 Dose: Infused Documented by: Labetalol HCl (Labetalol (Prefilled) 20 Mg/4 Ml) 5 mg IV X1 PRN PRN Reason: SBP >160 when pulling sheath Levothyroxine Sodium (Levothyroxine 50 Mcg Tablet) 50 mcg PO DAILY@0600 [facility] Last Admin: 11/13/20 05:05 Dose: 50 mcg Documented by: Metoprolol Tartrate (Metoprolol Tartrate 25 Mg Tablet) 12.5 mg PO BID [facility] Last Admin: 11/12/20 21:23 Dose: 12.5 mg Documented by: Ondansetron HCl (Ondansetron 4 Mg/2 Ml Vial) 4 mg IV Q8H PRN PRN PRN Reason: NAUSEA/VOMITING Last Admin: 11/13/20 04:40 Dose: 4 mg Documented by: Pantoprazole Sodium (Pantoprazole Sodium 40 Mg Tablet) 40 mg PO DAILY [facility] Last Admin: 11/12/20 09:08 Dose: 40 mg Documented by: Potassium Chloride (Potassium Chloride 20 Meq Tablet) [facility] Sodium Chloride (0.9% Saline Lock 10 Ml Syringe) 10 - 40 ml IV UD PRN PRN Reason: SALINE FLUSH Last Admin: 11/13/20 04:41 Dose: 10 ml Documented by: Sodium Chloride (0.9% Normal Saline 500 Ml Iv.Soln.) 500 ml IV BOLUS PRN PRN Reason: VASO-VAGAL PROTOCOL Ticagrelor (Ticagrelor 90 Mg Tablet) 90 mg PO BID [facility] Last Admin: 11/12/20 21:22 Dose: 90 mg Documented by: Trazodone HCl (Trazodone 100 Mg Tablet) 100 mg PO QHS [facility] Last Admin: 11/12/20 21:22 Dose: 100 mg Documented by: STROKE Vital Signs/Narrative: Vital Signs Pulse Pulse Ox 11/13/20 07:11 93 11/13/20 06:54 73 Medical Necessity - Tobacco Use Smoking Status: Light Smoker (<10/day) Tobacco Use: Vapor Assessment/Plan All Active Problems (Last Updated 11/10/20 @ 10:11 by Ju Padgett) ST elevation myocardial infarction (STEMI) (Acute) Cardiogenic shock (Acute) Patient is a 70-year-old lady with past medical history significant for hypertension dyslipidemia hypothyroidism who presented to the emergency department with chest pain. EKG obtained demonstrated ST segment elevation WA underwent emergent left heart catheterization 1. Acute ST segment elevation WA - Patient underwent emergency left heart catheterization found to have a 95% circumflex lesion for which patient underwent PCI/VICKIE. Patient was also found to have mild residual disease in the LAD Echo obtained demonstrated preserved ejection fraction with patient abnormalities 2. Cardiogenic shock ?Secondary to patient acute ST segment elevation WA. Patient was on dopamine which was weaned off on 11/09/2020 5. Acute hypoxic respiratory failure secondary to pulmonary edema from patient cardiogenic shock ?Patient was managed with supplemental oxygen 4. Post WA ventricular arrhythmias ?Patient was found to have V. tach 5. Paroxysmal A. fib/flutter ?Rate controlled systemic anticoagulation currently being held in view of patient low hemoglobin as well as her significant right groin hematoma 6. Right groin hematoma ?Patient undergoing ultrasound to rule out pseudoaneurysm 7. Hypothyroidism - Patient is on levothyroxine home dose continued 8. Hypertension - Blood pressure controlled, home medications continued with dose adjustment as needed 9. Dyslipidemia -Patient is on statin therapy, continued at home dose 10. Depression with anxiety ?Patient is on duloxetine 11. GERD ?Patient is on PPI 12. Tobacco dependence - Counseled on cessation, offered nicotine patch for tobacco cravings 13. Physical deconditioning - Requested for PT OT eval and social worker delinquency prevention to assist with discharge planning 14. Anemia - Secondary to chronic disorder monitoring H&H and transfuse if patient becomes symptomatic or hemoglobin falls below 7. Did undertake iron studies 15. DVT prophylaxis bilateral SCDs 16. Acute encephalopathy ?11/11/2020; Did review her medication suspected offending medications including tramadol discontinued. Also ordered CT of the head and requested for urinalysis and chest x-ray to rule out infectious etiology - 11/12/2020; head CT obtained was negative. Checks x-ray obtained demonstrated new infiltrate on the left upper lobe superimposed on mild degree of CHF. Antibiotic subsequently started per protocol (cefepime and Flagyl?pharmacy to dose) -11/13/2020; patient acute delirium appears to have resolved. No longer has a sitter by his side. She however remains profoundly weak. Plan is for patient to be discharged to a intermediate facility pending precertification from insurance 17. Acute diastolic congestive heart failure (heart failure with preserved ejection fraction) ?Secondary to patient acute WA. Managed with diuretics Inpatient E&M: 42428 Subs Hosp L2
[2020-11-13] MEDS: TICAGRELOR 90 MG TABLET PO (09:12)
[2020-11-13] MEDS: Cefepime HCl 2 GM in 0.9% NS 100 ML Minibag Q8 IV (09:12)
[2020-11-13] MEDS: Amiodarone 200 MG Tablet PO (09:12)
[2020-11-13] MEDS: Aspirin 81 MG TAB.CHEW PO (09:13)
[2020-11-13] MEDS: Pantoprazole Sodium 40 MG Tablet PO (09:13)
[2020-11-13] MEDS: Furosemide 40 MG Tablet PO ×2 (09:13→17:23)
[2020-11-13] MEDS: Metoprolol Tartrate 25 MG Tablet 12.5 MG PO (09:13)
--- NOTE | 2020-11-13 09:48 | CASEMGMT ---
Patient has been sitter free since 11:10a. Physician feels she is ready for discharge. SW called Meghann on referral phone and asked her to start the pre-cert. Plan: [facility] under skilled level of care. Jeanine BABIN
--- NOTE | 2020-11-13 15:02 | PCM.TXEXTCAR ---
- Diet 11/07/20 12:48 Diet: Cardiac - Heart Healthy Food consistency:: Regular Liquid Consistency:: Regular/Thin Dietary Modifications:: Sodium Restricted Type of Dietary Supplement:: Ensure Enlive Diet Comments: 120 mL ensure enlive TID w/ meals - Routine Orders/Code Status Code Status: Full Code - Wound(s) R groin Wound Type: Puncture - Therapies Physical Therapy: Eval and Treat Occupational Therapy: Eval and Treat - Allergies/Procedures Done in Hospital Allergies/Adverse Reactions: Allergies Penicillins Allergy (Verified 11/07/20 04:51) Rash - Type of Care/Length of Stay Estimated LOS: Convalescent Care Less Than 30 days Type of Care Needed: Skilled Rehab Potential: Good Prognosis: Good - Additional Orders/Day of Discharge Day of Discharge: 11/13/20 - Dietary and Speech Recommendations Dietitian Recommendations/Changes: Cardiac/sodium-restricted diet w/ FR as needed. Continue 120 ml ensure enlive TID w/ meals as ordered. - Follow Up Care Primary Care Physician: Yonny Carballo Chi, MD [Primary Care Provider] - Please Follow Up With: Sage Norris MD When: in 2-4 weeks
--- NOTE | 2020-11-13 15:08 | DS.PCM_ITS ---
Discharge Date and Diagnosis - Problem List Patient Problems: Active and Suspected Problems (Last Updated 11/10/20 @ 10:11 by Ju Padgett) ST elevation myocardial infarction (STEMI) (Acute) Cardiogenic shock (Acute) Date of Admission: 11/07/20 Date of Discharge: 11/13/20 - Primary Discharge Diagnosis Acute Problems: Active Problems (Last Updated 11/10/20 @ 10:11 by Ju Padgett) ST elevation myocardial infarction (STEMI) (Acute) Cardiogenic shock (Acute) - Secondary Discharge Diagnosis Chronic Problems: Chronic Problems (Last Updated 11/10/20 @ 10:11 by Ju Padgett) Presence of stent in coronary artery (Chronic ~11/07/20) Successful PCI of the culprit lesion, occluded large proximal left circumflex with NAYAN 0 flow, with successful PCI and stent using drug-eluting stent synergy Postprocedure NAYAN III. per cardiac cath 11/07/20 Atherosclerotic heart disease of [place] coronary artery without angina pectoris (Chronic) Carotid stenosis (Chronic) Multiple thyroid nodules (Chronic) Segmental and somatic dysfunction of pelvic region (Chronic) Segmental and somatic dysfunction of lumbar region (Chronic) Segmental and somatic dysfunction of thoracic region (Chronic) Lumbar canal stenosis (Chronic) Lumbar degenerative disc disease (Chronic) Lumbar radiculopathy, chronic (Chronic) Rectal prolapse (Chronic) Depression (Chronic) Anxiety (Chronic) HTN (hypertension) (Chronic) GERD (gastroesophageal reflux disease) (Chronic) Hospital Course and Treatment Imaging Results: Clinical Impression(s) from Imaging Studies Chest X-Ray 11/07/20 04:44 IMPRESSION: Prominent azygos vein versus tortuous aorta at 0528 Reported and signed by: Polina Carson DO Electronically Signed: Polina Carson DO at 5:27 EST Tel , Service support , Chest X-Ray 11/07/20 10:00 IMPRESSION: Right internal jugular catheter placement without complications. New dense right upper lobe pneumonia. No acute finding. Electronically Signed: Tristen Harding MD at 11:17 EST , Service support , Abdomen/Pelvis CT 11/07/20 18:57 IMPRESSION: Bilateral renal cysts. Mild infrarenal abdominal aortic dilatation. Subcutaneous edema in the right groin. No drainable collection. Electronically Signed: Sly Arnett DO at 21:41 EST Tel [phone], Service support , Chest CT 11/08/20 16:44 IMPRESSION: Bilateral patchy infiltrates. Right renal cyst. Electronically Signed: Sly Arnett DO at 19:15 EST Tel [phone], Service support , Brain CT 11/11/20 09:12 IMPRESSION: Chronic involutional changes of the brain. Electronically Signed: Olivier Zaidi MD at 10:21 EST , Service support , Chest X-Ray 11/11/20 10:10 IMPRESSION: Improved aeration of the right upper lobe consolidation. New infiltrate in the left upper lobe superimposed on mild degree of CHF. Electronically Signed: Olivier Zaidi MD at 12:28 EST , Service support , Operations: None Summary of Care Provided: Patient is a 70-year-old lady with past medical history significant for hypertension dyslipidemia hypothyroidism who presented to the emergency department with chest pain. EKG obtained demonstrated ST segment elevation NC underwent emergent left heart catheterization 1. Acute ST segment elevation NC - Patient underwent emergency left heart catheterization found to have a 95% circumflex lesion for which patient underwent PCI/VICKIE. Patient was also found to have mild residual disease in the LAD Echo obtained demonstrated preserved ejection fraction with patient abnormalities 2. Cardiogenic shock ?Secondary to patient acute ST segment elevation NC. Patient was on dopamine which was weaned off on 11/09/2020 5. Acute hypoxic respiratory failure secondary to pulmonary edema from patient cardiogenic shock ?Patient was managed with supplemental oxygen 4. Post NC ventricular arrhythmias ?Patient was found to have V. tach 5. Paroxysmal A. fib/flutter ?Rate controlled systemic anticoagulation currently being held in view of patient low hemoglobin as well as her significant right groin hematoma 6. Right groin hematoma ?Patient undergoing ultrasound to rule out pseudoaneurysm 7. Hypothyroidism - Patient is on levothyroxine home dose continued 8. Hypertension - Blood pressure controlled, home medications continued with dose adjustment as needed 9. Dyslipidemia -Patient is on statin therapy, continued at home dose 10. Depression with anxiety ?Patient is on duloxetine 11. GERD ?Patient is on PPI 12. Tobacco dependence - Counseled on cessation, offered nicotine patch for tobacco cravings 13. Physical deconditioning - Requested for PT OT eval and psychosocial rehabilitation counselor to assist with discharge planning 14. Anemia - Secondary to chronic disorder monitoring H&H and transfuse if patient becomes symptomatic or hemoglobin falls below 7. Did undertake iron studies 15. DVT prophylaxis bilateral SCDs 16. Acute encephalopathy ?11/11/2020; Did review her medication suspected offending medications including tramadol discontinued. Also ordered CT of the head and requested for urinalysis and chest x-ray to rule out infectious etiology - 11/12/2020; head CT obtained was negative. Checks x-ray obtained demonstrated new infiltrate on the left upper lobe superimposed on mild degree of CHF. Antibiotic subsequently started per protocol (cefepime and Flagyl?pharmacy to dose) -11/13/2020; patient acute delirium appears to have resolved. No longer has a sitter by his side. She however remains profoundly weak. Plan is for patient to be discharged to a alf facility pending precertification from insurance -11/13/2020 patient was deemed stable to be transferred to alf facility to continue with her recuperation 17. Acute diastolic congestive heart failure (heart failure with preserved ejection fraction) ?Secondary to patient acute NC. Managed with diuretics Patient Problems: Active and Suspected Problems (Last Updated 11/10/20 @ 10:11 by Ju Padgett) ST elevation myocardial infarction (STEMI) (Acute) Cardiogenic shock (Acute) Objective: GENERAL: appears stable at rest HEENT: Atraumatic; EYES; Anicteric, Normal Conjunctiva NECK; supple, normal thyroid, RESPIRATORY: Diminished to auscultation CARDIOVASCULAR: Irregular S1-S2 GI: soft, normoactive bowel sounds, : No Renal angle tenderness; EXTREMITIES: Right groin hematoma MUSCULOSKELETAL: no muscle waisting NEURO: Awake; no lateralizing signs. SKIN: No Rash PSYCH; flat affect - Physical Exam Vitals/I&O's: Vital Signs Temp Pulse Resp BP Pulse Ox 98.5 F 101 H 18 106/52 L 95 11/13/20 09:05 11/13/20 14:44 11/13/20 09:05 11/13/20 09:05 11/13/20 09:05 Oxygen Flow Rate (L/min) [ 2 AMBULATION with Oxygen] Oxygen Flow Rate (L/min) 2 Oxygen Delivery Method Nasal Cannula Weight: 70.5 kg Body Mass Index (BMI) 28.3 Intake and Output for Last 24 Hours 11/11/20 11/12/20 11/13/20 23:59 23:59 23:59 Intake Total 1280 / 1480 1484 / 1484 560 / 560 Output Total 700 / 700 Balance 580 / 780 1484 / 1484 560 / 560 Microbiology Past 72 Hours 11/11/20 07:10 Urine Catheter - Catheter Urine Culture - Final Culture exhibits no growth. Laboratory Results 11/13/20 06:20: WBC 9.6, RBC 3.77 L, Hgb 11.0 L, Hct 34.7 L, MCV 92.0, MCH 29.2, MCHC 31.7 L, RDW Std Deviation 46.5 H, RDW Coeff of [place] 13.9, Plt Count 267, MPV 11.2 11/13/20 06:20: Sodium 141, Potassium 3.3 L, Chloride 104, Carbon Dioxide 31.0, Anion Gap 6, BUN 21 H, Creatinine 0.96, Estim Creat Clear Calc 46.40, Est GFR (MDRD) Af Amer 75, Est GFR (MDRD) Non-Af 62, BUN/Creatinine Ratio 21.9 H, Glucose 101, Calcium 9.4 Current Medications Acetaminophen (Acetaminophen 325 Mg Tablet) 650 mg PO Q4H PRN PRN PRN Reason: fever or pain (1-10) Last Admin: 11/12/20 21:21 Dose: 650 mg Documented by: Amiodarone HCl (Amiodarone 200 Mg Tablet) 200 mg PO BID [facility] Last Admin: 11/13/20 09:12 Dose: 200 mg Documented by: Aspirin (Aspirin 81 Mg Tab.Chew) 81 mg PO DAILY@0800 [facility] Last Admin: 11/13/20 09:13 Dose: 81 mg Documented by: Atorvastatin Calcium (Atorvastatin Calcium 40 Mg Tablet) 40 mg PO QHS [facility] Last Admin: 11/12/20 21:22 Dose: 40 mg Documented by: Atropine Sulfate (Atropine Sulfate 1 Mg/10 Ml Syringe) 0.5 mg IV UD PRN PRN Reason: HR <50 bpm Furosemide (Furosemide 40 Mg Tablet) 40 mg PO BID@1000,1800 [facility] Last Admin: 11/13/20 09:13 Dose: 40 mg Documented by: Heparin Sodium (Beef Lung) (Heparin Lock 500 Unit/5 Ml In 10 Ml Syringe) 500 unit IV UD PRN PRN Reason: HEPARIN FLUSH Sodium Chloride () 250 mls @ 15 mls/hr IV .[id number] PRN PRN Reason: Saline Flush Sodium Chloride () 250 mls @ 15 mls/hr IV .[id number] PRN PRN Reason: Additional IVPB Infusion Last Infusion: 11/13/20 11:05 Dose: 15 mls/hr Documented by: Cefepime HCl 2 gm/ Sodium (Chloride) 100 mls @ 200 mls/hr IV Q12 [facility] Last Infusion: 11/13/20 11:05 Dose: Infused Documented by: Metronidazole (Flagyl) 500 mg in 100 mls @ 100 mls/hr IV Q8 [facility] Last Admin: 11/13/20 13:34 Dose: 100 mls/hr Documented by: Labetalol HCl (Labetalol (Prefilled) 20 Mg/4 Ml) 5 mg IV X1 PRN PRN Reason: SBP >160 when pulling sheath Levothyroxine Sodium (Levothyroxine 50 Mcg Tablet) 50 mcg PO DAILY@0600 [facility] Last Admin: 11/13/20 05:05 Dose: 50 mcg Documented by: Metoprolol Tartrate (Metoprolol Tartrate 25 Mg Tablet) 12.5 mg PO BID [facility] Last Admin: 11/13/20 09:13 Dose: 12.5 mg Documented by: Ondansetron HCl (Ondansetron 4 Mg/2 Ml Vial) 4 mg IV Q8H PRN PRN PRN Reason: NAUSEA/VOMITING Last Admin: 11/13/20 04:40 Dose: 4 mg Documented by: Pantoprazole Sodium (Pantoprazole Sodium 40 Mg Tablet) 40 mg PO DAILY [facility] Last Admin: 11/13/20 09:13 Dose: 40 mg Documented by: Potassium Chloride (Potassium Chloride 20 Meq Tablet) 40 meq PO BIDCM [facility] Last Admin: 11/13/20 09:15 Dose: 40 meq Documented by: Sodium Chloride (0.9% Saline Lock 10 Ml Syringe) 10 - 40 ml IV UD PRN PRN Reason: SALINE FLUSH Last Admin: 11/13/20 04:41 Dose: 10 ml Documented by: Sodium Chloride (0.9% Normal Saline 500 Ml Iv.Soln.) 500 ml IV BOLUS PRN PRN Reason: VASO-VAGAL PROTOCOL Ticagrelor (Ticagrelor 90 Mg Tablet) 90 mg PO BID [facility] Last Admin: 11/13/20 09:12 Dose: 90 mg Documented by: Trazodone HCl (Trazodone 100 Mg Tablet) 100 mg PO QHS [facility] Last Admin: 11/12/20 21:22 Dose: 100 mg Documented by: Discharge Diet: Low fat/ Low Cholesterol Home Medications: Medications to take at Discharge Aspirin [Aspirin, Baby] 81 mg PO DAILY@0800 11/26/13 Atorvastatin Calcium [Lipitor] 40 mg PO QHS 11/26/13 Multivitamins,Therapeutic [Multivitamin] 1 tab PO DAILY 11/26/13 traZODone [Desyrel] 100 mg PO QHS 11/26/13 Cholecalciferol (Vitamin D3) [Vitamin D3] 2,000 unit PO DAILY 02/21/17 levothyroxine 25 mcg capsule 50 mcg PO DAILY 10/31/18 vitamin B complex 1 tab PO DAILY 10/31/18 vitamin E (dl, acetate) 400 unit capsule 400 unit PO DAILY 09/03/19 Acetaminophen [Tylenol Tablet] 650 mg PO Q4H PRN PRN tab 11/13/20 Amiodarone HCl [Cordarone] 200 mg PO BID tab 11/13/20 Cefdinir 300 mg PO BID #14 cap 11/13/20 Furosemide [Lasix] 40 mg PO BID@1000,1800 tab 11/13/20 Metoprolol Tartrate [Lopressor (beta shahla)] 12.5 mg PO BID tab 11/13/20 Metronidazole [Flagyl] 500 mg PO TID #21 tab 11/13/20 Pantoprazole Sodium [Protonix] 40 mg PO DAILY tab 11/13/20 Potassium Chloride [K-Dur] 40 meq PO BIDCM tab 11/13/20 Ticagrelor [Brilinta] 90 mg PO BID tab 11/13/20 Following Prescriptions Were Given to Patient: Cefdinir 300 mg PO BID #14 cap Metronidazole [Flagyl] 500 mg PO TID #21 tab Primary Care Physician: Yonny Carballo Chi, MD [Primary Care Provider] - Please Follow Up With: Sage Norris MD When: in 2-4 weeks Disposition: Jail facility Minutes spent on discharge:: 45 Patient Condition:: Stable Medical Necessity - Tobacco Use Smoking Status: Light Smoker (<10/day) Tobacco Use: Vapor Meaningful Use Info Meaningful Use Diagnoses (Choose all that apply): AMI - AMI/Post PCI/Angioplasty Aspirin given w/in 24hrs of arrival?: Yes ASA at discharge?: Yes Antiplatelet Therapy at Discharge:: Yes Statins at discharge?: Yes Amandeep/ARB at discharge?: No Reason Amandeep/ARB not ordered:: Not indicated Beta Shahla at discharge?: Yes Done w/ Acute NC measure.: Yes Documented LVEF (%): 60 Inpatient E&M: 08541 Disch Hosp
--- NOTE | 2020-11-13 15:14 | CASEMGMT ---
Patient was approved to go to [facility]CU. KILEY notified physician. Patient will go to TCU today. KILEY called patient's daughter and let her know. She does want to see patient before she goes to TCU. KILEY notified RN and medical secretary teacher. Plan: d/c to [facility]CU under skilled level of care. Jeanine BABIN
--- NOTE | 2020-11-13 15:23 | NURSING ---
Addendum entered by Rose Lombardi 11/13/20 16:36: Asked to leave peripheral IV in at this time Original Note: Called report to Christal in TCU, pt to go to TCU bed 17.
[2020-11-13] MEDS: Acetaminophen 325 MG Tablet 650 MG PO (17:23)
== END 2020-11-13 18:13 | disposition skilled nursing facility (03) | DRG 246 ==
LOC: ED 04:47 → ICU 05:10 → PCU 11-10 11:19
PROVIDERS: Family Medicine; Hospitalist; Internal Medicine Cardiovascular Disease; Internal Medicine Critical Care Medicine; Internal Medicine Interventional Cardiology; Admitting Provider Internal Medicine Cardiovascular Disease; Emergency Provider Emergency Medicine; PCP Family Medicine Geriatric Medicine; Referring Provider Internal Medicine Cardiovascular Disease; Visit Provider Internal Medicine
DX: I21.11 ST elevation (STEMI) myocardial infarction involving right coronary artery (principal); R57.0 Cardiogenic shock; J96.01 Acute respiratory failure with hypoxia; I50.31 Acute diastolic (congestive) heart failure; I47.2 Ventricular tachycardia; I48.92 Unspecified atrial flutter; L76.32 Postprocedural hematoma of skin and subcutaneous tissue following other procedure; G93.40 Encephalopathy, unspecified; I48.0 Paroxysmal atrial fibrillation; Z79.82 Long term (current) use of aspirin; K21.9 Gastro-esophageal reflux disease without esophagitis; Z79.899 Other long term (current) drug therapy; F17.290 Nicotine dependence, other tobacco product, uncomplicated; Z68.28 Body mass index [BMI] 28.0-28.9, adult; E66.9 Obesity, unspecified; G89.4 Chronic pain syndrome; F41.9 Anxiety disorder, unspecified; F32.9 Major depressive disorder, single episode, unspecified; E78.5 Hyperlipidemia, unspecified; E03.9 Hypothyroidism, unspecified; R53.81 Other malaise; D63.8 Anemia in other chronic diseases classified elsewhere; I11.0 Hypertensive heart disease with heart failure
CPT/HCPCS: 36415; 36600; 70450; 71045; 71270; 74177; 80048; 80053; 81001; 82140; 82803; 83735; 83880; 84443; 84484; 85014; 85018; 85025; 85027; 85610; 85730; 86850; 86900; 86901; 86920; 86921; 86922; 87086; 87426; 92941; 93005; 93306; 93454; 93926; 97110; 97116; 97162; 97166; 97530; 97535; 99285; 99406; J7030; J7050; Q9957; Q9967; A4216; C1725; C1751; C1760; C1769; C1874; C1887; C1894; C8929; C9606; J1327; J1940; J2405

== ENCOUNTER 2020-11-13 18:20 | Inpatient (IN) | payer MEDICARE, SELFPAY ==
[2020-11-07 06:23] VITALS: BMI 28.3
[2020-11-13 18:34] VITALS: BP 113/54; PULSE 78; RESP 18; TEMP 36.8; O2SAT 93
--- NOTE | 2020-11-13 19:42 | HP.PCM_ITS ---
Problem List (1) Debility Status: Acute (2) Chest pain Status: Acute (3) Ventricular tachycardia Status: Acute (4) Atrial flutter Status: Acute (5) Encephalopathy Status: Acute (6) Hyperlipidemia Status: Chronic (7) Hypothyroidism Status: Chronic (8) Neuropathic pain Status: Chronic (9) ST elevation myocardial infarction (STEMI) Status: Acute Qualifiers: (10) Cardiogenic shock Status: Acute (11) Carotid stenosis Status: Chronic Qualifiers: (12) Lumbar canal stenosis Status: Chronic Qualifiers: (13) Depression Status: Chronic (14) Anxiety Status: Chronic (15) HTN (hypertension) Status: Chronic (16) GERD (gastroesophageal reflux disease) Status: Chronic History of Present Illness Date of Admission: 11/13/20 Chief Complaint: Here for rehabilitation, strengthening, prior to discharge home alone. 11/07/2020 The patient is a 70 year old Female with below past medical history presented to [facility] Emergency Department with chest pain. EMS gave full dose aspirin, oxygen, chest pain moderate. EKG showed inferior STEMI. Heparin, Brilinta, oxygen, IV fluid bolus, Nitroglycerin, Morphine given. 11/07/2020 Heart cath with stent x 1. Cardioversion, Amiodarone for ventricular tachycardia. Levophed, Dopamine drip to maintain blood pressure. 11/07/2020 Admit to ICU. 11/07/2020 Critical Care recommended central line, transition pressors to central line, consider bronchodilators. 11/07/2020 CT abdomen/pelvis showed bilateral renal cysts, mild infrarenal abdominal aorta dilatation, right groin subcutaneous edema. 11/08/2020 CT chest bilateral patchy infiltrates, right renal cyst. 11/08/2020 Doppler ultrasound right lower extremity negative pseudoaneurysm, negative fistula for right groin hematoma. 11/10/2020 Atrial flutter with ventricular response treated with cardizem, Lovenox twice daily 11/11/2020 CT brain chronic involutional changes for acute encephalopathy. Tramadol stopped due to encephalopathy. Encephalopathy resolved. 11/11/2020 Chest X-ray showed improved aeration right upper lobe consolidation, new infiltrate left upper lobe superimposed on mild congestive heart failure. 11/12/2020 PT/OT recommended [facility]. 11/13/2020 Admit to TCU with debility, here for rehabilitation, strengthening, prior to discharge home alone. Past Medical History Past Medical History (Chronic Problems): Chronic Problems (Last Updated 11/10/20 @ 10:11 by Ju Padgett) Hyperlipidemia (Chronic) Hypothyroidism (Chronic) Neuropathic pain (Chronic) Presence of stent in coronary artery (Chronic ~11/07/20) Successful PCI of the culprit lesion, occluded large proximal left circumflex with NAYAN 0 flow, with successful PCI and stent using drug-eluting stent synergy Postprocedure NAYAN III. per cardiac cath 11/07/20 Atherosclerotic heart disease of [place] coronary artery without angina pectoris (Chronic) Carotid stenosis (Chronic) Multiple thyroid nodules (Chronic) Segmental and somatic dysfunction of pelvic region (Chronic) Segmental and somatic dysfunction of lumbar region (Chronic) Segmental and somatic dysfunction of thoracic region (Chronic) Lumbar canal stenosis (Chronic) Lumbar degenerative disc disease (Chronic) Lumbar radiculopathy, chronic (Chronic) Rectal prolapse (Chronic) Depression (Chronic) Anxiety (Chronic) HTN (hypertension) (Chronic) GERD (gastroesophageal reflux disease) (Chronic) Medical History: Medical History (Last Updated 11/10/20 @ 10:11 by Ju Padgett) Presence of stent in coronary artery (Chronic) Onset Date: ~11/07/20 Z95.5 Successful PCI of the culprit lesion, occluded large proximal left circumflex with NAYAN 0 flow, with successful PCI and stent using drug-eluting stent synergy Postprocedure NAYAN III. per cardiac cath 11/07/20 Atherosclerotic heart disease of [place] coronary artery without angina pectoris (Chronic) I25.10 Skin lesions (Inactive) L98.9 Carotid stenosis (Chronic) I65.29 Multiple thyroid nodules (Chronic) E04.2 Segmental and somatic dysfunction of pelvic region (Chronic) M99.05 Segmental and somatic dysfunction of lumbar region (Chronic) M99.03 Segmental and somatic dysfunction of thoracic region (Chronic) M99.02 Lumbar canal stenosis (Chronic) M48.06 Lumbar degenerative disc disease (Chronic) M51.36 Lumbar radiculopathy, chronic (Chronic) M54.16 Rectal prolapse (Chronic) K62.3 Depression (Chronic) F32.9 Anxiety (Chronic) F41.9 HTN (hypertension) (Chronic) I10 GERD (gastroesophageal reflux disease) (Chronic) K21.9 Sigmoid diverticulitis (Inactive) K57.32 Arthritis M19.90 High cholesterol E78.00 Allergies Penicillins Allergy (Verified 11/07/20 04:51) Rash Home Medications: Ambulatory Orders Medication Instructions Recorded Aspirin [Aspirin, Baby] 81 mg PO DAILY@0800 11/26/13 Atorvastatin Calcium [Lipitor] 40 mg PO QHS 11/26/13 Multivitamins,Therapeutic 1 tab PO DAILY 11/26/13 [Multivitamin] traZODone [Desyrel] 100 mg PO QHS 11/26/13 Cholecalciferol (Vitamin D3) 2,000 unit PO DAILY 02/21/17 [Vitamin D3] levothyroxine 25 mcg capsule 50 mcg PO DAILY 10/31/18 vitamin B complex 1 tab PO DAILY 10/31/18 vitamin E (dl, acetate) 400 unit 400 unit PO DAILY 09/03/19 capsule Acetaminophen [Tylenol Tablet] 650 mg PO Q4H PRN PRN tab 11/13/20 Amiodarone HCl [Cordarone] 200 mg PO BID 11/13/20 Cefdinir 300 mg PO BID 11/13/20 Furosemide [Lasix] 40 mg PO BID@1000,1800 11/13/20 Metoprolol Tartrate [Lopressor 12.5 mg PO BID 11/13/20 (beta vipin)] Metronidazole [Flagyl] 500 mg PO TID 11/13/20 Pantoprazole Sodium [Protonix] 40 mg PO DAILY 11/13/20 Potassium Chloride [K-Dur] 40 meq PO BIDCM 11/13/20 Ticagrelor [Brilinta] 90 mg PO BID 11/13/20 Surgical History: Surgical History (Last Updated 11/10/20 @ 10:12 by Ju Padgett) S/P Mohs surgery for basal cell carcinoma Z98.890, Z85.828 S/P foot surgery Z98.890 S/P laparoscopic cholecystectomy Z90.49 Status post biopsy of thyroid gland Onset Date: ~10/2018 Z98.890 Presence of coronary angioplasty implant and graft Onset Date: ~11/07/20 Z95.5 Successful PCI of the culprit lesion, occluded large proximal left circumflex with NAYAN 0 flow, with successful PCI and stent using drug-eluting stent synergy Postprocedure NAYAN III.per cardiac cath 11/07/20 Surgical History: angioplasty - Cardiac stent., cholecystectomy, - - Basal cell cancer, foot surgery, thyroid biopsy. 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 Rj Lala MD) Other Arthritis CVA (cerebral vascular accident) Cancer History Items: Cancer - Lung Maternal Family History: Family History (Last Reviewed 11/07/20 @ 05:[address] Rj Lala MD) Other Arthritis CVA (cerebral vascular accident) Cancer History Items: Diabetes Review of Systems Constitutional: Denies: Chills, Fever, Weight Change HEENT: Denies: Head Aches, Sinus Congestion, Sinus Drainage Cardiovascular: Denies: Chest Pain, Palpitations Respiratory: Denies: Cough, Shortness of breath at rest, Sputum production Gastrointestinal: Denies: Abdominal Pain, Nausea, Vomiting Genitourinary: Denies: Dysuria Musculoskeletal: Denies: Joint Pain, Joint Tenderness Skin: Denies: Rash, Wounds Neurological: Denies: Numbness, Tingling, Focal weakness Psychiatric: Denies: Anxiety, Depression, Homicidal Ideations, Suicidal Ideations Hematologic/ Lymphatic: Denies: Easy Bruising, Easy Bleeding VTE Information - Inpt Only VTE Present on Admission: No VTE Mechan Device Prophylaxis: Knee High ELLIE Hose VTE Pharm Prophylaxis ordered?: No Reason prophylaxis not ordered:: Treatment Not Indicated Patient Problems: Active and Suspected Problems (Last Updated 11/10/20 @ 10:11 by Ju Padgett) Debility (Acute) Chest pain (Acute) Ventricular tachycardia (Acute) Atrial flutter (Acute) Encephalopathy (Acute) ST elevation myocardial infarction (STEMI) (Acute) Cardiogenic shock (Acute) - Physical Exam Vitals/I&O's: Vital Signs Temp Pulse Resp BP Pulse Ox 98.3 F 78 18 113/54 L 93 11/13/20 18:34 11/13/20 18:34 11/13/20 18:34 11/13/20 18:34 11/13/20 18:34 Oxygen Flow Rate (L/min) 2 Oxygen Delivery Method Nasal Cannula Body Mass Index (BMI) 28.3 General: Alert, Oriented x3, Cooperative HEENT: Atraumatic, PERRLA, EOMI, Normocephalic Neck: Supple, No JVD, Negative Carotid Bruits Lungs: Normal air movement, Rhonchi - Right base. Cardiovascular: Regular rate, No murmurs Abdomen: Bowel Sounds Present, Soft, Non Tender Extremities: No edema, Capillary Refill Less than 3 Seconds Skin: No rashes, No breakdown Musculoskeletal: No Tenderness to Palpation of Joints or Extremities Neurological: Cranial nerves II-XII grossly intact Psych/Mental Status: Normal Affect, Appropriate Current Medications Acetaminophen (Acetaminophen 325 Mg Tablet) 650 mg PO Q4H PRN PRN PRN Reason: fever or pain (1-10) Amiodarone HCl (Amiodarone 200 Mg Tablet) 200 mg PO BID [facility] Aspirin (Aspirin 81 Mg Tab.Chew) 81 mg PO DAILY@0800 [facility] Atorvastatin Calcium (Atorvastatin Calcium 40 Mg Tablet) 40 mg PO QHS [facility] Cefdinir (Cefdinir 300 Mg Capsule) 300 mg PO BID [facility] Stop: 11/20/20 18:01 Cholecalciferol (Cholecalciferol (Vit D3) 1,000 Unit (25mcg)) 2,000 unit PO DAILY [facility] Furosemide (Furosemide 40 Mg Tablet) 40 mg PO BID@1000,1800 [facility] Levothyroxine Sodium (Levothyroxine 50 Mcg Tablet) 50 mcg PO DAILY [facility] Metoprolol Tartrate (Metoprolol Tartrate 25 Mg Tablet) 12.5 mg PO BID [facility] Metronidazole (Metronidazole 500 Mg Tablet) 500 mg PO TID [facility] Stop: 11/20/20 14:01 Multivitamins (Multivitamins,Therapeutic Tablet) 1 tablet PO DAILYCM [facility] Multivitamins (Vitamin B Comp W-C Capsule) 1 capsule PO DAILYCM [facility] Pantoprazole Sodium (Pantoprazole Sodium 40 Mg Tablet) 40 mg PO DAILY [facility] Potassium Chloride (Potassium Chloride 20 Meq Tablet) 40 meq PO BIDCM [facility] Sodium Chloride (0.9% Saline Lock 10 Ml Syringe) 10 - 40 ml IV UD PRN PRN Reason: SALINE FLUSH Ticagrelor (Ticagrelor 90 Mg Tablet) 90 mg PO BID [facility] Trazodone HCl (Trazodone 50 Mg Tablet) 100 mg PO QHS [facility] Tuberculin PPD (Tuberculin,Purif.Prot.Deriv. 50 Tu/Ml Vial) 5 tu ID X1 ONE Stop: 11/14/20 10:01 Tuberculin PPD (Tuberculin,Purif.Prot.Deriv. 50 Tu/Ml Vial) 5 tu ID X1 ONE Stop: 11/21/20 10:01 Vitamin E (Vitamin E 400 Units Capsule) 400 units PO DAILY [facility] Assessment/Plan All Active Problems (Last Updated 11/10/20 @ 10:11 by Ju Padgett) Debility (Acute) Chest pain (Acute) Ventricular tachycardia (Acute) Atrial flutter (Acute) Encephalopathy (Acute) ST elevation myocardial infarction (STEMI) (Acute) Cardiogenic shock (Acute) 70 year old female with below past medical history hospitalized for inferior STEMI, underwent left circumflex stent, complicated by cardiogenic shock, ve ntricular tachycardia, atrial flutter, encephalopathy, admitted to TCU with debility, here for rehabilitation, strengthening, prior to discharge home alone. * Debility - PT/OT. * Pain - Tylenol 1000MG Q6H PRN pain (1-10). * Bowel - Miralax 17GM daily, Senna/colace 1 tablet BID, MOM 30ML daily PRN, Dulcolax 10MG IN daily PRN. * Adult immunization - Administer Prevnar 13, Pneumovax 23, Fluzone, COVID19 vaccine as appropriate. * DVT prophylaxis - Hold, already on dual antiplatelet therapy. * Atrial Flutter - Amiodarone 200MG twice daily, unknown if intermediate designer medication, no anticoagulation due to anemia. * Coronary Artery Disease status post stent - Metoprolol 12.5MG BID, Brilinta 90MG BID, Aspirin 81MG daily. * Hyperlipidemia - Atorvastatin 40MG QHS. * Pneumonia - Cefdinir 300MG BID, Flagyl 500MG TID thru 11/20/2020. * Vitamin D deficiency - D3 2000IU daily. * Acute diastolic congestive heart failure - Metoprolol 12.5MG BID, Lasix 40MG BID. * Hypothyroidism - Levothyroxine 50MCG daily. * GERD - Pantoprazole 40MG daily. * Hypokalemia - KCL 40MEQ BIDCM. * Insomnia - Trazodone 100MG QHS. * Leg cramp - Vitamin B complex daily.
[2020-11-13 21:30] VITALS: BMI 26.6
[2020-11-13 21:39] VITALS: BMI 26.6
[2020-11-13] MEDS: Atorvastatin Calcium 40 MG Tablet PO (21:48)
[2020-11-13] MEDS: traZODone 50 MG Tablet 100 MG PO (21:48)
[2020-11-13] MEDS: metroNIDAZOLE 500 MG Tablet PO (21:48)
[2020-11-14 05:44] LABS: Absolute Lymphocyte Count 1.78 X10^3/uL (0.83-4.51); Absolute Neutrophil Count 6.9 X10^3/uL (2.0-7.7); Basophil# 0.04 X10^3/uL; Basophil% 0.4 % (0-1); Hematocrit 35.2 % (37-47); Lymphocyte # 1.78 X10^3/ul (4.0); Mean Corp Hgb Conc 31.3 g/dL (32-36); Mean Corpuscular Hgb 29.4 pg (27.0-32.0); Mean Corpuscular Volume 94.1 fL (81-99); Mean Platelet Vol. 10.9 fl (6.2-12.0); Monocyte# 0.84 X10^3/uL; Monocyte% 8.5 % (0-10); NRBC Flagged by Analyzer 0 % (0-5); Neutrophil # 6.91 X10^3/uL (2.7-7.7); Neutrophil % 69.7 % (47-70); Platelet Count 294 K/mm3 (150-450); RBC Distribution Width CV 14.3 % (11.6-14.6); RBC Distribution Width SD 48.8 fl (35.1-43.9); Red Blood Count 3.74 M/mm3 (4.2-5.4); White Blood Count 9.9 K/mm3 (4.4-11.0)
[2020-11-14] MEDS: Acetaminophen 500 MG Tablet 1000 MG PO ×2 (05:54→12:03)
[2020-11-14] MEDS: Levothyroxine 50 MCG Tablet PO (05:55)
[2020-11-14] MEDS: Cefdinir 300 MG Capsule PO ×2 (05:55→17:35)
[2020-11-14] MEDS: TICAGRELOR 90 MG TABLET PO ×2 (05:55→17:35)
[2020-11-14] MEDS: metroNIDAZOLE 500 MG Tablet PO ×3 (05:55→21:14)
[2020-11-14 05:56] VITALS: BP 110/55; PULSE 80
[2020-11-14] MEDS: Metoprolol Tartrate 25 MG Tablet 12.5 MG PO ×2 (05:56→17:38)
[2020-11-14] MEDS: Pantoprazole Sodium 40 MG Tablet PO (05:56)
[2020-11-14] MEDS: Amiodarone 200 MG Tablet PO ×2 (05:57→17:35)
[2020-11-14] MEDS: Senna/Docusate Sodium 1 Tablet PO ×2 (05:58→17:35)
[2020-11-14 06:00] VITALS: BP 110/55; PULSE 81; RESP 18; TEMP 36.2; O2SAT 99
[2020-11-14 06:01] LABS: Anion Gap 7 (5-15); BUN 21 mg/dL (7-18); BUN/Creat Ratio 22.6 RATIO (10-20); Calcium,Total 9.3 mg/dL (8.5-10.1); Chloride 104 mmol/L (98-107); Creatinine, Serum 0.93 mg/dL (0.55-1.02); EST Glomerular Filtration Rate 64 mL/min (>60); Est Glom Filt Rate - Afr Amer 77 mL/min (>60); Estimated Creatinine Clearance 47.89 ml/min; Glucose 86 mg/dL (74-106); Potassium 3.5 mmol/L (3.5-5.1); Sodium Level 141 mmol/L (136-145)
[2020-11-14] MEDS: Aspirin 81 MG TAB.CHEW PO (07:49)
[2020-11-14] MEDS: Vitamin B Comp W-C Capsule 1 CAP PO (07:50)
[2020-11-14] MEDS: traMADol 50 MG Tablet PO (08:30)
[2020-11-14] MEDS: Triamcinolone Acetonide 40 MG/ML Vial 80 MG IM (09:21)
[2020-11-14] MEDS: Orphenadrine 60 MG/2 ML Ampul IM (09:21)
--- NOTE | 2020-11-14 10:11 | PCM.PN.RX ---
<Erica Colon - Last Filed: 11/14/20 10:11> Progress Note - Pharmacy Subjective: TCU Admission Objective: Allergies Penicillins Allergy (Verified 11/07/20 04:51) Rash Current Medications Generic Name Dose Route Start Last Admin Trade Name Freq PRN Reason Stop Dose Admin Acetaminophen 1,000 mg 11/13/20 20:03 11/14/20 05:54 Acetaminophen 500 Mg Tablet PO 1,000 mg Q6H PRN Administration Pain Score 1-5 Amiodarone HCl 200 mg 11/14/20 06:00 11/14/20 05:57 Amiodarone 200 Mg Tablet PO 200 mg BID [facility] Administration Aspirin 81 mg 11/14/20 08:00 11/14/20 07:49 Aspirin 81 Mg Tab.Chew PO 81 mg DAILY@0800 [facility] Administration Atorvastatin Calcium 40 mg 11/13/20 22:00 11/13/20 21:48 Atorvastatin Calcium 40 Mg Tablet PO 40 mg QHS [facility] Administration Bisacodyl 10 mg 11/13/20 20:04 Bisacodyl 10 Mg Suppository RECTAL DAILY PRN Constipation Cefdinir 300 mg 11/14/20 06:00 11/14/20 05:55 Cefdinir 300 Mg Capsule PO 11/20/20 18:01 300 mg BID [facility] Administration Cholecalciferol 2,000 unit 11/14/20 06:00 11/14/20 05:56 Cholecalciferol (Vit D3) 1,000 Unit (25mcg) PO 2,000 unit DAILY [facility] Administration Furosemide 40 mg 11/14/20 10:00 Furosemide 40 Mg Tablet PO BID@1000,1800 [facility] Levothyroxine Sodium 50 mcg 11/14/20 06:00 11/14/20 05:55 Levothyroxine 50 Mcg Tablet PO 50 mcg DAILY [facility] Administration Magnesium Hydroxide 30 ml 11/13/20 20:03 Magnesium Hydroxide 30 Ml Udc PO DAILY PRN Constipation Metoprolol Tartrate 12.5 mg 11/14/20 06:00 11/14/20 05:56 Metoprolol Tartrate 25 Mg Tablet PO 12.5 mg BID [facility] Administration Metronidazole 500 mg 11/13/20 22:00 11/14/20 05:55 Metronidazole 500 Mg Tablet PO 11/20/20 14:01 500 mg TID [facility] Administration Multivitamins 1 capsule 11/14/20 08:00 11/14/20 07:50 Vitamin B Comp W-C Capsule PO 1 capsule DAILYCM [facility] Administration Pantoprazole Sodium 40 mg 11/14/20 06:00 11/14/20 05:56 Pantoprazole Sodium 40 Mg Tablet PO 40 mg DAILY [facility] Administration Polyethylene Glycol 17 gm 11/14/20 06:00 11/14/20 05:57 Polyethylene Glycol 3350 17 Gm Packet PO Not Given DAILY [facility] Potassium Chloride 40 meq 11/14/20 08:00 11/14/20 07:49 Potassium Chloride 20 Meq Tablet PO 40 meq BIDCM [facility] Administration Senna/Docusate Sodium 1 tablet 11/14/20 06:00 11/14/20 05:58 Senna/Docusate Sodium 1 Tablet PO 1 tablet BID [facility] Administration Sodium Chloride 10 - 40 ml 11/13/20 18:33 0.9% Saline Lock 10 Ml Syringe IV UD PRN SALINE FLUSH Ticagrelor 90 mg 11/14/20 06:00 11/14/20 05:55 Ticagrelor 90 Mg Tablet PO 90 mg BID [facility] Administration Tramadol HCl 50 mg 11/14/20 08:05 11/14/20 08:30 Tramadol 50 Mg Tablet PO 50 mg BID PRN Administration Pain Score 6-10 Trazodone HCl 100 mg 11/13/20 22:00 11/13/20 21:48 Trazodone 50 Mg Tablet PO 100 mg QHS [facility] Administration Tuberculin PPD 5 tu 11/21/20 10:00 Tuberculin,Purif.Prot.Deriv. 50 Tu/Ml Vial ID 11/21/20 10:01 X1 ONE Problem List (Last Updated 11/10/20 @ 10:11 by Ju Padgett) Debility (Acute) Chest pain (Acute) Ventricular tachycardia (Acute) Atrial flutter (Acute) Encephalopathy (Acute) Hyperlipidemia (Chronic) Hypothyroidism (Chronic) Neuropathic pain (Chronic) ST elevation myocardial infarction (STEMI) (Acute) Cardiogenic shock (Acute) Carotid stenosis (Chronic) Lumbar canal stenosis (Chronic) Depression (Chronic) Anxiety (Chronic) HTN (hypertension) (Chronic) GERD (gastroesophageal reflux disease) (Chronic) Vital Signs Temp Pulse Resp BP Pulse Ox 97.1 F L 81 18 110/55 L 99 11/14/20 06:00 11/14/20 06:00 11/14/20 06:00 11/14/20 06:00 11/14/20 06:00 Oxygen Flow Rate (L/min) 2 Oxygen Delivery Method Nasal Cannula Weight: 68.22 kg Body Mass Index (BMI) 26.6 Sodium 141 mmol/L (136-145) 11/14/20 05:25 Potassium 3.5 mmol/L (3.5-5.1) 11/14/20 05:25 Chloride 104 mmol/L (98-107) 11/14/20 05:25 Carbon Dioxide 30.0 mmol/L (21.0-32.0) 11/14/20 05:25 Anion Gap 7 (5-15) 11/14/20 05:25 BUN 21 mg/dL (7-18) H 11/14/20 05:25 Creatinine 0.93 mg/dL (0.55-1.02) 11/14/20 05:25 Est GFR (MDRD) Af Amer 77 mL/min (>60) 11/14/20 05:25 Est GFR (MDRD) Non-Af 64 mL/min (>60) 11/14/20 05:25 BUN/Creatinine Ratio 22.6 RATIO (10-20) H 11/14/20 05:25 Glucose 86 mg/dL (74-106) 11/14/20 05:25 Assessment/Plan: 1. Pain: acetaminophen 1000mg PO Q6H PRN pain (1-5) and tramadol 50mg PO BID PRN pain 6-10/10. Please continue to monitor for increased pain, PRN usage, constipation and respiratory depression. 2. Pneumonia: cefdinir 300mg PO BID through 11/20/20 and metronidazole 500mg PO TID through 11/20/2020. Please continue to monitor WBC (last 9.9), renal function, GI symptoms, and S/S of pneumonia. 3. Atrial Flutter, CAD, CHF: amiodarone 200mg PO BID, metoprolol tartrate 12.5mg PO BID, ticagrelor 90mg PO BID, aspirin 81mg PO DAILYCM, furosemide 40mg PO BIDLX. Please continue to monitor S/S of atrial flutter, HR (last 81), BP (last 110/55), S/S of coronary artery disease, platelets (last 294,000), hemoglobin (last 11.0), renal function, S/S of bleeding/DVT, and potassium (last 3.5 mmol/L). *4. Hyperlipidemia: atorvastatin 40mg PO QHS. Please consider ordering a lipid panel as clinically appropriate, as last was on 02/13/16. Thanks. Please continue to monitor for muscle pain. 5. Hypothyroidism: levothyroxine 50mcg PO daily. Please continue to monitor for S/S of hypo/hyperthyroidism and TSH (last 11/10/20). Thanks. 6. GERD: pantoprazole 40mg PO daily. Please continue to monitor S/S of GERD. 7. Hypokalemia: potassium chloride 40mEq BIDCM. Please continue to monitor potassium levels (last 3.5 mmol/L). 8. Vitamin D deficiency: cholecalciferol 2000units PO daily. Please continue to monitor Vitamin D levels (last 09/2020). 9. Leg cramp: Vitamin B complex dailyCM. Please continue to monitor. Psychotropic Medications: *1. Insomnia: trazodone 100mg PO QHS. Please continue to monitor S/S of insomnia, renal function, and respiratory depression. Please consider GDR by 04/2021 if clinically appropriate. Thanks. Unnecessary Medications: None Bowel Regimen: Miralax 17gm PO daily, Senna/docusate 1T PO BID, MOM 30ml daily PRN constipation, bisacodyl 10mg [place] daily PRN constipation. Please continue to monitor for constipation and PRN usage. Date of Note:: 11/14/20 - Provider Comments Provider responsibility: Provider responsible to enter orders to implement recommendations <Yonny Carballo Chi - Last Filed: 11/14/20 13:44> Progress Note - Pharmacy Subjective: [] Objective: Allergies Penicillins Allergy (Verified 11/07/20 04:51) Rash Current Medications Generic Name Dose Route Start Last Admin Trade Name Freq PRN Reason Stop Dose Admin Acetaminophen 1,000 mg 11/13/20 20:03 11/14/20 12:03 Acetaminophen 500 Mg Tablet PO 1,000 mg Q6H PRN Administration Pain Score 1-5 Amiodarone HCl 200 mg 11/14/20 06:00 11/14/20 05:57 Amiodarone 200 Mg Tablet PO 200 mg BID [facility] Administration Aspirin 81 mg 11/14/20 08:00 11/14/20 07:49 Aspirin 81 Mg Tab.Chew PO 81 mg DAILY@0800 [facility] Administration Atorvastatin Calcium 40 mg 01/28/21 22:00 11/13/20 21:48 Atorvastatin Calcium 40 Mg Tablet PO 40 mg QHS [facility] Administration Bisacodyl 10 mg 11/13/20 20:04 Bisacodyl 10 Mg Suppository RECTAL DAILY PRN Constipation Cefdinir 300 mg 11/14/20 06:00 11/14/20 05:55 Cefdinir 300 Mg Capsule PO 11/20/20 18:01 300 mg BID [facility] Administration Cholecalciferol 2,000 unit 11/14/20 06:00 11/14/20 05:56 Cholecalciferol (Vit D3) 1,000 Unit (25mcg) PO 2,000 unit DAILY [facility] Administration Furosemide 40 mg 11/14/20 10:00 11/14/20 12:02 Furosemide 40 Mg Tablet PO 40 mg BID@1000,1800 [facility] Administration Levothyroxine Sodium 50 mcg 11/14/20 06:00 11/14/20 05:55 Levothyroxine 50 Mcg Tablet PO 50 mcg DAILY [facility] Administration Magnesium Hydroxide 30 ml 11/13/20 20:03 Magnesium Hydroxide 30 Ml Udc PO DAILY PRN Constipation Metoprolol Tartrate 12.5 mg 11/14/20 06:00 11/14/20 05:56 Metoprolol Tartrate 25 Mg Tablet PO 12.5 mg BID [facility] Administration Metronidazole 500 mg 11/13/20 22:00 11/14/20 05:55 Metronidazole 500 Mg Tablet PO 11/20/20 14:01 500 mg TID [facility] Administration Multivitamins 1 capsule 11/14/20 08:00 11/14/20 07:50 Vitamin B Comp W-C [facility]apsule [facility] Administration Pantoprazole Sodium 40 mg 11/14/20 06:00 11/14/20 05:56 Pantoprazole Sodium 40 Mg Tablet PO 40 mg DAILY [facility] Administration Polyethylene Glycol 17 gm 11/14/20 06:00 11/14/20 05:57 Polyethylene Glycol 3350 17 Gm Packet PO Not Given DAILY [facility] Potassium Chloride 40 meq 11/14/20 08:00 11/14/20 07:49 Potassium Chloride 20 Meq Tablet PO 40 meq BIDCM [facility] Administration Senna/Docusate Sodium 1 tablet 11/14/20 06:00 11/14/20 05:58 Senna/Docusate Sodium 1 Tablet PO 1 tablet BID [facility] Administration Sodium Chloride 10 - 40 ml 11/13/20 18:33 0.9% Saline Lock 10 Ml Syringe IV UD PRN SALINE FLUSH Ticagrelor 90 mg 11/14/20 06:00 11/14/20 05:55 Ticagrelor 90 Mg Tablet PO 90 mg BID [facility] Administration Tramadol HCl 50 mg 11/14/20 08:05 11/14/20 08:30 Tramadol 50 Mg Tablet PO 50 mg BID PRN Administration Pain Score 6-10 Trazodone HCl 100 mg 11/13/20 22:00 11/13/20 21:48 Trazodone 50 Mg Tablet PO 100 mg QHS [facility] Administration Tuberculin PPD 5 tu 11/21/20 10:00 Tuberculin,Purif.Prot.Deriv. 50 Tu/Ml Vial ID 11/21/20 10:01 X1 ONE Problem List (Last Updated 11/10/20 @ 10:11 by Ju Padgett) Debility (Acute) Chest pain (Acute) Ventricular tachycardia (Acute) Atrial flutter (Acute) Encephalopathy (Acute) Hyperlipidemia (Chronic) Hypothyroidism (Chronic) Neuropathic pain (Chronic) ST elevation myocardial infarction (STEMI) (Acute) Cardiogenic shock (Acute) Carotid stenosis (Chronic) Lumbar canal stenosis (Chronic) Depression (Chronic) Anxiety (Chronic) HTN (hypertension) (Chronic) GERD (gastroesophageal reflux disease) (Chronic) Vital Signs Temp Pulse Resp BP Pulse Ox 97.8 F 69 17 96/57 L 99 11/14/20 13:14 11/14/20 13:14 11/14/20 13:14 11/14/20 13:14 11/14/20 13:14 Oxygen Flow Rate (L/min) 2 Oxygen Delivery Method Nasal Cannula Weight: 68.22 kg Body Mass Index (BMI) 26.6 Sodium 141 mmol/L (136-145) 11/14/20 05:25 Potassium 3.5 mmol/L (3.5-5.1) 11/14/20 05:25 Chloride 104 mmol/L (98-107) 11/14/20 05:25 Carbon Dioxide 30.0 mmol/L (21.0-32.0) 11/14/20 05:25 Anion Gap 7 (5-15) 11/14/20 05:25 BUN 21 mg/dL (7-18) H 11/14/20 05:25 Creatinine 0.93 mg/dL (0.55-1.02) 11/14/20 05:25 Est GFR (MDRD) Af Amer 77 mL/min (>60) 11/14/20 05:25 Est GFR (MDRD) Non-Af 64 mL/min (>60) 11/14/20 05:25 BUN/Creatinine Ratio 22.6 RATIO (10-20) H 11/14/20 05:25 Glucose 86 mg/dL (74-106) 11/14/20 05:25 Assessment/Plan: Psychotropic Medications: Unnecessary Medications: Bowel Regimen: - Provider Comments Provider responsibility: Provider responsible to enter orders to implement recommendations Provider Comments to Recommendations by Pharmacy: Agree
[2020-11-14 10:46] VITALS: O2SAT 96
[2020-11-14] MEDS: Furosemide 40 MG Tablet PO ×2 (12:02→17:35)
[2020-11-14 13:14] VITALS: BP 96/57; PULSE 69; RESP 17; TEMP 36.6; O2SAT 99
--- NOTE | 2020-11-14 14:11 | CASEMGMT ---
Social Work Discussed patient's code status. Pt wishes to be DNR-CCA, no intubation. Nursing notified. MOLST form reviewed, communication to , placed in chart. OLAF GarciaW
[2020-11-14] MEDS: Tuberculin,Purif.prot.deriv. 50 TU/ML Vial 5 ML ID (14:23)
[2020-11-14 17:38] VITALS: PULSE 69
[2020-11-14] MEDS: traZODone 50 MG Tablet 100 MG PO (21:13)
[2020-11-14] MEDS: Baclofen 10 MG Tablet PO (21:13)
[2020-11-14] MEDS: Atorvastatin Calcium 40 MG Tablet PO (21:14)
[2020-11-15] MEDS: Acetaminophen 500 MG Tablet 1000 MG PO ×3 (03:05→16:46)
[2020-11-15 03:06] VITALS: BP 103/48; PULSE 78; RESP 16; TEMP 37.4; O2SAT 97
[2020-11-15] MEDS: Polyethylene Glycol 3350 17 GM PACKET PO (05:46)
[2020-11-15] MEDS: TICAGRELOR 90 MG TABLET PO ×2 (05:46→16:42)
[2020-11-15 05:47] VITALS: BP 103/48; PULSE 78
[2020-11-15] MEDS: Senna/Docusate Sodium 1 Tablet PO (05:47)
[2020-11-15] MEDS: Metoprolol Tartrate 25 MG Tablet 12.5 MG PO ×2 (05:47→16:42)
[2020-11-15] MEDS: Cefdinir 300 MG Capsule PO ×2 (05:47→16:41)
[2020-11-15] MEDS: Amiodarone 200 MG Tablet PO ×2 (05:47→16:42)
[2020-11-15] MEDS: Levothyroxine 50 MCG Tablet PO (05:47)
[2020-11-15] MEDS: Pantoprazole Sodium 40 MG Tablet PO (05:47)
[2020-11-15] MEDS: metroNIDAZOLE 500 MG Tablet PO ×3 (05:47→20:37)
[2020-11-15] MEDS: traMADol 50 MG Tablet PO (08:09)
[2020-11-15] MEDS: Aspirin 81 MG TAB.CHEW PO (08:09)
[2020-11-15] MEDS: Vitamin B Comp W-C Capsule 1 CAP PO (08:09)
[2020-11-15] MEDS: Furosemide 40 MG Tablet PO ×2 (10:39→16:42)
[2020-11-15 13:52] VITALS: BP 104/57; PULSE 61; RESP 15; TEMP 35.8; O2SAT 99
[2020-11-15 16:30] VITALS: O2SAT 100
[2020-11-15 16:42] VITALS: PULSE 68
--- NOTE | 2020-11-15 16:57 | CPS ---
patient was on 2L but decreased to RA
[2020-11-15 18:12] VITALS: RESP 18; O2SAT 95
[2020-11-15] MEDS: Atorvastatin Calcium 40 MG Tablet PO (20:38)
[2020-11-15] MEDS: Baclofen 10 MG Tablet PO (20:38)
[2020-11-15] MEDS: traZODone 50 MG Tablet 100 MG PO (20:39)
[2020-11-15] MEDS: Nystatin Powder 15gm Bottle 1 APPLIC TOPICAL (20:40)
[2020-11-16 05:47] VITALS: BP 130/70; PULSE 69; RESP 16; TEMP 36.2; O2SAT 97
[2020-11-16] MEDS: Cefdinir 300 MG Capsule PO ×2 (05:50→17:17)
[2020-11-16] MEDS: Amiodarone 200 MG Tablet PO ×2 (05:50→17:17)
[2020-11-16] MEDS: Senna/Docusate Sodium 1 Tablet PO ×2 (05:50→17:17)
[2020-11-16] MEDS: metroNIDAZOLE 500 MG Tablet PO ×3 (05:50→20:26)
[2020-11-16] MEDS: Pantoprazole Sodium 40 MG Tablet PO (05:50)
[2020-11-16 05:51] VITALS: BP 130/70; PULSE 69
[2020-11-16] MEDS: Metoprolol Tartrate 25 MG Tablet 12.5 MG PO ×2 (05:51→17:17)
[2020-11-16] MEDS: Nystatin Powder 15gm Bottle 1 APPLIC TOPICAL ×2 (05:51→20:29)
[2020-11-16] MEDS: TICAGRELOR 90 MG TABLET PO ×2 (05:51→17:18)
[2020-11-16] MEDS: Levothyroxine 50 MCG Tablet PO (05:52)
[2020-11-16] MEDS: Acetaminophen 500 MG Tablet 1000 MG PO ×2 (05:54→13:52)
[2020-11-16] MEDS: Vitamin B Comp W-C Capsule 1 CAP PO (07:56)
[2020-11-16] MEDS: Aspirin 81 MG TAB.CHEW PO (07:56)
[2020-11-16] MEDS: traMADol 50 MG Tablet PO (10:43)
[2020-11-16] MEDS: Furosemide 40 MG Tablet PO ×2 (10:43→17:18)
[2020-11-16 13:59] VITALS: BP 91/52; PULSE 64; RESP 15; TEMP 36.4; O2SAT 94
[2020-11-16 14:18] VITALS: BP 102/56; PULSE 62
--- NOTE | 2020-11-16 14:39 | PCA ---
patient rang to get off toilet this afternoon and said she hurt her back reaching for the toilet paper. she self transfers herself from the toilet to the shower and sits in the shower on the bench waiting for us to come in, she says the toilet seat hurts her back.
[2020-11-16 17:17] VITALS: PULSE 62
[2020-11-16] MEDS: traZODone 50 MG Tablet 100 MG PO (20:26)
[2020-11-16] MEDS: Baclofen 10 MG Tablet PO (20:26)
[2020-11-16] MEDS: Atorvastatin Calcium 40 MG Tablet PO (20:27)
[2020-11-17] MEDS: Acetaminophen 500 MG Tablet 1000 MG PO ×2 (02:36→17:57)
[2020-11-17 05:37] VITALS: BP 112/58; PULSE 66; RESP 16; TEMP 36.8; O2SAT 94
[2020-11-17] MEDS: TICAGRELOR 90 MG TABLET PO ×2 (05:39→17:50)
[2020-11-17] MEDS: Pantoprazole Sodium 40 MG Tablet PO (05:39)
[2020-11-17] MEDS: Amiodarone 200 MG Tablet PO ×2 (05:39→17:50)
[2020-11-17] MEDS: metroNIDAZOLE 500 MG Tablet PO ×3 (05:39→20:43)
[2020-11-17] MEDS: Levothyroxine 50 MCG Tablet PO (05:39)
[2020-11-17 05:40] VITALS: BP 112/58; PULSE 66
[2020-11-17] MEDS: Nystatin Powder 15gm Bottle 1 APPLIC TOPICAL ×2 (05:40→20:44)
[2020-11-17] MEDS: Metoprolol Tartrate 25 MG Tablet 12.5 MG PO ×2 (05:40→17:52)
[2020-11-17] MEDS: Cefdinir 300 MG Capsule PO ×2 (05:40→17:52)
[2020-11-17] MEDS: traMADol 50 MG Tablet PO ×2 (05:44→15:55)
[2020-11-17] MEDS: Aspirin 81 MG TAB.CHEW PO (07:44)
[2020-11-17] MEDS: Vitamin B Comp W-C Capsule 1 CAP PO (07:44)
[2020-11-17] MEDS: Furosemide 40 MG Tablet PO ×2 (07:44→15:57)
[2020-11-17 08:23] VITALS: O2SAT 94
[2020-11-17 14:27] VITALS: BP 121/73; PULSE 67; RESP 18; TEMP 36.9; O2SAT 95
[2020-11-17 17:52] VITALS: PULSE 80
--- NOTE | 2020-11-17 17:59 | NURSING ---
resident requesting to talk to Rebeka, social security benefits interviewer. She feels like she is ready to go home. She states she will call Rebeka tomorrow and let her know.
[2020-11-17] MEDS: Baclofen 10 MG Tablet PO (20:43)
[2020-11-17] MEDS: traZODone 50 MG Tablet 100 MG PO (20:43)
[2020-11-17] MEDS: Atorvastatin Calcium 40 MG Tablet PO (20:44)
[2020-11-18 04:54] VITALS: BP 110/60; PULSE 63; RESP 16; TEMP 36.6; O2SAT 98
[2020-11-18 04:56] VITALS: BP 110/60; PULSE 63
[2020-11-18] MEDS: Metoprolol Tartrate 25 MG Tablet 12.5 MG PO ×2 (04:56→18:07)
[2020-11-18] MEDS: Levothyroxine 50 MCG Tablet PO (04:56)
[2020-11-18] MEDS: TICAGRELOR 90 MG TABLET PO ×2 (04:57→18:08)
[2020-11-18] MEDS: Amiodarone 200 MG Tablet PO ×2 (04:57→18:10)
[2020-11-18] MEDS: Pantoprazole Sodium 40 MG Tablet PO (04:57)
[2020-11-18] MEDS: Cefdinir 300 MG Capsule PO ×2 (04:58→18:10)
[2020-11-18] MEDS: Nystatin Powder 15gm Bottle 1 APPLIC TOPICAL ×2 (05:00→20:42)
[2020-11-18 07:43] VITALS: O2SAT 93
[2020-11-18] MEDS: metroNIDAZOLE 500 MG Tablet PO ×3 (08:10→18:08)
[2020-11-18] MEDS: Aspirin 81 MG TAB.CHEW PO (08:10)
[2020-11-18] MEDS: Vitamin B Comp W-C Capsule 1 CAP PO (08:10)
[2020-11-18] MEDS: traMADol 50 MG Tablet PO ×2 (08:19→20:37)
--- NOTE | 2020-11-18 09:50 | NURSING ---
notified Dr. Carballo of pt c/o of pain 07/26 and stating ultram is not helping. Received order for Norflex 60mg IM and Tordol 60mg IM one time. Will add order.
[2020-11-18] MEDS: Furosemide 40 MG Tablet PO ×2 (11:25→18:09)
[2020-11-18] MEDS: Orphenadrine 60 MG/2 ML Ampul IM (11:26)
[2020-11-18] MEDS: Ketorolac 60 MG/2 ML Vial IM (11:28)
[2020-11-18 13:16] VITALS: BP 124/65; PULSE 66; RESP 18; TEMP 36.5; O2SAT 99
[2020-11-18 15:31] VITALS: O2SAT 83; O2SAT 93; O2SAT 97
--- NOTE | 2020-11-18 15:47 | CASEMGMT ---
Addendum entered by Riddhi Mackay 11/18/20 15:54: Nursing completed O2 testing. Pt does qualify for O2 at 3L. [facility] Original Note: Social Work Insurance issued LCD 11/20, DC 11/21. Pt agreeable to DC. Pt agreeable to OP therapy. Provided options. Pt requesting [facility]. Referral made for PT/OT. Pt requesting FWW. Referral made to [facility]. Provided pt with counseling and MOW resources. family can transport pt. Nursing to complete O2 testing to determine if pt qualifies for O2. No other needs. Plan: DC home alone 11/21, [facility] PT/OT, FWW Riddhi Mackay, MEDIA TRAFFIC MANAGER FORESTRY FARM LABORER
--- NOTE | 2020-11-18 16:05 | CHAPLAIN ---
Type of Pastoral Visit _x__ Initial Visit ___ Follow-up Visit ___ On-call Visit ___ General Patient Visit ___ Spiritual Assessment ___ Family Conference ___ Bereavement ___ Rapid Response ___ Code Blue ___ Other (describe below) Pastoral Care Referral From _x__ Patient ___ Family ___ Nurse ___ Physician ___ Instrumentation Supervisor ___ Presser First ___ Other (describe below) Sacrament/Intervention _x__ Active listening ___ Anointing ___ Rastafarian ___ Bereavement ___ Communion ___ [place]asta exploration ___ ___ Life review ___ Prayer ___ Reconciliation ___ Sacrament of Sick ___ Supportive presence ___ Wedding ___ Other (describe below) Pastoral Comments patient was a referral (from computer) to this call center agent; introduced self and role to patient; pt was welcoming and gave her perspective on what she wants to do in regards to opening herself up to God again; pt stated that however she is a loner and does not desire spiritual care at this time; offer made for any future support and patient gave understanding.
--- NOTE | 2020-11-18 17:43 | DCINST_ITS ---
- Discharge Diagnoses Current Active Problems: Current Active and Chronic Problems (Last Updated 11/10/20 @ 10:11 by Ju Padgett) Debility (Acute) Chest pain (Acute) Ventricular tachycardia (Acute) Atrial flutter (Acute) Encephalopathy (Acute) Hyperlipidemia (Chronic) Hypothyroidism (Chronic) Neuropathic pain (Chronic) ST elevation myocardial infarction (STEMI) (Acute) Cardiogenic shock (Acute) Carotid stenosis (Chronic) Lumbar canal stenosis (Chronic) Depression (Chronic) Anxiety (Chronic) HTN (hypertension) (Chronic) GERD (gastroesophageal reflux disease) (Chronic) You will use the following diet at home:: No restrictions, Regular Your food should be the consistency of: Regular Your liquids should be the consistency of: Regular/Thin Discharge Activity: Return to Normal Activity, May Shower, Use Walker Weight Bearing Status: Weight bearing as tolerated Call your doctor if you observe: Fever of 101 or Higher, Inability to urinate, Inability to have a bowel movement, Shortness of breath, Chest pain, Uncontrolled pain Allergies/Adverse Reactions: Allergies Penicillins Allergy (Verified 11/07/20 04:51) Rash Medications to take at Discharge Aspirin [Aspirin, Baby] 81 mg PO DAILY@0800 11/26/13 Atorvastatin Calcium [Lipitor] 40 mg PO QHS 11/26/13 traZODone [Desyrel] 100 mg PO QHS 11/26/13 Cholecalciferol (Vitamin D3) [Vitamin D3] 2,000 unit PO DAILY 02/21/17 levothyroxine 25 mcg capsule 50 mcg PO DAILY 10/31/18 vitamin B complex 1 tab PO DAILY 10/31/18 Acetaminophen [Tylenol] 1,000 mg PO Q6H PRN tab 11/18/20 Amiodarone HCl [Cordarone] 200 mg PO BID #60 tab 11/18/20 Baclofen [Lioresal] 10 mg PO QHS #30 tab 11/18/20 Furosemide [Lasix] 40 mg PO BID@1000,1800 #60 tab 11/18/20 Metoprolol Tartrate [Lopressor (beta vipin)] 12.5 mg PO BID #30 tab 11/18/20 Nystatin Powder [Mycostatin Powder] 1 applic TOPICAL BID@0600,2200 bottle 11/18/20 Pantoprazole Sodium [Protonix] 40 mg PO DAILY #30 tab 11/18/20 Potassium Chloride [K-Dur] 40 meq PO BIDCM #120 tab 11/18/20 Ticagrelor [Brilinta] 90 mg PO BID #60 tab 11/18/20 traMADol [Ultram] 50 mg PO BID PRN tab 11/18/20 The following prescriptions were given: Ticagrelor [Brilinta] 90 mg PO BID #60 tab Transmission Status: [facility] Amiodarone HCl [Cordarone] 200 mg PO BID #60 tab Transmission Status: [facility] Potassium Chloride [K-Dur] 40 meq PO BIDCM #120 tab Transmission Status: [facility] Furosemide [Lasix] 40 mg PO BID@1000,1800 #60 tab Transmission Status: [facility] Baclofen [Lioresal] 10 mg PO QHS #30 tab Transmission Status: [facility] Metoprolol Tartrate [Lopressor (beta vipin)] 12.5 mg PO BID #30 tab Transmission Status: [facility] Pantoprazole Sodium [Protonix] 40 mg PO DAILY #30 tab Transmission Status: [facility] Primary Care Physician: Yonny Carballo Chi, MD [Primary Care Provider] - Please follow up with your Primary Care Physician in: 1 week. Test Results: Test results from this visit will be discussed in further detail at your follow- up appointment, if applicable. Please Follow Up With: Sage Norris MD When: 2-4 weeks Proposed Discharge Date: 11/21/20
--- NOTE | 2020-11-18 17:44 | PCM.DC.SUM ---
Discharge Date and Diagnosis - Problem List Patient Problems: Active and Suspected Problems (Last Updated 11/10/20 @ 10:11 by Ju Padgett) Debility (Acute) Chest pain (Acute) Ventricular tachycardia (Acute) Atrial flutter (Acute) Encephalopathy (Acute) ST elevation myocardial infarction (STEMI) (Acute) Cardiogenic shock (Acute) Date of Admission: 11/13/20 Date of Discharge: 11/21/20 - Primary Discharge Diagnosis Acute Problems: Active Problems (Last Updated 11/10/20 @ 10:11 by Ju Padgett) Debility (Acute) Chest pain (Acute) Ventricular tachycardia (Acute) Atrial flutter (Acute) Encephalopathy (Acute) ST elevation myocardial infarction (STEMI) (Acute) Cardiogenic shock (Acute) - Secondary Discharge Diagnosis Chronic Problems: Chronic Problems (Last Updated 11/10/20 @ 10:11 by Ju Padgett) Hyperlipidemia (Chronic) Hypothyroidism (Chronic) Neuropathic pain (Chronic) Presence of stent in coronary artery (Chronic ~11/07/20) Successful PCI of the culprit lesion, occluded large proximal left circumflex with NAYAN 0 flow, with successful PCI and stent using drug-eluting stent synergy Postprocedure NAYAN III. 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) Carotid stenosis (Chronic) Multiple thyroid nodules (Chronic) Segmental and somatic dysfunction of pelvic region (Chronic) Segmental and somatic dysfunction of lumbar region (Chronic) Segmental and somatic dysfunction of thoracic region (Chronic) Lumbar canal stenosis (Chronic) Lumbar degenerative disc disease (Chronic) Lumbar radiculopathy, chronic (Chronic) Rectal prolapse (Chronic) Depression (Chronic) Anxiety (Chronic) HTN (hypertension) (Chronic) GERD (gastroesophageal reflux disease) (Chronic) Hospital Course and Treatment Imaging Results: 11/13/20 18:57 Diet: Cardiac - Heart Healthy Food consistency:: Regular Liquid Consistency:: Regular/Thin Dietary Modifications:: Sodium Restricted Type of Dietary Supplement:: Ensure Enlive Diet Comments: 120 ml Ensure TID with meals Microbiology 11/17/20 10:21 Nasal Secretion SARS-CoV-2 Antigen (Rapid) - Final Operations: None Procedures: None Summary of Care Provided: The patient is a 70 year old Fmale with below past medical history hospitalized for inferior STEMI, underwent left circumflex stent, complicated by cardiogenic shock, ventricular tachycardia, atrial flutter, encephalopathy, admitted to TCU with debility, here for rehabilitation, strengthening, prior to discharge home alone. Discharge home alone, [facility] PT/OT, Front Wheeled Walker. Patient Problems: Active and Suspected Problems (Last Updated 11/10/20 @ 10:11 by Ju Padgett) Debility (Acute) Chest pain (Acute) Ventricular tachycardia (Acute) Atrial flutter (Acute) Encephalopathy (Acute) ST elevation myocardial infarction (STEMI) (Acute) Cardiogenic shock (Acute) - Physical Exam Vitals/I&O's: Vital Signs Temp Pulse Resp BP Pulse Ox 97.7 F L 66 18 124/65 H 97 11/18/20 13:16 11/18/20 13:16 11/18/20 13:16 11/18/20 13:16 11/18/20 15:31 Oxygen Flow Rate (L/min) [ 3 AMBULATION with Oxygen] Oxygen Flow Rate (L/min) 2 Oxygen Delivery Method Nasal Cannula Weight: 68.266 kg Body Mass Index (BMI) 26.6 Intake and Output for Last 24 Hours 11/16/20 11/17/20 11/18/20 23:59 23:59 23:59 Intake Total 600 / 600 600 / 600 480 / 480 Balance 600 / 600 600 / 600 480 / 480 Microbiology Past 72 Hours 11/17/20 10:21 Nasal Secretion SARS-CoV-2 Antigen (Rapid) - Final Current Medications Acetaminophen (Acetaminophen 500 Mg Tablet) 1,000 mg PO Q6H PRN PRN Reason: Pain Score 1-5 Last Admin: 11/17/20 17:57 Dose: 1,000 mg Documented by: Amiodarone HCl (Amiodarone 200 Mg Tablet) 200 mg PO BID [facility] Last Admin: 11/18/20 04:57 Dose: 200 mg Documented by: Aspirin (Aspirin 81 Mg Tab.Chew) 81 mg PO DAILY@0800 [facility] Last Admin: 11/18/20 08:10 Dose: 81 mg Documented by: Atorvastatin Calcium (Atorvastatin Calcium 40 Mg Tablet) 40 mg PO QHS [facility] Last Admin: 11/17/20 20:44 Dose: 40 mg Documented by: Baclofen (Baclofen 10 Mg Tablet) 10 mg PO QHS [facility] Last Admin: 11/17/20 20:43 Dose: 10 mg Documented by: Bisacodyl (Bisacodyl 10 Mg Suppository) 10 mg RECTAL DAILY PRN PRN Reason: Constipation Cefdinir (Cefdinir 300 Mg Capsule) 300 mg PO BID [facility]1983 Stop: 11/20/20 18:01 Last Admin: 11/18/20 04:58 Dose: 300 mg Documented by: Cholecalciferol (Cholecalciferol (Vit D3) 1,000 Unit (25mcg)) 2,000 unit PO DAILY [facility] Last Admin: 11/18/20 04:58 Dose: 2,000 unit Documented by: Furosemide (Furosemide 40 Mg Tablet) 40 mg PO BID@1000,1800 [facility] Last Admin: 11/18/20 11:25 Dose: 40 mg Documented by: Levothyroxine Sodium (Levothyroxine 50 Mcg Tablet) 50 mcg PO DAILY [facility] Last Admin: 11/18/20 04:56 Dose: 50 mcg Documented by: Magnesium Hydroxide (Magnesium Hydroxide 30 Ml Udc) 30 ml PO DAILY PRN PRN Reason: Constipation Metoprolol Tartrate (Metoprolol Tartrate 25 Mg Tablet) 12.5 mg PO BID [facility] Last Admin: 11/18/20 04:56 Dose: 12.5 mg Documented by: Metronidazole (Metronidazole 500 Mg Tablet) 500 mg PO TIDCM [facility] Stop: 11/20/20 12:46 Last Admin: 11/18/20 11:25 Dose: 500 mg Documented by: Multivitamins (Vitamin B Comp W[facility]C [facility]apsule) [facility] Last Admin: 11/18/20 08:10 Dose: 1 capsule Documented by: Nystatin (Nystatin Powder 15gm Bottle) 1 applic TOPICAL BID@0600,2200 [facility]; Protocol Last Admin: 11/18/20 05:00 Dose: 1 applicatio Documented by: Pantoprazole Sodium (Pantoprazole Sodium 40 Mg Tablet) 40 mg PO DAILY [facility] Last Admin: 11/18/20 04:57 Dose: 40 mg Documented by: Pneumococcal Polyvalent Vaccine (Pneumococcal Vaccine (Psv-23) 0.5 Ml Vial) 0.5 ml IM .ONCE ONE Stop: 11/19/20 10:01 Polyethylene Glycol (Polyethylene Glycol 3350 17 Gm Packet) 17 gm PO DAILY [facility] Last Admin: 11/18/20 04:58 Dose: Not Given Documented by: Potassium Chloride (Potassium Chloride 20 Meq Tablet) [facility] Last Admin: 11/18/20 08:10 Dose: 40 meq Documented by: Senna/Docusate Sodium (Senna/Docusate Sodium 1 Tablet) 1 tablet PO BID [facility] Last Admin: 11/18/20 04:58 Dose: Not Given Documented by: Sodium Chloride (0.9% Saline Lock 10 Ml Syringe) 10 - 40 ml IV UD PRN PRN Reason: SALINE FLUSH Ticagrelor (Ticagrelor 90 Mg Tablet) 90 mg PO BID [facility] Last Admin: 11/18/20 04:57 Dose: 90 mg Documented by: Tramadol HCl (Tramadol 50 Mg Tablet) 50 mg PO BID PRN PRN Reason: Pain Score 6-10 Last Admin: 11/18/20 08:19 Dose: 50 mg Documented by: Trazodone HCl (Trazodone 50 Mg Tablet) 100 mg PO QHS [facility] Last Admin: 11/17/20 20:43 Dose: 100 mg Documented by: Tuberculin PPD (Tuberculin,Purif.Prot.Deriv. 50 Tu/Ml Vial) 5 tu ID [id number] ONE Stop: 11/21/20 10:01 Discharge Diet: No Restrictions Discharge Activity: Return to Normal Activity, May Shower, Use Walker Weight Bearing Status: Weight bearing as tolerated Call your doctor if you observe: Fever of 101 or Higher, Inability to urinate, Inability to have a bowel movement, Shortness of breath, Chest pain, Uncontrolled pain Home Medications: Medications to take at Discharge Aspirin [Aspirin, Baby] 81 mg PO DAILY@0800 11/26/13 Atorvastatin Calcium [Lipitor] 40 mg PO QHS 11/26/13 traZODone [Desyrel] 100 mg PO QHS 11/26/13 Cholecalciferol (Vitamin D3) [Vitamin D3] 2,000 unit PO DAILY 02/21/17 levothyroxine 25 mcg capsule 50 mcg PO DAILY 10/31/18 vitamin B complex 1 tab PO DAILY 10/31/18 Acetaminophen [Tylenol] 1,000 mg PO Q6H PRN tab 11/18/20 Amiodarone HCl [Cordarone] 200 mg PO BID #60 tab 11/18/20 Baclofen [Lioresal] 10 mg PO QHS #30 tab 11/18/20 Furosemide [Lasix] 40 mg PO BID@1000,1800 #60 tab 11/18/20 Metoprolol Tartrate [Lopressor (beta vipin)] 12.5 mg PO BID #30 tab 11/18/20 Nystatin Powder [Mycostatin Powder] 1 applic TOPICAL BID@0600,2200 bottle 11/18/20 Pantoprazole Sodium [Protonix] 40 mg PO DAILY #30 tab 11/18/20 Potassium Chloride [K-Dur] 40 meq PO BIDCM #120 tab 11/18/20 Ticagrelor [Brilinta] 90 mg PO BID #60 tab 11/18/20 traMADol [Ultram] 50 mg PO BID PRN tab 11/18/20 Following Prescriptions Were Given to Patient: Ticagrelor [Brilinta] 90 mg PO BID #60 tab Transmission Status: [facility] Amiodarone HCl [Cordarone] 200 mg PO BID #60 tab Transmission Status: [facility] Potassium Chloride [K-Dur] 40 meq PO BIDCM #120 tab Transmission Status: [facility] Furosemide [Lasix] 40 mg PO BID@1000,1800 #60 tab Transmission Status: [facility] Baclofen [Lioresal] 10 mg PO QHS #30 tab Transmission Status: [facility] Metoprolol Tartrate [Lopressor (beta vipin)] 12.5 mg PO BID #30 tab Transmission Status: [facility] Pantoprazole Sodium [Protonix] 40 mg PO DAILY #30 tab Transmission Status: Pending to [facility]/pharmacy #4605 Primary Care Physician: Yonny Carballo Chi, MD [Primary Care Provider] - Please follow up with your Primary Care Physician in: 1 week. Please Follow Up With: Sage Norris MD When: 2-4 weeks Disposition: Home Minutes spent on discharge:: 30 Patient Condition:: Stable Medical Necessity - Tobacco Use Smoking Status: Light Smoker (<10/day) Tobacco Use: Vapor Meaningful Use Info Meaningful Use Diagnoses (Choose all that apply): None applicable
[2020-11-18 18:07] VITALS: PULSE 75
[2020-11-18] MEDS: Senna/Docusate Sodium 1 Tablet PO (18:10)
[2020-11-18] MEDS: traZODone 50 MG Tablet 100 MG PO (20:37)
[2020-11-18] MEDS: Atorvastatin Calcium 40 MG Tablet PO (20:38)
[2020-11-18] MEDS: Baclofen 10 MG Tablet PO (20:39)
[2020-11-19 03:57] VITALS: BP 121/63; PULSE 68; RESP 20; TEMP 36.3; O2SAT 99
--- NOTE | 2020-11-19 03:58 | NURSING ---
Patient has questions about plan of care meeting today and concerns with DME upon dc. Does not have home O2 and thinks she may need it at home. Instructed pt O2 at home may be beneficial short-term d/t decreased endurance and cardiac hx.
[2020-11-19] MEDS: Nystatin Powder 15gm Bottle 1 APPLIC TOPICAL ×2 (06:28→22:06)
[2020-11-19] MEDS: Pantoprazole Sodium 40 MG Tablet PO (06:29)
[2020-11-19] MEDS: Amiodarone 200 MG Tablet PO ×2 (06:29→17:31)
[2020-11-19] MEDS: Senna/Docusate Sodium 1 Tablet PO (06:29)
[2020-11-19] MEDS: TICAGRELOR 90 MG TABLET PO ×2 (06:29→17:31)
[2020-11-19 06:30] VITALS: BP 121/63; PULSE 68
[2020-11-19] MEDS: Metoprolol Tartrate 25 MG Tablet 12.5 MG PO ×2 (06:30→17:31)
[2020-11-19] MEDS: Cefdinir 300 MG Capsule PO ×2 (06:30→17:32)
[2020-11-19] MEDS: Levothyroxine 50 MCG Tablet PO (06:30)
[2020-11-19 06:34] VITALS: O2SAT 99
[2020-11-19] MEDS: Aspirin 81 MG TAB.CHEW PO (08:07)
[2020-11-19] MEDS: metroNIDAZOLE 500 MG Tablet PO ×3 (08:07→17:32)
[2020-11-19] MEDS: Vitamin B Comp W-C Capsule 1 CAP PO (08:08)
[2020-11-19] MEDS: Gabapentin 300 MG Capsule PO ×2 (09:09→17:32)
[2020-11-19] MEDS: Furosemide 40 MG Tablet PO ×2 (10:52→17:31)
--- NOTE | 2020-11-19 11:38 | CASEMGMT ---
Social Work IDT met with patient and dtr via conference call for care plan meeting. Discussed patient's progress in therapy and nursing. Pt is mod I for all ADLs, adlib in room with FWW. Pt uses 2-3L of O2. Pt is discharging home 2/5 with O2, FWW and [facility] PT. Pt expressed understanding. No other issues noted. Riddhi Mackay, MASTER SHEET CLERK APPOINTMENT SETTER
[2020-11-19] MEDS: traMADol 50 MG Tablet PO (11:46)
[2020-11-19 17:31] VITALS: BP 116/72; PULSE 72
--- NOTE | 2020-11-19 18:15 | NURSING ---
Pulse Ox home study completed Sitting with 97% o2 2L NC, Sitting 99% RA With Ambulating 83% RA.
[2020-11-19 18:23] VITALS: O2SAT 83; O2SAT 97; O2SAT 99
[2020-11-19] MEDS: traZODone 50 MG Tablet 100 MG PO (22:05)
[2020-11-19] MEDS: Atorvastatin Calcium 40 MG Tablet PO (22:06)
[2020-11-19] MEDS: Baclofen 10 MG Tablet PO (22:06)
[2020-11-20 06:19] VITALS: BP 120/73; PULSE 74
[2020-11-20] MEDS: Levothyroxine 50 MCG Tablet PO (06:19)
[2020-11-20] MEDS: Metoprolol Tartrate 25 MG Tablet 12.5 MG PO ×2 (06:19→16:45)
[2020-11-20] MEDS: Cefdinir 300 MG Capsule PO ×2 (06:19→16:45)
[2020-11-20] MEDS: Senna/Docusate Sodium 1 Tablet PO ×2 (06:20→16:45)
[2020-11-20] MEDS: Pantoprazole Sodium 40 MG Tablet PO (06:21)
[2020-11-20] MEDS: Amiodarone 200 MG Tablet PO ×2 (06:21→16:45)
[2020-11-20] MEDS: TICAGRELOR 90 MG TABLET PO ×2 (06:21→16:45)
[2020-11-20] MEDS: Nystatin Powder 15gm Bottle 1 APPLIC TOPICAL ×2 (06:22→21:05)
[2020-11-20 06:56] VITALS: BP 120/73; PULSE 74; RESP 18; TEMP 36.4; O2SAT 96
[2020-11-20 08:42] VITALS: O2SAT 97
[2020-11-20] MEDS: Aspirin 81 MG TAB.CHEW PO (09:03)
[2020-11-20] MEDS: Furosemide 40 MG Tablet PO ×2 (09:03→16:45)
[2020-11-20] MEDS: Vitamin B Comp W-C Capsule 1 CAP PO (09:03)
[2020-11-20] MEDS: metroNIDAZOLE 500 MG Tablet PO ×2 (09:04→11:26)
[2020-11-20] MEDS: Gabapentin 300 MG Capsule PO ×2 (09:04→16:45)
[2020-11-20] MEDS: traMADol 50 MG Tablet PO (11:34)
[2020-11-20 14:20] VITALS: BP 113/58; PULSE 74; RESP 16; TEMP 35.9; O2SAT 96
[2020-11-20 16:45] VITALS: PULSE 74
[2020-11-20] MEDS: Atorvastatin Calcium 40 MG Tablet PO (21:04)
[2020-11-20] MEDS: Baclofen 10 MG Tablet PO (22:22)
[2020-11-20] MEDS: traZODone 50 MG Tablet 100 MG PO (22:22)
[2020-11-21 05:48] LABS: Absolute Lymphocyte Count 2.91 X10^3/uL (0.83-4.51); Absolute Neutrophil Count 6.9 X10^3/uL (2.0-7.7); Basophil# 0.04 X10^3/uL; Basophil% 0.4 % (0-1); Eosinophil# 0.25 X10^3/uL; Eosinophils% 2.3 % (0-5); Hematocrit 38.8 % (37-47); Hemoglobin 11.8 g/dL (12.0-15.0); Lymphocyte # 2.91 X10^3/ul (4.0); Lymphocyte % 26.4 % (19-41); Mean Corp Hgb Conc 30.4 g/dL (32-36); Mean Corpuscular Hgb 29.5 pg (27.0-32.0); Mean Platelet Vol. 10.4 fl (6.2-12.0); Monocyte# 0.91 X10^3/uL; Monocyte% 8.2 % (0-10); NRBC Flagged by Analyzer 0 % (0-5); Neutrophil # 6.86 X10^3/uL (2.7-7.7); Neutrophil % 62.1 % (47-70); Platelet Count 435 K/mm3 (150-450); RBC Distribution Width CV 15.2 % (11.6-14.6); RBC Distribution Width SD 53.3 fl (35.1-43.9)
[2020-11-21 06:05] LABS: Anion Gap 4 (5-15); BUN 28 mg/dL (7-18); BUN/Creat Ratio 26.9 RATIO (10-20); Calcium,Total 10.1 mg/dL (8.5-10.1); Chloride 105 mmol/L (98-107); Creatinine, Serum 1.04 mg/dL (0.55-1.02); EST Glomerular Filtration Rate 56 mL/min (>60); Est Glom Filt Rate - Afr Amer 68 mL/min (>60); Estimated Creatinine Clearance 42.83 ml/min; Glucose 104 mg/dL (74-106); Potassium 4.2 mmol/L (3.5-5.1); Sodium Level 140 mmol/L (136-145)
[2020-11-21 06:11] VITALS: BP 102/41; PULSE 62; RESP 16; TEMP 36.3; O2SAT 94
[2020-11-21] MEDS: TICAGRELOR 90 MG TABLET PO (06:15)
[2020-11-21] MEDS: Pantoprazole Sodium 40 MG Tablet PO (06:15)
[2020-11-21 06:16] VITALS: BP 102/41; PULSE 62
[2020-11-21] MEDS: Levothyroxine 50 MCG Tablet PO (06:16)
[2020-11-21] MEDS: Nystatin Powder 15gm Bottle 1 APPLIC TOPICAL (06:16)
[2020-11-21] MEDS: Senna/Docusate Sodium 1 Tablet PO (06:16)
[2020-11-21] MEDS: Metoprolol Tartrate 25 MG Tablet 12.5 MG PO (06:16)
[2020-11-21] MEDS: Amiodarone 200 MG Tablet PO (06:16)
[2020-11-21] MEDS: Gabapentin 300 MG Capsule PO (08:03)
[2020-11-21] MEDS: Aspirin 81 MG TAB.CHEW PO (08:04)
[2020-11-21] MEDS: Vitamin B Comp W-C Capsule 1 CAP PO (08:04)
[2020-11-21] MEDS: Furosemide 40 MG Tablet PO (08:04)
[2020-11-21] MEDS: traMADol 50 MG Tablet PO (09:49)
[2020-11-21 09:55] VITALS: PULSE 68; RESP 18; O2SAT 97
--- NOTE | 2020-11-21 10:17 | NURSING ---
pt requesting about covid vaccine, spoke with PEDRO JordanU crisis manager & she signed pt up through health dept and they will call her for appt date/time. pt verbalized understanding.
--- NOTE | 2020-11-24 11:21 | MDS.RN ---
Information for the mds was obtained from review of the clinical record, interview of resident, staff, and direct observation of resident's care.
== END 2020-11-21 11:37 | disposition home or self-care (01) | DRG 280 ==
LOC: TCU 18:31
PROVIDERS: Admitting Provider Family Medicine Geriatric Medicine; PCP Family Medicine Geriatric Medicine; Visit Provider Family Medicine Geriatric Medicine
DX: I21.19 ST elevation (STEMI) myocardial infarction involving other coronary artery of inferior wall (principal); I50.31 Acute diastolic (congestive) heart failure; J18.9 Pneumonia, unspecified organism; I48.92 Unspecified atrial flutter; I25.10 Atherosclerotic heart disease of native coronary artery without angina pectoris; Z23 Encounter for immunization; E78.5 Hyperlipidemia, unspecified; I11.0 Hypertensive heart disease with heart failure; K21.9 Gastro-esophageal reflux disease without esophagitis; E03.9 Hypothyroidism, unspecified; E87.6 Hypokalemia; E55.9 Vitamin D deficiency, unspecified; M48.061 Spinal stenosis, lumbar region without neurogenic claudication; M99.02 Segmental and somatic dysfunction of thoracic region; M99.03 Segmental and somatic dysfunction of lumbar region; M99.05 Segmental and somatic dysfunction of pelvic region; M19.90 Unspecified osteoarthritis, unspecified site; F17.290 Nicotine dependence, other tobacco product, uncomplicated
CPT/HCPCS: 36415; 80048; 85025; 87426; 87635; 90732; 92523; 97110; 97116; 97162; 97166; 97530; 97535; 97802; 99406; G0009; U0005; U0003

== ENCOUNTER → 2020-12-15 06:38 | Outpatient (CLI) | payer MEDICARE, SELFPAY ==
[2020-12-05 11:07] VITALS: BMI 27.4
--- NOTE | 2020-12-15 12:52 | CR.HP_ITS ---
CR - History & Physical - General Arrival date:: 12/15/20 Arrival time:: 12:56 Date of Referral:: 12/05/20 Date of CR Evaluation:: 12/15/20 Referring Physician: Dr.Cyril Norris Primary Diagnosis: AMI within 12 months, PCI w/coronary stenting - History of Present Cardiac Event Onset Date: Enter Onset Date of cardiac illnesses in Comment field below Acute Myocardial Infarction within 12 months:: Yes - 11/07/2020 PTCA or coronary stenting:: Yes - 11/07/2020 Type of Symptoms:: Woke up around 2:30 am in the morning with chest pains. Interventions with present event:: Came in through emergency and direct to the heart entry level lab technician. Were there any complications?: none - Medications Home Medications: Ambulatory Orders Medication Instructions Recorded Aspirin [Aspirin, Baby] 81 mg PO DAILY@0800 11/26/13 Atorvastatin Calcium [Lipitor] 40 mg PO QHS 11/26/13 Cholecalciferol (Vitamin D3) 2,000 unit PO DAILY 02/21/17 [Vitamin D3] vitamin B complex 1 tab PO DAILY 10/31/18 Acetaminophen [Tylenol] 1,000 mg PO Q6H PRN tab 11/18/20 Baclofen [Lioresal] 10 mg PO QHS #30 tab 11/18/20 Metoprolol Tartrate [Lopressor 12.5 mg PO BID #30 tab 11/18/20 (beta vipin)] Pantoprazole Sodium [Protonix] 40 mg PO DAILY #30 tab 11/18/20 amiodarone 200 mg tablet 200 mg PO DAILY #90 tab 12/05/20 duloxetine 60 mg capsule,delayed 60 mg PO DAILY cap 12/05/20 release furosemide 40 mg tablet 40 mg PO DAILY #60 tab 12/05/20 gabapentin 300 mg capsule 300 mg PO BID cap 12/05/20 levothyroxine 50 mcg tablet 50 mcg PO DAILY tab 12/05/20 lorazepam 0.5 mg tablet 0.5 mg PO DAILY PRN 12/05/20 omeprazole 40 mg capsule,delayed 40 mg PO DAILY cap 12/05/20 release potassium chloride 20 mEq 40 meq PO DAILY #60 tab 12/05/20 tablet,extended release(part/cryst) trazodone 100 mg tablet 100 mg PO DAILY tab 12/05/20 clopidogrel 75 mg tablet 75 mg PO .COMPLEX #34 tab 12/15/20 - Allergies Allergies/Adverse Reactions: Allergies Penicillins Allergy (Verified 12/05/20 09:25) Rash - Sleep Disorder Evaluation Hx of Sleep Apnea: No Do you snore loudly (louder than talking or can be heard through closed doors)?: No Do you often feel tired/ fatigued/ sleepy during daytime?: Yes - get tired though the day but won't nap afraid she won't sleep that night. Has anyone observed you stop breathing during sleep?: No History of Hypertension (for STOP score): Yes STOP Results: Positive Advanced Directives - Advanced Directives Power of Filtering Machine Tender: Yes - Daughter Norma is POA for Healthcare Living Will: No Advance Directives Information Provided: No Advance Directives on File: No DNR Order?:: No - MOLST See MOLST form: No Past Medical History - Covid-19 Screening Fever: No - Has had first step of COVID-19 Moderna Vaccine Unexplained muscle aches: No Current respiratory symptoms: No Upper respiratory infections symptoms: No - Gastro-intestinal symptoms: Yes - H/O GERD Ypt-Dgdr-Wizizd symptoms: No Has tested positive for COVID-19 in last 30 days: No Had contact w/person w/symptoms or Covid-19 (+) last 14 days: No Has High Risk Exposures ID'd by Health dept/Inf Control team: No 65 years or older:: Yes Lives in Assisted Living facility:: No Has a chronic lung disease or moderate to severe asthma:: No Has a serious heart condition:: Yes Immunocompromised:: No Diabetic:: No Has chronic kidney disease undergoing dialysis:: No Has liver disease:: No - Past Medical Illness Medical History: Past Medical History (Last Reviewed 12/05/20 @ 11:[address] 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) Onset Date: 11/07/20 I25.2 Atrial flutter with rapid ventricular response (Resolved) Onset Date: 11/10/20 I48.92 Essential (primary) hypertension (Chronic) I10 Chronic diastolic heart failure (Chronic) I50.32 Hyperlipidemia (Chronic) E78.5 Ventricular tachycardia (Resolved) I47.2 Cardiogenic shock (Resolved) R57.0 Debility (Resolved) R53.81 Anxiety F41.9 Arthritis M19.90 Carotid stenosis I65.29 < 50% 2019 Depression F32.9 GERD (gastroesophageal reflux disease) K21.9 Hypothyroidism E03.9 Lumbar canal stenosis M48.06 Lumbar degenerative disc disease M51.36 Lumbar radiculopathy, chronic M54.16 Multiple thyroid nodules E04.2 Neuropathic pain M79.2 Rectal prolapse K62.3 Segmental and somatic dysfunction of lumbar region M99.03 Segmental and somatic dysfunction of pelvic region M99.05 Segmental and somatic dysfunction of thoracic region M99.02 Sigmoid diverticulitis K57.32 Skin lesions L98.9 - Past Surgical History Surgical History: Past Surgical History (Last Reviewed 12/05/20 @ 11:[address] 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 - Family History Summary Family History: Family History (Last Reviewed 12/05/20 @ 11:[address] Sage Norris MD) Other Arthritis CVA (cerebral vascular accident) Cancer Social History - Smoking History Smoking Status: Former smoker Years Smokin Packs Smoked per Day: 1.5 Hx Smoking Cessation Date: 11/07/20 Hx Tobacco Use: Yes Hx Smoking Exposure: No - Alcohol Use Alcohol Usage: No - Substance Abuse Hx Substance Use: No - Occupation Occupation (List type of work in comments):: Retired - Hobbies, Recreation, Social Activities Hobbies: Other - [place]ild[place], being isolated with COVID been very stressful. Recreational Activities: I am able to engage in a few activities Social Environment - Status Marital Status: - Current Living Arrangements Living Environment:: Alone - Children How many children do you have?: 3 Do any of your children live nearby?: Yes - Safety Do you feel safe in your surroundings?: Yes - Assistance Do you need any assistance at home?: none Review of Systems - Review of Systems Hints: Right click = Denies (Slash). Left click = Reports ([place]) Review of Present Symptoms: Reports: Shortness of Breath at Rest, Shortness of Breath with Exertion - got a little winded coming in from the parking lot today, Fatigue - sometimes, do not take naps becasue I'm afraid I wont sleep at night then., Heart Arrhythmia/Irregularities - unspecified atrial fluter, Appetite - Normal, Appetite - Special Diet, Sleep - Normal. Denies: Dizziness/Lightheadedness - Pain Is Patient Pain Free?: No Pain Location: none Pain Level: 0/10 Risk Factor Assessment - Chief Complaint Chief Complaint: 70 year old female presents to cardiac rehab today following recent AMI and PCI intervention. Patient has previous CAD and old OR. - Vital Signs Temperature: 97.3 F Respiratory Rate: 18 Pulse Ox: 97 Blood Pressure: 118/70 - Pulse Pulse Rate: 68 Pulse Rhythm: Regular - - Hypertension Blood Pressure Sitting - Left Arm: 118/70 - Blood Cholesterol/Lipids Total Cholesterol (mg/dL) Goal = less than 200 mg/dL: 150 HDL Cholesterol (mg/dL) Goal = less than 40 mg/dL: 47 LDL Cholesterol (mg/dL) Goal = less than 70 mg/dL: 116 Triglycerides (mg/dL) Goal = less than 150 mg/dL: 127 - Obesity Height: 5 ft 3 in Weight:: 155 lb Weight in Pounds: 155.0 lbs Weight Source: Stated by Patient Body Mass Index (BMI): 27.4 Nutritional Referral for Obesity: No - Physical Inactivity Physical Inactivity: Recreational activity - For Smoking Smoking Risk Guidelines: Smoking Low Risk: None or quit greater than 6 months ago. Smoking Moderate Risk: Smoker or quit 6 months or less ago. Smoking High Risk: Smoker - For Dyslipidemia Dyslipidemia Risk Guidelines: Low Risk: Moderate Risk: High Risk: 15-25% fat 25.1-29% fat >/= 30% fat. <7% sat fat 7-9% sat fat >9% sat fat. <150 mg chol 150-299 mg chol >/= 300 mg chol. LDL <100 LDL 100-129 LDL >/= 130. Chol/HDL ratio <5.0 Chol/HDL ratio 5.0-6.0 Chol/HDL ratio >6.0. Triglycerides <100 Triglycerides 100- 149 Triglycerides >/= 150 - For Diabetes Mellitus Diabetes Risk Guidelines: Diabetes Low Risk: HgA1c <6.5% and/or FBG <120. Diabetes Moderate Risk: HgA1c 6.6-7.9% and/or FBG 120-180. Diabetes High Risk: HgA1c >/= 8% and/or FBG >180 - For Obesity/Overweight Obesity/Overweight Risk Guidelines: Obesity Low Risk: BMI <25.0. Obesity Moderate Risk: BMI 25-29.9. Obesity High Risk: BMI >/= 30.0 - For Hypertension Hypertension Risk Guidelines: Hypertension Low Risk: Systolic <120 and Diastolic <80. Hypertension Moderate Risk: Systolic 120-139 and Diastolic 80-89. Hypertension High Risk: Systolic >/= 140 and Diastolic >/= 90 - For Sedentary Lifestyle Sedentary Lifestyle Risk Guidelines: Sedentary Lifestyle Low Risk: >/= 1,500 kcal/week. Sedentary Lifestyle Moderate Risk: 700-1,499 kcal/week. Sedentary Lifestyle High Risk: < 700 kcal/week - For Depression Depression Risk Guidelines: Depression Low Risk: Not clinically depressed. Depression Moderate Risk: Mildly depressed. Depression High Risk: Clinically depressed - Family History Family History: Family History (Last Reviewed 12/05/20 @ 11:[address] Sage Norris MD) Other Arthritis CVA (cerebral vascular accident) Cancer Motivation - Motivation to Participate On a scale of 1 to 10, how prepared are you to commit to attending program?: 10 What do you see as barriers to successfully being able to complete the program?: none What do you see as the benefits of succesfully completing the program? In other words, what do you hope to get out of participating in the program?: getting myself going again - healthier, more energy, feel better Are there issues you are dealing with that will interfere with completing the program?: none Do you have a spouse or signficant other, family or friends who will help sup port you to complete the program?: Yes
--- NOTE | 2020-12-15 12:52 | PCM.CR.ITP ---
Diagnosis - General Information Admitting Diagnosis: AMI, PCI w/coronary stenting Secondary Diagnosis: ASHD, Old PR, unspecified atrial flutter, hypertension, Chronic Diastolic congestive heart failure Personal Learning Style:: Audio/Visual, Written Barriers to Learning: Hearing Impairment, Vision Impairment Stage of change r/t lifestyle modifications:: Action Gave educational material for:: Treating Heart Disease, Emotions & Heart Disease, Stress Management & Relaxation, Sleep Disorders & Heart Disease, How The Heart Works, What it means to have Heart Disease, How Coronary Artery Disease is Diagnosed, Heart Procedures, What Heart Medications Do, Risk Factors & Modifications, Living an Active Life, Nutrition - Education/Goals Individual Counseling: Initial Assessment: Nicotine/Smoking, Abnormal Cholesterol Levels, High Blood Pressure, Overweight/Obesity - BMI 27 Cardiac Rehabilitation Goals: 1. Maintain the individual as the primary focus of care. 2. To improve the patient's quality of life. 3. Identification of cardiac risk factors and provide cardiac risk factor management. 4. Enhance the psychosocial status of the patient. 5. Reconditioning enough to allow the patient to resume customary activities. 6. Control symptoms of cardiac disease Personal Goals: Initial Assessment: Improve management of stress and emotions, Improve energy level, Participate in home exercise program, Get back to work, or to resume activities faster, Improve knowledge of cardiac disease, Improve muscle strength and endurance, Improve diet and eating habits (eat healthier), Control risk factors (learn risk factor modification) Scale for measuring improvement of personal goals: Enter appropriate number in Comments. 2 = Unchanged. 3 = Slightly Better. 4 = Moderate Improvement. 5 = Met my Goal - Diagnosis & Disease Process Outcomes/Goals: Pt IDs own risk factors & lifestyle modifications by Session 10, Verbalizes symptoms of angina & response by session 3., Pt independently manages Plan/Interventions: Assist Pt to ID & engage in lifestyle modification to reduce CVD risk, Instruct on individual risk factors, Review symptoms of angina & emergency actions, Review secondary diagnosis & identify educational needs. - Safety Referral to Physical Therapy: No Referral to [facility] Case Management: No Fall Risk Assessed:: Yes Assistive Devices:: None Exercise - Initial Assessment - Visit Date of Eval: 12/15/20 Session #:: 0 - pre-cardiac rehab Mets: Pre-: >5 METS for 30 minutes by discharge - Physician Prescribed Exercise Modalities: Treadmill, Airdyne, NuStep Frequency: 3x/week for 12 weeks [36 sessions] Intensity: 60-80% of age predicted maximum heart rate reserve Current METSs:: 2.0 Target Heart Rate:: 99-120 Resting Blood Pressure: 118/70 EKG Type: normal sinus rhythm - Outcomes & Goals Goals:: Verbalizes understanding of THR, RPE & goal METS by session 6, Documents in home exercise log/reports 30 min aerobic 5 day/wk by DC, Demonstrates accurate pulse taking by DC - Intervention & Plan Exercise Program Goals: Instruct on personal THR & RPE, Instruct on MET level & personal MET goal, Show patient to take own pulse /validate performance until accurate, Instruct on home exercise - Physical Activity Home Exercise Physical Activity - Home Exercise: Safe Exercise, Warm-up, Self-monitoring, Cool-Down, Home Exercise > 30 min Daily, Sitting Time <3 hours/daily - Outcomes & Goals Outcomes/Goals: Demonstrates correct Warm-up/exercise Cool-Down (S3) if = 2.5 METs, Verbalizes symptoms of exercise intolerance by Session 3 (S3), Demonstrate safe equipment use (S3) & follows exercise prescrition (6) - Intervention & Plan Plan/Intervention: Instruct warm-up & cool-down if exercising at > 2 METs, Instruct on symptoms of exercise intolerance & actions to take, Instruct & monitor on saf, Assess intial functional capacity & safety risk Nutrition - Initial Assessment - Program Goals Nutrition Program Goals: LDL <100 optimal. 100 - 129 Near optimal. 130 - 159 Borderline High. 160 - 189 High. Total Cholesterol <200 desirable. 200 - 239 Borderline High. >/= 240 High. HDL < 40 Low >/=60 High. Triglycerides <150 desirable. <199 optimal. VlDL 5 - 40. HgbA1C <7%. BMI <25 Patient has diagnosis of Hyperlipidemia (ICD E78)?: Yes - Visit Date of Assessment:: 12/15/20 Session #:: 0 - pre-cardiac rehab - Cholesterol/Lipids Triglycerides (mg/dL): 127 Total Cholesterol (mg/dL): 150 LDL Cholesterol (mg/dL): 116 HDL Cholesterol (mg/dL): 47 Determine presence & major risk factors that modify LDL goal: Cigarette smoking, Hypertension or hypertensive medication, Age men > 45 years; women >/= 55 years Outcomes/Goals: Pt IDs own risk factors & lifestyle modifications by Session 10, Verbalizes symptoms of angina & response by session 3., Pt independently manages Intervention/Plan: Instruct on personal lipid levels & lipid goals/NCEP guidelines, Instruct on cholesterol Referral to dietitian:: Yes - Diabetes (Other Core Measures) Diabetes Type: Not Applicable - Weight Mgt (Other Care) Not Applicable: Yes Height: 5 ft 3 in Weight:: 155 lb BMI: 27.4 Diagnosis Overweight/Obesity BMI> 30% ICD-10 E66: No Diagnosis High BMI/Morbid Obesity BMI> 35% ICD-10 Z68: No Outcomes/Goals: Pt sets, maintains & shows weight loss goal & trend during rehab Intervention/Plan: Instruct on ideal BMI & set weight loss goal w/patient, Assist pt to ID & incorporate diet changes for weight loss by S9 - Healthy Eating Habits Will attend diet classes:: Yes Outcomes/Goals:: Consume diet rich in vegs,fruits,whole grain/high fiber,fish,lean meat, Limit sat/trans fats,cholesterol & added salts & sugars Intervention/Plan:: Assess current eating habits Medical - Initial Assessment - Visit Date of Eval: 12/15/20 Session #:: 0 - pre-cardiac rehab eval - Medication Compliance Preventative Medication(s):: Aspirin, Ticagrelor/P2Y12 inhibitor, Statin/lipid, Beta vipin H/O mental health issues: depression, anxiety, or addiction?: No Doesn?t believe in the benefits of treatment?: No Believes medications are unnecessary or harmful?: No Has a concern about medication side effects?: No Expresses concern over the cost of medications?: No Outcomes/Goals: Verbalizes medications,desired effect & common side effects @ DC, Pt self-reports following medication regimen, Keeps card in wallet w/medications listed by DC Interventions/plans: Instruct on medication effects & side effects, Review medication list w/patient every two weeks, Instruct importance of taking meds as ordered & assist problem solving - Tobacco Use Tobacco Use: Cigarettes - recent quit was reportedly light smoker less than 10 per day/ How long ago did you quit using tobacco products?: Less than 6 months ago Do you use smokeless tobacco?: No Outcomes/Goals: Smoking cessation achieved or maintained by discharge, Identify aids/strategies for achieving smoking cessation by session 6 Interventions/plan: Instruct on effects of smoking & provide smoking cessation resource, Assist pt to set quit date & provide encouragement, Assist pt to develop strategies to achieve/maintain quit date, Assist pt w/nicotine replacement & medication for cessation success - Hypertension Hypertension Diagnosis:: Hypertension ICD-10 I10 Resting Blood Pressure:: 118/70 [place] [employer] Hypertension Guidelines: [place] [employer] Hypertension Guidelines. Normal BP Less than 120/80. Elevated BP 120/80. Hypertension Stage 1: BP 130-139/80-89. Hypertesnion Stage 2: BP 140 or higher/90 or higher. Hypertension Crisis: BP higher than 180/120 Outcomes/Goals: Able to verbalize/achieve optimal blood pressure <130/80, Incorporates diet changes & exercise for blood pressure control by DC Interventions/plan: Instruct on optimal blood pressure, hypertension & medications, Instruct on effects of sodium, alcohol, stress, exercise &hypertension - Tobacco Cessation Referral Smoking Cessation Referral:: Yes - Smoking cessation support Individual Education/Counseling:: Yes Education Schedule Given:: Yes Psychosocial - Initial Assess - VIsit Date of Eval: 12/15/20 Session #:: 0 - Pre-cardiac rehab Not Applicable: Yes History of previous Mental disease:: No - Target Goals Target Goals: Assess presence or absence of depression. Using a valid screening tool, maximizes coping skills. Positive support system - Psychosocial Test Tool Used:: Chrissy Issuu QOL Cardiac, PHQ-9 Questionnaire phq-9 Severity: Severity. 1-4 Minimal Depression. 5-9 Mild Depression. 10-14 Moderate Depression. 15-19 Moderately Sever Depression. 20-27 Severe Depression. Rule: - Referral to Behavioral Health PS - Interventions: Yes Attend Stress Management Classes, No Referral to Behavioral Health if PHQ-9 score >9:, No Referral to [facility], No Referral to Physician if PHQ-9 if score is 5-9: - Outcomes/Goals: See list Psychosocial Outcomes/Goals:: ID's personal stressors & 2 strategies to manage stress by discharge - Intervention/Plan: See List Interventions/Plan:: Assess stressors,coping strategies & signs of derpression on admission, Instruct/assist pt to develop coping & personal stress Mgt strategies, Instruct patient to recognize signs & symptoms of depression, Instruct patient to recog Patient Health Questionnaire Initial Assessment 1. Little interest or pleasure in doing things: Several days 2. Feeling down, depressed, or hopeless: Several days 3. Trouble falling or staying asleep, or sleeping too much: Not at all 4. Feeling tired or having little energy: Nearly every day 5. Poor appetite or overeating: Not at all 6. Feeling bad about yourself -- or that you are a failure or have let yourself or your family down: Several days 7. Trouble concentrating on things, such as reading the newspaper or watching television: Not at all 8. Moving or speaking so slowly that other people could have noticed. Or the opposite - being so fidgety or restless that you have been moving around a lot more than usual: More than half the days 9. Thoughts that you would be better off , or of hurting yourself in some way: Not at all How difficult have these problems made it for you to do your work, take care of things at home, or get along with other people?: Somewhat difficult Total Score: 8 OLIVIA-Q SV Test - Statements CAD is a disease of the arteries in the heart: False Examples of risk factors for heart disease: True Angina is chest pain or discomfort: I Don't Know The benefits of resistance training include: I Don't Know Eating more meat and dairy products: False Anti-platelet medications such as aspirin are important: True The only effective way to manage stress: True An exercise warm-up slowly increases heart rate: True Prepared, processed foods usually have high sodium: True Depression is common after a heart attack: True The statin medications lower cholesterol: True To control blood pressure, lower the amount of sodium: True If someone gets chest discomfort during walking: False Transfats are partially hydrogenated vegetable oils: I Don't Know Sleep apnea that is not treated increases the risk: True To control cholesterol, one should become a vegetarian: False Someone knows if he/she is exercising at the right level: I Don't Know Diabetes cannot be prevented with exercise & health eating: True Stress is a large risk for heart attack: True A diet that can help lower blood pressure is rich in: False - Total Score Total Correct Responses: 12 Self-Efficacy Initial Assessment We would like to know how confident you are in doing certain activities. Please select your confidence level for:: Select your confidence level for the following using the scale 1-10 where 1 is not at all confident and 10 is totally confident. Your score is the average of all 6 responses. Fatigue: How confident are you that you can keep the fatigue caused by your disease from interfering with the things you want to do? Select Number: 4 Physical Discomfort or Pain: How confident are you that you can keep the physical discomfort or pain of your disease from interfering with the things you want to do? Select Number: 4 Emotional Distress: How confident are you that you can keep the emotional distress caused by your disease from interfering with the things you want to do? Select Number: 7 Other Symptoms or Health Problems: How confident are you that you can keep other symptoms or health problems from interfering with the things you want to do? Select Number: 5 Different Tasks and Activities: How confident are you that you can do the different tasks and activities needed to manage your health condition so as to reduce your need to see a doctor? Select Number: 9 Medication: How confident are you that you can do things other than just taking medication to reduce how much your illness affects your everyday life? Nutrition Survey - Nutrition Survey Instructions Scoring Instructions: Scoring is as follows: Yes = 1 points. No = 0 point. Patient score that is >/=12 is considered to be at potential nutritional risk and could benefit from a referral to a registered dietitian. - Nutrition Survey Initial Have you lost >10 lbs over the past 2 months without trying?: No Are you following a special diet at home for diabetes, low fat, or low salt?: No Are you interested in meeting with a dietitian for help understanding your diet?: No Do you eat less than 3 meals a day?: No Do you eat fatty meats ([place], sausage, ribs, etc), fried foods, desserts, large amounts of salad dressings, margarine, butter, or cheese most days?: No Do you have food allergies? [Enter types in comment field]: No Do you eat in restaurants more than 3 times a week?: No Do you season food with salt, seasoning salt, or garlic salt?: No Do you used canned, boxed, frozen meals, or soups, seasoning packets?: Yes Total Score:: 1
[2020-12-15 13:12] VITALS: BP 118/70; BMI 27.4
[2020-12-15 13:27] VITALS: BP 118/70; PULSE 68; RESP 18; TEMP 36.3; O2SAT 97; BMI 27.4
== END ==
PROVIDERS: PCP Family Medicine Geriatric Medicine; Referring Provider Internal Medicine Cardiovascular Disease; Visit Provider Internal Medicine Cardiovascular Disease
DX: Z95.5 Presence of coronary angioplasty implant and graft (principal)

== ENCOUNTER 2020-12-19 13:00 | Outpatient (RCR) | payer MEDICARE, SELFPAY ==
--- NOTE | 2020-12-02 12:59 | HP.OTEVAL_ITS ---
Patient's Visit Information CLARA RAYMUNDO is a 70 year old F, referred to Occupational Therapy by Dr. Yonny Carballo MD, with a diagnosis of Debility, STEMI. Date of Evaluation: 12/02/20 Occupational Therapist: Ju Sanderson, TAMMY/Nasim, CHT - Subjective This 70 year old female was seen for OT eval with dx debility. Pt states she had a heart attack 2020. pt states she did have UTI during her hospital stay of 16 days. pt states she returned home 2020. and went to see her Family Dr. Carballo on 11/26/20. Her family made referral for PT and OT. pt states she will see her cardiac dr. 12/05/20. pt states she feels tired. pt states has difficulty with energy to complete daily activities as washing the dishes, bathing and meal prep. pt would like her energy level to return. pt drives ind. family is assisting with grocery shopping and cleaning. pt states she typically can mtg her self care and home mtg. activities. - ADLs Comments: pt lives in mobile home with 4 entry with one handrail. pt states she can mtg the steps. Pt states she has a small dog she cares for. pt has ramp but she uses steps. pt states she lives alonge. has a tub shower with shower chair, long handled shower head and grab bars. pt using ww with ambulation. pt states prior to her heart attack she did all her home mtg, shopping, cleaning, cooking and driving ind. pt states she would watch her grandchildren ages ( 10, 8, 6, 3, 1) pt states she did mow her own yard work. - ROM ROM Comments: pt demo BUE WNL - Strength Shoulder: right 4/5 left 4/5 Elbow: right 4/5 left 4/5 Folded Towel Machine Operator: right 45# left 40# pt is left handed Lateral Pinch: right 8# left 1# pt demo with thumb instability during pinch (arthritis) Tripod Pinch: NT - Quick DASH-Disab of Arm,Shoulder& Hand Quick DASH Score: 29.5450 - Goals Goal:: pt will demo a increase in BUE MMT 4+/5 to increase pts ind. with ADls and IADLS by d/c. pt will demo increase in good dynamic standing balance/endurance for greater than 10 min while performing simulated cleaning/laundry tasks by d/c Goal:: pt will report she is able to dress herself ind. following her bathing by d/c - Rehabilitation General Assessment: pt demo with a decline in her ind. with ADLs and IADls. pt would benefit from skilled OT services 2-3x week for 4 weeks to increase her strength and endurance for pt to perform ADLs and IADLs at safe functional level . pt demo understanding and agrees to POC. Rehabilitation Potential: Good - Anticipated Interventions Strengthening, Joint Protection/Energy Conservation, Education re assistive Equipment - Visit Plan Frequency: 2-3x /Week Duration: 4 Weeks General Plan: initiate a PRE or isometric ex program to increase pts strength and endurance. TEXT: Thank you for the opportunity to evaluate your patient. For Medicare and Medicare HMO plans, please review the plan of care and approve it. It will need to be FAXED BACK to us at [phone] for Medicare purposes. Please let me know if there are questions or concerns regarding this plan of care. Physician Signature: Date:
--- NOTE | 2020-12-05 10:29 | HP.PTEVAL ---
Patient's Visit Information CLARA RAYMUNDO is a 70 year old F referred to Physical Therapy by Dr. Yonny Carballo MD with a diagnosis of DEBILITY. Date of Evaluation: 11/25/20 Physical Therapist: Radha Washington PT, Cert MDT - Visit Plan Frequency: 2-3x /Week Duration: 4-6 Weeks Plan: GAIT AND BALANCE TRAINING. ENDURANCE TRAINING. GENERAL JANE UE AND LE ROM, STRETCHING AND STRENGTHENING TO HELP MEET SET GOALS. PATIENT IS ALSO IN OCCUPATIONAL THERAPY. - Subjective Work/Leisure: RETIRED. Present symptoms: WEAKNESS. CHRONIC LOW BACK PAIN. I AM SO TIRED I CAN HARDLY MOVE. I WAKE UP TIRED. Present since: NOV 07 2020 - HEART ATTACK. ALSO GOT PNEUMONIA IN THE HOSPITAL. Pain Scale: WORST 9/10, LEAST 2/10. Currently: 4/10. Commenced as a result of: WEAKNESS IS FROM HEART ATTACK. Symptoms at onset: CHEST PAIN WOKE HER UP. Worse: BENDING, LIFTING. Better: ICE, SHOTS FROM DR. CARBALLO A FEW TIMES A YEAR. TWO SHOTS IN THE HOSPITAL. Disturbed sleep: NO - TAKES MEDICATION. Previous history/Previous treatment: UNREMARKABLE FOR HEART HISTORY. CHRONIC LBP - SOME HISTORY OF PAIN MGMT. NO BACK SURGERY. HAS HAD PT FOR LOW BACK. Gait: PATIENT REPORTS SHE CAN WALK AROUND HER TRAILER WELL WITHOUT HER WALKER FOR THE MOST PART. IF SHE WALKS DOWN THE HALLWAY SHE DOES USE THE WALKER (FWW). THIS IS THE FIRST TIME SHE HAS LEFT HER HOME AND SHE WALKED INTO [facility] WITH HER FWW. DENIES FEELING LIKE SHE IS GOING TO FALL. Difficulty initiating urinatin: NO. Accidents: NO. Unexplained weight loss: NO. Imaging: NONE RECENT. PMH: SEE HISTORY BELOW. HX OF L FOOT INJURY. Recent major surgery: HAD HEART STENT PLACED 11/07/20 - DAY OF HEART ATTACK. OTHER: IN THE HOSPITAL/TCU 14 DAYS TOTAL - D/C'D TO HOME 11/22/20. PLOF (Prior Level of Function): UNLIMITED EXCEPT DUE TO BACK PAIN. LIVES ALONE. PRIOR TO [place] WAS DRIVING, DOING YARD WORK, COOKING, CLEANING, AND ALL ADL'S. OTHER: WEAING 2 L OF O2 ALL THE TIME CURRENTLY. - Objective Sitting/Standing Posture: POOR. VERY SLOUCHED THROUGHOUT SESSION. Lordosis: REDUCED. Lateral shift: NO. Relevant shift: N/A. Active Correction of posture: NE BUT FATIGUES EASILY. Other Observations: THIS PATIENT WAS BROUGHT BACK TO PT IN A W/C WITH O2 TANK. SHE IS UE DEPENDENT TO TRANSFER FROM SIT TO STAND AND REVERSE BUT ABLE TO PERFORM INDEP'LY. INDEP GAIT WITH FWW X APPROX 25 FEET DEMO'D WITH SLOW CADANCE, DECREASED JANE STRIDE LENGTH AND INCREASED TRUNK FLEXION. STANDING STATIC BALANCE IS GOOD. DYNAMIC BALANCE IS FAIR BUT HER BIGGEST PROBLEM WITH GAIT IS FATIGUE. Motor deficit: JANE UE AND LE STRENGTH IS GROSSLY 4/5 WITH MMT'ING. ROM deficit: JANE UE AND LE ROM WFL. Lumbar mvmt loss: flex - MOD. ext - MOISÉS. R SG - MOD. L SG - MOD. Core strength: POOR. Palpation: MILD LOW BACK TENDERNESS. TREATMENT: NEUROMUSCULAR REEDUCATION - RETRAINING OF MVMT AND POSTURE FOR SITTING, LYING AND STANDING ACTIVITIES. - Goals Goal 1:: PATIENT WILL BE INDEP AND SAFE WITH GAIT COMMUNITY DISTANCES WITH LEAST ASSISTIVE DEVICE Goal Time Frame: 6-8 Weeks Goal 2:: INCREASE FUNCTIONAL JANE UE AND LE STRENGTH TO EASE ADL'S Goal Time Frame: 6-8 Weeks Goal 3:: IMPROVE ENDURANCE TO EASE ADL'S Goal Time Frame: 6-8 Weeks Goal 4:: PATIETN WILL BE INDEP WITH A HEP FOR CONTINUED IMPROVEMENT ONCE FORMAL PHYSICAL THERAPY CONCLUDES. Goal Time Frame: 6-8 Weeks - Anticipated Interventions Patient/Client Instruction: Educate patient on: Condition, Plan of Care, Risk Factors, Benefits of Fitness Program For the Purpose of:: To improve self management Therapeutic Exercise to Include: Strength training, Endurance training, Balance training, Body mechanics, Postural training, Flexibilty training, Gait and locomotor training, Neuromotor development, Dynamic Lumbar Stabilization For the Purpose of:: To decrease pain, To increase ROM, To improve muscle performance and motor function, To increase tolerance to activity/condition/position, To improve ability of physical actions for home/community/work/leisure, To improve gait and locomotor functions, To improve endurance, To improve balance, To improve safety with gait Thank you for the opportunity to evaluate your patient. For Medicare and Medicare HMO plans, please review the plan of care and approve it. It will need to be FAXED BACK to us at [phone] for Medicare purposes. For Medicare only, by signing this I certify the plan of care. Please let me know if there are questions or concerns regarding this plan of care. Physician Signature: Date:
--- NOTE | 2020-12-19 13:48 | HP.PTDCSUM_ITS ---
It has been my pleasure to treat CLARA RAYMUNDO referred by Dr. Yonny Carballo MD, with the diagnosis of DEBILITY for a total of 5 visit(s). Discharge Date: 12/19/20 Please see the following information for a summary of their discharge status. Subjective: PATIENT REPORTS SHE IS NO LONGER USING OXYGEN AT HOME AND SHE IS NO LONGER USING ANY ASSISTIVE DEVICES. SHE REPORTS HER LOW PAIN IS GETTING BETTER. HER LOW BACK PAIN STILL GETS UP TO 7/10 PAIN WITH THINGS LIKE TRYING TO SWEEP BUT OVER-ALL HER BACK PAIN IS A LOT BETTER NOW THAN WHEN SHE GOT OUT OF REHAB. CARDIAC REHAB STARTS TUESDAY 3 DAYS A WEEK AND SHE IS LOOKING FORWARD TO IT. PATIENT REPORTS SHE JUST WANTS TO DO CARDIAC REHAB AT THIS POINT BECAUSE OUT- PATIENT THERAPY IN ADDITION TO THAT WILL BE TOO MUCH FOR HER AND CARDIAC REHAB TOLD HER THAT IS OK. % Improvement: 75 Objective/Function: PATIENT WAS SEEN TODAY FOR RE-ASSESSMENT OF PROGRESS TOWARD THE SET PT GOALS AND THE NEED FOR FURTHER PHYSICAL THERAPY VS READINESS FOR DISCHARGE. SHE IS MAKING GOOD PROGRESS TOWARD ALL PT GOALS BUT STILL FATIGUES VERY EASILY AND WILL BE STARTING CARDIAC REHAB NEXT WEEK. SHE IS APPROPRIATE FOR DISCHARGE FROM PT AT THIS TIME BUT MAY BE A GOOD CANDIDATE TO RETURN TO OUTPATIENT PT WHEN CARDIAC REHAB CONCLUDES. PATEINT IS AGREEABLE. UPON EXAM TODAY: Motor deficit: JANE UE AND LE STRENGTH IS GROSSLY 5/5 WITH MMT'ING EXCEPT SHLD'S AND HIPS 4/5. ROM deficit: JANE UE AND LE ROM WFL. Lumbar mvmt loss: flex - NIL. ext - MOISÉS. R SG - MOD. L SG - MOD. Core strength: POOR. Palpation: NO ACUTE LUMBAR TENDERNESS. Goal 1:: PATIENT WILL BE INDEP AND SAFE WITH GAIT COMMUNITY DISTANCES WITH LEAST ASSISTIVE DEVICE Goal Progress: Progressing Goal 2:: INCREASE FUNCTIONAL JANE UE AND LE STRENGTH TO EASE ADL'S Goal Progress: Progressing Goal 3:: IMPROVE ENDURANCE TO EASE ADL'S Goal Progress: Progressing Goal 4:: PATIETN WILL BE INDEP WITH A HEP FOR CONTINUED IMPROVEMENT ONCE FORMAL PHYSICAL THERAPY CONCLUDES. Goal Progress: Progressing Plan: D/C TO CARDIAC REHAB. PATIENT IS AGREEABLE. If there are questions or concerns regarding this patient's physical therapy, please feel free to call me at [phone]. Thank you for the referral of this patient. Sincerely, Radha A Cross, PT, Cert MDT
== END 2020-12-19 19:00 | disposition home or self-care (01) ==
LOC: PT 13:00
PROVIDERS: PCP Family Medicine Geriatric Medicine; Referring Provider Family Medicine Geriatric Medicine; Visit Provider Family Medicine Geriatric Medicine
DX: I25.2 Old myocardial infarction (principal)
CPT/HCPCS: 97110; 97162; 97164; 97166; 97530

== ENCOUNTER → 2020-12-26 13:24 | Outpatient (CLI) | payer MEDICARE, SELFPAY ==
[2020-12-15 13:12] VITALS: BMI 27.4
[2020-12-15 13:27] VITALS: BMI 27.4
--- NOTE | 2020-12-26 13:32 | RAD_ITS ---
INDICATION: Shortness of breath EXAMINATION/TECHNIQUE: X-RAY - XR Chest 2 Views COMPARISON: 11/11/2020. FINDINGS: The lungs are clear. Tortuous and calcified thoracic aorta. The heart is not enlarged. No pleural effusion or pneumothorax. Degenerative changes of the thoracic spine. RAD/Chest PA and Lateral IMPRESSION: No acute radiographic abnormalities. Electronically Signed: Paul Forbes MD at 21:42 EST Tel , Service support ,
[2020-12-26 15:41] LABS: Hematocrit 40.6 % (37-47); Hemoglobin 12.4 g/dL (12.0-15.0); Mean Corp Hgb Conc 30.5 g/dL (32-36); Mean Corpuscular Hgb 30.2 pg (27.0-32.0); Mean Corpuscular Volume 98.8 fL (81-99); Platelet Count 244 K/mm3 (150-450); RBC Distribution Width CV 16.1 % (11.6-14.6); RBC Distribution Width SD 58.7 fl (35.1-43.9); Red Blood Count 4.11 M/mm3 (4.2-5.4); White Blood Count 9.7 K/mm3 (4.4-11.0)
[2020-12-26 15:55] LABS: Anion Gap 6 (5-15); BUN 25 mg/dL (7-18); BUN/Creat Ratio 22.9 RATIO (10-20); Calcium,Total 9.8 mg/dL (8.5-10.1); Chloride 107 mmol/L (98-107); Creatinine, Serum 1.09 mg/dL (0.55-1.02); EST Glomerular Filtration Rate 53 mL/min (>60); Est Glom Filt Rate - Afr Amer 64 mL/min (>60); Glucose 107 mg/dL (74-106); Potassium 4.2 mmol/L (3.5-5.1); Sodium Level 141 mmol/L (136-145)
[2020-12-26 15:57] LABS: BNP,B-Type NATRIURETIC PEPTIDE 298.8 pg/mL (0-100)
== END ==
PROVIDERS: PCP Family Medicine Geriatric Medicine; Referring Provider Nurse Practitioner Family; Visit Provider Nurse Practitioner Family
DX: I25.10 Atherosclerotic heart disease of native coronary artery without angina pectoris (principal); I11.0 Hypertensive heart disease with heart failure; I50.32 Chronic diastolic (congestive) heart failure; R06.02 Shortness of breath; R57.0 Cardiogenic shock; Z95.5 Presence of coronary angioplasty implant and graft; R06.00 Dyspnea, unspecified
CPT/HCPCS: 36415; 71046; 80048; 83880; 85027

== ENCOUNTER 2021-01-14 13:00 | Outpatient (RCR) | payer MEDICARE, SELFPAY ==
[2020-12-15 13:12] VITALS: BMI 27.4
[2020-12-15 13:27] VITALS: BMI 27.4
[2021-01-12 15:59] LABS: Anion Gap 4 (5-15); BUN 19 mg/dL (7-18); BUN/Creat Ratio 16.2 RATIO (10-20); Calcium,Total 9.9 mg/dL (8.5-10.1); Chloride 105 mmol/L (98-107); Creatinine, Serum 1.17 mg/dL (0.55-1.02); EST Glomerular Filtration Rate 49 mL/min (>60); Est Glom Filt Rate - Afr Amer 59 mL/min (>60); Glucose 82 mg/dL (74-106); Potassium 4.5 mmol/L (3.5-5.1); Sodium Level 139 mmol/L (136-145)
== END 2021-01-14 23:59 ==
LOC: CR 13:00
PROVIDERS: PCP Family Medicine Geriatric Medicine; Referring Provider Internal Medicine Cardiovascular Disease; Visit Provider Internal Medicine Cardiovascular Disease
DX: I25.10 Atherosclerotic heart disease of native coronary artery without angina pectoris (principal); I50.32 Chronic diastolic (congestive) heart failure; Z95.5 Presence of coronary angioplasty implant and graft; G93.40 Encephalopathy, unspecified; I25.2 Old myocardial infarction; I48.92 Unspecified atrial flutter; I11.0 Hypertensive heart disease with heart failure
CPT/HCPCS: 36415; 80048; 93798

== ENCOUNTER → 2021-01-30 15:25 | Outpatient (CLI) | payer MEDICARE, SELFPAY ==
[2020-12-15 13:27] VITALS: BMI 27.4
[2021-01-19 07:33] VITALS: BMI 30.4
--- NOTE | 2021-01-30 15:47 | MRI_ITS ---
STUDY: MRI LUMBAR SPINE WITHOUT CONTRAST REASON FOR EXAM: Female, 70 years old. SPINAL STENOSIS TECHNIQUE: Standardized fat and water weighted pulse sequences were obtained in the sagittal and axial planes. was administered for the contrast portion of the examination. COMPARISON: Plain films 01 June 2019 FINDINGS: T12-L1: Normal endplates. Normal disc height, hydration and morphology. Normal bilateral facet joints. Normal central canal and bilateral lateral recesses. Normal bilateral intervertebral neural foramina. Normal lumbar lordosis. There is no substantial scoliosis. L4 is displaced anteriorly on L5 by approximately 4 mm. The rest of the spine is aligned. Normal conus medullaris that terminates at the T12 level. L1-2: Normal endplates. Normal disc height, hydration and morphology. Normal bilateral facet joints. Normal central canal and bilateral lateral recesses. Normal bilateral intervertebral neural foramina. L2-3: Normal for age endplates. Normal disc height, hydration and morphology. Normal bilateral facet joints. Normal central canal and bilateral lateral recesses. Normal bilateral intervertebral neural foramina. L3-4: Normal for age endplates. Normal disc height, hydration and morphology. Normal bilateral facet joints. Normal central canal and bilateral lateral recesses. Normal bilateral intervertebral neural foramina. L4-5: Normal for age endplates. Decreased disc height, heterogeneous hydration and degenerative morphology. Normal bilateral facet joints. Mildly stenotic central canal with patent thecal sac and bilateral lateral recesses. Foramina are moderately stenotic bilaterally. L5-S1: Normal for age endplates. Decreased disc height, hydration and morphology. Normal bilateral facet joints. Normal central canal and bilateral lateral recesses. Moderate bilateral foraminal stenosis. Normal visualized sacral ala. Normal visualized paraspinous soft tissue structures. MRI/Spine Lumbar (Routine) IMPRESSION: 1. L4-L5 grade 1 spondylotic anterolisthesis. 2. Bilateral L4-L5 and L5-S1 moderate foraminal stenosis. 3. Patent thecal sac. Electronically Signed: Enmanuel Alcaraz MD at 19:44 EDT Tel , Service support ,
== END ==
LOC: MRI 15:30
PROVIDERS: PCP Family Medicine Geriatric Medicine; Visit Provider Family Medicine Geriatric Medicine
DX: M48.061 Spinal stenosis, lumbar region without neurogenic claudication (principal)
CPT/HCPCS: 72148

== ENCOUNTER → 2021-02-04 12:20 | Outpatient (CLI) | payer MEDICARE, SELFPAY ==
[2021-01-19 07:33] VITALS: BMI 30.4
[2021-02-04 11:26] VITALS: BMI 31.8
[2021-02-04 13:44] LABS: Anion Gap 3 (5-15); BUN 29 mg/dL (7-18); BUN/Creat Ratio 29.6 RATIO (10-20); Calcium,Total 9.9 mg/dL (8.5-10.1); Chloride 105 mmol/L (98-107); Creatinine, Serum 0.98 mg/dL (0.55-1.02); EST Glomerular Filtration Rate 60 mL/min (>60); Est Glom Filt Rate - Afr Amer 73 mL/min (>60); Glucose 170 mg/dL (74-106); Potassium 4.1 mmol/L (3.5-5.1); Sodium Level 139 mmol/L (136-145)
[2021-02-04 13:46] LABS: BNP,B-Type NATRIURETIC PEPTIDE 331.9 pg/mL (0-100)
== END ==
PROVIDERS: PCP Family Medicine Geriatric Medicine; Referring Provider Physician Assistant Medical; Visit Provider Physician Assistant Medical
DX: I25.10 Atherosclerotic heart disease of native coronary artery without angina pectoris (principal); I11.0 Hypertensive heart disease with heart failure; I50.32 Chronic diastolic (congestive) heart failure; R06.00 Dyspnea, unspecified
CPT/HCPCS: 36415; 80048; 83880

== ENCOUNTER → 2021-02-09 13:31 | Outpatient (CLI) | payer MEDICARE, SELFPAY ==
[2021-01-19 07:33] VITALS: BMI 30.4
[2021-02-04 11:26] VITALS: BMI 31.8
[2021-02-09 15:55] LABS: Anion Gap 8 (5-15); BUN 34 mg/dL (7-18); BUN/Creat Ratio 30.4 RATIO (10-20); Calcium,Total 9.8 mg/dL (8.5-10.1); Chloride 99 mmol/L (98-107); Creatinine, Serum 1.12 mg/dL (0.55-1.02); EST Glomerular Filtration Rate 51 mL/min (>60); Est Glom Filt Rate - Afr Amer 62 mL/min (>60); Glucose 71 mg/dL (74-106); Potassium 4.2 mmol/L (3.5-5.1); Sodium Level 139 mmol/L (136-145)
== END ==
PROVIDERS: PCP Family Medicine Geriatric Medicine; Referring Provider Physician Assistant Medical; Visit Provider Physician Assistant Medical
DX: I11.0 Hypertensive heart disease with heart failure (principal); I50.32 Chronic diastolic (congestive) heart failure; I25.10 Atherosclerotic heart disease of native coronary artery without angina pectoris; I48.92 Unspecified atrial flutter; I25.2 Old myocardial infarction; G93.40 Encephalopathy, unspecified; Z95.5 Presence of coronary angioplasty implant and graft
CPT/HCPCS: 36415; 80048; 93798

== ENCOUNTER 2021-02-11 13:00 | Outpatient (RCR) | payer MEDICARE, SELFPAY ==
[2020-12-15 13:12] VITALS: BMI 27.4
[2020-12-15 13:27] VITALS: BMI 27.4
--- NOTE | 2021-01-19 07:28 | CR.ITP_ITS ---
Exercise - 30-day Assessment - Visit Date of Eval: 01/19/21 Session #:: 11 - Physician Prescribed Exercise Modalities: Treadmill, Airdyne, NuStep, SciFit Frequency: 3x/week for 12 weeks [36 sessions] Intensity: 60-80% of age predicted maximum heart rate reserve Current METSs:: 3.5 Target Heart Rate:: 99-120 Current RPE:: 11 Maximum Excercise HR:: 91 Resting Blood Pressure: 136/66 Maximum Exercise Blood Pressure: 138/72 EKG Type: NSR without ectopy. - Outcomes & Goals Goals:: Verbalizes understanding of THR, RPE & goal METS by session 6, Documents in home exercise log/reports 30 min aerobic 5 day/wk by DC, Demonstrates accurate pulse taking by DC - Intervention & Plan Exercise Program Goals: Instruct on personal THR & RPE, Instruct on MET level & personal MET goal, Show patient to take own pulse /validate performance until accurate, Instruct on home exercise - 30-day Reassessments 30 day Reassessments:: Progressing - Physical Activity Home Exercise Physical Activity - Home Exercise: Safe Exercise, Warm-up, Self-monitoring, Cool-Down, Home Exercise > 30 min Daily, Sitting Time <3 hours/daily - Outcomes & Goals Outcomes/Goals: Demonstrates correct Warm-up/exercise Cool-Down (S3) if = 2.5 METs, Verbalizes symptoms of exercise intolerance by Session 3 (S3), Demonstrate safe equipment use (S3) & follows exercise prescrition (6) - Intervention & Plan Plan/Intervention: Instruct warm-up & cool-down if exercising at > 2 METs, Instruct on symptoms of exercise intolerance & actions to take, Instruct & monitor on saf, Assess intial functional capacity & safety risk - 30-day Reassessments 30 day Reassessments:: Progressing Nutrition - 30-Day Assessment - Program Goals Nutrition Program Goals: LDL <100 optimal. 100 - 129 Near optimal. 130 - 159 Borderline High. 160 - 189 High. Total Cholesterol <200 desirable. 200 - 239 Borderline High. >/= 240 High. HDL < 40 Low >/=60 High. Triglycerides <150 desirable. <199 optimal. VlDL 5 - 40. HgbA1C <7%. BMI <25 Patient has diagnosis of Hyperlipidemia (ICD E78)?: Yes - Visit Date of Assessment:: 01/19/21 Session #:: 11 - Cholesterol/Lipids Triglycerides (mg/dL): 127 Total Cholesterol (mg/dL): 188 LDL Cholesterol (mg/dL): 116 HDL Cholesterol (mg/dL): 47 Determine presence & major risk factors that modify LDL goal: Hypertension or hypertensive medication, Family history of premature CHD in Male < 55 years: female <65 yearsFa, Age men > 45 years; women >/= 55 years Outcomes/Goals: Pt IDs own risk factors & lifestyle modifications by Session 10, Verbalizes symptoms of angina & response by session 3., Pt independently manages Intervention/Plan: Instruct on personal lipid levels & lipid goals/NCEP guidelines, Instruct on cholesterol Referral to dietitian:: Yes 30-day Reassessments:: Progressing - Diabetes (Other Core Measures) Diabetes Type: Not Applicable - Weight Mgt (Other Care) Not Applicable: No Height: 5 ft 3 in Weight:: 171 lb 8 oz BMI: 30.4 Diagnosis Overweight/Obesity BMI> 30% ICD-10 E66: Yes Diagnosis High BMI/Morbid Obesity BMI> 35% ICD-10 Z68: No Outcomes/Goals: Pt sets, maintains & shows weight loss goal & trend during rehab Intervention/Plan: Instruct on ideal BMI & set weight loss goal w/patient, Assist pt to ID & incorporate diet changes for weight loss by S9, Refer to Structured Weight Loss program as appropriate, Encourage goal of using 250- 300dcal per session for weight loss 30 day Reassessments:: Progressing - Healthy Eating Habits Will attend diet classes:: Yes Outcomes/Goals:: Consume diet rich in vegs,fruits,whole grain/high fiber,fish,lean meat, Limit sat/trans fats,cholesterol & added salts & sugars Intervention/Plan:: Assess current eating habits 30-day Reassessments:: Progressing Medical- 30-Day Assessment - Visit Date of Eval: 01/19/21 Session #:: 11 - Medication Compliance Preventative Medication(s):: Ticagrelor/P2Y12 inhibitor, Statin/lipid, Beta vipin H/O mental health issues: depression, anxiety, or addiction?: No Doesn?t believe in the benefits of treatment?: No Believes medications are unnecessary or harmful?: No Has a concern about medication side effects?: No Expresses concern over the cost of medications?: No Outcomes/Goals: Verbalizes medications,desired effect & common side effects @ DC, Pt self-reports following medication regimen, Keeps card in wallet w/medications listed by DC Interventions/plans: Instruct on medication effects & side effects, Review medication list w/patient every two weeks, Instruct importance of taking meds as ordered & assist problem solving 30-day Reassessments:: Progressing - Tobacco Use Tobacco Use: Cigarettes How many cigarettes do you smoke per day?: 10 Do you use smokeless tobacco?: No Outcomes/Goals: Smoking cessation achieved or maintained by discharge, Identify aids/strategies for achieving smoking cessation by session 6 Interventions/plan: Instruct on effects of smoking & provide smoking cessation resource, Assist pt to set quit date & provide encouragement, Assist pt to develop strategies to achieve/maintain quit date, Assist pt w/nicotine replacement & medication for cessation success 30-day Reassessments:: Progressing - Hypertension Hypertension Diagnosis:: Hypertension ICD-10 I10 Resting Blood Pressure:: 136/66 [place] [employer] Hypertension Guidelines: [place] [employer] Hypertension Guidelines. Normal BP Less than 120/80. Elevated BP 120/80. Hypertension Stage 1: BP 130-139/80-89. Hypertesnion Stage 2: BP 140 or higher/90 or higher. Hypertension Crisis: BP higher than 180/120 Peak Exercise Blood Pressure:: 138/72 Outcomes/Goals: Able to verbalize/achieve optimal blood pressure <130/80, Incorporates diet changes & exercise for blood pressure control by DC Interventions/plan: Instruct on optimal blood pressure, hypertension & medications, Instruct on effects of sodium, alcohol, stress, exercise &hypertension 30 day Reassessments:: Progressing - Tobacco Cessation Referral Smoking Cessation Referral:: Yes Individual Education/Counseling:: Yes Education Schedule Given:: Yes Psychosocial - 30-Day Assess - VIsit Date of Eval: 01/19/21 Session #:: 11 Not Applicable: Yes History of previous Mental disease:: No - Target Goals Target Goals: Assess presence or absence of depression. Using a valid screening tool, maximizes coping skills. Positive support system - Psychosocial Test Tool Used:: PHQ-9 Questionnaire phq-9 Severity: Severity. 1-4 Minimal Depression. 5-9 Mild Depression. 10-14 Moderate Depression. 15-19 Moderately Sever Depression. 20-27 Severe Depression. Rule: - Referral to Behavioral Health PS - Interventions: Yes Attend Stress Management Classes, No Referral to Behavioral Health if PHQ-9 score >9:, No Referral to [facility], No Referral to Physician if PHQ-9 if score is 5-9: - Outcomes/Goals: See list Psychosocial Outcomes/Goals:: ID's personal stressors & 2 strategies to manage stress by discharge - Intervention/Plan: See List Interventions/Plan:: Assess stressors,coping strategies & signs of derpression on admission, Instruct/assist pt to develop coping & personal stress Mgt strategies, Instruct patient to recognize signs & symptoms of depression, Instruct patient to recog - 30-day Reassessments: 30 day Reassessments:: Progressing Patient Health Questionnaire 30-Day Re-eval Assessment 1. Little interest or pleasure in doing things: Not at all 2. Feeling down, depressed, or hopeless: Not at all 3. Trouble falling or staying asleep, or sleeping too much: Not at all 4. Feeling tired or having little energy: More than half the days 5. Poor appetite or overeating: Not at all 6. Feeling bad about yourself -- or that you are a failure or have let yourself or your family down: Not at all 7. Trouble concentrating on things, such as reading the newspaper or watching television: Not at all 8. Moving or speaking so slowly that other people could have noticed. Or the opposite - being so fidgety or restless that you have been moving around a lot more than usual: Several days 9. Thoughts that you would be better off , or of hurting yourself in some way: Not at all Total Score: 3 Self-Efficacy 30-Day Re-eval Assessment We would like to know how confident you are in doing certain activities. Please select your confidence level for:: Select your confidence level for the following using the scale 1-10 where 1 is not at all confident and 10 is totally confident. Your score is the average of all 6 responses. Fatigue: How confident are you that you can keep the fatigue caused by your disease from interfering with the things you want to do? Select Number: 4 Physical Discomfort or Pain: How confident are you that you can keep the physical discomfort or pain of your disease from interfering with the things you want to do? Select Number: 4 Emotional Distress: How confident are you that you can keep the emotional distress caused by your disease from interfering with the things you want to do? Select Number: 7 Other Symptoms or Health Problems: How confident are you that you can keep other symptoms or health problems from interfering with the things you want to do? Select Number: 5 Different Tasks and Activities: How confident are you that you can do the different tasks and activities needed to manage your health condition so as to reduce your need to see a doctor? Select Number: 9 Medication: How confident are you that you can do things other than just taking medication to reduce how much your illness affects your everyday life? Select Number: 9 Total Score:: 6
[2021-01-19 07:33] VITALS: BP 136/66; BP 138/72; BMI 30.4
== END 2021-02-13 23:59 ==
LOC: CR 13:00
PROVIDERS: PCP Family Medicine Geriatric Medicine; Referring Provider Internal Medicine Cardiovascular Disease; Visit Provider Internal Medicine Cardiovascular Disease
DX: I25.10 Atherosclerotic heart disease of native coronary artery without angina pectoris (principal); I48.92 Unspecified atrial flutter; I11.0 Hypertensive heart disease with heart failure; I50.32 Chronic diastolic (congestive) heart failure; I25.2 Old myocardial infarction; G93.40 Encephalopathy, unspecified; Z95.5 Presence of coronary angioplasty implant and graft
CPT/HCPCS: 93798

== ENCOUNTER → 2021-02-18 13:45 | Outpatient (CLI) | payer MEDICARE, SELFPAY ==
[2021-01-19 07:33] VITALS: BMI 30.4
[2021-02-04 11:26] VITALS: BMI 31.8
[2021-02-18 06:47] VITALS: BMI 31.8
--- NOTE | 2021-02-18 13:49 | ECHOCS_ITS ---
Version 2 Reason For Study: SOB Procedure This was a 2D Doppler, Color Flow transthoracic echocardiogram. The study was technically difficult. Exam performed in department. Left Ventricle Normal LV size. The estimated ejection fraction is 50 %. Left ventricular systolic function is lower limits of normal. Mid-Inferior: Hypokinetic. Infero-Basal: Akinetic. Inferior [place] : Hypokinetic. There are regional wall motion abnormalities as specified. Right Ventricle Normal RV size. Normal systolic function. Atria Normal left atrium. Normal right atrium. Mitral Valve Normal mitral valve. Tricuspid Valve Normal tricuspid valve. Mild tricuspid valve insufficiency. Pulmonary artery systolic pressure is 20 mmHg. Aortic Valve Trisinus/trileaflet aortic valve. Mild (1+) aortic valve insufficiency. Pulmonic Valve Normal pulmonic valve. Great Vessels Normal aortic root. The pulmonary artery is normal size. Normal inferior vena cava. Pericardium/Pleural No pericardial effusion. Medication 22 gauge I.V. with prn adaptor inserted into right arm. Diluted definity 5ml given slow IV push to enhance endocardial definition. MMode/2D Measurements & Calculations LVIDd: 4.7 cm IVSd: 1.2 cm Ao root diam: 3.1 cm LVIDs: 4.2 cm LVPWd: 0.89 cm RVDd: 3.1 cm FS: 11.4 % LAV(MOD-bp): 31.5 ml LA A4 area: 12.4 cm2 LA dimension(2D): 3.9 cm LAV(MOD-bp) Indexed: 17.0 ml/m2 LAV(MOD-sp2): 36.1 ml LAV(MOD-sp4): 27.5 ml RA A4 area: 10.8 cm2 Doppler Measurements & Calculations MV E max usama: 58.7 cm/sec Lat Peak E' Usama: 6.1 cm/sec Med Peak E' Usama: 3.7 cm/sec MV A max usama: 86.4 cm/sec E/E' lat: 9.6 E/E' med: 15.7 MV E/A: 0.68 Ao V2 max: 116.7 cm/sec AI max usama: 365.2 cm/sec LV V1 max: 83.0 cm/sec Ao max P.4 mmHg AI max P.3 mmHg LV V1 max P.8 mmHg AI dec slope: 182.9 cm/sec2 AI P1/2t: 585.0 msec PA V2 max: 86.7 cm/sec TR max usama: 196.3 cm/sec TR max P.4 mmHg ECHO/Echo Complete W/ Contrast Interpretation Summary Normal LV size. The estimated ejection fraction is 50 %. Left ventricular systolic function is lower limits of normal. There are regional wall motion abnormalities as specified. Contrast injection was performed. Ordering Physician: Ju Torres/Sage Norris Referring Physician: Yonny Carballo Chi Performed By: Destiny Roy RDCS
== END ==
LOC: CVS 13:48
PROVIDERS: PCP Family Medicine Geriatric Medicine; Referring Provider Physician Assistant Medical; Visit Provider Physician Assistant Medical
DX: R06.00 Dyspnea, unspecified (principal); R06.02 Shortness of breath
CPT/HCPCS: 93306; Q9957; A4216; C8929

== ENCOUNTER → 2021-03-04 11:23 | Outpatient (CLI) | payer MEDICARE, SELFPAY ==
[2021-02-04 11:26] VITALS: BMI 31.8
[2021-02-18 06:47] VITALS: BMI 31.8
--- NOTE | 2021-03-04 11:45 | RAD_ITS ---
STUDY: X-RAY CHEST REASON FOR EXAM: Female, 70 years old. Worsening shortness of breath TECHNIQUE: PA and lateral views of the chest. COMPARISON: 12/26/2020 FINDINGS: There are interstitial changes of the lungs. There is no demonstrated pleural abnormality. Normal size heart. Normal mediastinum and suleiman. Normal visualized pulmonary arteries. There is atherosclerotic calcification of the aortic arch with tortuosity. There are diffuse degenerative changes of the visualized thoracic spine. Normal visualized ribs, clavicles, and shoulders. There is no demonstrated abnormality of the visualized soft tissue structures of the upper abdomen. RAD/Chest PA and Lateral IMPRESSION: Chronic interstitial changes, no superimposed acute pulmonary process Electronically Signed: Rachid Gerber MD at 12:04 EDT , Service support ,
[2021-03-04 11:46] LABS: Hemoglobin 13.2 g/dL (12.0-15.0); Mean Corp Hgb Conc 31.4 g/dL (32-36); Mean Corpuscular Volume 95.5 fL (81-99); Mean Platelet Vol. 10.2 fl (6.2-12.0); Platelet Count 198 K/mm3 (150-450); RBC Distribution Width CV 16.4 % (11.6-14.6); RBC Distribution Width SD 57.2 fl (35.1-43.9); White Blood Count 9.2 K/mm3 (4.4-11.0)
[2021-03-04 12:08] LABS: BNP,B-Type NATRIURETIC PEPTIDE 202.6 pg/mL (0-100)
[2021-03-04 12:10] LABS: Anion Gap 5 (5-15); BUN 25 mg/dL (7-18); BUN/Creat Ratio 24.8 RATIO (10-20); Calcium,Total 9.9 mg/dL (8.5-10.1); Chloride 108 mmol/L (98-107); Creatinine, Serum 1.01 mg/dL (0.55-1.02); EST Glomerular Filtration Rate 58 mL/min (>60); Est Glom Filt Rate - Afr Amer 70 mL/min (>60); Glucose 157 mg/dL (74-106); Potassium 4.3 mmol/L (3.5-5.1); Sodium Level 140 mmol/L (136-145)
== END ==
LOC: LAB 11:25
PROVIDERS: PCP Family Medicine Geriatric Medicine; Referring Provider Physician Assistant Medical; Visit Provider Physician Assistant Medical
DX: I50.32 Chronic diastolic (congestive) heart failure (principal); R06.00 Dyspnea, unspecified
CPT/HCPCS: 36415; 71046; 80048; 83880; 85027

== ENCOUNTER → 2021-03-11 06:17 | Outpatient (CLI) | payer MEDICARE, SELFPAY ==
[2021-02-18 06:47] VITALS: BMI 31.8
[2021-03-06 12:57] VITALS: BMI 31.8
--- NOTE | 2021-03-11 10:59 | STRESSREP ---
Stress Test Report Pharmacologic myocardial perfusion stress test. 70-year-old lady with a history of previous inferolateral myocardial infarction. Stress protocol: Resting EKG demonstrates normal sinus rhythm with a rate of 70 bpm normal intervals are noted T wave inversion is noted in lead III and aVF. Resting blood pressure is 154/82 mmHg. 0.4 mg of regadenoson was infused per usual protocol followed by rapid intravenous saline flush injection continuous EKG monitoring was performed. The maximum heart rate attained was 86 bpm which was 56% of maximum predicted heart rate the maximum workload was 1 metabolic equivalent. At rest there were no ST or T wave changes noted to suggest abnormal flow reserve and at peak infusion nonspecific ST changes were noted with did not meet the criteria for ischemia. The final blood pressure was 146/76 mmHg. Myocardial perfusion protocol. 11.9 mCi of technetium 99m sestamibi was injected at rest. 0.4 mg of regadenoson was infused per usual protocol. At peak infusion 34.6 mCi of technetium 99m sestamibi was injected stress images were obtained stress and rest images were reconstructed and compared in the short axis vertical long and horizontal long axis. Gated images were also obtained. Perfusion SPECT analysis: Review of the stress images demonstrate a normal cardiac silhouette size. There is a large defect noted in the inferior lateral wall on the stress images with normal uptake noted in the anterior wall septum and inferior wall. The resting images demonstrate a similar pattern. The above is suggestive of a previous extensive inferior lateral infarct. Minimal mat-infarct ischemia only is noted. Gated SPECT analysis: The gated ejection fraction is 46%. Conclusion: Pharmacologic myocardial perfusion stress test with evidence of previous extensive inferior lateral infarct. Mild left ventricular systolic dysfunction present.
== END ==
LOC: CVS 06:19
PROVIDERS: PCP Family Medicine Geriatric Medicine; Referring Provider Nurse Practitioner Family; Visit Provider Nurse Practitioner Family
DX: R07.9 Chest pain, unspecified (principal); I25.10 Atherosclerotic heart disease of native coronary artery without angina pectoris; I47.2 Ventricular tachycardia; I10 Essential (primary) hypertension; E78.5 Hyperlipidemia, unspecified; Z95.5 Presence of coronary angioplasty implant and graft
CPT/HCPCS: 78452; 93017; A9500; A4216; J2785

== ENCOUNTER 2021-03-13 13:00 | Outpatient (RCR) | payer MEDICARE, SELFPAY ==
[2021-01-19 07:33] VITALS: BMI 30.4
[2021-02-04 11:26] VITALS: BMI 31.8
[2021-02-14 00:44] VITALS: BP 136/66; BP 138/72
--- NOTE | 2021-02-18 06:41 | PCM.CR.ITP ---
Diagnosis Exercise - 60-day Assessment - Visit Date of Eval: 02/18/21 Session #:: 22 - missed this week due to in family - Physician Prescribed Exercise Modalities: Treadmill, Airdyne, NuStep Frequency: 3x/week for 12 weeks [36 sessions] Intensity: 60-80% of age predicted maximum heart rate reserve Current METSs:: 3.5 unchanged due to back pain. Target Heart Rate:: 99-120 Current RPE:: 11-14 Resting Blood Pressure: 128/64 Maximum Exercise Blood Pressure: 138/64 EKG Type: NSR to sinus tach w/rare PAC, isolated triplet occas. PVCs - Outcomes & Goals Goals:: Verbalizes understanding of THR, RPE & goal METS by session 6, Documents in home exercise log/reports 30 min aerobic 5 day/wk by DC, Demonstrates accurate pulse taking by DC - Intervention & Plan Exercise Program Goals: Instruct on personal THR & RPE, Instruct on MET level & personal MET goal, Show patient to take own pulse /validate performance until accurate, Instruct on home exercise - 30-day Reassessments 30 day Reassessments:: Progressing - Physical Activity Home Exercise Physical Activity - Home Exercise: Safe Exercise, Warm-up, Self-monitoring, Cool-Down, Home Exercise > 30 min Daily, Sitting Time <3 hours/daily - Outcomes & Goals Outcomes/Goals: Demonstrates correct Warm-up/exercise Cool-Down (S3) if = 2.5 METs, Verbalizes symptoms of exercise intolerance by Session 3 (S3), Demonstrate safe equipment use (S3) & follows exercise prescrition (6) - Intervention & Plan Plan/Intervention: Instruct warm-up & cool-down if exercising at > 2 METs, Instruct on symptoms of exercise intolerance & actions to take, Instruct & monitor on saf, Assess intial functional capacity & safety risk - 30-day Reassessments 30 day Reassessments:: Progressing Nutrition - Initial Assessment Nutrition - 30-Day Assessment Nutrition - 60-Day Assessment - Program Goals Nutrition Program Goals: LDL <100 optimal. 100 - 129 Near optimal. 130 - 159 Borderline High. 160 - 189 High. Total Cholesterol <200 desirable. 200 - 239 Borderline High. >/= 240 High. HDL < 40 Low >/=60 High. Triglycerides <150 desirable. <199 optimal. VlDL 5 - 40. HgbA1C <7%. BMI <25 Patient has diagnosis of Hyperlipidemia (ICD E78)?: Yes - Visit Date of Assessment:: 02/18/21 Session #:: 22 - Cholesterol/Lipids Determine presence & major risk factors that modify LDL goal: Hypertension or hypertensive medication, Age men > 45 years; women >/= 55 years Outcomes/Goals: Pt IDs own risk factors & lifestyle modifications by Session 10, Verbalizes symptoms of angina & response by session 3., Pt independently manages Intervention/Plan: Instruct on personal lipid levels & lipid goals/NCEP guidelines, Instruct on cholesterol Referral to dietitian:: No 30-day Reassessments:: Progressing - Diabetes (Other Core Measures) Diabetes Type: Not Applicable - Weight Mgt (Other Care) Not Applicable: No Height: 5 ft 3 in - Weight:: 179 lb 8 oz BMI: 31.8 Diagnosis Overweight/Obesity BMI> 30% ICD-10 E66: Yes Diagnosis High BMI/Morbid Obesity BMI> 35% ICD-10 Z68: No Outcomes/Goals: Pt sets, maintains & shows weight loss goal & trend during rehab Intervention/Plan: Instruct on ideal BMI & set weight loss goal w/patient, Assist pt to ID & incorporate diet changes for weight loss by S9, Encourage goal of using 250-300dcal per session for weight loss 30 day Reassessments:: Progressing - Healthy Eating Habits Will attend diet classes:: Yes Outcomes/Goals:: Consume diet rich in vegs,fruits,whole grain/high fiber,fish,lean meat, Limit sat/trans fats,cholesterol & added salts & sugars Intervention/Plan:: Assess current eating habits 30-day Reassessments:: Progressing Nutrition - 90-Day Assessment Nutrition - Final Assessment Medical - Initial Assessment Medical- 30-Day Assessment Medical- 60-Day Assessment - Visit Date of Eval: 02/18/21 Session #:: 22 - Medication Compliance Preventative Medication(s):: Aspirin, Ticagrelor/P2Y12 inhibitor, Statin/lipid, Beta vipin H/O mental health issues: depression, anxiety, or addiction?: No Doesn?t believe in the benefits of treatment?: No Believes medications are unnecessary or harmful?: No Has a concern about medication side effects?: No Expresses concern over the cost of medications?: No Outcomes/Goals: Verbalizes medications,desired effect & common side effects @ DC, Pt self-reports following medication regimen, Keeps card in wallet w/medications listed by DC Interventions/plans: Instruct on medication effects & side effects, Review medication list w/patient every two weeks, Instruct importance of taking meds as ordered & assist problem solving 30-day Reassessments:: Progressing - Tobacco Use Tobacco Use: Non-smoker - Hypertension Hypertension Diagnosis:: Hypertension ICD-10 I10 Resting Blood Pressure:: 128/64 [place] [employer] Hypertension Guidelines: [place] [employer] Hypertension Guidelines. Normal BP Less than 120/80. Elevated BP 120/80. Hypertension Stage 1: BP 130-139/80-89. Hypertesnion Stage 2: BP 140 or higher/90 or higher. Hypertension Crisis: BP higher than 180/120 Peak Exercise Blood Pressure:: 138/64 Outcomes/Goals: Able to verbalize/achieve optimal blood pressure <130/80, Incorporates diet changes & exercise for blood pressure control by DC Interventions/plan: Instruct on optimal blood pressure, hypertension & medications, Instruct on effects of sodium, alcohol, stress, exercise &hypertension 30 day Reassessments:: Progressing - Tobacco Cessation Referral Smoking Cessation Referral:: No Individual Education/Counseling:: No Education Schedule Given:: Yes Medical- 90-Day Assessment Medical - Final Assessment Psychosocial - Initial Assess Psychosocial - 30-Day Assess Psychosocial - 60-Day Assess - VIsit Date of Eval: 02/18/21 Session #:: 22 Not Applicable: Yes - Psychosocial Test Tool Used:: PHQ-9 Questionnaire phq-9 Severity: Severity. 1-4 Minimal Depression. 5-9 Mild Depression. 10-14 Moderate Depression. 15-19 Moderately Sever Depression. 20-27 Severe Depression. Rule: - Referral to Behavioral Health PS - Interventions: Yes Attend Stress Management Classes, No Referral to Behavioral Health if PHQ-9 score >9:, No Referral to [facility], No Referral to Physician if PHQ-9 if score is 5-9: - Outcomes/Goals: See list Psychosocial Outcomes/Goals:: ID's personal stressors & 2 strategies to manage stress by discharge - Intervention/Plan: See List Interventions/Plan:: Assess stressors,coping strategies & signs of derpression on admission, Instruct/assist pt to develop coping & personal stress Mgt strategies, Instruct patient to recognize signs & symptoms of depression, Instruct patient to recog - 30-day Reassessments: 30 day Reassessments:: Progressing Psychosocial - 90-Day Assess Psychosocial - Final Assessmen Patient Health Questionnaire 60-Day Re-eval Assessment 1. Little interest or pleasure in doing things: Not at all 2. Feeling down, depressed, or hopeless: Not at all 3. Trouble falling or staying asleep, or sleeping too much: Not at all 4. Feeling tired or having little energy: More than half the days 5. Poor appetite or overeating: Not at all 6. Feeling bad about yourself -- or that you are a failure or have let yourself or your family down: Several days 7. Trouble concentrating on things, such as reading the newspaper or watching television: Not at all 8. Moving or speaking so slowly that other people could have noticed. Or the opposite - being so fidgety or restless that you have been moving around a lot more than usual: Several days 9. Thoughts that you would be better off , or of hurting yourself in some way: Not at all How difficult have these problems made it for you to do your work, take care of things at home, or get along with other people?: Somewhat difficult Total Score: 4 Self-Efficacy 60-Day Re-eval Assessment We would like to know how confident you are in doing certain activities. Please select your confidence level for:: Select your confidence level for the following using the scale 1-10 where 1 is not at all confident and 10 is totally confident. Your score is the average of all 6 responses. Fatigue: How confident are you that you can keep the fatigue caused by your disease from interfering with the things you want to do? Select Number: 5 Physical Discomfort or Pain: How confident are you that you can keep the physical discomfort or pain of your disease from interfering with the things you want to do? Select Number: 5 Emotional Distress: How confident are you that you can keep the emotional distress caused by your disease from interfering with the things you want to do? Select Number: 8 Other Symptoms or Health Problems: How confident are you that you can keep other symptoms or health problems from interfering with the things you want to do? Select Number: 7 Different Tasks and Activities: How confident are you that you can do the different tasks and activities needed to manage your health condition so as to reduce your need to see a doctor? Select Number: 9 Medication: How confident are you that you can do things other than just taking medication to reduce how much your illness affects your everyday life? Select Number: 9 Total Score:: 7 Nutrition Survey
[2021-02-18 06:47] VITALS: BP 128/64; BP 138/64; BMI 31.8
[2021-03-06 12:57] VITALS: BMI 31.8
== END 2021-03-16 23:59 ==
LOC: CR 13:00
PROVIDERS: PCP Family Medicine Geriatric Medicine; Referring Provider Internal Medicine Cardiovascular Disease; Visit Provider Internal Medicine Cardiovascular Disease
DX: I25.10 Atherosclerotic heart disease of native coronary artery without angina pectoris (principal); I48.92 Unspecified atrial flutter; I11.0 Hypertensive heart disease with heart failure; I50.32 Chronic diastolic (congestive) heart failure; I25.2 Old myocardial infarction; G93.40 Encephalopathy, unspecified; Z95.5 Presence of coronary angioplasty implant and graft
CPT/HCPCS: 93798

== ENCOUNTER → 2021-03-17 15:15 | Outpatient (CLI) | payer MEDICARE, SELFPAY ==
[2021-02-18 06:47] VITALS: BMI 31.8
[2021-03-06 12:57] VITALS: BMI 31.8
--- NOTE | 2021-03-17 15:20 | RAD_ITS ---
STUDY: X-RAY - LEFT FOOT CLINICAL: Female, 70 years old. FOOT PAIN TECHNIQUE: 3 view(s) of the foot. COMPARISON: None. FINDINGS: Normal talus, calcaneus, and tarsal bones. Normal visualized subtalar, talonavicular, calcaneocuboid, tarsal and tarsometatarsal articulations. Normal metatarsi. Normal metatarsophalangeal joint of the great toe. Normal tibial and fibular sesamoid bones. Normal interphalangeal joint of the great toe. Normal phalanges of the great toe. Normal second through fifth metatarsophalangeal joints. Normal interphalangeal joints and phalanges of the lesser toes. The soft tissue structures are unremarkable. RAD/Foot min 3 Views IMPRESSION: Normal x-ray examination of the foot. Electronically Signed: Kenrick Guerrero MD at 9:21 EDT Tel , Service support ,
--- NOTE | 2021-03-17 15:20 | RAD_ITS ---
STUDY: X-RAY - LEFT ANKLE REASON FOR EXAM: Female, 70 years old. ANKLE PAIN TECHNIQUE: 3 view(s) of the ankle. COMPARISON: None. FINDINGS: Normal visualized distal tibia and fibula. Normal medial and lateral malleoli. Normal tibiotalar articulation and ankle mortise. Normal visualized talus and calcaneus. The visualized subtalar, talonavicular, calcaneocuboid and tarsal articulations are normal. The soft tissue structures are unremarkable. RAD/Ankle min 3 Views IMPRESSION: Normal x-ray examination of the ankle. Electronically Signed: Kenrick Guerrero MD at 9:16 EDT Tel , Service support ,
== END ==
LOC: RAD 15:16
PROVIDERS: PCP Family Medicine Geriatric Medicine; Referring Provider Family Medicine Geriatric Medicine; Visit Provider Family Medicine Geriatric Medicine
DX: M25.572 Pain in left ankle and joints of left foot (principal)
CPT/HCPCS: 73610; 73630

== ENCOUNTER 2021-03-27 13:00 | Outpatient (RCR) | payer MEDICARE, SELFPAY ==
[2021-02-18 06:47] VITALS: BMI 31.8
[2021-03-06 12:57] VITALS: BMI 31.8
[2021-03-17 00:29] VITALS: BP 128/64; BP 138/64
--- NOTE | 2021-03-20 09:31 | PCM.CR.ITP ---
Diagnosis Exercise - Final/Discharge - Visit Date of Eval: 03/20/21 Session #:: 28 - missed 7 sessions this 30-day due to other medical issues. - Physician Prescribed Exercise Modalities: Treadmill, Airdyne, NuStep Frequency: 3x/week for 12 weeks [36 sessions] Intensity: 60-80% of age predicted maximum heart rate reserve Target Heart Rate:: 99-120 Current RPE:: 13 Maximum Excercise HR:: 99 Resting Blood Pressure: 142/72 Maximum Exercise Blood Pressure: 150/72 EKG Type: NSR to sinus tach with rare PACs and PVCs - Outcomes & Goals Goals:: Verbalizes understanding of THR, RPE & goal METS by session 6, Documents in home exercise log/reports 30 min aerobic 5 day/wk by DC, Demonstrates accurate pulse taking by DC - Intervention & Plan Exercise Program Goals: Instruct on personal THR & RPE, Instruct on MET level & personal MET goal, Show patient to take own pulse /validate performance until accurate, Instruct on home exercise - 30-day Reassessments 30 day Reassessments:: Not Met - Physical Activity Home Exercise Physical Activity - Home Exercise: Safe Exercise, Warm-up, Self-monitoring, Cool-Down, Home Exercise > 30 min Daily, Sitting Time <3 hours/daily - Outcomes & Goals Outcomes/Goals: Demonstrates correct Warm-up/exercise Cool-Down (S3) if = 2.5 METs, Verbalizes symptoms of exercise intolerance by Session 3 (S3), Demonstrate safe equipment use (S3) & follows exercise prescrition (6) - Intervention & Plan Plan/Intervention: Instruct warm-up & cool-down if exercising at > 2 METs, Instruct on symptoms of exercise intolerance & actions to take, Instruct & monitor on saf, Assess intial functional capacity & safety risk - 30-day Reassessments 30 day Reassessments:: Progressing Nutrition - Initial Assessment Nutrition - 30-Day Assessment Nutrition - 60-Day Assessment Nutrition - 90-Day Assessment Nutrition - Final Assessment - Program Goals Nutrition Program Goals: LDL <100 optimal. 100 - 129 Near optimal. 130 - 159 Borderline High. 160 - 189 High. Total Cholesterol <200 desirable. 200 - 239 Borderline High. >/= 240 High. HDL < 40 Low >/=60 High. Triglycerides <150 desirable. <199 optimal. VlDL 5 - 40. HgbA1C <7%. BMI <25 Patient has diagnosis of Hyperlipidemia (ICD E78)?: Yes - Visit Date of Assessment:: 03/20/21 Session #:: 28 - Cholesterol/Lipids Triglycerides (mg/dL): 0 - No recent labs drawn Determine presence & major risk factors that modify LDL goal: Hypertension or hypertensive medication, Family history of premature CHD in Male < 55 years: female <65 yearsFa, Age men > 45 years; women >/= 55 years Outcomes/Goals: Pt IDs own risk factors & lifestyle modifications by Session 10, Verbalizes symptoms of angina & response by session 3., Pt independently manages Intervention/Plan: Instruct on personal lipid levels & lipid goals/NCEP guidelines, Instruct on cholesterol Referral to dietitian:: No 30-day Reassessments:: Progressing - Diabetes (Other Core Measures) Diabetes Type: Not Applicable - Weight Mgt (Other Care) Not Applicable: No Height: 5 ft 3 in Weight:: 184 lb 8 oz BMI: 32.6 Diagnosis Overweight/Obesity BMI> 30% ICD-10 E66: Yes Diagnosis High BMI/Morbid Obesity BMI> 35% ICD-10 Z68: No Outcomes/Goals: Pt sets, maintains & shows weight loss goal & trend during rehab Intervention/Plan: Instruct on ideal BMI & set weight loss goal w/patient, Assist pt to ID & incorporate diet changes for weight loss by S9, Encourage goal of using 250-300dcal per session for weight loss 30 day Reassessments:: Not Met - Healthy Eating Habits Will attend diet classes:: Yes Outcomes/Goals:: Consume diet rich in vegs,fruits,whole grain/high fiber,fish,lean meat, Limit sat/trans fats,cholesterol & added salts & sugars Intervention/Plan:: Assess current eating habits 30-day Reassessments:: Progressing Medical - Initial Assessment Medical- 30-Day Assessment Medical- 60-Day Assessment Medical- 90-Day Assessment Medical - Final Assessment - Visit Date of Eval: 03/20/21 Session #:: 28 - Medication Compliance Preventative Medication(s):: Aspirin, Clopidogrel/P2Y12 inhibit, Statin/lipid, Beta vipin H/O mental health issues: depression, anxiety, or addiction?: Yes Doesn?t believe in the benefits of treatment?: No Believes medications are unnecessary or harmful?: No Has a concern about medication side effects?: No Expresses concern over the cost of medications?: No Outcomes/Goals: Verbalizes medications,desired effect & common side effects @ DC, Pt self-reports following medication regimen, Keeps card in wallet w/medications listed by DC Interventions/plans: Instruct on medication effects & side effects, Review medication list w/patient every two weeks, Instruct importance of taking meds as ordered & assist problem solving 30-day Reassessments:: Progressing - Tobacco Use Tobacco Use: Non-smoker - Hypertension Hypertension Diagnosis:: Hypertension ICD-10 I10 Resting Blood Pressure:: 142/72 [place] [employer] Hypertension Guidelines: [place] [employer] Hypertension Guidelines. Normal BP Less than 120/80. Elevated BP 120/80. Hypertension Stage 1: BP 130-139/80-89. Hypertesnion Stage 2: BP 140 or higher/90 or higher. Hypertension Crisis: BP higher than 180/120 Peak Exercise Blood Pressure:: 150/72 Outcomes/Goals: Able to verbalize/achieve optimal blood pressure <130/80, Incorporates diet changes & exercise for blood pressure control by DC Interventions/plan: Instruct on optimal blood pressure, hypertension & medications, Instruct on effects of sodium, alcohol, stress, exercise &hypertension 30 day Reassessments:: Met - Tobacco Cessation Referral Smoking Cessation Referral:: No Individual Education/Counseling:: No Education Schedule Given:: Yes Psychosocial - Initial Assess Psychosocial - 30-Day Assess Psychosocial - 60-Day Assess Psychosocial - 90-Day Assess Psychosocial - Final Assessmen - VIsit Date of Eval: 03/20/21 Session #:: 28 Not Applicable: No History of previous Mental disease:: Yes History of Emotional Disorders: Anxious, Depression Self-reported stressors: Other - Psychosocial Test Tool Used:: [employer] QOL Cardiac, PHQ-9 Questionnaire phq-9 Severity: Severity. 1-4 Minimal Depression. 5-9 Mild Depression. 10-14 Moderate Depression. 15-19 Moderately Sever Depression. 20-27 Severe Depression. Rule: - Referral to Behavioral Health PS - Interventions: No Referral to Behavioral Health if PHQ-9 score >9:, No Referral to [facility], No Referral to Physician if PHQ-9 if score is 5-9: - Outcomes/Goals: See list Psychosocial Outcomes/Goals:: ID's personal stressors & 2 strategies to manage stress by discharge - Intervention/Plan: See List Interventions/Plan:: Assess stressors,coping strategies & signs of derpression on admission, Instruct/assist pt to develop coping & personal stress Mgt strategies, Instruct patient to recognize signs & symptoms of depression, Instruct patient to recog Patient Health Questionnaire Discharge Assessment 1. Little interest or pleasure in doing things: Not at all 2. Feeling down, depressed, or hopeless: Not at all 3. Trouble falling or staying asleep, or sleeping too much: Not at all 4. Feeling tired or having little energy: More than half the days 5. Poor appetite or overeating: Not at all 6. Feeling bad about yourself -- or that you are a failure or have let yourself or your family down: Several days 7. Trouble concentrating on things, such as reading the newspaper or watching television: Not at all 8. Moving or speaking so slowly that other people could have noticed. Or the opposite - being so fidgety or restless that you have been moving around a lot more than usual: Several days 9. Thoughts that you would be better off , or of hurting yourself in some way: Not at all How difficult have these problems made it for you to do your work, take care of things at home, or get along with other people?: Somewhat difficult Total Score: 4 Self-Efficacy 90-Day Re-eval Assessment We would like to know how confident you are in doing certain activities. Please select your confidence level for:: Select your confidence level for the following using the scale 1-10 where 1 is not at all confident and 10 is totally confident. Your score is the average of all 6 responses. Fatigue: How confident are you that you can keep the fatigue caused by your disease from interfering with the things you want to do? Physical Discomfort or Pain: How confident are you that you can keep the physical discomfort or pain of your disease from interfering with the things you want to do? Emotional Distress: How confident are you that you can keep the emotional distress caused by your disease from interfering with the things you want to do? Other Symptoms or Health Problems: How confident are you that you can keep other symptoms or health problems from interfering with the things you want to do? Different Tasks and Activities: How confident are you that you can do the different tasks and activities needed to manage your health condition so as to reduce your need to see a doctor? Medication: How confident are you that you can do things other than just taking medication to reduce how much your illness affects your everyday life? Select Number: 9 Discharge Assessment We would like to know how confident you are in doing certain activities. Please select your confidence level for:: Select your confidence level for the following using the scale 1-10 where 1 is not at all confident and 10 is totally confident. Your score is the average of all 6 responses. Fatigue: How confident are you that you can keep the fatigue caused by your disease from interfering with the things you want to do? Select Number: 5 Physical Discomfort or Pain: How confident are you that you can keep the physical discomfort or pain of your disease from interfering with the things you want to do? Select Number: 6 Emotional Distress: How confident are you that you can keep the emotional distress caused by your disease from interfering with the things you want to do? Select Number: 9 Other Symptoms or Health Problems: How confident are you that you can keep other symptoms or health problems from interfering with the things you want to do? Select Number: 8 Different Tasks and Activities: How confident are you that you can do the different tasks and activities needed to manage your health condition so as to reduce your need to see a doctor? Select Number: 9 Medication: How confident are you that you can do things other than just taking medication to reduce how much your illness affects your everyday life? Select Number: 9 Total Score:: 7 Nutrition Survey
[2021-03-20 10:00] VITALS: BP 142/72; BP 150/72; BMI 32.6
== END 2021-04-15 23:59 ==
LOC: CR 13:00
PROVIDERS: PCP Family Medicine Geriatric Medicine; Referring Provider Internal Medicine Cardiovascular Disease; Visit Provider Internal Medicine Cardiovascular Disease
DX: I25.10 Atherosclerotic heart disease of native coronary artery without angina pectoris (principal); I48.92 Unspecified atrial flutter; I11.0 Hypertensive heart disease with heart failure; I50.32 Chronic diastolic (congestive) heart failure; I25.2 Old myocardial infarction; G93.40 Encephalopathy, unspecified; Z95.5 Presence of coronary angioplasty implant and graft
CPT/HCPCS: 93798

== ENCOUNTER → 2021-04-01 11:05 | Outpatient (CLI) | payer MEDICARE, SELFPAY ==
[2021-03-20 10:00] VITALS: BMI 32.6
[2021-03-27 15:36] VITALS: BMI 32.9
[2021-04-01 12:07] LABS: Absolute Lymphocyte Count 1.26 X10^3/uL (0.83-4.51); Absolute Neutrophil Count 6.3 X10^3/uL (2.0-7.7); Basophil# 0.03 X10^3/uL; Basophil% 0.4 % (0-1); Eosinophil# 0.03 X10^3/uL; Eosinophils% 0.4 % (0-5); Hematocrit 38.9 % (37-47); Hemoglobin 12.2 g/dL (12.0-15.0); Lymphocyte # 1.26 X10^3/ul (0.83-4.51); Lymphocyte % 14.8 % (19-41); Mean Corp Hgb Conc 31.4 g/dL (32-36); Mean Corpuscular Hgb 30.5 pg (27.0-32.0); Mean Corpuscular Volume 97.3 fL (81-99); Mean Platelet Vol. 11.2 fl (6.2-12.0); Monocyte# 0.72 X10^3/uL; Monocyte% 8.4 % (0-10); NRBC Flagged by Analyzer 0.2 % (0-5); Neutrophil # 6.32 X10^3/uL (2.7-7.7); Platelet Count 249 K/mm3 (150-450); RBC Distribution Width CV 17.3 % (11.6-14.6); RBC Distribution Width SD 61.7 fl (35.1-43.9); White Blood Count 8.5 K/mm3 (4.4-11.0)
[2021-04-01 12:33] LABS: Vitamin D,25 Hydroxy 46.8 ng/mL
[2021-04-01 12:37] LABS: ALB/GLOB Ratio 0.8 RATIO (0.9-2.4); AST(SGOT) 17 U/L (15-37); Alanine Aminotransfer ALT/SGPT 30 U/L (13-56); Albumin, Serum 2.6 g/dL (3.2-5.0); Alkaline Phosphatase 72 U/L (45-117); Anion Gap 6 (5-15); BUN 34 mg/dL (7-18); BUN/Creat Ratio 35.9 RATIO (10-20); Calcium,Total 9.7 mg/dL (8.5-10.1); Chloride 112 mmol/L (98-107); Creatinine, Serum 0.95 mg/dL (0.55-1.02); EST Glomerular Filtration Rate 62 mL/min (>60); Est Glom Filt Rate - Afr Amer 75 mL/min (>60); Globulin 3.4 g/dL (2.2-4.2); Glucose 211 mg/dL (74-106); Potassium 4.1 mmol/L (3.5-5.1); Sodium Level 143 mmol/L (136-145); Thyroid Stim Hormone (TSH) 1.44 uIU/mL (0.358-3.74)
[2021-04-02 10:04] LABS: Hemoglobin A1c 7.6 % (3.8-5.6)
== END ==
PROVIDERS: PCP Family Medicine Geriatric Medicine; Visit Provider Family Medicine Geriatric Medicine
DX: E55.9 Vitamin D deficiency, unspecified (principal); I10 Essential (primary) hypertension; R73.9 Hyperglycemia, unspecified
CPT/HCPCS: 36415; 80053; 82306; 83036; 84443; 85025

== ENCOUNTER → 2021-04-03 06:39 | Outpatient (CLI) | payer MEDICARE, SELFPAY ==
[2021-03-06 12:57] VITALS: BMI 31.8
[2021-03-20 10:00] VITALS: BMI 32.6
[2021-03-27 15:36] VITALS: BMI 32.9
--- NOTE | 2021-04-03 07:00 | MRI_ITS ---
STUDY: MRI LEFT ANKLE WITHOUT CONTRAST REASON FOR EXAM: Left heel pain, twisting injuries of the left ankle 1 month ago. TECHNIQUE: Standardized fat and water weighted pulse sequences were obtained in all 3 orthogonal planes. COMPARISON: Radiographs 03/17/2021. FINDINGS: There is edema in the subcutis adipose space. There is a very small volume of fluid in the retromalleolar and submalleolar posterior tibialis tendon sheath (T2 axial images 8, 9, 17). The posterior tibialis tendon is morphologically normal. Normal flexor digitorum longus tendon. There is fluid in the flexor hallucis longus tendon sheath distal to the sustentaculum cecile (inversion recovery sagittal images 7, 8) likely from communication with the tibiotalar articulation. The flexor hallucis longus tendon is intact. Normal peroneus longus and brevis tendons. Normal tibialis anterior tendon. Normal extensor hallucis longus tendon. Normal extensor digitorum longus tendons. Normal Achilles tendon and teno-osseous insertion. Normal plantar fascia. There is a small calcaneal enthesophyte. There is a stress fracture of the posterior tuberosity of the calcaneus with bone edema (inversion recovery sagittal images 9-11). Normal intrinsic muscles of the rearfoot. Normal distal tibiofibular syndesmotic ligamentous complex. There is a mild sprain of the anterior talofibular ligament (T2 axial image 15). Normal calcaneofibular and posterior talofibular ligaments. Normal subtalar ligaments and sinus tarsi. There is a mild sprain of the deltoid ligament (T2 coronal image 17). Normal plantar calcaneonavicular (spring) ligament. There is a small tibiotalar joint effusion (inversion recovery sagittal images 11, 12). Normal talar dome. There is a small posterior subtalar joint effusion (inversion recovery sagittal images 11-13). There is subchondral cystic change of the navicular at the talonavicular articulation (inversion recovery sagittal image 10). Normal calcaneocuboid articulation. Normal navicular-cuneiform articulations. MRI/Lower Ext Joint Only (Routine) IMPRESSION: Stress fracture of the posterior tuberosity of the calcaneus. Mild sprain of the anterior talofibular ligament. Mild sprain of the deltoid ligament. Very mild posterior tibialis tenosynovitis. Small tibiotalar and posterior subtalar joint effusions. No demonstrated flexor tendon tear. Electronically Signed: Garrett Rosas MD at 9:21 EDT Tel , Service support ,
== END ==
PROVIDERS: PCP Family Medicine Geriatric Medicine; Referring Provider Podiatrist Foot & Ankle Surgery; Visit Provider Podiatrist Foot & Ankle Surgery
DX: M66.372 Spontaneous rupture of flexor tendons, left ankle and foot (principal)
CPT/HCPCS: 73721

== ENCOUNTER → 2021-04-29 13:13 | Outpatient (CLI) | payer MEDICARE, SELFPAY ==
[2021-03-20 10:00] VITALS: BMI 32.6
[2021-03-27 15:36] VITALS: BMI 32.9
[2021-04-29 15:45] LABS: Absolute Lymphocyte Count 2.85 X10^3/uL (0.83-4.51); Absolute Neutrophil Count 7.5 X10^3/uL (2.0-7.7); Basophil# 0.04 X10^3/uL; Basophil% 0.3 % (0-1); Eosinophil# 0.04 X10^3/uL; Eosinophils% 0.3 % (0-5); Hemoglobin 11.2 g/dL (12.0-15.0); Lymphocyte # 2.85 X10^3/ul (0.83-4.51); Lymphocyte % 24.7 % (19-41); Mean Corp Hgb Conc 30.3 g/dL (32-36); Mean Corpuscular Hgb 30.4 pg (27.0-32.0); Mean Corpuscular Volume 100.3 fL (81-99); Mean Platelet Vol. 10.7 fl (6.2-12.0); Monocyte% 8.7 % (0-10); NRBC Flagged by Analyzer 0.2 % (0-5); Neutrophil # 7.49 X10^3/uL (2.7-7.7); Neutrophil % 65.1 % (47-70); POSITIVE MORPHOLOGY YES; Platelet Count 324 K/mm3 (150-450); RBC Distribution Width CV 18.3 % (11.6-14.6); RBC Distribution Width SD 66.7 fl (35.1-43.9); Red Blood Count 3.69 M/mm3 (4.2-5.4); White Blood Count 11.5 K/mm3 (4.4-11.0)
[2021-04-29 15:52] LABS: Differential Indicated SCAN CRITERIA MET
[2021-04-29 16:03] LABS: ALB/GLOB Ratio 0.6 RATIO (0.9-2.4); AST(SGOT) 18 U/L (15-37); Alanine Aminotransfer ALT/SGPT 26 U/L (13-56); Albumin, Serum 2.6 g/dL (3.2-5.0); Alkaline Phosphatase 84 U/L (45-117); Anion Gap 6 (5-15); BUN 23 mg/dL (7-18); BUN/Creat Ratio 23.7 RATIO (10-20); Calcium,Total 10.2 mg/dL (8.5-10.1); Chloride 107 mmol/L (98-107); Creatinine, Serum 0.97 mg/dL (0.55-1.02); EST Glomerular Filtration Rate 60 mL/min (>60); Est Glom Filt Rate - Afr Amer 73 mL/min (>60); Globulin 4.2 g/dL (2.2-4.2); Glucose 146 mg/dL (74-106); Potassium 4.1 mmol/L (3.5-5.1); Protein, Total 6.8 g/dL (6.4-8.2); Sodium Level 139 mmol/L (136-145)
[2021-04-29 16:21] LABS: Anisocytosis 1+; Macrocytosis 1+; Polychromasia 1+
== END ==
PROVIDERS: PCP Family Medicine Geriatric Medicine; Visit Provider Family Medicine Geriatric Medicine
DX: N39.0 Urinary tract infection, site not specified (principal); R53.83 Other fatigue
CPT/HCPCS: 36415; 80053; 85025; 87077; 87086; 87088

== ENCOUNTER → 2021-05-08 10:00 | Outpatient (CLI) | payer MEDICARE, SELFPAY ==
[2021-03-20 10:00] VITALS: BMI 32.6
[2021-05-08 09:06] VITALS: BMI 32.9
== END ==
PROVIDERS: PCP Family Medicine Geriatric Medicine; Referring Provider Nurse Practitioner Family; Visit Provider Nurse Practitioner Family
DX: I50.32 Chronic diastolic (congestive) heart failure (principal); R06.00 Dyspnea, unspecified
CPT/HCPCS: 36415; 83880

== ENCOUNTER → 2021-06-23 12:19 | Outpatient (CLI) | payer MEDICARE, SELFPAY ==
[2021-03-20 10:00] VITALS: BMI 32.6
[2021-05-25 13:57] VITALS: BMI 31.8
[2021-06-10 09:48] VITALS: BMI 32.6
--- NOTE | 2021-06-23 12:22 | ART_ITS ---
Reason For Study: Decreased pedal pulses Procedure A bilateral lower extremity continuous wave Doppler with analog waveform analysis,segmental pressures,and ankle brachial indexes without exercise. Left Segmental Pressures Left brachial= 153mmHg. Left posterior tibial artery = 164mmHg. Left dorsalis pedis artery = 167mmHg. The left dorsalis pedis waveforms are triphasic. The left posterior tibial artery waveforms are triphasic. Right Segmental Pressures Right brachial= 156mmHg. Right posterior tibial artery = 161mmHg. Right dorsalis pedis artery = 154mmHg. The right dorsalis pedis waveforms are triphasic. The right posterior tibial artery waveforms are triphasic. Indices The right ankle brachial index by the dorsalis pedis is 0.99. The right ankle brachial index by the posterior tibial artery is 1.03. The left ankle brachial index by the dorsalis pedis is 1.07. The left ankle brachial index by the posterior tibial artery is 1.05. VL/Lower Ext Art Exam w/o Exercis Interpretation Summary Bilateral no significant occlusive disease at rest with triphasic flow in RAJESH 1 .03 and 1.07. Ordering Physician: Iron Jean-Baptiste Referring Physician: Yonny Carballo Chi Performed By: Mindy Liriano RVT
[2021-06-23 13:50] LABS: Absolute Lymphocyte Count 2.92 X10^3/uL (0.83-4.51); Basophil# 0.04 X10^3/uL; Basophil% 0.4 % (0-1); Eosinophil# 0.12 X10^3/uL; Eosinophils% 1.1 % (0-5); Hematocrit 37.3 % (37-47); Hemoglobin 11.2 g/dL (12.0-15.0); Lymphocyte # 2.92 X10^3/ul (0.83-4.51); Lymphocyte % 26.5 % (19-41); Mean Corpuscular Hgb 29.3 pg (27.0-32.0); Mean Corpuscular Volume 97.6 fL (81-99); Mean Platelet Vol. 10.1 fl (6.2-12.0); Monocyte# 0.88 X10^3/uL; NRBC Flagged by Analyzer 0 % (0-5); Neutrophil # 6.97 X10^3/uL (2.7-7.7); Neutrophil % 63.4 % (47-70); Platelet Count 320 K/mm3 (150-450); RBC Distribution Width CV 16.3 % (11.6-14.6); RBC Distribution Width SD 58.8 fl (35.1-43.9); Red Blood Count 3.82 M/mm3 (4.2-5.4)
[2021-06-23 14:35] LABS: ALB/GLOB Ratio 0.7 RATIO (0.9-2.4); AST(SGOT) 14 U/L (15-37); Alanine Aminotransfer ALT/SGPT 19 U/L (13-56); Albumin, Serum 2.7 g/dL (3.2-5.0); Alkaline Phosphatase 63 U/L (45-117); Anion Gap 3 (5-15); BUN 20 mg/dL (7-18); BUN/Creat Ratio 21.9 RATIO (10-20); Calcium,Total 9.9 mg/dL (8.5-10.1); Chloride 107 mmol/L (98-107); Creatinine, Serum 0.91 mg/dL (0.55-1.02); EST Glomerular Filtration Rate 65 mL/min (>60); Est Glom Filt Rate - Afr Amer 79 mL/min (>60); Globulin 4.1 g/dL (2.2-4.2); Glucose 113 mg/dL (74-106); Magnesium 2.3 mg/dL (1.6-2.6); Potassium 4.1 mmol/L (3.5-5.1); Protein, Total 6.8 g/dL (6.4-8.2); Sodium Level 142 mmol/L (136-145)
== END ==
PROVIDERS: PCP Family Medicine Geriatric Medicine; Referring Provider Nurse Practitioner Family; Visit Provider Nurse Practitioner Family
DX: I73.9 Peripheral vascular disease, unspecified (principal); R53.1 Weakness; E78.5 Hyperlipidemia, unspecified; I25.10 Atherosclerotic heart disease of native coronary artery without angina pectoris; R57.0 Cardiogenic shock; I11.0 Hypertensive heart disease with heart failure; I50.32 Chronic diastolic (congestive) heart failure; Z95.5 Presence of coronary angioplasty implant and graft
CPT/HCPCS: 36415; 80053; 83735; 85025; 93923

== ENCOUNTER 2021-08-04 13:00 | Outpatient (RCR) | payer MEDICARE, SELFPAY ==
[2021-06-10 09:48] VITALS: BMI 32.6
--- NOTE | 2021-07-07 14:27 | HP.PTEVAL ---
Patient's Visit Information CLARA RAYMUNDO is a 71 year old F referred to Physical Therapy by Dr. Yonny Carballo MD with a diagnosis of LUMBAR SPINAL STENOSIS. Date of Evaluation: 07/07/21 Physical Therapist: Kelton Payne, PT, Cert MDT, OCS - Visit Plan Frequency: 2x /Week Duration: 4 Weeks Plan: PT INTERVENTIONS LUMBAR FLEXION EX'S ,DLS ,POSTURALE X'S AND MODLATIES TOLERATED ,ENDURANCE PROGRAM - Subjective This 71 y/o female presents to physical therapy with lumbar spinal stenosis. Patient has had back pain several years. Patient has been in PT in past. Patient is currently been seen by management. Patient has located LBP . Aggravating factors walking ,standing 10min ,lifting ,bending impairs ADLS. Alleviating factors sitting and rest. Meds -tramadol. Denies paresthesia/tingling. Bowel/bladder -. Coughing/sneezing-. Patient use cane with h/o falls along with pain. Patient also recently had GA Gurinder thus has SOB with stent. Patient is able to sleep okay. Patient back pain affects QOL and function. Patient has had MRI and x-rays in the past year. Patient has epidural injection. Patient recent GA has caused general weakness and SOB with activity. SOCIAL: lives alone, . VOCATION: retired - Pain Bilateral Back Pain Intensity (Out of 10): 3 Pain Intensity Range: 10 - Objective POSTURE: mild forward posture, mild thoracic kyphosis. GAIT: ambulates with cane antalgic gait. SYMMTRIES: align ,right leg shorter. PALPATION: LS/SI. FLEXABLITY: hams mild tight, piriformis mild tight. LUMBAR ROM: flexion mod loss, extension severe loss, side glides min. MMT: quads/hams 4-/5,hip flexion 4-/5,ankle 4/5 - Special Tests L/S Slump test left side: Negative L/S Slump test right side: Negative L/S Left Straight Leg Raise: Negative L/S Right Straight Leg Raise: Negative Lumbar Standing: Flexion - Mechanical Response: No effect Lumbar Standing: Flexion - Symptoms During Testing: No effect Lumbar Standing: Flexion - Symptoms After Testing: No effect Lumbar Standing: Extension - Mechanical Response: No effect Lumbar Standing: Extension - Symptoms During Testing: Increases Lumbar Standing: Extension - Symptoms After Testing: No worse Lumbar Standing: Right Side Glides - Mechanical Response: No effect Lumbar Standing: Right Side [place] - Symptoms During Testing: No effect Lumbar Standing: Right Side [place] - Symptoms After Testing: No effect Lumbar Standing: Left Side [place] - Mechanical Response: No effect Lumbar Standing: Left Side [place] - Symptoms During Testing: No effect Lumbar Standing: Left Side [place] - Symptoms After Testing: No effect - Balance/Special Test Scores Oswestry Low Back Score: 32 - Goals Goal 1:: I with HEP to back pain Goal Time Frame: 4-6 Weeks Goal 2:: Patient to decrease back pain by 50% improvement to improve function and ADL'S Goal Time Frame: 4-6 Weeks Goal 3:: Patient to increase lumbar ROM for function of recovery to improve ADLS' Goal Time Frame: 4-6 Weeks Goal 4:: Patient improve back owestry score by 5 points to improve QOL and function. Goal Time Frame: 4-6 Weeks Goal 5:: Patient to improve ability to perform ADL'S with decrease pain and improve endurance Goal Time Frame: 4-6 Weeks - Rehabilitation Potential Physical Therapy Diagnosis: This patient has lumbar pain with spinal stenosis along with deconditioned with GA with back pain with standing and walking better with sitting and rest thus will benefit from skilled PT to address these impairments Rehabilitation Potential: Good - Anticipated Interventions Patient/Client Instruction: Educate patient on: Condition, Plan of Care For the Purpose of:: To decrease pain, To increase ROM, To improve muscle performance and motor function, To improve ability to perform ADL's, To increase tolerance to activity/condition/position, To improve ability of physical actions for home/community/work/leisure, To improve health of tissue, To decrease soft tissue restriction, To increase flexibility/ROM, To improve endurance, To assume or resume ADL's, To reduce risk of recurrence, To improve health and function, To prevent re-injury Therapeutic Exercise to Include: Strength training, Endurance training, Body mechanics, Postural training, Dynamic Lumbar Stabilization Comment: BLE For the Purpose of:: To decrease pain, To increase ROM, To improve muscle performance and motor function, To improve ability to perform ADL's, To increase tolerance to activity/condition/position, To improve performance and independence with ADL's, To improve ability of physical actions for home/community/work/leisure, To improve health of tissue, To decrease soft tissue restriction, To increase flexibility/ROM, To improve endurance, To assume or resume ADL's, To reduce risk of recurrence TENS: Yes IF ES: Yes Cryotherapy (ice pack, ice massage): Yes Thermo therapy (hot pack): Yes Ultrasound (thermal/non thermal): Yes For the Purpose of:: To decrease pain, To improve nutrient delivery to tissue, To increase oxygenation perfusion, To improve health of tissue, To decrease soft tissue restriction, To increase flexibility/ROM Thank you for the opportunity to evaluate your patient. For Medicare and Medicare HMO plans, please review the plan of care and approve it. It will need to be FAXED BACK to us at [phone] for Medicare purposes. For Medicare only, by signing this I certify the plan of care. Please let me know if there are questions or concerns regarding this plan of care. Physician Signature: Date:
--- NOTE | 2021-11-03 13:47 | HP.PT.NRP ---
CLARA RAYMUNDO was seen in my office for initial evaluation on 07/07/21. The following Plan of Care was established for this patient: Initial Frequency: 2x /Week Initial Duration: 4 Weeks Patient/Client Instruction: Educate patient on: Condition, Plan of Care For the Purpose of:: To decrease pain, To increase ROM, To improve muscle performance and motor function, To improve ability to perform ADL's, To increase tolerance to activity/condition/position, To improve ability of physical actions for home/community/work/leisure, To improve health of tissue, To decrease soft tissue restriction, To increase flexibility/ROM, To improve endurance, To assume or resume ADL's, To reduce risk of recurrence, To improve health and function, To prevent re-injury Therapeutic Exercise to Include: Strength training, Endurance training, Body mechanics, Postural training, Dynamic Lumbar Stabilization For the Purpose of:: To decrease pain, To increase ROM, To improve muscle performance and motor function, To improve ability to perform ADL's, To increase tolerance to activity/condition/position, To improve performance and independence with ADL's, To improve ability of physical actions for home/community/work/leisure, To improve health of tissue, To decrease soft tissue restriction, To increase flexibility/ROM, To improve endurance, To assume or resume ADL's, To reduce risk of recurrence TENS: Yes IF ES: Yes Cryotherapy (ice pack, ice massage): Yes Thermo therapy (hot pack): Yes Ultrasound (thermal/non thermal): Yes For the Purpose of:: To decrease pain, To improve nutrient delivery to tissue, To increase oxygenation perfusion, To improve health of tissue, To decrease soft tissue restriction, To increase flexibility/ROM This patient was last seen in our office . Pertinent comments regarding their Physical therapy will appear below: Patient seen for PT lumbar spinal stenosis focusing on DLS ,postural ex's and HEP thus is d/c At this point I will be discontinuing this patient from physical therapy. I would be happy to see this patient again in the future if found appropriate by the physician. Thank you! Kelton Payne, PT, Cert MDT, OCS Balance/Gait/Functional tests - Balance/Special Test Scores Oswestry Low Back Score: 11
== END 2021-08-04 19:00 | disposition home or self-care (01) ==
LOC: PT 13:00
PROVIDERS: PCP Family Medicine Geriatric Medicine; Referring Provider Family Medicine Geriatric Medicine; Visit Provider Family Medicine Geriatric Medicine
DX: M48.061 Spinal stenosis, lumbar region without neurogenic claudication (principal)
CPT/HCPCS: 97110; 97162

== ENCOUNTER → 2021-08-04 13:51 | Outpatient (CLI) | payer MEDICARE, SELFPAY ==
[2021-06-10 09:48] VITALS: BMI 32.6
--- NOTE | 2021-08-04 13:52 | RAD_ITS ---
STUDY: X-RAY - LUMBAR SPINE REASON FOR EXAM: Female, 71 years old. Low back pain TECHNIQUE: 3 view(s) of the lumbar spine were obtained. COMPARISON: None FINDINGS: Normal lumbar lordosis. There is no substantial scoliosis. Grade 1 anterolisthesis of L4-L5 is due to facet arthropathy. Multilevel facet arthropathy. There is diffuse demineralization with multi-level endplate spondylosis. Disc space narrowing most pronounced at L4-L5 and L5-S1. There is no demonstrated fracture. There is atherosclerotic calcification of the abdominal aorta without a demonstrated aneurysm. RAD/Lumbar Spine 2 or 3 Views IMPRESSION: Multilevel degenerative disc disease and facet arthropathy, as above. Electronically Signed: Kip Kaufman MD (Brooks) at 15:23 EDT , Service support ,
== END ==
LOC: MTRAD 13:52
PROVIDERS: PCP Internal Medicine; Referring Provider Internal Medicine; Visit Provider Internal Medicine
DX: M54.50 Low back pain, unspecified (principal); G89.29 Other chronic pain
CPT/HCPCS: 72100

== ENCOUNTER → 2021-08-19 09:28 | Outpatient (CLI) | payer MEDICARE, SELFPAY ==
[2021-06-10 09:48] VITALS: BMI 32.6
--- NOTE | 2021-08-20 07:07 | PFT ---
INTRODUCTION: The patient is a 71-year-old female that presents for pulmonary function studies secondary to a diagnosis of exertional dyspnea. Respiratory therapy reported the patient was unable to produce acceptable and reproducible spirometry data. Bronchodilators were used during testing. INTERPRETATION: Forced expiration spirometry demonstrated no evidence of a large airways obstructive ventilatory defect. There was a significant response to aerosolized bronchodilators. However, this was likely secondary to patient effort. Spirograms are of suboptimal quality and terminate prior to 6 seconds, likely underestimating FVC. Body plethysmography revealed a decreased TLC to 3.54 L, 77% of predicted, indicative of a mild restrictive ventilatory impairment. Diffusing capacity by single breath CO was reduced to 55% of predicted. IMPRESSION: Mild restrictive ventilatory impairment with symmetric reduction in diffusing capacity. Results of this testing should be viewed with caution, as the patient was unable to produce acceptable and reproducible data.
== END ==
LOC: PSN 09:30
PROVIDERS: PCP Internal Medicine; Referring Provider Internal Medicine; Visit Provider Internal Medicine
DX: R06.02 Shortness of breath (principal); R60.0 Localized edema
CPT/HCPCS: 94060; 94726; 94729

== ENCOUNTER → 2021-09-14 16:42 | Outpatient (CLI) | payer MEDICARE, SELFPAY ==
[2021-06-10 09:48] VITALS: BMI 32.6
[2021-09-14 17:28] LABS: Absolute Lymphocyte Count 2.08 X10^3/uL (0.83-4.51); Absolute Neutrophil Count 6.5 X10^3/uL (2.0-7.7); Basophil# 0.03 X10^3/uL; Basophil% 0.3 % (0-1); Eosinophil# 0.18 X10^3/uL; Eosinophils% 1.9 % (0-5); Hematocrit 40.1 % (37-47); Hemoglobin 11.4 g/dL (12.0-15.0); Lymphocyte # 2.08 X10^3/ul (0.83-4.51); Lymphocyte % 21.4 % (19-41); Mean Corp Hgb Conc 28.4 g/dL (32-36); Mean Corpuscular Hgb 24.1 pg (27.0-32.0); Mean Corpuscular Volume 84.8 fL (81-99); Mean Platelet Vol. 11.4 fl (6.2-12.0); Monocyte# 0.88 X10^3/uL; Monocyte% 9.1 % (0-10); NRBC Flagged by Analyzer 0 % (0-5); Neutrophil # 6.49 X10^3/uL (2.7-7.7); Neutrophil % 66.8 % (47-70); POSITIVE COUNT YES; RBC Distribution Width CV 17.6 % (11.6-14.6); RBC Distribution Width SD 53.9 fl (35.1-43.9); Red Blood Count 4.73 M/mm3 (4.2-5.4); White Blood Count 9.7 K/mm3 (4.4-11.0)
[2021-09-14 18:00] LABS: Differential Indicated SCAN CRITERIA MET
[2021-09-14 18:15] LABS: Anion Gap 7 (5-15); BUN 22 mg/dL (7-18); BUN/Creat Ratio 21.2 RATIO (10-20); Calcium,Total 10.1 mg/dL (8.5-10.1); Chloride 109 mmol/L (98-107); Creatinine, Serum 1.04 mg/dL (0.55-1.02); EST Glomerular Filtration Rate 56 mL/min (>60); Est Glom Filt Rate - Afr Amer 68 mL/min (>60); Glucose 86 mg/dL (74-106); Sodium Level 141 mmol/L (136-145)
[2021-09-14 18:20] LABS: BNP,B-Type NATRIURETIC PEPTIDE 339.9 pg/mL (0-100)
[2021-09-14 22:06] LABS: Differential Comment SCANNED
[2021-09-14 22:08] LABS: Platelet Count 228 K/mm3 (150-450)
[2021-09-14 22:09] LABS: Platelet Estimate ADEQUATE (ADEQ)
== END ==
PROVIDERS: PCP Internal Medicine; Referring Provider Nurse Practitioner Family; Visit Provider Nurse Practitioner Family
DX: I25.10 Atherosclerotic heart disease of native coronary artery without angina pectoris (principal); I11.0 Hypertensive heart disease with heart failure; I50.32 Chronic diastolic (congestive) heart failure; R57.0 Cardiogenic shock; E78.5 Hyperlipidemia, unspecified; R06.00 Dyspnea, unspecified; Z95.5 Presence of coronary angioplasty implant and graft
CPT/HCPCS: 36415; 80048; 83880; 85025

== ENCOUNTER → 2021-09-24 13:34 | Outpatient (CLI) | payer MEDICARE, SELFPAY ==
[2021-06-10 09:48] VITALS: BMI 32.6
[2021-09-24 16:09] LABS: Vitamin B12 701 pg/mL (211-911); Vitamin D,25 Hydroxy 51.4 ng/mL
[2021-09-24 16:12] LABS: Anion Gap 7 (5-15); BUN 23 mg/dL (7-18); BUN/Creat Ratio 21.3 RATIO (10-20); Calcium,Total 10.2 mg/dL (8.5-10.1); Chloride 108 mmol/L (98-107); Creatinine, Serum 1.08 mg/dL (0.55-1.02); EST Glomerular Filtration Rate 53 mL/min (>60); Est Glom Filt Rate - Afr Amer 65 mL/min (>60); Glucose 96 mg/dL (74-106); Potassium 4.1 mmol/L (3.5-5.1); Sodium Level 142 mmol/L (136-145)
[2021-09-24 16:14] LABS: Thyroid Stim Hormone (TSH) 0.84 uIU/mL (0.358-3.74)
== END ==
PROVIDERS: Nurse Practitioner Family; PCP Internal Medicine; Visit Provider Nurse Practitioner Family
DX: E55.9 Vitamin D deficiency, unspecified (principal); E56.9 Vitamin deficiency, unspecified; R53.81 Other malaise; R53.83 Other fatigue; Z79.899 Other long term (current) drug therapy
CPT/HCPCS: 36415; 80048; 82306; 82607; 84443

== ENCOUNTER 2021-10-17 20:51 | Emergency (ER) | payer MEDICARE, SELFPAY ==
[2021-06-10 09:48] VITALS: BMI 32.6
[2021-10-17 20:52] VITALS: BP 114/64; PULSE 74; RESP 18; TEMP 37.7; O2SAT 94; BMI 30.7
[2021-10-17 20:55] VITALS: BP 114/64; PULSE 74; RESP 18; TEMP 37.7; O2SAT 94
--- NOTE | 2021-10-17 21:04 | EKG12_ITS ---
Test Reason : WEAKNESS Blood Pressure : / mmHG Vent. Rate : 072 BPM Atrial Rate : 072 BPM P-R Int : 132 ms QRS Dur : 106 ms QT Int : 542 ms P-R-T Axes : 058 -25 043 degrees QTc Int : 593 ms Normal sinus rhythm Inferior infarct , age undetermined Abnormal ECG NONSPECIFIC ST/T WAVE ABNORMALITY Confirmed by JUANA BEAR, PILAR ([id number]), general expeditor TRUE DENT ([id number]) on 10/21/2021 10:15:37 AM Referred By: RAYMON Confirmed By:PILAR ARIAS MD
--- NOTE | 2021-10-17 21:07 | EX.ED.GENINJ ---
HPI History of Present Illness Chief Complaint: Nausea/Vomiting Narrative Narrative: 61-year-old female presenting with a month and a half of intermittent nausea vomiting, generalized weakness, cough. Family states that she has been having difficulty staying awake. Initially was thought by her PCP that her fatigue was due to Trintellix and this was discontinued and had no change. Family states that she sleeps basically most of the day. She has trouble staying awake. When they try to FaceTime her from home she drops the phone and falls asleep. Patient was given a pulmonary function test in office and states she did poorly at it. She was not referred to pulmonology. Her primary care physician told her that she needed to see a visitor services assistant. They were out of office all week and they could not get an appointment. Patient is not having any chest pain. [facility] Medical History Anxiety Anxiety and depression Arthritis Atherosclerotic heart disease of [place] coronary artery without angina pectoris Atrial flutter with rapid ventricular response (11/10/20) Cardiogenic shock Carotid stenosis Chronic back pain Chronic diastolic heart failure Debility Debility Depression Encephalopathy Essential (primary) hypertension Fatigue GERD (gastroesophageal reflux disease) History of ST elevation myocardial infarction (STEMI) (11/07/20) Hyperlipidemia Hypothyroidism Insomnia Intertriginous dermatitis associated with moisture Lumbar canal stenosis Lumbar degenerative disc disease Lumbar radiculopathy, chronic Multiple thyroid nodules Neuropathic pain 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) Rectal prolapse Segmental and somatic dysfunction of lumbar region Segmental and somatic dysfunction of pelvic region Segmental and somatic dysfunction of thoracic region Shortness of breath Sigmoid diverticulitis Skin lesions Type 2 diabetes mellitus Ventricular tachycardia Home Medications aspirin 81 mg PO DAILY@0800 11/26/13 [History Last Taken 02/20/17] cholecalciferol (vitamin D3) 2,000 unit PO DAILY 02/21/17 [History Last Taken 02/21/17] vitamin B complex 1 tab PO DAILY 10/31/18 [History Last Taken Unknown] acetaminophen 1,000 mg PO Q6H PRN tab 11/18/20 [Rx Last Taken Unknown] baclofen 10 mg PO QHS #30 tab 11/18/20 [Rx Last Taken Unknown] amiodarone 200 mg tablet 200 mg PO DAILY #90 tab 12/05/20 [Rx Last Taken Unknown] lorazepam 0.5 mg tablet 0.5 mg PO DAILY PRN 12/05/20 [History Last Taken Unknown] omeprazole 40 mg capsule,delayed release 40 mg PO DAILY cap 12/05/20 [History Last Taken Unknown] potassium chloride 20 mEq tablet,extended release(part/cryst) 40 meq PO DAILY #60 tab 01/24/21 [Rx Last Taken Unknown] clopidogrel 75 mg tablet 75 mg PO DAILY tablet 02/04/21 [History Last Taken Unknown] tramadol 50 mg tablet 50 mg PO DAILY PRN tab 03/27/21 [History Last Taken Unknown] isosorbide mononitrate 30 mg tablet,extended release 24 hr 30 mg PO BID #180 tab 06/10/21 [Rx Last Taken Unknown] walker #1 ea 08/13/21 [Rx Last Taken Unknown] metoprolol tartrate 25 mg tablet 12.5 mg PO BID #30 tab 08/20/21 [Rx Last Taken Unknown] duloxetine 60 mg capsule,delayed release 60 mg PO DAILY cap 09/14/21 [History Last Taken Unknown] sitagliptin 100 mg tablet 100 mg PO DAILY tab 09/14/21 [History Last Taken Unknown] trazodone 100 mg tablet 100 mg PO QHS PRN 09/14/21 [History Last Taken Unknown] furosemide 40 mg tablet 80 mg PO BID tab 09/15/21 [History Last Taken Unknown] levothyroxine 50 mcg tablet 50 mcg PO DAILY #90 tab 09/16/21 [Rx Last Taken Unknown] gabapentin 300 mg capsule 300 mg PO BID #60 cap 09/22/21 [Rx Last Taken Unknown] sertraline 50 mg tablet 50 mg PO QDAY #30 tab 09/22/21 [Rx Last Taken Unknown] Allergy/AdvReac Type Severity Reaction Status Date / Time adhesive tape Allergy Unknown Rash Verified 10/17/21 20:54 latex Allergy Unknown Rash Verified 10/17/21 20:54 Penicillins Allergy Rash Verified 10/17/21 20:54 Family History Other Arthritis CVA (cerebral vascular accident) Cancer Surgical History History of cholecystectomy History of coronary artery stent placement (11/07/20) S/P foot surgery S/P Mohs surgery for basal cell carcinoma Status post biopsy of thyroid gland (10/2018) Social History Smoking Status: Current every day smoker tobacco type: e-cigarettes Tobacco: How many years used: 50 Electronic Cigarette Use: with nicotine alcohol intake: never substance use type: does not use caffeine: Yes Type: coffee Number of servings: 1 what type of physical activity do you participate in: none ROS ROS ED ROS Narrative Generalized weakness Constitutional Constitutional ED: Denies chills or fever(s) Eyes Eyes: Denies blurry vision or change in vision ENT ENT ED: Denies rhinorrhea or sore throat Cardiovascular Cardiovascular: Denies palpitations or racing heartbeat Respiratory/Chest Respiratory/Chest: Reports cough and dyspnea Gastrointestinal Gastrointestinal: Reports nausea and vomiting; Denies abdominal pain Genitourinary Genitourinary ED: Denies dysuria or hematuria Musculoskeletal Musculoskeletal: Denies arthralgias or myalgias Integumentary Denies rash Neurologic Neurologic: Denies headache(s) or paresthesias Psychiatric Psychiatric: Denies anxiety or depression EXAM Physical Exam Const Vital Signs: 10/17/21 20:52 10/17/21 20:55 10/17/21 22:34 Temperature 100 F H 100 F H Temperature Source Oral Oral Pulse Rate 74 74 Pulse Rate [14] 62 Pulse Rate [6] 149 H Respiratory Rate 18 18 Respiratory Rate [14] 17 Respiratory Rate [6] 36 H Blood Pressure 114/64 114/64 Blood Pressure [14] 73/14 L Blood Pressure [6] 58/22 L Blood Pressure Mean 80 80 Pulse Ox 94 94 Oxygen Delivery Method Room Air 10/17/21 23:07 10/17/21 23:11 10/17/21 23:14 Temperature Temperature Source Pulse Rate 57 L 50 L 48 L Pulse Rate [14] Pulse Rate [6] Respiratory Rate 13 16 0 L Respiratory Rate [14] Respiratory Rate [6] Blood Pressure 98/52 L 62/48 L 50/32 L Blood Pressure [14] Blood Pressure [6] Blood Pressure Mean 67 52 38 Pulse Ox Oxygen Delivery Method Ambu-Bag Ambu-Bag Positive well nourished General Appearance ED: NAD HEENT normocephalic and atraumatic Mouth ED: Yes moist mucous membranes normal Eyes PERRL Resp normal respiratory effort and clear to auscultation bilaterally Cardio regular rhythm Rate: regular rate GI normal to inspection, nondistended, normoactive bowel sounds Extremity General Extremety ED: Negative for tenderness Neuro oriented x3 Sensorium / Orientation: alert Psych mental status grossly normal and thought process normal Skin no rashes or lesions noted and No no jaundice Rashes: No rashes noted MDM MDM MDM Narrative Medical decision making narrative: Patient presenting with multiple complaints mostly fatigue and weakness. She does have a cough. Her daughter is concerned that she is more tired throughout the month. I obtained an initial EKG which was a sinus rhythm at 72 bpm without sign of ischemic change. Chest x-ray on my interpretation shows bilateral upper lobe infiltrates. The radiologist does agree. Radiologist does think this could be viral as well. Rapid Covid was negative. White blood cell count was elevated at 14.6. Hemoglobin hematocrit are stable. Creatinine is slightly elevated 1.48 over previous admission. Her potassium is low at 3.1. Urinalysis negative for infection. BNP was elevated without evidence of heart failure on x-ray. She is not hypoxic or tachypneic. I do an ammonia level to see if that was causing her to be tired and confused and this was normal. Unexpectedly I was called to the room and the patient was in V. fib arrest and was pulseless. She was given 2 g of mag and then ACLS protocol was followed. Patient did have ROSC and had another EKG performed which appeared to be a junctional rhythm at a rate of 86 bpm without visualized P waves. Patient's blood pressure was initially low and then came up to 101 systolic. She was intubated but had a difficult intubation due to her airway anatomy. Crary scope was used and on the second pass was successful with the help of my partner Dr. Kebede. Patient then eventually went into V. fib arrest again. ACLS was followed. She was given amiodarone 300 mg. Bedside ultrasound used to evaluate patient's cardiac rhythm and she does have faint cardiac motion and she does have periodic pulses. Her blood pressure is slowly dropping as well as her heart rate. I spoke with her daughter who had spoken to her brother and her sister and they did not want to continue CPR. At this point the patient's daughter told me that she was a DNR and that she just forgot. She does not have this documentation but given that the family is in agreement I think this is reasonable. Patient's daughters are at the bedside. Patient sent home blood pressure and a pulse at 1129 time of was called. Impression: 1. Weakness 2. V. fib arrest 3. Dehydration 4. Hypokalemia 5. Pneumonia 6. Leukocytosis Lab Data Labs: Laboratory Results - last 24 hr 10/17/21 10/17/21 10/17/21 21:20 21:35 21:35 WBC 14.6 H RBC 5.42 H Hgb 12.9 Hct 43.0 MCV 79.3 L MCH 23.8 L MCHC 30.0 L RDW Std Deviation 51.7 H RDW Coeff of [place] 18.7 H Plt Count 344 MPV 11.6 Immature Gran % (Auto) 0.500 Neut % (Auto) 83.6 H Lymph % (Auto) 9.4 L [place] % (Auto) 6.1 Eos % (Auto) 0.1 Baso % (Auto) 0.3 Absolute Neuts (auto) 12.3 H Absolute Lymphs (auto) 1.37 Nucleated RBC % 0 Sodium 142 Potassium 3.1 L Chloride 104 Carbon Dioxide 30.0 Anion Gap 8 BUN 20 H Creatinine 1.48 H Estim Creat Clear Calc 29.68 Est GFR (MDRD) Af Amer 45 L Est GFR (MDRD) Non-Af 37 L BUN/Creatinine Ratio 13.5 Glucose 116 H Calcium 10.5 H Magnesium Total Bilirubin 0.80 AST 23 ALT 16 Alkaline Phosphatase 79 Ammonia Total Creatine Kinase Troponin I High Sens 37 B-Natriuretic Peptide Total Protein 7.8 Albumin 2.7 L Globulin 5.1 H Albumin/Globulin Ratio 0.5 L Urine Color Yellow Urine Clarity Sl. Cloudy Urine pH 5.0 Ur Specific [place] 1.020 Urine Protein 15 H Urine Glucose (UA) Normal Urine Ketones Negative Urine Occult Blood Negative Urine Nitrite Negative Urine Bilirubin Negative Urine Urobilinogen Normal Ur Leukocyte Esterase Negative Urine RBC 0 SEEN Urine WBC 0-5 SEEN Ur Squamous Epith Cells 0 SEEN Calcium Oxalate Crystal 1+ Uric Acid Crystals RARE Amorphous Sediment 1+ Urine Bacteria 0 SEEN Hyaline Casts 0-5 SEEN Urine Mucus 1+ 10/17/21 10/17/21 10/17/21 21:35 21:35 21:35 WBC RBC Hgb Hct MCV MCH MCHC RDW Std Deviation RDW Coeff of [place] Plt Count MPV Immature Gran % (Auto) Neut % (Auto) Lymph % (Auto) [place] % (Auto) Eos % (Auto) Baso % (Auto) Absolute Neuts (auto) Absolute Lymphs (auto) Nucleated RBC % Sodium Potassium Chloride Carbon Dioxide Anion Gap BUN Creatinine Estim Creat Clear Calc Est GFR (MDRD) Af Amer Est GFR (MDRD) Non-Af BUN/Creatinine Ratio Glucose Calcium Magnesium 2.3 Total Bilirubin AST ALT Alkaline Phosphatase Ammonia < 10.0 L Total Creatine Kinase 64 Troponin I High Sens B-Natriuretic Peptide 375.3 H Total Protein Albumin Globulin Albumin/Globulin Ratio Urine Color Urine Clarity Urine pH Ur Specific [place] Urine Protein Urine Glucose (UA) Urine Ketones Urine Occult Blood Urine Nitrite Urine Bilirubin Urine Urobilinogen Ur Leukocyte Esterase Urine RBC Urine WBC Ur Squamous Epith Cells Calcium Oxalate Crystal Uric Acid Crystals Amorphous Sediment Urine Bacteria Hyaline Casts Urine Mucus Radiography Diagnostic Testing: Clinical Impression(s) from Imaging Studies Chest X-Ray 10/17/21 21:53 IMPRESSION: Ill-defined bilateral upper lobe infiltrates suggesting pneumonia, including viral causes. Electronically Signed: Kip Kaufman MD (Brooks) at 22:19 EST , Service support , Discharge Plan Triage Chief Complaint: Nausea/Vomiting ED Provider: Deshawn Miller Dx/Rx/DC Orders Prescriptions: No Action vitamin B complex [B Complex-Vitamin B12] tablet 1 tab PO DAILY RF: 0 lorazepam 0.5 mg tablet 0.5 mg PO DAILY PRN (Reason: Anxiety) RF: 0 omeprazole 40 mg capsule,delayed release(DR/EC) 40 mg PO DAILY RF: 0 amiodarone 200 mg tablet 200 mg PO DAILY Qty: 90 RF: 2 clopidogrel 75 mg tablet 75 mg PO DAILY RF: 0 tramadol 50 mg tablet 50 mg PO DAILY PRN (Reason: Pain) RF: 0 duloxetine 60 mg capsule,delayed release(DR/EC) 60 mg PO DAILY RF: 0 Januvia 100 mg tablet 100 mg PO DAILY RF: 0 trazodone 100 mg tablet 100 mg PO QHS PRN (Reason: Sleep) RF: 0 furosemide 40 mg tablet 80 mg PO BID RF: 0 sertraline 50 mg tablet 50 mg PO QDAY Qty: 30 RF: 1 gabapentin 300 mg capsule 300 mg PO BID Qty: 60 RF: 1 aspirin 81 MG tablet,chewable 81 mg PO DAILY@0800 RF: 0 cholecalciferol (vitamin D3) 2,000 UNIT capsule 2,000 unit PO DAILY RF: 0 acetaminophen 500 MG tablet 1,000 mg PO Q6H PRN (Reason: Pain Score 1-5) RF: 0 baclofen 10 MG tablet 10 mg PO QHS Qty: 30 RF: 0 potassium chloride 20 mEq tablet,ER particles/crystals 40 meq PO DAILY Qty: 60 RF: 2 isosorbide mononitrate 30 mg tablet extended release 24 hr 30 mg PO BID Qty: 180 RF: 3 (DME) Ultra-Light Rollator Misc See Rx Instructions .ROUTE .MEDSUPPLY Qty: 1 RF: 1 metoprolol tartrate 25 mg tablet 12.5 mg PO BID Qty: 30 RF: 1 levothyroxine 50 mcg tablet 50 mcg PO DAILY Qty: 90 RF: 1 Primary Care Provider: Breezy Rivera
[2021-10-17 21:53] LABS: Absolute Lymphocyte Count 1.37 X10^3/uL (0.83-4.51); Absolute Neutrophil Count 12.3 X10^3/uL (2.0-7.7); Basophil# 0.05 X10^3/uL; Basophil% 0.3 % (0-1); Eosinophil# 0.01 X10^3/uL; Eosinophils% 0.1 % (0-5); Hemoglobin 12.9 g/dL (12.0-15.0); Lymphocyte # 1.37 X10^3/ul (0.83-4.51); Lymphocyte % 9.4 % (19-41); Mean Corpuscular Hgb 23.8 pg (27.0-32.0); Mean Corpuscular Volume 79.3 fL (81-99); Mean Platelet Vol. 11.6 fl (6.2-12.0); Monocyte# 0.89 X10^3/uL; Monocyte% 6.1 % (0-10); NRBC Flagged by Analyzer 0 % (0-5); Neutrophil # 12.25 X10^3/uL (2.7-7.7); Neutrophil % 83.6 % (47-70); Platelet Count 344 K/mm3 (150-450); RBC Distribution Width CV 18.7 % (11.6-14.6); RBC Distribution Width SD 51.7 fl (35.1-43.9); Red Blood Count 5.42 M/mm3 (4.2-5.4); White Blood Count 14.6 K/mm3 (4.4-11.0)
--- NOTE | 2021-10-17 21:53 | RAD_ITS ---
STUDY: X-RAY CHEST REASON FOR EXAM: Female, 71 years old. cough TECHNIQUE: AP COMPARISON: 03/04/2021 FINDINGS: EKG leads project over the chest. Ill-defined round glass and interstitial opacities predominantly in the upper lungs new since the prior study. There is no demonstrated pleural abnormality. Normal size heart. Normal mediastinum and suleiman. Normal visualized pulmonary arteries. There is atherosclerotic calcification of the aortic arch with tortuosity. Normal visualized thoracic spine. Normal visualized ribs, clavicles, and shoulders. There is no demonstrated abnormality of the visualized soft tissue structures of the upper abdomen. RAD/Chest 1 View (Portable) IMPRESSION: Ill-defined bilateral upper lobe infiltrates suggesting pneumonia, including viral causes. Electronically Signed: Kip Kaufman MD (Brooks) at 22:19 EST , Service support ,
[2021-10-17 22:13] LABS: ALB/GLOB Ratio 0.5 RATIO (0.9-2.4); AST(SGOT) 23 U/L (15-37); Alanine Aminotransfer ALT/SGPT 16 U/L (13-56); Albumin, Serum 2.7 g/dL (3.2-5.0); Alkaline Phosphatase 79 U/L (45-117); Anion Gap 8 (5-15); BUN 20 mg/dL (7-18); BUN/Creat Ratio 13.5 RATIO (10-20); Calcium,Total 10.5 mg/dL (8.5-10.1); Chloride 104 mmol/L (98-107); Creatinine, Serum 1.48 mg/dL (0.55-1.02); EST Glomerular Filtration Rate 37 mL/min (>60); Est Glom Filt Rate - Afr Amer 45 mL/min (>60); Estimated Creatinine Clearance 29.68 ml/min; Globulin 5.1 g/dL (2.2-4.2); Glucose 116 mg/dL (74-106); Potassium 3.1 mmol/L (3.5-5.1); Protein, Total 7.8 g/dL (6.4-8.2); Sodium Level 142 mmol/L (136-145); Troponin-I HS 37 pg/mL (3.0-54.0)
[2021-10-17 22:21] LABS: CPK Total, Creatine Kinase 64 U/L (26-192)
[2021-10-17 22:26] LABS: Bacteria 0 SEEN /hpf (None Seen); Red Blood Cells-Urine 0 SEEN /hpf (0-5); Squamous Epithelial Cells - UA 0 SEEN /hpf (5-10)
[2021-10-17 22:30] LABS: Color, Urine Yellow (Yellow); Glucose, Dipstick Normal (Normal); Ketone-Dipstick Negative (Negative); Leukocyte Esterase-Dipstick Negative /ul (Negative); Nitrite-Dipstick Negative (Negative); Occult Blood-Urine Negative /ul (Negative); Protein-Dipstick 15 mg/dl (Negative); Urine Bilirubin Dipstick Negative (Negative); Urine Clarity Sl. Cloudy (Clear); Urine Urobilinogen Normal (Normal)
[2021-10-17 22:34] VITALS: BP 58/22; BP 73/14; PULSE 149; PULSE 62; RESP 17; RESP 36
[2021-10-17 22:43] LABS: Ammonia < 10.0 umol/L (11-32); BNP,B-Type NATRIURETIC PEPTIDE 375.3 pg/mL (0-100)
[2021-10-17 22:46] LABS: Uric Acid Crystals Ur RARE /hpf (<or=1+)
[2021-10-17 22:47] LABS: Amorphous Sediment 1+; Mucous, Urine 1+ /hpf (<or=2+)
--- NOTE | 2021-10-17 22:50 | EKG12_ITS ---
Test Reason : CADIAC ARREST Blood Pressure : / mmHG Vent. Rate : 086 BPM Atrial Rate : 094 BPM P-R Int : 000 ms QRS Dur : 154 ms QT Int : 462 ms P-R-T Axes : 000 -41 147 degrees QTc Int : 552 ms Undetermined rhythm ,consider sinus rhythm with prolonged CT interval Left axis deviation Non-specific intra-ventricular conduction block Inferior infarct , age undetermined Marked T wave abnormality, consider anterolateral ischemia Abnormal ECG Confirmed by JUANA BEAR, PILAR ([id number]), communications editor TRUE DENT ([id number]) on 10/23/2021 11:04:28 AM Referred By: DR ENNIS Confirmed By:PILAR ARIAS MD
[2021-10-17 22:51] LABS: Calcium Oxalate Crystals Ur 1+ /hpf (<or=2+); Hyaline Cast 0-5 SEEN /lpf (0-5); White Blood Cells 0-5 SEEN /hpf (0-5)
[2021-10-17 23:07] VITALS: BP 98/52; PULSE 57; RESP 13
[2021-10-17 23:11] VITALS: BP 62/48; PULSE 50; RESP 16
--- NOTE | 2021-10-17 23:12 | ED.RN ---
family called to the bedside, informed patients HR is slowing and BP is getting lower and that patient may pass soon.
[2021-10-17 23:14] VITALS: BP 50/32; PULSE 48; RESP 0
--- NOTE | 2021-10-17 23:16 | ED.RN ---
patient not breathing on her own, no peripheral pulses but patient still has some quivering heart activity on ultrasound.
[2021-10-17 23:20] LABS: Magnesium 2.3 mg/dL (1.6-2.6)
--- NOTE | 2021-10-17 23:31 | ED.RN ---
pt. asystole on the monitor dr. chris into room. family at bedside dr. chris calls time of 0623. emotional support provided.
--- NOTE | 2021-10-17 23:49 | ED.RN ---
APPROXIMATELY 1500ML FLUID GIVEN
== END 2021-10-17 23:29 ==
PROVIDERS: Emergency Provider Student in an Organized Health Care Education/Training Program; PCP Internal Medicine
DX: I49.01 Ventricular fibrillation (principal); I47.2 Ventricular tachycardia; E86.0 Dehydration; E87.6 Hypokalemia; J18.9 Pneumonia, unspecified organism; R11.2 Nausea with vomiting, unspecified; R05.9 Cough, unspecified; F32.A Depression, unspecified; F41.9 Anxiety disorder, unspecified; M19.90 Unspecified osteoarthritis, unspecified site; I25.10 Atherosclerotic heart disease of native coronary artery without angina pectoris; I65.29 Occlusion and stenosis of unspecified carotid artery; I11.0 Hypertensive heart disease with heart failure; I50.32 Chronic diastolic (congestive) heart failure; I25.2 Old myocardial infarction; K21.9 Gastro-esophageal reflux disease without esophagitis; E03.9 Hypothyroidism, unspecified; E11.9 Type 2 diabetes mellitus without complications; E78.5 Hyperlipidemia, unspecified; F17.290 Nicotine dependence, other tobacco product, uncomplicated; G47.00 Insomnia, unspecified; G89.29 Other chronic pain; M48.061 Spinal stenosis, lumbar region without neurogenic claudication; M51.16 Intervertebral disc disorders with radiculopathy, lumbar region; M99.05 Segmental and somatic dysfunction of pelvic region; Z79.82 Long term (current) use of aspirin; Z79.84 Long term (current) use of oral hypoglycemic drugs; Z79.899 Other long term (current) drug therapy
CPT/HCPCS: 31500; 71045; 80053; 81001; 82140; 82550; 83735; 83880; 84484; 85025; 87426; 92950; 93005; 99284; J7030; A4216; J3475